=== PATIENT | male | born 1935 | race Caucasian/White ===

== ENCOUNTER 2017-03-06 09:24 | Emergency (ER) | payer MEDICARE, MEDICAID ==
[~2017-03-06] VITALS: Ht 167.6 cm; Wt 65.8 kg
[~2017-03-06 09:24] MED LIST: BISACODYL5 MG ORAL; CARAFATE1 G1 ORAL; CARBIDOPA-LEVO1 EAC1 PO; CEPHALEXIN500 M1 ORAL; CITALOPRAM HBR10 M1 ORAL; CRANBERRY CONC1 EAC1 PO; CULTURELLE1 EACH ORAL; DAILY VITAMIN1 EAC4 ORAL; DILANTIN50 MG ORAL; DOCUSATE SODIU100 MG ORAL; ENSURE LIQUID237 ML PO; FLOMAX0.4 MG ORAL; KEPPRA500 MG ORAL; LEVAQUIN750 MG ORAL; LEVOTHYROXINE25 MCG ORAL; MONTELUKAST SOD10 MG ORAL; PANTOPRAZOLE SO40 MG ORAL; QUETIAPINE FUMA50 MG ORAL; RANITIDINE HCL150 M2 PO; RISPERDAL0.5 MG ORAL; SENNA LAX8.6 MG PO; SINEMET 25-1001 EAC1 ORAL; SINEMET CR 50-1 EACH ORAL; VITAMIN D250000 UNI1 ORAL; [UNRECOGNIZED DRUG - OTHER] PO
[2017-03-06] MEDS ORDERED: LEVOTHYROXINE125 MCG ORAL (10:03)
[2017-03-06] MEDS ORDERED: BETHANECHOL CHL10 MG ORAL (10:03)
[2017-03-06] MEDS ORDERED: CRANBERRY200 M1 PO (10:03)
[2017-03-06] MEDS ORDERED: ZINC SULFATE220 M1 ORAL (10:03)
[2017-03-06] MEDS ORDERED: VITAMIN C500 MG/11 PO (10:03)
[2017-03-06] MEDS ORDERED: CULTURELLE CAP1 EAC1 PO (10:03)
[2017-03-06] MEDS ORDERED: OMEGA 3 1,0001 EACH PO (10:03)
--- NOTE | 2017-03-06 10:35 | Diagnostic Imaging Report ---
Indications: Left hand trauma Technique: 4 views left hand Findings: Comparison: None The fifth middle phalanx demonstrates complete bone width ulnar displacement relative to the proximal phalanx, with overriding and virtually 90? angulation. Surrounding soft tissues are swollen. No obvious fracture identified. No soft tissue gas or foreign body. IMPRESSION: Dislocation of the fifth proximal interphalangeal joint as described
--- NOTE | 2017-03-06 11:28 | Emergency Room Report ---
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 There was no reports of head injury no reports of vomiting or diarrhea Allergies: Coded Allergies: No Known Allergies (Verified , 02/21/07) Patient History Limited by: medical condition Past Medical History: see triage record Pertinent Family History: unable to obtain Reviewed Nursing Documentation: PMH: Agreed, PSxH: Agreed Nursing Documentation-PMH Hx Hypertension: Yes Hx COPD: Yes Hx Diabetes: No - hypothyroid Hx Cancer: No Hx Gastrointestinal Problems: Yes - GERD History Of Psychiatric Problem: Yes Hx Neurological Problems: Yes - Parkinson's Hx Parkinson's Disease: Yes Hx Seizures: Yes Review of Systems All Other Systems: limited - Other than the ones mentioned in the history of present illness all others are reviewed however they do stay limited due to the patient's mental status Physical Exam Vital Signs Date Time Temp Pulse Resp B/P Pulse Ox O2 Delivery O2 Flow Rate FiO2 03/06/17 09:28 98.1 68 20 129/60 100 Room Air Sp02 EP Interpretation: reviewed, normal General Appearance: no apparent distress Head: normocephalic, atraumatic Eyes: bilateral eye PERRL ENT: no angioedema Respiratory: lungs clear Cardiovascular #1: regular rate, rhythm Gastrointestinal: non tender, soft Musculoskeletal: other - Patient has gross deformity to the left small finger at the distal aspect pointing laterally no obvious laceration Neurologic: other - Patient is not verbal, significant dementia Skin: other - No other obvious hematomas or bruising Lymphatic: no adenopathy Procedures Splinting Splinting : Consent: Emergent Location: left small finger Pre-Made Type: metal Splint: finger Pre-Proc Neuro Vasc Exam: normal Post-Proc Neuro Vasc Exam: normal Patient Tolerated: Well Complications: None Joint Reduction Joint Reduction : Consent: Emergent Joint Reduction Site: other - left small finger Procedural Sedation: No Reduction Attempts: One Pre-Procedure NV Exam: Yes Post-Procedure NV Exam: Yes Post Joint Reduction Film: joint reduced Patient Tolerated: Well Complications: None Progress With mild traction and medial maneuvering the distal aspect of the left finger was reduced clinically Medical Decision Making Diagnostic Impression: Primary Impression: finger dislocation Additional Impression: reduction of dislocation ER Course Given the patient's multiple medical conditions, given the presentation and the appearance, further procedural sedation was not performed, patient had reduction as noted above and tolerated the procedure well Imaging reveals appropriate reduction And patient is stable for close outpatient followup Other X-Ray Diagnostic Results Other X-Ray Diagnostic Results #1: # of Views/Limited Vs Complete: 3 View Indication: Pain EP Interpretation: Yes Interpretation: no fractures, other - Distal dislocation laterally, no obvious foreign body Impression: Other - finger dislocation Interpreting ER Provider: Katina Wise DO Other X-Ray Diagnostic Results #2: # of Views/Limited Vs Complete: 2 View Indication: Other - reduction EP Interpretation: Yes Interpretation: no dislocation, no soft tissue swelling, no fractures, other - reduction Impression: No acute disease Interpreting ER Provider: Katina Wise DO Last Vital Signs Date Time Temp Pulse Resp B/P Pulse Ox O2 Delivery O2 Flow Rate FiO2 03/06/17 09:28 98.1 68 20 129/60 100 Room Air Status: improved Disposition: HOME, SELF-CARE Condition: Improved Referrals: Shayla Gandhi MD (PCP) Patient Instructions: Finger or Thumb Dislocation, [id number] Additional Instructions: Patient is provided with the discharge instructions notified to follow up with primary doctor in the next 2-3 days otherwise return to the er with any worsening symptoms. Please note that this report is being documented using DRAGON technology. This can lead to erroneous entry secondary to incorrect interpretation by the dictating instrument. KATINA WISE D.O. Mar 06, 2017 11:28
[2017-03-06 11:52] VITALS: BP 118/76
[2017-03-06 11:57] VITALS: BP 118/76
--- NOTE | 2017-03-06 12:39 | Diagnostic Imaging Report ---
Indications: Status post closed reduction of dislocated left fifth proximal interphalangeal joint Technique: Views left hand at 1055 Findings: Comparison: 1004 Left fifth proximal and middle phalanges are now anatomically aligned. Tiny calcific versus ossific density projects immediately lateral to the head of the fifth proximal phalanx. No additional fracture identified. Surrounding soft tissues are swollen. Splint has been applied. IMPRESSION: Successful anatomic closed reduction of dislocated left fifth proximal phalangeal joint Questionable tiny avulsion fracture adjacent to fifth proximal phalangeal head
== END 2017-03-06 12:01 | disposition home or self-care (01) ==
LOC: EMR 10:17
DX: S63.287A Dislocation of proximal interphalangeal joint of left little finger, initial encounter (principal); W19.XXXA Unspecified fall, initial encounter; Y92.10 Unspecified residential institution as the place of occurrence of the external cause; G20 Parkinson's disease; F02.80 Dementia in other diseases classified elsewhere, unspecified severity, without behavioral disturbance, psychotic disturbance, mood disturbance, and anxiety; J44.9 Chronic obstructive pulmonary disease, unspecified; I10 Essential (primary) hypertension; K21.9 Gastro-esophageal reflux disease without esophagitis
CPT/HCPCS: 99284

== ENCOUNTER 2018-01-23 09:00 | Inpatient (IN) | payer MEDICARE, MEDICAID ==
[~2018-01-23] VITALS: Ht 172.7 cm; Wt 57.6 kg
[~2018-01-23 09:00] MED LIST changes: +BETHANECHOL CHL10 MG ORAL; +CRANBERRY200 M1 PO; +CULTURELLE CAP1 EAC1 PO; +LEVOTHYROXINE125 MCG ORAL; +LR 1000ml ONE; +NS Irrig 1000ml ONE; +OMEGA 3 1,0001 EACH PO; +Sterile Water Irrig 1000ml IRRIG ONE; +VITAMIN C500 MG/11 PO; +ZINC SULFATE220 M1 ORAL
[2018-01-23] MEDS ORDERED: LORazepam Inj 2mg/ml 1ml IV ONE (10:00)
--- NOTE | 2018-01-23 10:14 | Emergency Room Report ---
History of Present Illness General Chief Complaint: Choking Source: Patient, Medical Record Present Illness HPI 82-year-old male presents ED for evaluation. Patient had choking episode today at his assisted living. Witnessed by nurses. Patient has dementia but is able to speak. Speaking without difficulty. Is drooling which is at patient's baseline. O2 sats are okay. No signs of distress upon arrival. Patient unable provide any additional history at this time. No other aggravating relieving factors. Denies any other associated symptoms Allergies: Coded Allergies: No Known Allergies (Verified , 02/21/07) Patient History Past Medical History: HTN, COPD, seizures, other - parkinsons Past Surgical History: none Pertinent Family History: none Social History: Denies: smoking, alcohol use, drug use Immunizations: UTD Reviewed Nursing Documentation: PMH: Agreed; PSxH: Agreed Nursing Documentation-PMH Hx Cardiac Problems: No - HYPOTHYROIDISM BPH COPD PARKINSONS GERD Hx Hypertension: Yes Hx COPD: Yes Hx Diabetes: No - hypothyroid Hx Cancer: No Hx Gastrointestinal Problems: Yes - GERD Hx Neurological Problems: Yes - Parkinson's Hx Parkinson's Disease: Yes Hx Seizures: Yes Review of Systems All Other Systems: limited Physical Exam Vital Signs Date Time Temp Pulse Resp B/P (MAP) Pulse Ox O2 Delivery O2 Flow Rate FiO2 01/23/18 08:59 98.7 68 20 128/48 100 Room Air 98.8 Sp02 EP Interpretation: reviewed, normal General Appearance: no apparent distress, alert, GCS 15, non-toxic, other - dementia Head: normocephalic Eyes: bilateral eye normal inspection, bilateral eye PERRL ENT: normal ENT inspection Neck: full range of motion, supple/symm/no masses, other - no stridor Respiratory: chest non-tender, lungs clear, normal breath sounds, speaking full sentences Cardiovascular #1: regular rate, rhythm, no edema Gastrointestinal: normal inspection Rectal: deferred Genitourinary: no CVA tenderness Musculoskeletal: normal inspection Neurologic: other - tremulous Psychiatric: other - dementia/parkinsons Skin: normal inspection Lymphatic: normal inspection Medical Decision Making Diagnostic Impression: Primary Impression: Choking Qualified Codes: T17.308A - Unspecified foreign body in larynx causing other injury, initial encounter Additional Impression: Foreign body ingestion Qualified Codes: T18.9XXA - Foreign body of alimentary tract, part unspecified , initial encounter ER Course Hospital Course 82-year-old M presenting to ED with respiratory distress, ? choking episode Differential diagnoses include: Pneumonia, CHF exacerbation, pneumothorax, fluid overload Clinical course Patient placed on stretcher. On night monitor. After initial history and physical, I suctioning. I ordered labs, IV fluids, EKG, chest x-ray, blood cultures, UA. Patient placed on nasal cannula with O2 saturation improving Patient has no evidence of airway compromise. No stridor. Lungs sounds bilaterally. Labs -no leukocytosis, hemoglobin/hematocrit stable, electrolytes okay, lactate okay troponins negative EKG - NSR, no acute ischemic changes interpreted by me CXR - R upper lobe infiltrate CT chest shows evidence of metallic foreign body in the stomach. no perforation or obstruction Case discussed with Dr. Gandhi and he agreed to the patient to his service for further care and support I feel this is a highly complex case requiring extensive working including EKG/ Rhythm strip, Xray/CT/US, Blood/urine lab work, repeat exams while in ED, and administration of strong opiates/narcotics for pain control, admission to hospital or close patient follow up. Diagnosis - choking, foreign body ingestion Patient admitted to telemetry in serious condition Labs Test 01/23/18 09:36 01/23/18 09:50 01/23/18 10:06 01/23/18 13:50 Arterial Blood pH 7.390 (7.350-7.450) Arterial Blood Partial Pressure CO2 44.1 mmHg (35.0-45.0) Arterial Blood Partial Pressure O2 73.2 mmHg (75.0-100.0) Arterial Blood HCO3 26.1 mmol/L (22.0-26.0) Arterial Blood Oxygen Saturation 93.8 % (92.0-98.0) Arterial Blood Base Excess 0.8 Wyatt Test Positive White Blood Count 6.4 K/UL (4.8-10.8) Red Blood Count 4.20 M/UL (4.70-6.10) Hemoglobin 13.7 G/DL (14.2-18.0) Hematocrit 41.0 % (42.0-52.0) Mean Corpuscular Volume 98 FL (80-99) Mean Corpuscular Hemoglobin 32.6 PG (27.0-31.0) Mean Corpuscular Hemoglobin Concent 33.4 G/DL (32.0-36.0) Red Cell Distribution Width 12.0 % (11.6-14.8) Platelet Count 145 K/UL (150-450) Mean Platelet Volume 7.3 FL (6.5-10.1) Neutrophils (%) (Auto) 58.8 % (45.0-75.0) Lymphocytes (%) (Auto) 33.4 % (20.0-45.0) Monocytes (%) (Auto) 4.3 % (1.0-10.0) Eosinophils (%) (Auto) 2.2 % (0.0-3.0) Basophils (%) (Auto) 1.3 % (0.0-2.0) Sodium Level 141 MMOL/L (136-145) Potassium Level 3.9 MMOL/L (3.5-5.1) Chloride Level 105 MMOL/L (98-107) Carbon Dioxide Level 30 MMOL/L (21-32) Anion Gap 6 mmol/L (5-15) Blood Urea Nitrogen 22 mg/dL (7-18) Creatinine 1.0 MG/DL (0.55-1.30) Estimat Glomerular Filtration Rate mL/min (>60) Glucose Level 97 MG/DL (74-106) Lactic Acid Level 2.00 mmol/L (0.4-2.0) Calcium Level 8.6 MG/DL (8.5-10.1) Total Bilirubin 0.3 MG/DL (0.2-1.0) Aspartate Amino Transf (AST/SGOT) 15 U/L (15-37) Alanine Aminotransferase (ALT/SGPT) 18 U/L (12-78) Alkaline Phosphatase 107 U/L (46-116) Total Creatine Kinase 59 U/L (26-308) Creatine Kinase MB 0.7 NG/ML (0.0-3.6) Creatine Kinase MB Relative Index 1.1 Troponin I 0.000 ng/mL (0.000-0.056) Pro-B-Type Natriuretic Peptide 320 pg/mL (0-125) Total Protein 7.0 G/DL (6.4-8.2) Albumin 3.3 G/DL (3.4-5.0) Globulin 3.7 g/dL Albumin/Globulin Ratio 0.9 (1.0-2.7) Urine Color Yellow Urine Appearance Slightly cloudy Urine pH 6 (4.5-8.0) Urine Specific [place] 1.015 (1.005-1.035) Urine Protein Negative (NEGATIVE) Urine Glucose (UA) Negative (NEGATIVE) Urine Ketones 1+ (NEGATIVE) Urine Occult Blood 1+ (NEGATIVE) Urine Nitrite Negative (NEGATIVE) Urine Bilirubin Negative (NEGATIVE) Urine Urobilinogen Normal MG/DL (0.0-1.0) Urine Leukocyte Esterase 1+ (NEGATIVE) Urine RBC 2-4 /HPF (0 - 0) Urine WBC 20-30 /HPF (0 - 0) Urine Squamous Epithelial Cells Occasional /LPF Urine Bacteria Many /HPF (NONE) EKG Diagnostic Results Rate: normal Rhythm: NSR ST Segments: no acute changes ASA given to the pt in ED: No Rhythm Strip Diag. Results EP Interpretation: yes Rhythm: NSR, no PVC's, no ectopy Chest X-Ray Diagnostic Results Chest X-Ray Diagnostic Results : Chest X-Ray Ordered: Yes # of Views/Limited/Complete: 1 View Indication: Shortness of Breath EP Interpretation: Yes Interpretation: no consolidation, no effusion, no pneumothorax, no acute cardiopulmonary disease Impression: No acute disease Electronically Signed by: Electronically signed by Phan Tijerina MD CT/MRI/US Diagnostic Results CT/MRI/US Diagnostic Results : Imaging Test Ordered: CT Chest Impression 5 x 1 x 1.3 cm radiopaque foreign body in the distal part of the stomach. The nature of the foreign body is unknown. Please correlate clinically. No evidence of perforation or obstruction. Last Vital Signs Date Time Temp Pulse Resp B/P (MAP) Pulse Ox O2 Delivery O2 Flow Rate FiO2 01/23/18 08:59 98.7 68 20 128/48 100 Room Air 98.8 Status: improved Disposition: ADMITTED INPATIENT Condition: Serious Referrals: Shayla Gandhi MD (PCP) Phan Tijerina MD Jan 23, 2018 10:14
[2018-01-23 10:25] LABS: BASOPHILS % (AUTO) 1.3 % (0.0-2.0); EOSINOPHILS % (AUTO) 2.2 % (0.0-3.0); HEMOGLOBIN 13.7 G/DL (14.2-18.0); LYMPHOCYTES % (AUTO) 33.4 % (20.0-45.0); MEAN CORPUSCULAR VOLUME 98 FL (80-99); MONOCYTES % (AUTO) 4.3 % (1.0-10.0); NEUTROPHILS % (AUTO) 58.8 % (45.0-75.0); PLATELET COUNT 145 K/UL (150-450); WHITE BLOOD COUNT 6.4 K/UL (4.8-10.8)
[2018-01-23 10:47] LABS: APPEARANCE,URINE SLIGHTLY CLOUDY; BILIRUBIN, URINE NEGATIVE (NEGATIVE); GLUCOSE, URINE (UA) NEGATIVE (NEGATIVE); KETONES,URINE 1+ (NEGATIVE); LEUKOCYTE ESTERASE ,URINE 1+ (NEGATIVE); NITRITE,URINE NEGATIVE (NEGATIVE); PH,URINE 6 (4.5-8.0); PROTEIN,URINE NEGATIVE (NEGATIVE); UROBILINOGEN,URINE NORMAL MG/DL (0.0-1.0)
[2018-01-23 10:50] LABS: COLOR,URINE YELLOW
[2018-01-23 11:00] VITALS: BP 107/56
[2018-01-23 11:00] LABS: ANION GAP 6 mmol/L (5-15); BLOOD UREA NITROGEN 22 mg/dL (7-18); CALCIUM 8.6 MG/DL (8.5-10.1); CARBON DIOXIDE 30 MMOL/L (21-32); CHLORIDE 105 MMOL/L (98-107); POTASSIUM 3.9 MMOL/L (3.5-5.1); SODIUM 141 MMOL/L (136-145)
[2018-01-23] MEDS ORDERED: Sodium Chloride 500ML 500 ML IV ONE (11:00)
--- NOTE | 2018-01-23 11:03 | Diagnostic Imaging Report ---
Indication: Dyspnea Comparison: 08/14/2014 A single view chest radiograph was obtained. Findings: Cardiomediastinal appearance is within normal limits for age. Pulmonary vascularity is appropriate. The diaphragmatic contour is smooth and costophrenic angles are sharp. No pleural effusions are identified. The bones are osteopenic. Impression: No acute findings
[2018-01-23 11:17] LABS: ALANINE AMINOTRANSFERASE 18 U/L (12-78); ALBUMIN 3.3 G/DL (3.4-5.0); ALBUMIN/GLOBULIN RATIO 0.9 (1.0-2.7); ALKALINE PHOSPHATASE 107 U/L (46-116); ASPARTATE AMINO TRANSFERASE 15 U/L (15-37); BILIRUBIN,TOTAL 0.3 MG/DL (0.2-1.0); CKMB 0.7 NG/ML (0.0-3.6); CREATINE KINASE 59 U/L (26-308)
[2018-01-23] MEDS ORDERED: ZOFRAN ODT8 MG ORAL (11:28)
[2018-01-23 13:00] VITALS: BP 118/51
--- NOTE | 2018-01-23 13:45 | Diagnostic Imaging Report ---
Indication: Chest pain. Patient swallowed a foreign body Technique: Continuous helical transaxial imaging of the chest was obtained from the thoracic inlet to the upper abdomen. No intravenous contrast was administered. Coronal 2-D reformats were also obtained. Total Dose length Product (DLP): 593.[address] Dose Index Volume (CTDIvol): 17.98 mGy Comparison: none Findings: The esophagus is mildly dilated. The hiatal hernia is present moderate in degree. Within the distal part of the stomach near the pylorus there is a radiopaque structure the nature of which is not known measuring about 1 x 1.3 x 5 cm. The structure appears to be paired with 2 parallel radiopaque rods, both measuring about 5 cm in length. The stomach does not appear dilated proximal to this as this does not appear to be obstructive. There is no associated perforation identified as no free air is seen. Recommend obtaining plain film as a this may help with identification. Correlate clinically as well. There is a ill-defined reticular density at the right lung base probably atelectasis or scarring. Coronary and aortic calcifications are noted. Mild kyphosis noted. IMPRESSION: 5 x 1 x 1.3 cm radiopaque foreign body in the distal part of the stomach. The nature of the foreign body is unknown. Please correlate clinically. No evidence of perforation or obstruction. Incidental findings include the mildly distended esophagus, hiatal hernia, scarring versus atelectasis at the right lung base, atherosclerotic vascular disease, kyphosis and degenerative changes of the thoracic spine. The CT scanner at [facility] is accredited by the [employer] and the scans are performed using dose optimization techniques as appropriate to a performed exam including Automatic Exposure control.
--- NOTE | 2018-01-23 14:45 | Diagnostic Imaging Report ---
Indication: Neck pain. Technique: Continuous helical imaging of the neck was obtained transaxially from the skull base to the upper thoracic spine. 2-D coronal and sagittal reformatted images were obtained. Total Dose length Product (DLP): 628.[address] Dose Index Volume (CTDIvol): 18.96 mGy Comparison: None Findings: No mass or adenopathy identified. There is mucosal thickening within the visualized portion of the paranasal sinuses. No abnormal fluid collections are seen. Moderate calcification of the carotid bifurcations and the aorta demonstrated. The lung apices are essentially clear. Epiglottis appears normal. Aryepiglottic folds, larynx and subglottic airway appear clear. The visualized part of the upper esophagus appears unremarkable. No radiopaque foreign body is seen. IMPRESSION: No radiopaque foreign body identified within the neck. Incidental findings as above. Please refer to the CT chest report The CT scanner at [facility] is accredited by the [employer] and the scans are performed using dose optimization techniques as appropriate to a performed exam including Automatic Exposure control.
--- NOTE | 2018-01-23 16:54 | GI Initial Consult Note ---
History of Present Illness General Date patient seen: Jan 23, 2018 Time patient seen: 16:48 Reason for Hospitalization: Choking Referring physician: JERRY LA Reason for Consultation: PICA Present Illness HPI 82-year-old male presents ED for evaluation. Patient had choking episode today at his assisted living. Witnessed by nurses. Patient has dementia but is able to speak. Speaking without difficulty. Is drooling which is at patient's baseline. O2 sats are okay. No signs of distress upon arrival. Patient unable provide any additional history at this time. No other aggravating relieving factors. Denies any other associated symptoms. GI consulted for ingestion of foreign body. ROS limited, however the patient is able to answer simple questions. Denies any pain. States he did not eat anything. Pt seen, awake A&OX4 NAD with no active s/sx of N/V/D. Appeared to be anxious. CTAP revealed a 5 x 1 x 1.3 cm radiopaque foreign body in the distal part of the stomach. The nature of the foreign body is unknown. In addition, incidental findings include the mildly distended esophagus, hiatal hernia, scarring versus atelectasis at the right lung base, atherosclerotic vascular disease, kyphosis and degenerative changes of the thoracic spine. Unknown history of endoscopy / colonoscopy. Home Meds Reported Medications Ondansetron Odt* (ZOFRAN ODT*) 8 Mg Tab.rapdis, 8 MG ORAL Q6H PRN for Nausea & Vomiting, #30 TAB 01/23/18 Bethanechol* (BETHANECHOL*) 10 Mg Tablet, 25 MG ORAL FOUR TIMES A DAY, TAB 03/06/17 [place]-3 Fatty Acids/Fish Oil (OMEGA 3 1,000 MG SOFTGEL) 1 Each Capsule, 1 EACH PO BID, CAP 03/06/17 Zinc Sulfate (ZINC SULFATE*) 220 Mg Capsule, 220 MG ORAL DAILY, CAP 0 Refills 03/06/17 Vit C/Ascorbate Ca/Ascorb Sod (VITAMIN C 500 MG/15 ML LIQUID) 500 Mg/15 Ml Liquid, 500 MG PO DAILY, ML 03/06/17 L. Rhamnosus GG/Inulin (Culturelle Capsule) 1 Each Cap.sprink, 1 EACH PO DAILY, CAP 03/06/17 Cranberry Extract (CRANBERRY) 200 Mg Capsule, 200 MG PO DAILY, CAP 03/06/17 Levothyroxine Sodium* (LEVOTHYROXINE SODIUM*) 125 Mcg Tablet, 125 MCG ORAL DAILY , TAB Take in the morning on an empty stomach, at least 30 minutes before food. 03/06/17 Cranberry Conc/Ascorbic Acid (CRANBERRY CONCENTRATE SOFTGEL) 1 Each Capsule, 1 EACH PO DAILY, CAP 08/14/14 Bisacodyl* (DULCOLAX*) 5 Mg Tablet.dr, 5 MG ORAL EVERY 12 HOURS PRN for Constipation, #10 TAB 0 Refills 08/14/14 Quetiapine Fumarate* (QUETIAPINE FUMARATE*) 50 Mg Tablet, 100 MG ORAL BID, TAB 08/14/14 Montelukast Sodium* (MONTELUKAST SODIUM*) 10 Mg Tablet, 10 MG ORAL HS, TAB 08/14/14 Ranitidine HCl (Ranitidine HCl) 150 Mg Tablet, 150 MG PO HS, TAB 08/14/14 Sucralfate* (CARAFATE*) 1 Gm Tablet, 1 GM ORAL FOUR TIMES A DAY, TAB 08/14/14 Carbidopa/Levodopa 25-100 Mg* (SINEMET 25-100 MG TABLET*) 1 Each Tablet, ORAL THREE TIMES A DAY, TAB 08/14/14 Lactobacillus Rhamnosus Gg* (CULTURELLE*) 1 Each Capsule, 1 CAP ORAL BID, CAP 08/14/14 Sennosides (SENNA LAX) 8.6 Mg Tablet, 17.2 MG PO BID, TAB 08/14/14 Phenytoin (Dilantin) 50 Mg Tab, 300 MG ORAL HS, #90 TAB 0 Refills 08/14/14 Ergocalciferol (Vitamin D2)* (VITAMIN D*) 50,000 Unit Capsule, 66592 UNIT ORAL ONCE A WEEK, CAP 02/16/14 Levetiracetam (Keppra) 500 Mg Tab, 500 MG ORAL EVERY 12 HOURS, #50 TAB 0 Refills 02/16/14 Lactose-Free Food (ENSURE LIQUID) 237 Ml Liquid, 237 ML PO BID, ML 02/16/14 Cephalexin* (CEPHALEXIN*) 500 Mg Tablet, 500 MG ORAL Q12HR, #14 CAP 0 Refills 03/10/13 Levofloxacin* (LEVAQUIN*) 750 Mg Tablet, 750 MG ORAL DAILY, TAB 0 Refills 03/10/13 Carbidopa/Levodopa Cr 50-200* (SINEMET CR 50-200 TABLET*) 1 Each Tablet.er, 1 TAB ORAL QHS, TAB 03/10/13 Risperidone* (RISPERDAL*) 0.5 Mg Tablet, 1 MG ORAL BID, #30 TAB 0 Refills 03/10/13 Citalopram Hydrobromide* (CITALOPRAM HBR*) 10 Mg Tablet, 10 MG ORAL DAILY, #30 TAB 0 Refills 03/10/13 Docusate Sodium* (DOCUSATE SODIUM*) 100 Mg Capsule, 100 MG ORAL TWICE A DAY, CAP 03/10/13 Multivitamin (DAILY VITAMIN) 1 Each Tablet, 1 TAB ORAL DAILY, #30 TAB 0 Refills 03/10/13 Tamsulosin HCl (Flomax) 0.4 Mg Cap, 0.4 MG ORAL DAILY, #30 TAB 0 Refills 03/10/13 Guaifenesin/Dextromethorphan (Q-Tussin Dm Syrup) 240 Ml Syrup, 240 ML PO PRN 03/10/13 Pantoprazole* (PANTOPRAZOLE*) 40 Mg Tablet.dr, 40 MG ORAL BID, #30 TAB 0 Refills 03/10/13 Levothyroxine Sodium* (LEVOTHYROXINE SODIUM*) 25 Mcg Tablet, 50 MCG ORAL DAILY, #30 TAB 0 Refills Take in the morning on an empty stomach, at least 30 minutes before food. 03/10/13 Med list reviewed/reconciled: Yes Allergies: Coded Allergies: No Known Allergies (Verified , 02/21/07) Patient History Limited by: medical condition History Provided By: Patient, Medical Record PMH Narrative Past Medical History: HTN, COPD, seizures, other - parkinsons Past Surgical History: none Pertinent Family History: none Social History: Denies: smoking, alcohol use, drug use Immunizations: UTD Reviewed Nursing Documentation: PMH: Agreed; PSxH: Agreed Nursing Documentation-PMH Hx Cardiac Problems: No - HYPOTHYROIDISM BPH COPD PARKINSONS GERD Hx Hypertension: Yes Hx COPD: Yes Hx Diabetes: No - hypothyroid Hx Cancer: No Hx Gastrointestinal Problems: Yes - GERD Hx Neurological Problems: Yes - Parkinson's Hx Parkinson's Disease: Yes Hx Seizures: Yes Social History: Denies: smoking, alcohol use, drug use, other Review of Systems All Other Systems: negative except mentioned in HPI Physical Exam Vital Signs Date Time Temp Pulse Resp B/P (MAP) Pulse Ox O2 Delivery O2 Flow Rate FiO2 01/23/18 08:59 98.7 68 20 128/48 100 Room Air 98.8 Sp02 EP Interpretation: reviewed, normal Labs Laboratory Tests Test 01/23/18 09:36 01/23/18 09:50 01/23/18 10:06 01/23/18 13:50 Arterial Blood pH 7.390 (7.350-7.450) Arterial Blood Partial Pressure CO2 44.1 mmHg (35.0-45.0) Arterial Blood Partial Pressure O2 73.2 mmHg (75.0-100.0) L Arterial Blood HCO3 26.1 mmol/L (22.0-26.0) H Arterial Blood Oxygen Saturation 93.8 % (92.0-98.0) Arterial Blood Base Excess 0.8 Wyatt Test Positive White Blood Count 6.4 K/UL (4.8-10.8) Red Blood Count 4.20 M/UL (4.70-6.10) L Hemoglobin 13.7 G/DL (14.2-18.0) L Hematocrit 41.0 % (42.0-52.0) L Mean Corpuscular Volume 98 FL (80-99) Mean Corpuscular Hemoglobin 32.6 PG (27.0-31.0) H Mean Corpuscular Hemoglobin Concent 33.4 G/DL (32.0-36.0) Red Cell Distribution Width 12.0 % (11.6-14.8) Platelet Count 145 K/UL (150-450) L Mean Platelet Volume 7.3 FL (6.5-10.1) Neutrophils (%) (Auto) 58.8 % (45.0-75.0) Lymphocytes (%) (Auto) 33.4 % (20.0-45.0) Monocytes (%) (Auto) 4.3 % (1.0-10.0) Eosinophils (%) (Auto) 2.2 % (0.0-3.0) Basophils (%) (Auto) 1.3 % (0.0-2.0) Sodium Level 141 MMOL/L (136-145) Potassium Level 3.9 MMOL/L (3.5-5.1) Chloride Level 105 MMOL/L (98-107) Carbon Dioxide Level 30 MMOL/L (21-32) Anion Gap 6 mmol/L (5-15) Blood Urea Nitrogen 22 mg/dL (7-18) H Creatinine 1.0 MG/DL (0.55-1.30) Estimat Glomerular Filtration Rate mL/min (>60) Glucose Level 97 MG/DL (74-106) Lactic Acid Level 2.00 mmol/L (0.4-2.0) 0.80 mmol/L (0.66-2.22) Calcium Level 8.6 MG/DL (8.5-10.1) Total Bilirubin 0.3 MG/DL (0.2-1.0) Aspartate Amino Transf (AST/SGOT) 15 U/L (15-37) Alanine Aminotransferase (ALT/SGPT) 18 U/L (12-78) Alkaline Phosphatase 107 U/L (46-116) Total Creatine Kinase 59 U/L (26-308) Creatine Kinase MB 0.7 NG/ML (0.0-3.6) Creatine Kinase MB Relative Index 1.1 Troponin I 0.000 ng/mL (0.000-0.056) Pro-B-Type Natriuretic Peptide 320 pg/mL (0-125) H Total Protein 7.0 G/DL (6.4-8.2) Albumin 3.3 G/DL (3.4-5.0) L Globulin 3.7 g/dL Albumin/Globulin Ratio 0.9 (1.0-2.7) L Urine Color Yellow Urine Appearance Slightly cloudy Urine pH 6 (4.5-8.0) Urine Specific [place] 1.015 (1.005-1.035) Urine Protein Negative (NEGATIVE) Urine Glucose (UA) Negative (NEGATIVE) Urine Ketones 1+ (NEGATIVE) H Urine Occult Blood 1+ (NEGATIVE) H Urine Nitrite Negative (NEGATIVE) Urine Bilirubin Negative (NEGATIVE) Urine Urobilinogen Normal MG/DL (0.0-1.0) Urine Leukocyte Esterase 1+ (NEGATIVE) H Urine RBC 2-4 /HPF (0 - 0) H Urine WBC 20-30 /HPF (0 - 0) H Urine Squamous Epithelial Cells Occasional /LPF Urine Bacteria Many /HPF (NONE) H General Appearance: well appearing, no apparent distress, alert, thin Head: normocephalic EENT: PERRL/EOMI, normal ENT inspection Neck: supple Respiratory: normal breath sounds, no respiratory distress Cardiovascular: normal rate Gastrointestinal: normal inspection, non tender, soft, normal bowel sounds, non -distended Rectal: deferred Genitourinary: deferred Musculoskeletal: normal inspection, back normal Neurologic: alert, responsive Skin: normal inspection, normal color, no rash, warm/dry, palpation normal, well hydrated Lymphatic: normal inspection, no adenopathy Current Medications Current Medications Medications (Trade) Dose Ordered Sig/Ana Route PRN Reason Start Time Stop Time Status Last Admin Dose Admin Dextrose (Dextrose 50%) 25 ml STAT PRN IV Hypoglycemia 01/23/18 15:15 02/22/18 15:14 Dextrose (Dextrose 50%) 50 ml STAT PRN IV Hypoglycemia 01/23/18 15:15 02/22/18 15:14 Levetiracetam 100 ml @ 400 mls/hr Q12HR IVPB 01/23/18 21:00 02/22/18 20:59 Pantoprazole (Protonix) 40 mg DAILY IV 01/24/18 09:00 02/23/18 08:59 Sodium Chloride 1,000 ml @ 75 mls/hr [id number] IVLG 01/23/18 16:00 02/22/18 15:59 01/23/18 16:13 GI: Plan Problems: (1) Foreign body ingestion (2) Choking (3) Altered mental status (4) Small bowel obstruction Plan EGD scheduled tomorrow given ingestion of foreign body. - maintain NPO + IVFs serial imaging prn ST evaluation fu labs will follow with additional recs Discussed with Dr. Yoo. Thank you for this patient referral, we will follow. The patient was seen and examined at bedside and all new and available data was reviewed in the patients chart. I agree with the above findings, impression and plan. (Patient seen earlier today. Signature stamp does not reflect patient encounter time.). - MD Diane Keller,[facility]-[employer] ENDORSEMENT CLERK Jan 23, 2018 16:54
--- NOTE | 2018-01-23 19:35 | History and Physical ---
History of Present Illness General Date patient seen: Jan 23, 2018 Reason for Hospitalization: Choking Present Illness HPI history and physical [id number] Shayla Gandhi MD Allergies: Coded Allergies: No Known Allergies (Verified , 02/21/07) Medication History Scheduled Bethanechol* (Bethanechol*), 25 MG ORAL FOUR TIMES A DAY, (Reported) Carbidopa/Levodopa 25-100 Mg* (Sinemet 25-100 Mg Tablet*), Unknown Dose ORAL THREE TIMES A DAY, (Reported) Carbidopa/Levodopa Cr 50-200* (Sinemet Cr 50-200 Tablet*), 1 TAB ORAL QHS, ( Reported) Cephalexin* (Cephalexin*), 500 MG ORAL Q12HR, (Reported) Citalopram Hydrobromide* (Citalopram Hbr*), 10 MG ORAL DAILY, (Reported) Cranberry Conc/Ascorbic Acid (Cranberry Concentrate Softgel), 1 EACH PO DAILY, ( Reported) Cranberry Extract (Cranberry), 200 MG PO DAILY, (Reported) Docusate Sodium* (Docusate Sodium*), 100 MG ORAL TWICE A DAY, (Reported) Ergocalciferol (Vitamin D2)* (Vitamin D*), 50,000 UNIT ORAL ONCE A WEEK, ( Reported) Guaifenesin/Dextromethorphan (Q-Tussin Dm Syrup), 240 ML PO PRN, (Reported) L. Rhamnosus GG/Inulin (Culturelle Capsule), 1 EACH PO DAILY, (Reported) Lactobacillus Rhamnosus Gg* (Culturelle*), 1 CAP ORAL BID, (Reported) Lactose-Free Food (Ensure Liquid), 237 ML PO BID, (Reported) Levetiracetam (Keppra), 500 MG ORAL EVERY 12 HOURS, (Reported) Levofloxacin* (Levaquin*), 750 MG ORAL DAILY, (Reported) Levothyroxine Sodium* (Levothyroxine Sodium*), 50 MCG ORAL DAILY, (Reported) Levothyroxine Sodium* (Levothyroxine Sodium*), 125 MCG ORAL DAILY, (Reported) Montelukast Sodium* (Montelukast Sodium*), 10 MG ORAL HS, (Reported) Multivitamin (Daily Vitamin), 1 TAB ORAL DAILY, (Reported) [place]-3 Fatty Acids/Fish Oil ([place] 3 1,000 Mg Softgel), 1 EACH PO BID, ( Reported) Pantoprazole* (Pantoprazole*), 40 MG ORAL BID, (Reported) Phenytoin (Dilantin), 300 MG ORAL HS, (Reported) Quetiapine Fumarate* (Quetiapine Fumarate*), 100 MG ORAL BID, (Reported) Ranitidine HCl (Ranitidine HCl), 150 MG PO HS, (Reported) Risperidone* (Risperdal*), 1 MG ORAL BID, (Reported) Sennosides (Senna Lax), 17.2 MG PO BID, (Reported) Sucralfate* (Carafate*), 1 GM ORAL FOUR TIMES A DAY, (Reported) Tamsulosin HCl (Flomax), 0.4 MG ORAL DAILY, (Reported) Vit C/Ascorbate Ca/Ascorb Sod (Vitamin C 500 Mg/15 Ml Liquid), 500 MG PO DAILY, (Reported) Zinc Sulfate (Zinc Sulfate*), 220 MG ORAL DAILY, (Reported) Scheduled PRN Bisacodyl* (Dulcolax*), 5 MG ORAL EVERY 12 HOURS PRN for Constipation, (Reported ) Ondansetron Odt* (Zofran Odt*), 8 MG ORAL Q6H PRN for Nausea & Vomiting, ( Reported) Patient History Healthcare decision maker [facility] [place] Resuscitation status Full Code Advanced Directive on File Physical Exam Last 24 Hour Vital Signs Date Time Temp Pulse Resp B/P (MAP) Pulse Ox O2 Delivery O2 Flow Rate FiO2 01/23/18 16:00 68 01/23/18 14:10 Room Air 01/23/18 14:00 98.7 66 16 118/51 97 Room Air 98.8 01/23/18 13:00 66 16 118/51 97 Room Air 01/23/18 11:00 74 15 107/56 96 Room Air 01/23/18 08:59 98.7 68 20 128/48 100 Room Air 98.8 Laboratory Tests Test 01/23/18 09:36 01/23/18 09:50 01/23/18 10:06 01/23/18 13:50 Arterial Blood pH 7.390 (7.350-7.450) Arterial Blood Partial Pressure CO2 44.1 mmHg (35.0-45.0) Arterial Blood Partial Pressure O2 73.2 mmHg (75.0-100.0) L Arterial Blood HCO3 26.1 mmol/L (22.0-26.0) H Arterial Blood Oxygen Saturation 93.8 % (92.0-98.0) Arterial Blood Base Excess 0.8 Wyatt Test Positive White Blood Count 6.4 K/UL (4.8-10.8) Red Blood Count 4.20 M/UL (4.70-6.10) L Hemoglobin 13.7 G/DL (14.2-18.0) L Hematocrit 41.0 % (42.0-52.0) L Mean Corpuscular Volume 98 FL (80-99) Mean Corpuscular Hemoglobin 32.6 PG (27.0-31.0) H Mean Corpuscular Hemoglobin Concent 33.4 G/DL (32.0-36.0) Red Cell Distribution Width 12.0 % (11.6-14.8) Platelet Count 145 K/UL (150-450) L Mean Platelet Volume 7.3 FL (6.5-10.1) Neutrophils (%) (Auto) 58.8 % (45.0-75.0) Lymphocytes (%) (Auto) 33.4 % (20.0-45.0) Monocytes (%) (Auto) 4.3 % (1.0-10.0) Eosinophils (%) (Auto) 2.2 % (0.0-3.0) Basophils (%) (Auto) 1.3 % (0.0-2.0) Sodium Level 141 MMOL/L (136-145) Potassium Level 3.9 MMOL/L (3.5-5.1) Chloride Level 105 MMOL/L (98-107) Carbon Dioxide Level 30 MMOL/L (21-32) Anion Gap 6 mmol/L (5-15) Blood Urea Nitrogen 22 mg/dL (7-18) H Creatinine 1.0 MG/DL (0.55-1.30) Estimat Glomerular Filtration Rate mL/min (>60) Glucose Level 97 MG/DL (74-106) Lactic Acid Level 2.00 mmol/L (0.4-2.0) 0.80 mmol/L (0.66-2.22) Calcium Level 8.6 MG/DL (8.5-10.1) Total Bilirubin 0.3 MG/DL (0.2-1.0) Aspartate Amino Transf (AST/SGOT) 15 U/L (15-37) Alanine Aminotransferase (ALT/SGPT) 18 U/L (12-78) Alkaline Phosphatase 107 U/L (46-116) Total Creatine Kinase 59 U/L (26-308) Creatine Kinase MB 0.7 NG/ML (0.0-3.6) Creatine Kinase MB Relative Index 1.1 Troponin I 0.000 ng/mL (0.000-0.056) Pro-B-Type Natriuretic Peptide 320 pg/mL (0-125) H Total Protein 7.0 G/DL (6.4-8.2) Albumin 3.3 G/DL (3.4-5.0) L Globulin 3.7 g/dL Albumin/Globulin Ratio 0.9 (1.0-2.7) L Urine Color Yellow Urine Appearance Slightly cloudy Urine pH 6 (4.5-8.0) Urine Specific [place] 1.015 (1.005-1.035) Urine Protein Negative (NEGATIVE) Urine Glucose (UA) Negative (NEGATIVE) Urine Ketones 1+ (NEGATIVE) H Urine Occult Blood 1+ (NEGATIVE) H Urine Nitrite Negative (NEGATIVE) Urine Bilirubin Negative (NEGATIVE) Urine Urobilinogen Normal MG/DL (0.0-1.0) Urine Leukocyte Esterase 1+ (NEGATIVE) H Urine RBC 2-4 /HPF (0 - 0) H Urine WBC 20-30 /HPF (0 - 0) H Urine Squamous Epithelial Cells Occasional /LPF Urine Bacteria Many /HPF (NONE) H Height (Feet): 5 Height (Inches): 8.00 Weight (Pounds): 127 Medications Current Medications Medications (Trade) Dose Ordered Sig/Ana Route PRN Reason Start Time Stop Time Status Last Admin Dose Admin Dextrose (Dextrose 50%) 25 ml STAT PRN IV Hypoglycemia 01/23/18 15:15 02/22/18 15:14 Dextrose (Dextrose 50%) 50 ml STAT PRN IV Hypoglycemia 01/23/18 15:15 02/22/18 15:14 Levetiracetam 100 ml @ 400 mls/hr Q12HR IVPB 01/23/18 21:00 02/22/18 20:59 Ondansetron HCl (Zofran) 4 mg Q6H PRN IVP Nausea & Vomiting 01/23/18 19:30 02/22/18 19:29 Pantoprazole (Protonix) 40 mg DAILY IV 01/24/18 09:00 02/23/18 08:59 Sodium Chloride 1,000 ml @ 75 mls/hr [id number] IVLG 01/23/18 16:00 02/22/18 15:59 01/23/18 16:13 Shayla Gandhi MD Jan 23, 2018 19:35
[2018-01-23] MEDS: levETIRAcetam 500mg/NS100ml 100 ML IVPB SCH (21:13)
[2018-01-23] MEDS: cefTRIAXone 1 GM in D5W 55 ML IVPB SCH (21:13)
[2018-01-24] VITALS (8 sets, daily range): BP systolic 100–140; BP diastolic 52–69
--- NOTE | 2018-01-24 04:00 | History and Physical Report ---
DATE OF ADMISSION: 01/23/2018 CHIEF COMPLAINT: Choking and foreign object ingestion. HISTORY OF PRESENT ILLNESS: This is an 82-year-old mentally retarded male with a history of Parkinson disease, seizure disorder, and history of pica, who lives in an assisted living. The patient was noted to be choking and drooling at the assisted living. This was witnessed by the nurses and as he had a history of pica, he was referred to the ER for evaluation. In the ER, he was evaluated, had a CT of the chest, abdomen, and pelvis, which showed a radiopaque foreign body in the distal part of the stomach measuring 5 x 1 x 1.3 cm. The patient is being admitted for GI workup and possible endoscopy for retrieving this foreign object. PAST MEDICAL HISTORY: History of seizure disorder, history of Parkinson disease, history of mental retardation, history of chronic constipation, history of benign prostatic hypertrophy, history of GERD, and history of hypothyroidism. HOME MEDICATIONS: Reconciled in CS link. ALLERGIES: No known drug allergies. FAMILY HISTORY: Noncontributory. SOCIAL HISTORY: No smoking, drugs, or alcohol use. REVIEW OF SYSTEMS: The patient is mentally retarded, unable to get accurate result. PHYSICAL EXAMINATION: VITAL SIGNS: Temperature is 98.7 degrees, pulse is 68, respiratory rate of 20, and blood pressure is 128/48. GENERAL: This is a well-nourished and well-developed male, looking younger than stated age, in no acute distress. Appears to be hiccuping. HEENT: Normocephalic and atraumatic. Extraocular muscles are intact. Pupils are equal, round, and reactive to light. Anicteric sclerae. Oropharynx is dry. NECK: Supple. CHEST: Clear to auscultation without wheezes, rales, or rhonchi. CARDIOVASCULAR: Normal S1 and S2. No murmurs, rubs, or gallops. ABDOMEN: Bowel sounds positive. Belly is soft, nontender, and nondistended. No hepatosplenomegaly appreciated. EXTREMITIES: No clubbing, cyanosis, or edema. NEUROLOGIC: The patient is awake, alert, poorly oriented, does communicate by answering yes and no. Cranial nerves II through XII grossly intact. No sensory or motor deficit appreciated. Reflexes are 1+ symmetric. Gait was not evaluated. SKIN: Clear without any rashes or petechiae. LABORATORY AND DIAGNOSTIC DATA: The patient's ABG shows a pH of 7.39, pCO2 is 44.1, pO2 is 73.2, bicarbonate is 26.1, elevated, O2 saturation of 93.8. A CBC shows a white count of 3.4, hemoglobin 13.7, hematocrit 41.0, and platelet count 145, which is low. Sodium is 131, potassium 3.9, chloride 105, carbon dioxide 30, anion gap of 6, BUN is high at 23 and creatinine 1.0. Glucose is 97. Calcium 8.6. Total bilirubin 0.3. AST 15, ALT is 18, and alkaline phosphatase is 107. Total creatine kinase is 59. BNP is slightly elevated at 320. Total protein is 7. Albumin is low at 3.3. Urinalysis is yellow, slightly cloudy, specific gravity is 1.025, pH is 6, negative protein, glucose 1+, ketone 1+, 3-4 red blood cells, 20 to 30 white blood cells, 1+ leukocytes, and many bacteria seen. CT of the chest and neck shows 5 x 1 x 1.3 cm foreign body in the distal part of the stomach. There is no evidence of perforation or obstruction. There is mildly distended esophagus, hiatal hernia. CT scan of the soft tissue of the neck does not show any foreign body. Chest x-ray shows no acute findings. IMPRESSION: This is an 82-year-old mentally retarded male with history of pica, who may have ingested a foreign object, visualized on CT of the chest. The patient will be admitted to the Medical/Surgical floor of the telemetry. PROBLEM LIST: 1. Foreign body ingestion. We will get GI consult. Keep the patient NPO. I will get urgent EGD for retrieval of foreign object. 2. History of gastroesophageal reflux disease. Continue Protonix 40 mg IV daily. 3. History of seizure disorder. Continue Keppra 500 mg b.i.d. IV. We will keep the patient NPO otherwise. Seizure precautions, administer oxygen and Zofran p.r.n. for nausea. 4. The patient will have deep vein thrombosis prophylaxis with sequential compression devices. 5. Condition is guarded. 6. We will resume other medications once the patient's foreign object is removed. Shayla Gandhi M.D. DR: ESHA JOB#: [id number] CC: LEIGHANN
--- NOTE | 2018-01-24 07:51 | General Progress Note ---
Assessment/Plan Assessment/Plan patient needs emergent EGD for foreign body removal patient can not sign himself no family available plan EGD for today Subjective ROS Limited/Unobtainable: No Allergies: Coded Allergies: No Known Allergies (Verified , 02/21/07) Objective Last 24 Hour Vital Signs Date Time Temp Pulse Resp B/P (MAP) Pulse Ox O2 Delivery O2 Flow Rate FiO2 01/24/18 04:00 60 01/24/18 00:00 66 01/23/18 21:39 69 16 01/23/18 21:00 Room Air 01/23/18 16:00 68 01/23/18 14:10 Room Air 01/23/18 14:00 98.7 66 16 118/51 97 Room Air 98.8 01/23/18 13:00 66 16 118/51 97 Room Air 01/23/18 11:00 74 15 107/56 96 Room Air 01/23/18 08:59 98.7 68 20 128/48 100 Room Air 98.8 Intake and Output 01/23/18 01/24/18 19:00 07:00 Intake Total 708.75 ml Output Total 310 ml Balance 398.75 ml Intake Oral 0 ml IV Total 708.75 ml Output Urine Total 310 ml # Voids 2 4 # Bowel Movements 1 2 Laboratory Tests 01/23/18 09:36: Arterial Blood pH 7.390, Arterial Blood Partial Pressure CO2 44.1, Arterial Blood Partial Pressure O2 73.2L, Arterial Blood HCO3 26.1H, Arterial Blood Oxygen Saturation 93.8, Arterial Blood Base Excess 0.8, Wyatt Test Positive 01/23/18 09:50: White Blood Count 6.4, Red Blood Count 4.20L, Hemoglobin 13.7L, Hematocrit 41.0L , Mean Corpuscular Volume 98, Mean Corpuscular Hemoglobin 32.6H, Mean Corpuscular Hemoglobin Concent 33.4, Red Cell Distribution Width 12.0, Platelet Count 145L, Mean Platelet Volume 7.3, Neutrophils (%) (Auto) 58.8, Lymphocytes ( %) (Auto) 33.4, Monocytes (%) (Auto) 4.3, Eosinophils (%) (Auto) 2.2, Basophils (%) (Auto) 1.3, Sodium Level 141, Potassium Level 3.9, Chloride Level 105, Carbon Dioxide Level 30, Anion Gap 6, Blood Urea Nitrogen 22H, Creatinine 1.0, Estimat Glomerular Filtration Rate , Glucose Level 97, Lactic Acid Level 2.00, Calcium Level 8.6, Total Bilirubin 0.3, Aspartate Amino Transf (AST/SGOT) 15, Alanine Aminotransferase (ALT/SGPT) 18, Alkaline Phosphatase 107, Total Creatine Kinase 59, Creatine Kinase MB 0.7, Creatine Kinase MB Relative Index 1.1, Troponin I 0.000, Pro-B-Type Natriuretic Peptide 320H, Total Protein 7.0, Albumin 3.3L, Globulin 3.7, Albumin/Globulin Ratio 0.9L 01/23/18 10:06: Urine Color Yellow, Urine Appearance Slightly cloudy, Urine pH 6, Urine Specific [place] 1.015, Urine Protein Negative, Urine Glucose (UA) Negative, Urine Ketones 1+H, Urine Occult Blood 1+H, Urine Nitrite Negative, Urine Bilirubin Negative, Urine Urobilinogen Normal, Urine Leukocyte Esterase 1+H, Urine RBC 2-4H, Urine WBC 20-30H, Urine Squamous Epithelial Cells Occasional, Urine Bacteria ManyH 01/23/18 13:50: Lactic Acid Level 0.80 Height (Feet): 5 Height (Inches): 8.00 Weight (Pounds): 127 General Appearance: no apparent distress EENT: normal ENT inspection Neck: supple Cardiovascular: normal rate Respiratory/Chest: decreased breath sounds Abdomen: normal bowel sounds, non tender, soft Extremities: non-tender Heron Yoo MD Jan 24, 2018 07:51
[2018-01-24] MEDS: levETIRAcetam 500mg/NS100ml 100 ML IVPB SCH (08:26)
[2018-01-24] MEDS: cefTRIAXone 1 GM in D5W 55 ML IVPB SCH (08:27)
[2018-01-24 08:52] LABS: BASOPHILS % (AUTO) 0.6 % (0.0-2.0); EOSINOPHILS % (AUTO) 1.4 % (0.0-3.0); HEMATOCRIT 35.3 % (42.0-52.0); LYMPHOCYTES % (AUTO) 25.9 % (20.0-45.0); MEAN CORPUSCULAR VOLUME 97 FL (80-99); MONOCYTES % (AUTO) 4.7 % (1.0-10.0); NEUTROPHILS % (AUTO) 67.3 % (45.0-75.0); PLATELET COUNT 189 K/UL (150-450); RED BLOOD COUNT 3.62 M/UL (4.70-6.10); RED CELL DISTRIBUTION WIDTH 12.2 % (11.6-14.8); WHITE BLOOD COUNT 7.7 K/UL (4.8-10.8)
[2018-01-24] MEDS ORDERED: Pantoprazole Inj IV SCH (09:00)
--- NOTE | 2018-01-24 09:11 | Diagnostic Imaging Report ---
EXAM: XR Chest, 1 View CLINICAL HISTORY: FB TECHNIQUE: Frontal view of the chest. COMPARISON: Compared to radiographs and CT 01/23/18 FINDINGS: Lungs: Slight basilar atelectasis again noted. No consolidation. Pleural space: Unremarkable. No pneumothorax. Heart: Unremarkable. No cardiomegaly. Mediastinum: Unremarkable. Bones/joints: Unremarkable. Soft tissues: No radiopaque foreign body is identified IMPRESSION: No radiopaque foreign body. Slight basilar atelectasis again noted.
[2018-01-24 09:22] LABS: ALANINE AMINOTRANSFERASE 18 U/L (12-78); ALBUMIN 2.7 G/DL (3.4-5.0); ALBUMIN/GLOBULIN RATIO 0.8 (1.0-2.7); ALKALINE PHOSPHATASE 98 U/L (46-116); ANION GAP 6 mmol/L (5-15); ASPARTATE AMINO TRANSFERASE 13 U/L (15-37); BILIRUBIN,TOTAL 0.3 MG/DL (0.2-1.0); BLOOD UREA NITROGEN 21 mg/dL (7-18); CARBON DIOXIDE 28 MMOL/L (21-32); CHLORIDE 109 MMOL/L (98-107); CREATININE 0.9 MG/DL (0.55-1.30); POTASSIUM 4.1 MMOL/L (3.5-5.1); SODIUM 143 MMOL/L (136-145)
[2018-01-24] MEDS ORDERED: Tubing IV Secondary IV ONE (09:38)
[2018-01-24] MEDS ORDERED: ZyPREXA Zydis 5mg tab ORAL PRN (11:00)
[2018-01-24] MEDS ORDERED: LORazepam Inj 2mg/ml 1ml IV PRN ×2 (11:00→12:00)
[2018-01-24] MEDS ORDERED: LORazepam Inj 2mg/ml 1ml IM SCH ×2 (11:30→15:15)
[2018-01-24] MEDS: DiphenhydrAMINE 50mg/ml Inj IM SCH ×2 (11:30→15:15)
[2018-01-24] MEDS ORDERED: Alfentanil 2ml Inj ONE (11:42)
[2018-01-24] MEDS ORDERED: Propofol 200mg/20ml IV ONE (11:45)
[2018-01-24] MEDS ORDERED: Lidocaine 1% MPF 10mg/ml 5ml ONE (11:45)
[2018-01-24] MEDS ORDERED: LR 1000ml ONE (11:45)
[2018-01-24] MEDS: Haloperidol 5mg/ml Inj IM SCH ×2 (11:45→15:15)
[2018-01-24] MEDS ORDERED: NS 500ML IVPB ONE (11:50)
--- NOTE | 2018-01-24 11:56 | Anethesia Preoperative Eval ---
Anesthesia Pre-op PMH/ROS General Date of Evaluation: Jan 24, 2018 Time of Evaluation: 11:51 Anesthesiologist: John ASA Score: ASA 3 Mallampati Score Class I : Soft palate, uvula, fauces, pillars visible Class II: Soft palate, uvula, fauces visible Class III: Soft palate, base of uvula visible Class IV: Only hard plate visible Mallampati Classification: Class II Surgeon: Fredo Diagnosis: Foriegn Object in Esophagus Surgical Procedure: EGD Anesthesia History: none Family History: no anesthesia problems Allergies: Coded Allergies: No Known Allergies (Verified , 02/21/07) Medications: see eMAR Past Medical History Cardiovascular: Reports: HTN, CAD Pulmonary: Reports: COPD Gastrointestinal/Genitourinary: Reports: GERD, other - Irritable Bowel, BPH Neurologic/Psychiatric: Reports: dementia - Schizophrenia, other - Parkinsons, Seizures Endocrine: Reports: DM, hypothyroidism Hematology/Immune: Reports: anemia Musculoskeletal/Integumentary: Reports: other Anesthesia Pre-op Phys. Exam Physician Exam Last Vital Signs Date Time Temp Pulse Resp B/P (MAP) Pulse Ox O2 Delivery O2 Flow Rate FiO2 01/24/18 08:00 70 01/24/18 08:00 97.1 20 100/52 (68) 93 97.1 01/23/18 21:00 Room Air Constitutional: NAD Neurologic: CN 2-12 intact Cardiovascular: RRR Respiratory: CTA Gastrointestinal: S/NT/ND Airway Exam Mallampati Score: Class II MO: limited ROM: limited Teeth: missing, intact Anesthesia Pre-op A/P Labs Hematology Test 01/24/18 07:10 White Blood Count 7.7 K/UL (4.8-10.8) Red Blood Count 3.62 M/UL (4.70-6.10) L Hemoglobin 12.0 G/DL (14.2-18.0) L Hematocrit 35.3 % (42.0-52.0) L Mean Corpuscular Volume 97 FL (80-99) Mean Corpuscular Hemoglobin 33.1 PG (27.0-31.0) H Mean Corpuscular Hemoglobin Concent 33.9 G/DL (32.0-36.0) Red Cell Distribution Width 12.2 % (11.6-14.8) Platelet Count 189 K/UL (150-450) Mean Platelet Volume 7.6 FL (6.5-10.1) Neutrophils (%) (Auto) 67.3 % (45.0-75.0) Lymphocytes (%) (Auto) 25.9 % (20.0-45.0) Monocytes (%) (Auto) 4.7 % (1.0-10.0) Eosinophils (%) (Auto) 1.4 % (0.0-3.0) Basophils (%) (Auto) 0.6 % (0.0-2.0) Coagulation Test 01/24/18 07:10 Prothrombin Time 10.7 SEC (9.30-11.50) Prothromb Time International Ratio 1.0 (0.9-1.1) Activated Partial Thromboplast Time 28 SEC (23-33) Chemistry Test 01/23/18 13:50 01/24/18 07:10 Lactic Acid Level 0.80 mmol/L (0.66-2.22) Sodium Level 143 MMOL/L (136-145) Potassium Level 4.1 MMOL/L (3.5-5.1) Chloride Level 109 MMOL/L (98-107) H Carbon Dioxide Level 28 MMOL/L (21-32) Anion Gap 6 mmol/L (5-15) Blood Urea Nitrogen 21 mg/dL (7-18) H Creatinine 0.9 MG/DL (0.55-1.30) Estimat Glomerular Filtration Rate mL/min (>60) Glucose Level 73 MG/DL (74-106) L Calcium Level 8.0 MG/DL (8.5-10.1) L Total Bilirubin 0.3 MG/DL (0.2-1.0) Aspartate Amino Transf (AST/SGOT) 13 U/L (15-37) L Alanine Aminotransferase (ALT/SGPT) 18 U/L (12-78) Alkaline Phosphatase 98 U/L (46-116) Total Protein 5.9 G/DL (6.4-8.2) L Albumin 2.7 G/DL (3.4-5.0) L Globulin 3.2 g/dL Albumin/Globulin Ratio 0.8 (1.0-2.7) L Risk Assessment & Plan Assessment: ASA 3 Plan: GA Status Change Before Surgery: Lenin Hathaway MD Jan 24, 2018 11:56
--- NOTE | 2018-01-24 11:57 | Immediate Post-Op Evaluation ---
Immediate Post-Op Evalulation Immediate Post-Op Evalulation Procedure: EGD Date of Evaluation: Jan 24, 2018 Time of Evaluation: 13:05 IV Fluids: 500 LR Blood Products: 0 Estimated Blood Loss: 1 Urinary Output: 0 Blood Pressure Systolic: 133 Blood Pressure Diastolic: 63 Pulse Rate: 71 Respiratory Rate: 16 O2 Sat by Pulse Oximetry: 99 Temperature (Fahrenheit): 97 Pain Score (1-10): 1 Nausea: No Vomiting: No Complications 0 Patient Status: awake, reacts, patent, none Hydration Status: adequate Lenin Lopez MD Jan 24, 2018 11:57
[2018-01-24] MEDS ORDERED: LR 1000ml 1,000 ML IVLG SCH (11:58)
--- NOTE | 2018-01-24 11:58 | 48 Hour Post Anesthesia Eval ---
Post Anesthesia Evaluation Procedure: EGD Date of Evaluation: Jan 24, 2018 Time of Evaluation: 15:12 Blood Pressure Systolic: 134 0: 63 Pulse Rate: 72 Respiratory Rate: 18 Temperature (Fahrenheit): 97.6 O2 Sat by Pulse Oximetry: 99 Airway: patent Nausea: No Vomiting: No Pain Intensity: 1 Hydration Status: adequate Cardiopulmonary Status: Stable Mental Status/LOC: patient returned to baseline Follow-up Care/Observations: 0 Post-Anesthesia Complications: 0 Follow-up care needed: N/A Lenin Lopez MD Jan 24, 2018 11:58
[2018-01-24] MEDS ORDERED: Labetalol 5mg/ml 20ml vial IV PRN (12:00)
[2018-01-24] MEDS ORDERED: Ketorolac 30mg Inj IV PRN ×2 (12:00)
[2018-01-24] MEDS ORDERED: Atropine Inj 1mg/10ml Syr IV PRN (12:00)
[2018-01-24] MEDS ORDERED: HYDROcodone/Acetamin 7.5/325 tab ORAL PRN (12:00)
[2018-01-24] MEDS ORDERED: fentaNYL 100 mcg/2 mL IV PRN (12:00)
[2018-01-24] MEDS ORDERED: Midazolam 2mg/2ml Inj IVP PRN (12:00)
[2018-01-24] MEDS ORDERED: DiphenhydrAMINE 50mg/ml Inj IVP PRN (12:00)
[2018-01-24] MEDS ORDERED: Norco 5mg/325mg tab ORAL PRN (12:00)
[2018-01-24] MEDS ORDERED: Hydromorphone 0.5mg/0.5ml inj IVP PRN (12:00)
[2018-01-24] MEDS ORDERED: oxyCODONE HCL/Acetaminophen 5/325mg ORAL PRN (12:00)
--- NOTE | 2018-01-24 12:07 | Pre-Procedure Note/Attestation ---
Pre-Procedure Note/Attestation Complete Prior to Procedure Planned Procedure: not applicable Procedure Narrative: egd Indications for Procedure Pre-Operative Diagnosis: foreign body Attestation I attest that I discussed the nature of the procedure; its benefits; risks and complications; and alternatives (and the risks and benefits of such alternatives ), prior to the procedure, with the patient (or the patient's legal senior patient account representative). I attest that, if there was a reasonable possibility of needing a blood transfusion, the patient (or the patient's legal senior patient account representative) was given the [facility] standardized written summary, pursuant to the [place] Blood Safety Act ([place] Health and Safety Code # 1645, as amended). I attest that I re-evaluated the patient just prior to the surgery and that there has been no change in the patient's H&P, except as documented below: Heron Yoo MD Jan 24, 2018 12:07
--- NOTE | 2018-01-24 12:40 | Endoscopy Procedure Note ---
Endoscopy Procedure Note General Indication for Procedure: foreign body Procedures Performed: EGD Operative Findings/Diagnosis: same Specimen: yes Pt Tolerated Procedure Well: Yes Estimated Blood Loss: none Anesthesia Anesthesiologist: babatunde Anesthesia: MAC Inserted Devices Implant(s) used?: No GI Core Measures 50 yrs or older w/o bx or poly: Not Applicable 10yrs. F/U not recommended: Not Applicable Heron Yoo MD Jan 24, 2018 12:40
[2018-01-24] MEDS ORDERED: Haloperidol 5mg/ml Inj IM SCH (15:15)
[2018-01-24] MEDS ORDERED: DiphenhydrAMINE 50mg/ml Inj IM SCH (15:15)
--- NOTE | 2018-01-24 17:30 | Procedure Note ---
DATE OF PROCEDURE: 01/24/2018 PROCEDURE: Upper endoscopy with foreign body removal and biopsy. SURGEON: Heron Yoo M.D. ANESTHESIA: Per Dr. Lopez. INSTRUMENT: Olympus adult flexible upper endoscope. INDICATION: Foreign body ingestion. The procedure, risks, benefits, and possible consequences, including hemorrhage, aspiration, perforation and infection, and alternative treatments, were explained to the patient/legal guardian by Dr. Heron Yoo and the patient/legal guardian understood and accepted these risks. DESCRIPTION OF PROCEDURE: After informed consent was obtained and the patient was adequately sedated, Olympus upper endoscope was advanced from mouth into the second portion of the duodenum and retroflexion was performed in the stomach. The patient had a large hiatal hernia. The patient had diffuse gastritis. Random biopsy from antrum was obtained. The patient had multiple foreign bodies in the stomach, the largest one was what seems like a tissue paper that he swallowed. This was very challenging to remove because it was soft and it was keep breaking down. We had to use different modalities. First, we used regular snare and it did not work. Then we used a rat tooth alligator, did not . Then we used a snare and piece by piece we removed this completely. The patient also had 2 other pieces of orange color, seems to be crayon and also white one. He also had T-Port lock of the IV that he swallowed, two of them, we removed those 2. After all the foreign body was removed, we went back again, looked again. There was no any foreign body seen. The patient tolerated the procedure without complications. PLAN: Resume diet. Monitor labs. Okay to be discharged from GI standpoint. I would like to thank Dr. Gandhi for this kind referral. Heron Yoo M.D. DR: AKHIL JOB#: [id number] CC: Shayla Gandhi M.D.
[2018-01-24] MEDS: Docusate 100mg cap ORAL SCH (18:00)
[2018-01-24] MEDS ORDERED: NS IVPB SCH (21:00)
[2018-01-24] MEDS ORDERED: PHENYTOIN IVPB SCH (21:00)
--- NOTE | 2018-01-24 22:24 | General Progress Note ---
Assessment/Plan Status: stable Assessment/Plan a/p 1. Foreign body ingestion. s/p EGD and retreival of foreign bodies (crayon and paper clips and tissue), cardiac diet resumed now 2. History of gastroesophageal reflux disease. Continue Protonix 40 mg po daily. 3. History of seizure disorder. Continue Keppra 500 mg b.i.d. add phenytoin 300 mg hs 4. The patient will have deep vein thrombosis prophylaxis with sequential compression devices. 5.mental retardation: supportive care 6. UTI: fu on urine culture, ceftriaxone 1 g daily 7. hypothyroidism: resume synthroid 125 mcg daily pt/ot Subjective Date patient seen: Jan 24, 2018 ROS Limited/Unobtainable: Yes Allergies: Coded Allergies: No Known Allergies (Verified , 02/21/07) Objective Last 24 Hour Vital Signs Date Time Temp Pulse Resp B/P (MAP) Pulse Ox O2 Delivery O2 Flow Rate FiO2 01/24/18 16:00 97.6 82 19 112/68 (83) 96 97.6 01/24/18 16:00 72 01/24/18 13:10 68 15 140/69 99 Room Air 01/24/18 13:04 67 15 138/68 99 Room Air 01/24/18 12:59 69 14 130/69 99 Room Air 01/24/18 12:54 97.0 72 16 133/63 99 Simple Mask 6 97.0 01/24/18 12:52 207.7 72 18 99 01/24/18 12:00 97.6 72 20 108/59 (75) 96 97.6 01/24/18 09:00 Room Air 01/24/18 08:00 70 01/24/18 08:00 97.1 77 20 100/52 (68) 93 97.1 01/24/18 04:00 60 01/24/18 00:00 66 Intake and Output 01/23/18 01/24/18 19:00 07:00 Intake Total 708.75 ml 37 ml Output Total 310 ml Balance 398.75 ml 37 ml Intake Oral 0 ml IV Total 708.75 ml 37 ml Output Urine Total 310 ml # Voids 2 4 # Bowel Movements 1 2 Laboratory Tests 01/24/18 07:10: White Blood Count 7.7, Red Blood Count 3.62L, Hemoglobin 12.0L, Hematocrit 35.3L , Mean Corpuscular Volume 97, Mean Corpuscular Hemoglobin 33.1H, Mean Corpuscular Hemoglobin Concent 33.9, Red Cell Distribution Width 12.2, Platelet Count 189, Mean Platelet Volume 7.6, Neutrophils (%) (Auto) 67.3, Lymphocytes (% ) (Auto) 25.9, Monocytes (%) (Auto) 4.7, Eosinophils (%) (Auto) 1.4, Basophils ( %) (Auto) 0.6, Prothrombin Time 10.7, Prothromb Time International Ratio 1.0, Activated Partial Thromboplast Time 28, Sodium Level 143, Potassium Level 4.1, Chloride Level 109H, Carbon Dioxide Level 28, Anion Gap 6, Blood Urea Nitrogen 21H, Creatinine 0.9, Estimat Glomerular Filtration Rate , Glucose Level 73L, Calcium Level 8.0L, Total Bilirubin 0.3, Aspartate Amino Transf (AST/SGOT) 13L, Alanine Aminotransferase (ALT/SGPT) 18, Alkaline Phosphatase 98, Total Protein 5.9L, Albumin 2.7L, Globulin 3.2, Albumin/Globulin Ratio 0.8L Height (Feet): 5 Height (Inches): 8.00 Weight (Pounds): 127 General Appearance: no apparent distress, alert EENT: PERRL/EOMI, pharynx normal Neck: non-tender, supple Cardiovascular: normal rate, regular rhythm, no gallop/murmur, no JVD Respiratory/Chest: chest wall non-tender, normal breath sounds, no respiratory distress Abdomen: non tender, soft, no mass Extremities: non-tender, normal inspection, no calf tenderness Edema: no edema noted Arm (L), no edema noted Arm (R), no edema noted Leg (L), no edema noted Leg (R), no edema noted Pedal (L), no edema noted Pedal (R), no edema noted Generalized Neurologic: fence installer helper II-XII grossly normal, oriented x 3, responsive Skin: warm/dry Lymphatic: normal anterior cervical (L), normal anterior cervical (R), normal posterior cervical (L), normal posterior cervical (R), normal submandibular (L) , normal submandibular (R), normal supraclavicular (L), normal supraclavicular ( R), normal axillary (L), normal axillary (R), normal inguinal (L), normal inguinal (R), normal other Shayla Gandhi MD Jan 24, 2018 22:24
--- NOTE | 2018-01-24 23:15 | Consultation ---
History of Present Illness General Chief Complaint: Choking Referring physician: JERRY LA Reason for Consultation: PICA Present Illness Allergies: Coded Allergies: No Known Allergies (Verified , 02/21/07) Medication History Scheduled Bethanechol* (Bethanechol*), 25 MG ORAL FOUR TIMES A DAY, (Reported) Carbidopa/Levodopa 25-100 Mg* (Sinemet 25-100 Mg Tablet*), Unknown Dose ORAL THREE TIMES A DAY, (Reported) Carbidopa/Levodopa Cr 50-200* (Sinemet Cr 50-200 Tablet*), 1 TAB ORAL QHS, ( Reported) Cephalexin* (Cephalexin*), 500 MG ORAL Q12HR, (Reported) Citalopram Hydrobromide* (Citalopram Hbr*), 10 MG ORAL DAILY, (Reported) Cranberry Conc/Ascorbic Acid (Cranberry Concentrate Softgel), 1 EACH PO DAILY, ( Reported) Cranberry Extract (Cranberry), 200 MG PO DAILY, (Reported) Docusate Sodium* (Docusate Sodium*), 100 MG ORAL TWICE A DAY, (Reported) Ergocalciferol (Vitamin D2)* (Vitamin D*), 50,000 UNIT ORAL ONCE A WEEK, ( Reported) Guaifenesin/Dextromethorphan (Q-Tussin Dm Syrup), 240 ML PO PRN, (Reported) L. Rhamnosus GG/Inulin (Culturelle Capsule), 1 EACH PO DAILY, (Reported) Lactobacillus Rhamnosus Gg* (Culturelle*), 1 CAP ORAL BID, (Reported) Lactose-Free Food (Ensure Liquid), 237 ML PO BID, (Reported) Levetiracetam (Keppra), 500 MG ORAL EVERY 12 HOURS, (Reported) Levofloxacin* (Levaquin*), 750 MG ORAL DAILY, (Reported) Levothyroxine Sodium* (Levothyroxine Sodium*), 50 MCG ORAL DAILY, (Reported) Levothyroxine Sodium* (Levothyroxine Sodium*), 125 MCG ORAL DAILY, (Reported) Montelukast Sodium* (Montelukast Sodium*), 10 MG ORAL HS, (Reported) Multivitamin (Daily Vitamin), 1 TAB ORAL DAILY, (Reported) [place]-3 Fatty Acids/Fish Oil ([place] 3 1,000 Mg Softgel), 1 EACH PO BID, ( Reported) Pantoprazole* (Pantoprazole*), 40 MG ORAL BID, (Reported) Phenytoin (Dilantin), 300 MG ORAL HS, (Reported) Quetiapine Fumarate* (Quetiapine Fumarate*), 100 MG ORAL BID, (Reported) Ranitidine HCl (Ranitidine HCl), 150 MG PO HS, (Reported) Risperidone* (Risperdal*), 1 MG ORAL BID, (Reported) Sennosides (Senna Lax), 17.2 MG PO BID, (Reported) Sucralfate* (Carafate*), 1 GM ORAL FOUR TIMES A DAY, (Reported) Tamsulosin HCl (Flomax), 0.4 MG ORAL DAILY, (Reported) Vit C/Ascorbate Ca/Ascorb Sod (Vitamin C 500 Mg/15 Ml Liquid), 500 MG PO DAILY, (Reported) Zinc Sulfate (Zinc Sulfate*), 220 MG ORAL DAILY, (Reported) Scheduled PRN Bisacodyl* (Dulcolax*), 5 MG ORAL EVERY 12 HOURS PRN for Constipation, (Reported ) Ondansetron Odt* (Zofran Odt*), 8 MG ORAL Q6H PRN for Nausea & Vomiting, ( Reported) Patient History Healthcare decision maker [facility] [place] Resuscitation status Full Code Advanced Directive on File Physical Exam Last 24 Hour Vital Signs Date Time Temp Pulse Resp B/P (MAP) Pulse Ox O2 Delivery O2 Flow Rate FiO2 01/24/18 16:00 97.6 82 19 112/68 (83) 96 97.6 01/24/18 16:00 72 01/24/18 13:10 68 15 140/69 99 Room Air 01/24/18 13:04 67 15 138/68 99 Room Air 01/24/18 12:59 69 14 130/69 99 Room Air 01/24/18 12:54 97.0 72 16 133/63 99 Simple Mask 6 97.0 01/24/18 12:52 207.7 72 18 99 01/24/18 12:00 97.6 72 20 108/59 (75) 96 97.6 01/24/18 09:00 Room Air 01/24/18 08:00 70 01/24/18 08:00 97.1 77 20 100/52 (68) 93 97.1 01/24/18 04:00 60 01/24/18 00:00 66 Intake and Output 01/23/18 01/24/18 19:00 07:00 Intake Total 708.75 ml 37 ml Output Total 310 ml Balance 398.75 ml 37 ml Intake Oral 0 ml IV Total 708.75 ml 37 ml Output Urine Total 310 ml # Voids 2 4 # Bowel Movements 1 2 Laboratory Tests Test 01/24/18 07:10 White Blood Count 7.7 K/UL (4.8-10.8) Red Blood Count 3.62 M/UL (4.70-6.10) L Hemoglobin 12.0 G/DL (14.2-18.0) L Hematocrit 35.3 % (42.0-52.0) L Mean Corpuscular Volume 97 FL (80-99) Mean Corpuscular Hemoglobin 33.1 PG (27.0-31.0) H Mean Corpuscular Hemoglobin Concent 33.9 G/DL (32.0-36.0) Red Cell Distribution Width 12.2 % (11.6-14.8) Platelet Count 189 K/UL (150-450) Mean Platelet Volume 7.6 FL (6.5-10.1) Neutrophils (%) (Auto) 67.3 % (45.0-75.0) Lymphocytes (%) (Auto) 25.9 % (20.0-45.0) Monocytes (%) (Auto) 4.7 % (1.0-10.0) Eosinophils (%) (Auto) 1.4 % (0.0-3.0) Basophils (%) (Auto) 0.6 % (0.0-2.0) Prothrombin Time 10.7 SEC (9.30-11.50) Prothromb Time International Ratio 1.0 (0.9-1.1) Activated Partial Thromboplast Time 28 SEC (23-33) Sodium Level 143 MMOL/L (136-145) Potassium Level 4.1 MMOL/L (3.5-5.1) Chloride Level 109 MMOL/L (98-107) H Carbon Dioxide Level 28 MMOL/L (21-32) Anion Gap 6 mmol/L (5-15) Blood Urea Nitrogen 21 mg/dL (7-18) H Creatinine 0.9 MG/DL (0.55-1.30) Estimat Glomerular Filtration Rate mL/min (>60) Glucose Level 73 MG/DL (74-106) L Calcium Level 8.0 MG/DL (8.5-10.1) L Total Bilirubin 0.3 MG/DL (0.2-1.0) Aspartate Amino Transf (AST/SGOT) 13 U/L (15-37) L Alanine Aminotransferase (ALT/SGPT) 18 U/L (12-78) Alkaline Phosphatase 98 U/L (46-116) Total Protein 5.9 G/DL (6.4-8.2) L Albumin 2.7 G/DL (3.4-5.0) L Globulin 3.2 g/dL Albumin/Globulin Ratio 0.8 (1.0-2.7) L Height (Feet): 5 Height (Inches): 8.00 Weight (Pounds): 127 Medications Current Medications Medications (Trade) Dose Ordered Sig/Ana Route PRN Reason Start Time Stop Time Status Last Admin Dose Admin Ascorbic Acid (Vitamin C) 500 mg DAILY ORAL 01/25/18 09:00 02/24/18 08:59 Ceftriaxone Sodium 1 gm/ Dextrose 55 ml @ 110 mls/hr DAILY IVPB 01/23/18 21:00 01/30/18 20:59 01/24/18 08:27 Dextrose (Dextrose 50%) 25 ml STAT PRN IV Hypoglycemia 01/23/18 15:15 02/22/18 15:14 Dextrose (Dextrose 50%) 50 ml STAT PRN IV Hypoglycemia 01/23/18 15:15 02/22/18 15:14 Docusate Sodium (Colace) 200 mg TWICE A DAY ORAL 01/24/18 18:00 02/23/18 17:59 Levetiracetam (Keppra) 500 mg Q12HR ORAL 01/24/18 21:00 02/23/18 20:59 Levothyroxine Sodium (Synthroid) 125 mcg DAILY@0630 ORAL 01/25/18 06:30 02/24/18 06:29 Lorazepam (Ativan 2mg/ml 1ml) 1 mg Q6H PRN IV For Anxiety 01/24/18 11:00 01/31/18 10:59 Multivitamins (Multivitamins) 1 tab DAILY ORAL 01/25/18 09:00 02/24/18 08:59 Ondansetron HCl (Zofran) 4 mg Q6H PRN IVP Nausea & Vomiting 01/23/18 19:30 02/22/18 19:29 Pantoprazole (Protonix) 40 mg DAILY ORAL 01/25/18 09:00 02/24/18 08:59 Quetiapine Fumarate (SEROquel) 50 mg Q12HR ORAL 01/24/18 21:00 02/23/18 20:59 Sodium Chloride 1,000 ml @ 75 mls/hr [id number] IVLG 01/23/18 16:00 02/22/18 15:59 01/24/18 18:28 Zinc Sulfate (Zinc Sulfate) 220 mg DAILY ORAL 01/25/18 09:00 02/24/18 08:59 Kayla Jones MD Jan 24, 2018 23:15
[2018-01-25] VITALS: BP 107/56
[2018-01-25 04:00] VITALS: BP 98/64
[2018-01-25] MEDS ORDERED: Levothyroxine 125mcg tab ORAL SCH (06:30)
--- NOTE | 2018-01-25 06:57 | General Progress Note ---
Assessment/Plan Problem List: (1) Seizure (2) Foreign body ingestion ICD Codes: T18.9XXA - Foreign body of alimentary tract, part unspecified, initial encounter SNOMED: [id number] Qualifiers: Qualified Codes: T18.9XXA - Foreign body of alimentary tract, part unspecified, initial encounter Assessment/Plan s/p EGD and foreign body removal push po's ok to dc GI stand point Subjective ROS Limited/Unobtainable: Yes Allergies: Coded Allergies: No Known Allergies (Verified , 02/21/07) Objective Last 24 Hour Vital Signs Date Time Temp Pulse Resp B/P (MAP) Pulse Ox O2 Delivery O2 Flow Rate FiO2 01/25/18 04:30 72 01/25/18 04:00 98.2 83 20 98/64 (75) 95 98.2 01/25/18 00:00 69 01/25/18 00:00 97.5 71 17 107/56 (73) 95 97.5 01/24/18 21:00 Room Air 01/24/18 20:00 66 01/24/18 20:00 97.0 67 18 103/69 (80) 95 97.0 01/24/18 16:00 97.6 82 19 112/68 (83) 96 97.6 01/24/18 16:00 72 01/24/18 13:10 68 15 140/69 99 Room Air 01/24/18 13:04 67 15 138/68 99 Room Air 01/24/18 12:59 69 14 130/69 99 Room Air 01/24/18 12:54 97.0 72 16 133/63 99 Simple Mask 6 97.0 01/24/18 12:52 207.7 72 18 99 01/24/18 12:00 97.6 72 20 108/59 (75) 96 97.6 01/24/18 09:00 Room Air 01/24/18 08:00 70 01/24/18 08:00 97.1 77 20 100/52 (68) 93 97.1 Intake and Output 01/24/18 01/25/18 19:00 07:00 Intake Total 1290 ml Balance 1290 ml IV Total 1290 ml # Voids 1 2 # Bowel Movements 2 2 Laboratory Tests 01/24/18 07:10: White Blood Count 7.7, Red Blood Count 3.62L, Hemoglobin 12.0L, Hematocrit 35.3L , Mean Corpuscular Volume 97, Mean Corpuscular Hemoglobin 33.1H, Mean Corpuscular Hemoglobin Concent 33.9, Red Cell Distribution Width 12.2, Platelet Count 189, Mean Platelet Volume 7.6, Neutrophils (%) (Auto) 67.3, Lymphocytes (% ) (Auto) 25.9, Monocytes (%) (Auto) 4.7, Eosinophils (%) (Auto) 1.4, Basophils ( %) (Auto) 0.6, Prothrombin Time 10.7, Prothromb Time International Ratio 1.0, Activated Partial Thromboplast Time 28, Sodium Level 143, Potassium Level 4.1, Chloride Level 109H, Carbon Dioxide Level 28, Anion Gap 6, Blood Urea Nitrogen 21H, Creatinine 0.9, Estimat Glomerular Filtration Rate , Glucose Level 73L, Calcium Level 8.0L, Total Bilirubin 0.3, Aspartate Amino Transf (AST/SGOT) 13L, Alanine Aminotransferase (ALT/SGPT) 18, Alkaline Phosphatase 98, Total Protein 5.9L, Albumin 2.7L, Globulin 3.2, Albumin/Globulin Ratio 0.8L Height (Feet): 5 Height (Inches): 8.00 Weight (Pounds): 127 General Appearance: no apparent distress EENT: normal ENT inspection Neck: supple Cardiovascular: normal rate Respiratory/Chest: decreased breath sounds Abdomen: normal bowel sounds, non tender, soft Extremities: non-tender Heron Yoo MD Jan 25, 2018 06:57
[2018-01-25 08:00] VITALS: BP 106/67
[2018-01-25] MEDS ORDERED: Zinc Sulfate 220mg cap ORAL SCH (09:00)
[2018-01-25] MEDS ORDERED: Ascorbic Acid 500mg tab ORAL SCH (09:00)
[2018-01-25] MEDS: cefTRIAXone 1 GM in D5W 55 ML IVPB SCH (09:00)
[2018-01-25] MEDS: Docusate 100mg cap ORAL SCH ×2 (09:00→17:35)
[2018-01-25 12:00] VITALS: BP 110/69
[2018-01-25 16:00] VITALS: BP 115/71
[2018-01-25 20:00] VITALS: BP 115/61
--- NOTE | 2018-01-25 22:59 | General Progress Note ---
Assessment/Plan Status: progressing Assessment/Plan a/p 1. Foreign body ingestion. s/p EGD and retreival of foreign bodies (crayon and paper clips and tissue), cardiac diet resumed now 2. History of gastroesophageal reflux disease. Continue Protonix 40 mg po daily. 3. History of seizure disorder. Continue Keppra 500 mg b.i.d. add phenytoin 300 mg hs 4. The patient will have deep vein thrombosis prophylaxis with sequential compression devices. 5.mental retardation: supportive care 6. UTI E coli: dc ceftriaxone, keflex 500 mg Qid 7. hypothyroidism: resume synthroid 125 mcg daily pt/ot dc planning for home in am Subjective Date patient seen: Jan 25, 2018 ROS Limited/Unobtainable: Yes Allergies: Coded Allergies: No Known Allergies (Verified , 02/21/07) Objective Last 24 Hour Vital Signs Date Time Temp Pulse Resp B/P (MAP) Pulse Ox O2 Delivery O2 Flow Rate FiO2 01/25/18 21:00 Room Air 01/25/18 20:00 96.6 82 20 115/61 (79) 97 96.6 01/25/18 16:00 97.8 67 19 115/71 (86) 96 97.8 01/25/18 12:00 74 01/25/18 12:00 98.6 69 17 110/69 (83) 97 98.6 01/25/18 09:00 Room Air 01/25/18 08:00 97.4 68 19 106/67 (80) 98 97.4 01/25/18 04:30 72 01/25/18 04:00 98.2 83 20 98/64 (75) 95 98.2 01/25/18 00:00 69 01/25/18 00:00 97.5 71 17 107/56 (73) 95 97.5 Intake and Output 01/24/18 01/25/18 19:00 07:00 Intake Total 1290 ml Balance 1290 ml IV Total 1290 ml # Voids 1 2 # Bowel Movements 2 2 Height (Feet): 5 Height (Inches): 8.00 Weight (Pounds): 127 General Appearance: no apparent distress, alert EENT: PERRL/EOMI, pharynx normal Neck: non-tender, supple Cardiovascular: normal rate, regular rhythm, no gallop/murmur, no JVD Respiratory/Chest: chest wall non-tender, normal breath sounds, no respiratory distress Abdomen: non tender, soft, no mass Extremities: non-tender, normal inspection, no calf tenderness Edema: no edema noted Arm (L), no edema noted Arm (R), no edema noted Leg (L), no edema noted Leg (R), no edema noted Pedal (L), no edema noted Pedal (R), no edema noted Generalized 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
[2018-01-26] VITALS: BP 128/67
[2018-01-26 01:10] VITALS: BP 127/62
[2018-01-26 04:00] VITALS: BP 114/60
[2018-01-26] MEDS ORDERED: LORazepam Inj 2mg/ml 1ml IV PRN (05:00)
[2018-01-26] MEDS ORDERED: Levothyroxine 125mcg tab ORAL SCH (06:30)
[2018-01-26 08:00] VITALS: BP 111/53
[2018-01-26] MEDS ORDERED: CEPHALEXIN500 MG ORAL (08:17)
[2018-01-26] MEDS ORDERED: Zinc Sulfate 220mg cap ORAL SCH (09:00)
[2018-01-26] MEDS ORDERED: Ascorbic Acid 500mg tab ORAL SCH (09:00)
[2018-01-26] MEDS ORDERED: Cephalexin 500mg cap ORAL SCH ×2 (09:00)
[2018-01-26] MEDS ORDERED: Docusate 100mg cap ORAL SCH (09:00)
--- NOTE | 2018-01-26 09:30 | GI Progress Note ---
Assessment/Plan Problems: (1) Pica ICD Codes: F50.89 - Other specified eating disorder SNOMED: 63538499 (2) Altered mental status ICD Codes: R41.82 - Altered mental status, unspecified SNOMED: 731523427 (3) Foreign body ingestion ICD Codes: T18.9XXA - Foreign body of alimentary tract, part unspecified, initial encounter SNOMED: 38225373 Qualifiers: Qualified Codes: T18.9XXA - Foreign body of alimentary tract, part unspecified, initial encounter (4) Seizure disorder (5) Choking ICD Codes: T17.308A - Unspecified foreign body in larynx causing other injury, initial encounter SNOMED: 438844629 Qualifiers: Qualified Codes: T17.308A - Unspecified foreign body in larynx causing other injury, initial encounter Status: stable Status Narrative Discussed with Dr. Yoo. Assessment/Plan s/p EGD and foreign body removal push po's ok to dc GI stand point Subjective Gastrointestinal/Abdominal: Reports: no symptoms Objective Last 24 Hour Vital Signs Date Time Temp Pulse Resp B/P (MAP) Pulse Ox O2 Delivery O2 Flow Rate FiO2 01/26/18 04:00 97.6 60 19 114/60 (78) 96 97.6 01/26/18 01:10 98.3 62 19 127/62 (83) 96 98.3 01/26/18 00:00 97.7 55 20 128/67 (87) 97 97.7 01/25/18 21:00 Room Air 01/25/18 20:00 96.6 82 20 115/61 (79) 97 96.6 01/25/18 16:00 97.8 67 19 115/71 (86) 96 97.8 01/25/18 12:00 74 01/25/18 12:00 98.6 69 17 110/69 (83) 97 98.6 Intake and Output 01/25/18 01/26/18 19:00 07:00 # Voids 3 2 # Bowel Movements 4 3 Height (Feet): 5 Height (Inches): 8.00 Weight (Pounds): 127 General Appearance: WD/WN, no apparent distress, alert Cardiovascular: normal rate Respiratory/Chest: normal breath sounds, no respiratory distress Abdominal Exam: normal bowel sounds, non tender, soft Extremities: normal range of motion, non-tender Contreras,Letty-Сергей HEAD LOADER Jan 26, 2018 09:30
--- NOTE | 2018-01-26 10:15 | Cardiology Report ---
APPROVED REPORT EKG Measurement Heart [id number] Normal sinus rhythm Left axis deviation Possible Lateral infarct, age undetermined Increased R/S ratio in V1, consider early transition or posterior infarct Abnormal ECG poor quality tracing consider repeating ekg
--- NOTE | 2018-01-27 12:08 | Discharge Summary ---
Discharge Summary Discharge Summary _ DATE OF ADMISSION: 01/23/2018 DATE OF DISCHARGE: 01/26/2018 REASON FOR ADMISSION: 82 years old male with history of Parkinson disease, mental retardation, seizure disorder, history of pica, noted to be choking and drooling at the assisted living. Patient was sent to emergency room for evaluation. In emergency department ABG was done on room air, and was stable. Chest x-ray was negative for any acute cardiopulmonary pathology CT of the neck was unable to identify any foreign body , but CT of the chest showed foreign body in the distal portion of the stomach measuring 5 x 1 x 1.3 cm. Laboratory workup revealed no leukocytosis, stable hemoglobin and hematocrit. Stable renal parameters and electro Urinalysis was consistent with evidence of UTI. Troponin was negative. EKG revealed no acute ischemic changes. Patient was admitted for removal of foreign body and further management with diagnosis of foreign body ingestion, UTI, history of seizure disorder, history of mental retardation. CONSULTANTS: GI specialist [facility] COURSE: Patient admitted. Patient started on the IV hydration. Patient initially was kept NPO. GI specialist seen and evaluated the patient. Patient subsequently on 01/24/2018 undergone upper endoscopy with foreign body removal ( crayon, paper clip and tissue) and biopsy. Patient tolerated procedure well. Chest x-ray confirmed no foreign body. Biopsy results still pending. Venous duplex bilateral lower extremity was negative Patient started on diet slowly as tolerated. Seizure precautions were maintained , No seizure activity while in the hospital. Patient was continued on Keppra and Dilantin. Protonix was continued DVT prophylaxis provided with SCD. Urine culture revealed evidence of Escherichia coli Patient was on IV antibiotics while in the hospital which changed to oral antibiotics upon discharge. Levothyroxine was continued. Oral fluids were pushed. Patient was able to tolerate diet GI specialist cleared patient for discharge . Patient was discharged to assisted living .. FINAL DIAGNOSES: Foreign body ingestion Status post upper endoscopy with foreign body removal and biopsy on 01/24/2018 GERD Seizure disorder Mental retardation UTI with Escherichia coli Hypothyroidism DISCHARGE MEDICATIONS: See Medication Reconciliation list. DISCHARGE INSTRUCTIONS:Patient was discharged to residential care follow-up with a primary care provider in one week I have been assigned to dictate discharge summary for this account. I was not involved in the patient's management. Chery Camarillo NP Jan 27, 2018 12:08
--- NOTE | 2018-01-27 13:48 | Diagnostic Imaging Report ---
APPROVED REPORT CPT Code: 95558 Present Symptoms Comments: BILATERAL LEGS PAIN. BILATERAL: Imaging reveals a patent deep venous system bilaterally. There is no evidence of thrombus within the femoral, popliteal or tibial segments. The greater saphenous veins are also within normal limits. Doppler indicates normal spontaneous flow within these segments.
== END 2018-01-26 12:02 | disposition home or self-care (01) | DRG 394 ==
LOC: EDBD 09:00 → EMR 09:34 → 2E 09:37 → EDBEDREQ 11:27 → 4E 01-26 01:03
PROC: 0DC68ZZ Extirpation of Matter from Stomach, Via Natural or Artificial Opening Endoscopic (ICD-10-PCS; principal; 2018-01-24 12:12)
PROC: 0DB78ZX Excision of Stomach, Pylorus, Via Natural or Artificial Opening Endoscopic, Diagnostic (ICD-10-PCS; principal; 2018-01-24 12:12)
DX: T18.2XXA Foreign body in stomach, initial encounter (principal); N39.0 Urinary tract infection, site not specified; F50.89 Other specified eating disorder; F79 Unspecified intellectual disabilities; G20 Parkinson's disease; G40.909 Epilepsy, unspecified, not intractable, without status epilepticus; X58.XXXA Exposure to other specified factors, initial encounter; Y92.099 Unspecified place in other non-institutional residence as the place of occurrence of the external cause; N40.0 Benign prostatic hyperplasia without lower urinary tract symptoms; E03.9 Hypothyroidism, unspecified; K21.9 Gastro-esophageal reflux disease without esophagitis
CPT/HCPCS: 36415; 36600; 70490; 71045; 71250; 80053; 80299; 81003; 82550; 82553; 82803; 83605; 83880; 84484; 85025; 85610; 85730; 87040; 87081; 87086; 87181; 93005; 93970; 94003; 94150; 94664; 99285; J3490

== ENCOUNTER 2018-10-01 16:24 | Inpatient (IN) | payer MEDICARE, MEDICAID ==
[~2018-10-01] VITALS: Ht 165.1 cm; Wt 55.4 kg
[~2018-10-01 16:24] MED LIST changes: +CEPHALEXIN500 MG ORAL; -LR 1000ml ONE; -NS Irrig 1000ml ONE; -Sterile Water Irrig 1000ml IRRIG ONE; +ZOFRAN ODT8 MG ORAL
[2018-10-01 16:31] VITALS: BP 128/36
--- NOTE | 2018-10-01 16:40 | NUR ---
ED Nurse Note: Pt. is wheeled in to ER. Pt. was noted to be bending forward and agitated. Per caregiver, pt. seems different. Histology Supervisor of the board contact info: . They were not able to assess VS at the board and care due to pt.'s agitation. Addendum: 10/01/18 at 1652 by [facility] ED Nurse Note: Pt. is confused and agitated. Oriented x 1 to his name Addendum: 10/01/18 at 1908 by [facility] ED Nurse Note: advertising operations manager at the bedside
--- NOTE | 2018-10-01 16:55 | NUR ---
ED Nurse Note: MULTIPLE HEALING SCARS NOTED ON BUE
[2018-10-01] MEDS ORDERED: Haloperidol 5mg/ml Inj IM ONE (17:00)
[2018-10-01] MEDS ORDERED: Piperacillin/Tazobactam 3.375 GM in NS 110 ML IVPB ONE (17:00)
[2018-10-01] MEDS ORDERED: DiphenhydrAMINE 50mg/ml Inj IM ONE (17:00)
--- NOTE | 2018-10-01 17:14 | NUR ---
ED Nurse Note: xray at the bedside
[2018-10-01 17:55] LABS: BASOPHILS % (AUTO) 0.5 % (0.0-2.0); EOSINOPHILS % (AUTO) 0.1 % (0.0-3.0); HEMATOCRIT 34.6 % (42.0-52.0); HEMOGLOBIN 11.6 G/DL (14.2-18.0); LYMPHOCYTES % (AUTO) 10.4 % (20.0-45.0); MEAN CORPUSCULAR VOLUME 100 FL (80-99); MONOCYTES % (AUTO) 8.4 % (1.0-10.0); NEUTROPHILS % (AUTO) 80.6 % (45.0-75.0); PLATELET COUNT 205 K/UL (150-450); RED BLOOD COUNT 3.47 M/UL (4.70-6.10); RED CELL DISTRIBUTION WIDTH 12.9 % (11.6-14.8); WHITE BLOOD COUNT 8.9 K/UL (4.8-10.8)
[2018-10-01] MEDS ORDERED: CRANBERRY200 M1 PO (17:57)
[2018-10-01] MEDS ORDERED: CULTURELLE1 EACH ORAL (17:59)
[2018-10-01] MEDS ORDERED: PANTOPRAZOLE SO40 MG ORAL (18:03)
[2018-10-01 18:04] LABS: APPEARANCE,URINE SLIGHTLY CLOUDY; BILIRUBIN, URINE NEGATIVE (NEGATIVE); GLUCOSE, URINE (UA) NEGATIVE (NEGATIVE); KETONES,URINE 1+ (NEGATIVE); LEUKOCYTE ESTERASE ,URINE 3+ (NEGATIVE); NITRITE,URINE POSITIVE (NEGATIVE); PH,URINE 6 (4.5-8.0); PROTEIN,URINE 2+ (NEGATIVE); UROBILINOGEN,URINE NORMAL MG/DL (0.0-1.0)
[2018-10-01] MEDS ORDERED: PHENYTOIN SODI100 MG ORAL (18:05)
[2018-10-01 18:07] LABS: COLOR,URINE YELLOW
[2018-10-01] MEDS ORDERED: AZILECT1 MG PO (18:07)
[2018-10-01 18:08] LABS: ANION GAP 6 mmol/L (5-15); BLOOD UREA NITROGEN 30 mg/dL (7-18); CALCIUM 8.3 MG/DL (8.5-10.1); CARBON DIOXIDE 27 MMOL/L (21-32); CHLORIDE 106 MMOL/L (98-107); POTASSIUM 4.5 MMOL/L (3.5-5.1); SODIUM 139 MMOL/L (136-145)
[2018-10-01] MEDS ORDERED: VITAMIN C500 M1 ORAL (18:09)
[2018-10-01] MEDS ORDERED: DOCUSATE SODIU100 MG ORAL (18:12)
[2018-10-01] MEDS ORDERED: TAMSULOSIN HCL0.4 MG ORAL (18:15)
[2018-10-01 18:18] LABS: ALANINE AMINOTRANSFERASE 16 U/L (12-78); ALBUMIN 2.3 G/DL (3.4-5.0); ALBUMIN/GLOBULIN RATIO 0.6 (1.0-2.7); ALKALINE PHOSPHATASE 106 U/L (46-116); ASPARTATE AMINO TRANSFERASE 18 U/L (15-37); BILIRUBIN,TOTAL 0.3 MG/DL (0.2-1.0); CREATINE KINASE 158 U/L (26-308); PHOSPHORUS 2.2 MG/DL (2.5-4.9)
[2018-10-01] MEDS ORDERED: SINEMET 25-1001 EAC1 ORAL (18:19)
[2018-10-01] MEDS ORDERED: BETHANECHOL CHL25 MG ORAL (18:20)
--- NOTE | 2018-10-01 18:21 | Emergency Room Report ---
History of Present Illness General Chief Complaint: General Complaint Source: Caregiver Present Illness HPI The patient became less responsive. He also has a smell like he has a urinary tract infection. They noted a fever also. They deny seeing any coughing or vomiting. He's been able to move his bowels. Patient unable to give history due to dementia. H/O Parkinson's - on Sinemet H/O PICA H/O seizure disorder - on Keppra Allergies: Coded Allergies: No Known Allergies (Verified , 02/21/07) Patient History Limited by: medical condition Past Medical History: see triage record, old chart reviewed Social History Narrative with caretakers Reviewed Nursing Documentation: PMH: Agreed; PSxH: Agreed Nursing Documentation-PMH Hx Cardiac Problems: Yes Hx Hypertension: Yes Hx COPD: Yes Hx Diabetes: No - hypothyroid Hx Cancer: No Hx Gastrointestinal Problems: Yes Hx Neurological Problems: Yes Hx Parkinson's Disease: Yes Hx Seizures: Yes Review of Systems All Other Systems: limited Physical Exam Vital Signs Date Time Temp Pulse Resp B/P (MAP) Pulse Ox O2 Delivery O2 Flow Rate FiO2 10/01/18 16:31 102.0 94 21 128/36 96 Room Air Sp02 EP Interpretation: reviewed, normal General Appearance: no apparent distress, alert, Chronically Ill Head: normocephalic, atraumatic Eyes: bilateral eye normal inspection, bilateral eye PERRL ENT: moist mucus membranes Neck: supple Respiratory: lungs clear, normal breath sounds Cardiovascular #1: regular rate, rhythm Cardiovascular #2: 2+ radial (R) Gastrointestinal: normal inspection, non tender, non-distended, decreased bowel sounds, scaphoid Genitourinary: no CVA tenderness Musculoskeletal: back normal, other - atrophy Neurologic: responsive, motor strength/tone normal, other - moaning but no intelligilble communication Psychiatric: other - slightly agitated Skin: warm/dry, other - seborrhea Medical Decision Making Behavioral: Other Reaction to Intervention: Escalated Behavior Restraint Reassesment I, Arturo Rosenberg MD, have personally evaluated this patient. Laboratory tests have been reviewed and addressed accordingly. The patient is deemed to present risk of pulling out IV and interfering with treatment. This is based on the exam, history via machine compositor and observed or reported behavior. Attempts for non-invasive measures have been considered and/or attempted, however, have been futile. It is in the best interest of the nursing staff, the patient, and others involved in this patient's care that non-behavioral restraints be applied. Patient evaluation reveals the following: agitation and pulling off monitor pads and at IV. Diagnostic Impression: Primary Impression: UTI (urinary tract infection) Qualified Codes: N39.0 - Urinary tract infection, site not specified Additional Impressions: NSTEMI (non-ST elevated myocardial infarction) Elevated lactic acid level Dementia Qualified Codes: F03.91 - Unspecified dementia with behavioral disturbance ER Course Patient with fever and foul urine smell and h/o dementia. DDx: Sepsis, electrolyte imbalance, dehydration, UTI, pneumonia amongst others. Complex patient as unable to give history. Evaluation with EKG, CXR, labs including blood cultures and lactate. Treatment with IV hydration. Patient agitated and requiring his machine compositor to hold down. Non-behavioral restraints are ordered and also sedation. Sedation working well EKG without injury. CXR no infiltrates. WBC normal. Initial lactate elevated. Urine with pyuria. Elevated BUN. Antibiotics are ordered Elevated troponin. No STEMI. Aspirin ordered. Discussed with Dr. Gandhi and admitted to SDU. Laboratory Tests Test 10/01/18 17:45 10/01/18 17:49 10/01/18 18:40 Urine Color Yellow Urine Appearance Slightly cloudy Urine pH 6 (4.5-8.0) Urine Specific [place] 1.010 (1.005-1.035) Urine Protein 2+ (NEGATIVE) H Urine Glucose (UA) Negative (NEGATIVE) Urine Ketones 1+ (NEGATIVE) H Urine Blood 4+ (NEGATIVE) H Urine Nitrite Positive (NEGATIVE) H Urine Bilirubin Negative (NEGATIVE) Urine Urobilinogen Normal MG/DL (0.0-1.0) Urine Leukocyte Esterase 3+ (NEGATIVE) H Urine RBC 2-4 /HPF (0 - 0) H Urine WBC 40-60 /HPF (0 - 0) H Urine Squamous Epithelial Cells Few /LPF (NONE/OCC) Urine Bacteria Many /HPF (NONE) H White Blood Count 8.9 K/UL (4.8-10.8) Red Blood Count 3.47 M/UL (4.70-6.10) L Hemoglobin 11.6 G/DL (14.2-18.0) L Hematocrit 34.6 % (42.0-52.0) L Mean Corpuscular Volume 100 FL (80-99) H Mean Corpuscular Hemoglobin 33.3 PG (27.0-31.0) H Mean Corpuscular Hemoglobin Concent 33.4 G/DL (32.0-36.0) Red Cell Distribution Width 12.9 % (11.6-14.8) Platelet Count 205 K/UL (150-450) Mean Platelet Volume 5.5 FL (6.5-10.1) L Neutrophils (%) (Auto) 80.6 % (45.0-75.0) H Lymphocytes (%) (Auto) 10.4 % (20.0-45.0) L Monocytes (%) (Auto) 8.4 % (1.0-10.0) Eosinophils (%) (Auto) 0.1 % (0.0-3.0) Basophils (%) (Auto) 0.5 % (0.0-2.0) Prothrombin Time 11.0 SEC (9.30-11.50) Prothrombin Time INR 1.0 (0.9-1.1) PTT 27 SEC (23-33) Sodium Level 139 MMOL/L (136-145) Potassium Level 4.5 MMOL/L (3.5-5.1) Chloride Level 106 MMOL/L (98-107) Carbon Dioxide Level 27 MMOL/L (21-32) Anion Gap 6 mmol/L (5-15) Blood Urea Nitrogen 30 mg/dL (7-18) H Creatinine 1.0 MG/DL (0.55-1.30) Estimate Glomerular Filtration Rate mL/min (>60) Glucose Level 91 MG/DL (74-106) Lactic Acid Level 2.20 mmol/L (0.4-2.0) H 0.80 mmol/L (0.66-2.22) Calcium Level 8.3 MG/DL (8.5-10.1) L Phosphorus Level 2.2 MG/DL (2.5-4.9) L Magnesium Level 1.7 MG/DL (1.8-2.4) L Total Bilirubin 0.3 MG/DL (0.2-1.0) Aspartate Amino Transferase (AST) 18 U/L (15-37) Alanine Aminotransferase (ALT) 16 U/L (12-78) Alkaline Phosphatase 106 U/L (46-116) Total Creatine Kinase 158 U/L (26-308) Troponin I 0.141 ng/mL (0.000-0.056) Pro-B-Type Natriuretic Peptide 2355 pg/mL (0-125) H Total Protein 6.0 G/DL (6.4-8.2) L Albumin 2.3 G/DL (3.4-5.0) L Globulin 3.7 g/dL Albumin/Globulin Ratio 0.6 (1.0-2.7) L Lipase 87 U/L (73-393) Microbiology Date/Time Source Procedure Growth Status 10/01/18 18:35 Nasal Nares Influenza Types A,B Antigen (BAUDILIO) - Final Complete EKG Diagnostic Results Rate: normal Rhythm: NSR ST Segments: no acute changes - Nonspecific ST-T wave changes Rhythm Strip Diag. Results EP Interpretation: yes Rhythm: NSR, no PVC's, no ectopy Chest X-Ray Diagnostic Results Chest X-Ray Diagnostic Results : Chest X-Ray Ordered: Yes # of Views/Limited/Complete: 1 View Indication: Other EP Interpretation: Yes Interpretation: no effusion, no pneumothorax, other - Atelectasis Impression: Other Electronically Signed by: Electronically signed by Arturo Rosenberg MD Last Vital Signs Date Time Temp Pulse Resp B/P (MAP) Pulse Ox O2 Delivery O2 Flow Rate FiO2 10/01/18 22:10 Room Air 10/01/18 18:57 101.7 84 19 123/57 98 Status: improved Disposition: ADMITTED INPATIENT Condition: Serious Referrals: Shayla Gandhi MD (PCP) Arturo Rosenberg MD Oct 01, 2018 18:21
[2018-10-01] MEDS ORDERED: SINEMET CR 50-1 EACH ORAL (18:22)
[2018-10-01] MEDS ORDERED: METHENAMINE MAND1 GM PO (18:25)
[2018-10-01] MEDS ORDERED: QUETIAPINE FUMA50 MG ORAL ×2 (18:40→19:25)
[2018-10-01 18:57] VITALS: BP 123/57
[2018-10-01] MEDS ORDERED: ALBUTEROL2.5 MG/3 M INH (19:14)
[2018-10-01] MEDS ORDERED: MIRALAX17 G2 ORAL (19:16)
[2018-10-01] MEDS ORDERED: ZOFRAN ODT8 MG ORAL (19:16)
[2018-10-01] MEDS ORDERED: PHENERGAN 6.25 MG/5 ML PO (19:21)
[2018-10-01] MEDS ORDERED: SENNO8.6 MG ORAL (19:23)
--- NOTE | 2018-10-01 19:25 | NUR ---
HAND-OFF: Report given to MELVIN Melendez.
--- NOTE | 2018-10-01 19:26 | NUR ---
ED Nurse Note: Received report from Christine/RN, Meena/RN. Pt is A/O X 2-3. VSS. Will continue to monitor.
[2018-10-01] MEDS ORDERED: DESITIN113 GM TP (19:29)
--- NOTE | 2018-10-01 22:06 | NUR ---
TRANSFER TO FLOOR: Patient transferred to 238/ [facility] as ordered . Report given to Emily/RN. Belongings sent with Pt and rechecked with RN.
--- NOTE | 2018-10-01 22:07 | NUR ---
NURSE NOTES: Patient arrived to SDU room 238-2 from ED via gurney under the care of Dr. OKEEFE. received report from NOVEMBER RN in ED. Patient is awake confused . Breathing unlabored and even with RA.o2 saturation 98-100%. SR on monitor. vs stable. afebrile. skin body assessment was done.skin intact. on bilateral soft wrist restraint with no skin issues.condom cath in placed.IV to G22 with NS running . Denies any pain at this time.call light in reach. bed locked in low position.bed alarm on. will continue to monitor patient closely.
--- NOTE | 2018-10-01 23:58 | History & Physical ---
History of Present Illness General Date patient seen: Oct 01, 2018 Reason for Hospitalization: altered mental status, urinary frequency Present Illness Allergies: Coded Allergies: No Known Allergies (Verified , 02/21/07) Medication History Scheduled Ascorbic Acid* (Vitamin C*), 500 MG ORAL DAILY, (Reported) Bethanechol Chl* (Bethanechol Chloride*), 25 MG ORAL QID, (Reported) Carbidopa/Levodopa 25-100 Mg* (Sinemet 25-100 Mg Tablet*), 1.5 TAB ORAL THREE TIMES A DAY, (Reported) Carbidopa/Levodopa Cr 50-200* (Sinemet Cr 50-200 Tablet*), 1 TAB ORAL QHS, ( Reported) Cranberry Extract (Cranberry), 400 MG PO DAILY, (Reported) Docusate Sodium* (Docusate Sodium*), 200 MG ORAL TWICE A DAY, (Reported) Ergocalciferol (Vitamin D2)* (Vitamin D*), 50,000 UNIT ORAL ONCE A WEEK, ( Reported) Lactobacillus Rhamnosus Gg* (Culturelle*), 1 CAP ORAL DAILY, (Reported) Levetiracetam (Keppra), 500 MG ORAL EVERY 12 HOURS, (Reported) Levothyroxine Sodium* (Levothyroxine Sodium*), 125 MCG ORAL DAILY, (Reported) Methenamine Mandelate (Methenamine Mandelate), 1 GM PO QHS, (Reported) Montelukast Sodium* (Montelukast Sodium*), 10 MG ORAL HS, (Reported) Multivitamin (Daily Vitamin), 1 TAB ORAL DAILY, (Reported) [place]-3 Fatty Acids/Fish Oil ([place] 3 1,000 Mg Softgel), 1 EACH PO BID, ( Reported) Pantoprazole* (Pantoprazole*), 40 MG ORAL DAILY, (Reported) Phenytoin Sodium Extended* (Phenytoin Sodium Extended*), 300 MG ORAL BEDTIME, ( Reported) Quetiapine Fumarate* (Quetiapine Fumarate*), 50 MG ORAL BID, (Reported) Rasagiline Mesylate (Azilect), 1 MG PO DAILY, (Reported) Tamsulosin Hcl (Tamsulosin Hcl*), 0.4 MG ORAL BID, (Reported) Zinc Sulfate (Zinc Sulfate*), 220 MG ORAL DAILY, (Reported) Scheduled PRN Albuterol Sulfate* (Albuterol Sulfate Hhn*), 3 ML INH Q6H PRN for Shortness of Breath, (Reported) Bisacodyl* (Dulcolax*), 5 MG ORAL EVERY 12 HOURS PRN for Constipation, (Reported ) Ondansetron Odt* (Zofran Odt*), 4 MG ORAL Q8HR PRN for Nausea & Vomiting, ( Reported) Polyethylene Glycol 3350* (Miralax*), 17 GM ORAL DAILY PRN for Constipation, ( Reported) Quetiapine Fumarate* (Quetiapine Fumarate*), 100 MG ORAL Q4HR PRN for Agitation, (Reported) Sennosides* (Senno*), 17.2 MG ORAL DAILY PRN for Constipation, (Reported) Zinc Oxide (Desitin), Unknown Dose TP BID PRN for AFFECTED AREAS, (Reported) [Phenergan 6.25MG/5ML], 10 ML PO Q6HR PRN for For Cough, (Reported) Patient History Limited by: medical condition History Provided By: Patient, Medical Record Healthcare decision maker [facility] Resuscitation status Full Code Advanced Directive on File Patient History Narrative 82 y/on male with history of mental retardation, PICA, Seizure disorder, Parkinson's Disease, COPD brought in to ER for altered mental status and urinary frequency, patient was found to have uti and NSTEMI, was started on IV antibiotics and given Haldol for agtiation. patient to be admitted for cardiology keyshawn, and IV antibiotics Past Medical/Surgical History Past Medical/Surgical History: (1) Tonic-clonic seizure (2) Altered mental status (3) Choking (4) Pica (5) Seizure disorder (6) Dementia Review of Systems Review of Symptoms General ROS: no weight loss or fever Psychological ROS: no depression or mood changes, no memory loss Ophthalmic ROS: no visual changes or eye irritation ENT ROS: no nasal congestion, hearing loss, dizziness Allergy and Immunology ROS: no allergic symptoms or urticaria Hematological and Lymphatic ROS: no swollen glands, unusual bleeding or bruising Endocrine ROS: no polyuria, polydipsia, weight changes, temperature intolerance Respiratory ROS: no cough, shortness of breath, or wheezing Cardiovascular ROS: no chest pain or dyspnea on exertion Gastrointestinal ROS: denies abdominal pain, bright red blood in stool. Musculoskeletal ROS: no myalgias or arthralgias Neurological ROS: no TIA or stroke symptoms Dermatological ROS: no new or changing skin lesions, rashes or pruritis Physical Exam Physical Exam General appearance: alert, cooperative, no distress, appears stated age Head: Normocephalic, without obvious abnormality, atraumatic Eyes: conjunctivae/corneas clear. PERRL, EOM's intact. Fundi benign Throat: Lips, mucosa, and tongue normal. Teeth and gums normal Neck: supple, symmetrical, trachea midline, no adenopathy, thyroid: not enlarged, symmetric, no tenderness/mass/nodules, no carotid bruit and no JVD Lungs: clear to auscultation bilaterally Heart: regular rate and rhythm, S1, S2 normal, no murmur, click, rub or gallop Abdomen: soft, non-tender. Bowel sounds normal. No masses, no organomegaly Extremities: extremities normal, atraumatic, no cyanosis or edema Pulses: 2+ and symmetric Skin: Skin color, texture, turgor normal. No rashes or lesions Neurologic: Grossly normal Last 24 Hour Vital Signs Date Time Temp Pulse Resp B/P (MAP) Pulse Ox O2 Delivery O2 Flow Rate FiO2 10/01/18 18:57 101.7 84 19 123/57 98 Room Air 10/01/18 16:31 94 21 Room Air 10/01/18 16:31 102.0 94 21 128/36 96 Room Air 10/01/18 16:31 102.0 94 21 128/36 96 Room Air Laboratory Tests Test 10/01/18 17:45 10/01/18 17:49 10/01/18 18:40 Urine Color Yellow Urine Appearance Slightly cloudy Urine pH 6 (4.5-8.0) Urine Specific [place] 1.010 (1.005-1.035) Urine Protein 2+ (NEGATIVE) H Urine Glucose (UA) Negative (NEGATIVE) Urine Ketones 1+ (NEGATIVE) H Urine Blood 4+ (NEGATIVE) H Urine Nitrite Positive (NEGATIVE) H Urine Bilirubin Negative (NEGATIVE) Urine Urobilinogen Normal MG/DL (0.0-1.0) Urine Leukocyte Esterase 3+ (NEGATIVE) H Urine RBC 2-4 /HPF (0 - 0) H Urine WBC 40-60 /HPF (0 - 0) H Urine Squamous Epithelial Cells Few /LPF (NONE/OCC) Urine Bacteria Many /HPF (NONE) H White Blood Count 8.9 K/UL (4.8-10.8) Red Blood Count 3.47 M/UL (4.70-6.10) L Hemoglobin 11.6 G/DL (14.2-18.0) L Hematocrit 34.6 % (42.0-52.0) L Mean Corpuscular Volume 100 FL (80-99) H Mean Corpuscular Hemoglobin 33.3 PG (27.0-31.0) H Mean Corpuscular Hemoglobin Concent 33.4 G/DL (32.0-36.0) Red Cell Distribution Width 12.9 % (11.6-14.8) Platelet Count 205 K/UL (150-450) Mean Platelet Volume 5.5 FL (6.5-10.1) L Neutrophils (%) (Auto) 80.6 % (45.0-75.0) H Lymphocytes (%) (Auto) 10.4 % (20.0-45.0) L Monocytes (%) (Auto) 8.4 % (1.0-10.0) Eosinophils (%) (Auto) 0.1 % (0.0-3.0) Basophils (%) (Auto) 0.5 % (0.0-2.0) Prothrombin Time 11.0 SEC (9.30-11.50) Prothromb Time International Ratio 1.0 (0.9-1.1) Activated Partial Thromboplast Time 27 SEC (23-33) Sodium Level 139 MMOL/L (136-145) Potassium Level 4.5 MMOL/L (3.5-5.1) Chloride Level 106 MMOL/L (98-107) Carbon Dioxide Level 27 MMOL/L (21-32) Anion Gap 6 mmol/L (5-15) Blood Urea Nitrogen 30 mg/dL (7-18) H Creatinine 1.0 MG/DL (0.55-1.30) Estimat Glomerular Filtration Rate mL/min (>60) Glucose Level 91 MG/DL (74-106) Lactic Acid Level 2.20 mmol/L (0.4-2.0) H 0.80 mmol/L (0.66-2.22) Calcium Level 8.3 MG/DL (8.5-10.1) L Phosphorus Level 2.2 MG/DL (2.5-4.9) L Magnesium Level 1.7 MG/DL (1.8-2.4) L Total Bilirubin 0.3 MG/DL (0.2-1.0) Aspartate Amino Transf (AST/SGOT) 18 U/L (15-37) Alanine Aminotransferase (ALT/SGPT) 16 U/L (12-78) Alkaline Phosphatase 106 U/L (46-116) Total Creatine Kinase 158 U/L (26-308) Troponin I 0.141 ng/mL (0.000-0.056) Pro-B-Type Natriuretic Peptide 2355 pg/mL (0-125) H Total Protein 6.0 G/DL (6.4-8.2) L Albumin 2.3 G/DL (3.4-5.0) L Globulin 3.7 g/dL Albumin/Globulin Ratio 0.6 (1.0-2.7) L Lipase 87 U/L (73-393) Microbiology Date/Time Source Procedure Growth Status 10/01/18 18:35 Nasal Nares Influenza Types A,B Antigen (BAUDILIO) - Final Complete Height (Feet): 5 Height (Inches): 5.00 Weight (Pounds): 155 Medications Current Medications Medications (Trade) Dose Ordered Sig/Ana Route PRN Reason Start Time Stop Time Status Last Admin Dose Admin Sodium Chloride 1,000 ml @ 300 mls/hr Q3H20M IV 10/01/18 17:00 10/31/18 16:59 10/01/18 19:49 Assessment/Plan Status: progressing Assessment/Plan 82 yo male admitted to telemetry with the following medical problems: - Altered mental status - NSTEMI - dehydration - agitation - mental retardation= - history of PICA Plan: - serial troponins - telemetry - cardiology consult - IV Ceftriaxone - panculture - psychiatry consult - continue home medications - seizure precaution - am labs - VTE prophylaxis with Heparin bid MIPS Hospital declaration INPATIENT level of care is warranted for this patient because patient is a 89 year old with who presents with suspicion of . I have a high level of concern because . Patient is at high risk for . Plan of care/treatment include . Patient care is expected to be greater than 2 midnights. OBSERVATION level of care is warranted for this patient. Patient is a 89 year old with who presents with . Patient will be admitted for 1 midnight, but if additional night(s) is/are necessary, patient will be converted to inpatient status for the entire hospitalization Disposition: Once the patient is stable to leave the hospital, I anticipate the patient will likely be discharged to the following environment: Estimated discharge date: I spent 70 minutes on this patient's case, and minutes was dedicated to counseling and/or care coordination. MIPS (Merit-based Incentive Payment System) Applicable CPT: 34828, 76584 CHECK ALL THAT ARE MET: Measure #5 (CHF): All ages. Prescribe REX/ARB upon discharge for patients with left ventricular systolic dysfunction. If not, the reason is clearly documented in the medical chart. Measure #8 (CHF): All ages. Prescribe a beta raul upon discharge for patients with left ventricular systolic dysfunction. If not, the reason is clearly documented in the medical chart. Measure #47 Advance care plan or surrogate decision maker documented in the medical record. Measure #130 The provider has documented, updated, or reviewed the patients current medication list and has documented it in the patients note. Measure #374 (All): Send report to referring provider. Measure #407(Sepsis due to MSSA bacteremia): Age 18+ Patient treated with a beta-lactam antibiotic (Nafcillin, Oxacillin or Cefazolin) as definitive therapy. MEDICAL COMPLEXITY High complexity medical decision making (need 2/3 categories) Problem - need 4 points Acute/new problem with new plan for workup (4 points, 1 max) Acute/new problem without additional workup (3 points, 1 max) Unstable chronic problem actively being managed (2 point each, 2 max) Stable chronic problem actively being managed (1 point each, 2 max) Self-limited/transient process (constipation, muscle ache, etc) (1 point each , 2 max) Data - need 4 points Reviewed labs/imaging studies (1 points, 2 max) Independent review of imaging (EKG, xrays, etc) (2 points, 2 max) Discussed case with consult/other MD/RN (2 points, 2 max) High Risk - qualify if have one of the following: Severe exacerbation of acute problem, acute mental status change, IV narcotics , monitoring drug levels (vancomycin, INR, tacrolimus etc) Shayla Gandhi MD Oct 01, 2018 23:58
[2018-10-02] VITALS: BP 109/44
[2018-10-02] MEDS ORDERED: cefTRIAXone 1 GM in D5W 55 ML IVPB SCH ×2 (00:45→09:00)
[2018-10-02] MEDS ORDERED: DiphenhydrAMINE 50mg/ml Inj IVP PRN (01:15)
[2018-10-02] MEDS ORDERED: Haloperidol 5mg/ml Inj IM PRN (01:30)
[2018-10-02] MEDS ORDERED: Albuterol ud Inhalation HHN PRN (01:45)
[2018-10-02] MEDS ORDERED: Miralax 17gm pkt ORAL PRN (01:45)
[2018-10-02] MEDS ORDERED: Sennosides 8.6mg tab ORAL PRN (01:45)
[2018-10-02] MEDS: D5 1/2NS w/KCl 20mEq 1,000 ML IV SCH ×2 (02:09→21:00)
[2018-10-02 04:00] VITALS: BP 109/44
[2018-10-02 05:42] LABS: BASOPHILS % (AUTO) 0.8 % (0.0-2.0); EOSINOPHILS % (AUTO) 0.7 % (0.0-3.0); HEMATOCRIT 30.6 % (42.0-52.0); HEMOGLOBIN 10.2 G/DL (14.2-18.0); LYMPHOCYTES % (AUTO) 14.6 % (20.0-45.0); MEAN CORPUSCULAR VOLUME 100 FL (80-99); MONOCYTES % (AUTO) 8.6 % (1.0-10.0); NEUTROPHILS % (AUTO) 75.4 % (45.0-75.0); PLATELET COUNT 152 K/UL (150-450); RED BLOOD COUNT 3.06 M/UL (4.70-6.10); WHITE BLOOD COUNT 6.7 K/UL (4.8-10.8)
[2018-10-02 06:09] LABS: ANION GAP 5 mmol/L (5-15); BLOOD UREA NITROGEN 27 mg/dL (7-18); CALCIUM 7.9 MG/DL (8.5-10.1); CARBON DIOXIDE 27 MMOL/L (21-32); CHLORIDE 108 MMOL/L (98-107); POTASSIUM 3.6 MMOL/L (3.5-5.1); SODIUM 140 MMOL/L (136-145)
[2018-10-02] MEDS: Levothyroxine 125mcg tab ORAL SCH (06:53)
--- NOTE | 2018-10-02 07:45 | NUR ---
HAND-OFF: Report given to MELVIN NIXON.NO ACUTE DISTRESS NOTED.
--- NOTE | 2018-10-02 07:48 | NUR ---
NURSE NOTES: Received patient from Artemio Rees RN. Patient is awake and confused. He is on room air. Patient's condom catheter is intact and draining. Left forearm 22 gauge is patent and intact receiving D5 0.45%NS with 20 mEq KCl. Patient has bilateral soft restraints, skin is intact, peripheral pulses present. Bed is locked, placed in lowest position, call light within reach, padded side rails up x3. All needs attended to, will continue to monitor.
[2018-10-02 08:00] VITALS: BP 100/49
[2018-10-02] MEDS: Docusate 100mg cap ORAL SCH ×2 (08:52→17:50)
[2018-10-02] MEDS: Tamsulosin 0.4mg cap ORAL SCH ×2 (08:53→17:50)
[2018-10-02] MEDS: Levodopa/Carbidopa 25/100 tab ORAL SCH ×3 (08:53→17:50)
[2018-10-02] MEDS: Heparin 5000 units/ml inj SUBQ SCH ×2 (08:55→21:00)
[2018-10-02] MEDS ORDERED: Heparin 5000 units/ml inj SUBQ SCH (09:00)
--- NOTE | 2018-10-02 09:47 | General Progress Note ---
Assessment/Plan Status: progressing Assessment/Plan 82 yo male admitted to telemetry with the following medical problems: - Altered mental status - NSTEMI - dehydration - agitation - mental retardation= - history of PICA - parkinson's disease - Tardive Dyskinesia - uti Plan: - serial troponins - telemetry - cardiology consult - IV Ceftriaxone - panculture - psychiatry consult - ID consult - continue home medications - seizure precaution - am labs - VTE prophylaxis with Heparin bid - venous duplex rule out DVT Subjective Date patient seen: Oct 02, 2018 ROS Limited/Unobtainable: Yes Allergies: Coded Allergies: No Known Allergies (Verified , 02/21/07) Objective Last 24 Hour Vital Signs Date Time Temp Pulse Resp B/P (MAP) Pulse Ox O2 Delivery O2 Flow Rate FiO2 10/02/18 04:00 Room Air 10/02/18 04:00 69 10/02/18 04:00 97.6 69 15 109/44 (65) 100 10/02/18 00:00 67 10/02/18 00:00 98.8 68 14 109/44 (65) 100 10/01/18 22:10 Room Air 10/01/18 22:06 99.3 78 19 115/65 98 Room Air 10/01/18 18:57 101.7 84 19 123/57 98 Room Air 10/01/18 16:31 94 21 Room Air 10/01/18 16:31 102.0 94 21 128/36 96 Room Air 10/01/18 16:31 102.0 94 21 128/36 96 Room Air Intake and Output 10/01/18 10/02/18 19:00 07:00 Intake Total 1110 ml 1330 ml Output Total 0 ml 100 ml Balance 1110 ml 1230 ml Intake Oral 30 ml IV Total 1110 ml 1300 ml Output Urine Total 0 ml 100 ml Laboratory Tests 10/01/18 17:45: Urine Color Yellow, Urine Appearance Slightly cloudy, Urine pH 6, Urine Specific [place] 1.010, Urine Protein 2+H, Urine Glucose (UA) Negative, Urine Ketones 1+H, Urine Blood 4+H, Urine Nitrite PositiveH, Urine Bilirubin Negative , Urine Urobilinogen Normal, Urine Leukocyte Esterase 3+H, Urine RBC 2-4H, Urine WBC 40-60H, Urine Squamous Epithelial Cells Few, Urine Bacteria ManyH 10/01/18 17:49: White Blood Count 8.9, Red Blood Count 3.47L, Hemoglobin 11.6L, Hematocrit 34.6L , Mean Corpuscular Volume 100H, Mean Corpuscular Hemoglobin 33.3H, Mean Corpuscular Hemoglobin Concent 33.4, Red Cell Distribution Width 12.9, Platelet Count 205, Mean Platelet Volume 5.5L, Neutrophils (%) (Auto) 80.6H, Lymphocytes (%) (Auto) 10.4L, Monocytes (%) (Auto) 8.4, Eosinophils (%) (Auto) 0.1, Basophils (%) (Auto) 0.5, Prothrombin Time 11.0, Prothromb Time International Ratio 1.0, Activated Partial Thromboplast Time 27, Sodium Level 139, Potassium Level 4.5, Chloride Level 106, Carbon Dioxide Level 27, Anion Gap 6, Blood Urea Nitrogen 30H, Creatinine 1.0, Estimat Glomerular Filtration Rate , Glucose Level 91, Lactic Acid Level 2.20H, Calcium Level 8.3L, Phosphorus Level 2.2L, Magnesium Level 1.7L, Total Bilirubin 0.3, Aspartate Amino Transf (AST/SGOT) 18 , Alanine Aminotransferase (ALT/SGPT) 16, Alkaline Phosphatase 106, Total Creatine Kinase 158, Troponin I 0.141H, Pro-B-Type Natriuretic Peptide 2355H, Total Protein 6.0L, Albumin 2.3L, Globulin 3.7, Albumin/Globulin Ratio 0.6L, Lipase 87 10/01/18 18:40: Lactic Acid Level 0.80 10/02/18 05:01: White Blood Count 6.7, Red Blood Count 3.06L, Hemoglobin 10.2L, Hematocrit 30.6L , Mean Corpuscular Volume 100H, Mean Corpuscular Hemoglobin 33.5H, Mean Corpuscular Hemoglobin Concent 33.5, Red Cell Distribution Width 13.0, Platelet Count 152, Mean Platelet Volume 6.3L, Neutrophils (%) (Auto) 75.4H, Lymphocytes (%) (Auto) 14.6L, Monocytes (%) (Auto) 8.6, Eosinophils (%) (Auto) 0.7, Basophils (%) (Auto) 0.8, Sodium Level 140, Potassium Level 3.6, Chloride Level 108H, Carbon Dioxide Level 27, Anion Gap 5, Blood Urea Nitrogen 27H, Creatinine 1.0, Estimat Glomerular Filtration Rate , Glucose Level 81, Lactic Acid Level 0.80, Calcium Level 7.9L, Troponin I 0.135H Height (Feet): 5 Height (Inches): 5.00 Weight (Pounds): 132 General Appearance: no apparent distress, alert EENT: PERRL/EOMI, pharynx normal Neck: non-tender, supple Cardiovascular: normal rate, regular rhythm, no gallop/murmur, no JVD Respiratory/Chest: chest wall non-tender, normal breath sounds, no respiratory distress Abdomen: non tender, soft, no mass Extremities: non-tender, normal inspection, no calf tenderness Edema: no edema noted Arm (L), no edema noted Arm (R), no edema noted Leg (L), no edema noted Leg (R), no edema noted Pedal (L), no edema noted Pedal (R), no edema noted Generalized Neurologic: alert Skin: warm/dry Lymphatic: normal anterior cervical (L), normal anterior cervical (R), normal posterior cervical (L), normal posterior cervical (R), normal submandibular (L) , normal submandibular (R), normal supraclavicular (L), normal supraclavicular ( R), normal axillary (L), normal axillary (R), normal inguinal (L), normal inguinal (R), normal other Shayla Gandhi MD Oct 02, 2018 09:47
--- NOTE | 2018-10-02 10:06 | Diagnostic Imaging Report ---
Indication: Shortness of breath Technique: One view of the chest Comparison: 01/24/2018 Findings: Patient is rotated to the right. A band of atelectasis is seen in the right perihilar region. The lungs and pleural spaces are otherwise clear. Heart size is normal. Aorta tortuous calcified and ectatic Impression: Right perihilar atelectasis. No acute process otherwise
--- NOTE | 2018-10-02 11:02 | Cardiac Electrophysiology PN ---
Subjective Subjective [id number] Objective Last 24 Hour Vital Signs Date Time Temp Pulse Resp B/P (MAP) Pulse Ox O2 Delivery O2 Flow Rate FiO2 10/02/18 04:00 Room Air 10/02/18 04:00 69 10/02/18 04:00 97.6 69 15 109/44 (65) 100 10/02/18 00:00 67 10/02/18 00:00 98.8 68 14 109/44 (65) 100 10/01/18 22:10 Room Air 10/01/18 22:06 99.3 78 19 115/65 98 Room Air 10/01/18 18:57 101.7 84 19 123/57 98 Room Air 10/01/18 16:31 94 21 Room Air 10/01/18 16:31 102.0 94 21 128/36 96 Room Air 10/01/18 16:31 102.0 94 21 128/36 96 Room Air Intake and Output 10/01/18 10/02/18 19:00 07:00 Intake Total 1110 ml 1330 ml Output Total 0 ml 100 ml Balance 1110 ml 1230 ml Intake Oral 30 ml IV Total 1110 ml 1300 ml Output Urine Total 0 ml 100 ml Laboratory Tests Test 10/01/18 17:45 10/01/18 17:49 10/01/18 18:40 10/02/18 05:01 Urine Color Yellow Urine Appearance Slightly cloudy Urine pH 6 (4.5-8.0) Urine Specific [place] 1.010 (1.005-1.035) Urine Protein 2+ (NEGATIVE) H Urine Glucose (UA) Negative (NEGATIVE) Urine Ketones 1+ (NEGATIVE) H Urine Blood 4+ (NEGATIVE) H Urine Nitrite Positive (NEGATIVE) H Urine Bilirubin Negative (NEGATIVE) Urine Urobilinogen Normal MG/DL (0.0-1.0) Urine Leukocyte Esterase 3+ (NEGATIVE) H Urine RBC 2-4 /HPF (0 - 0) H Urine WBC 40-60 /HPF (0 - 0) H Urine Squamous Epithelial Cells Few /LPF (NONE/OCC) Urine Bacteria Many /HPF (NONE) H White Blood Count 8.9 K/UL (4.8-10.8) 6.7 K/UL (4.8-10.8) Red Blood Count 3.47 M/UL (4.70-6.10) L 3.06 M/UL (4.70-6.10) L Hemoglobin 11.6 G/DL (14.2-18.0) L 10.2 G/DL (14.2-18.0) L Hematocrit 34.6 % (42.0-52.0) L 30.6 % (42.0-52.0) L Mean Corpuscular Volume 100 FL (80-99) H 100 FL (80-99) H Mean Corpuscular Hemoglobin 33.3 PG (27.0-31.0) H 33.5 PG (27.0-31.0) H Mean Corpuscular Hemoglobin Concent 33.4 G/DL (32.0-36.0) 33.5 G/DL (32.0-36.0) Red Cell Distribution Width 12.9 % (11.6-14.8) 13.0 % (11.6-14.8) Platelet Count 205 K/UL (150-450) 152 K/UL (150-450) Mean Platelet Volume 5.5 FL (6.5-10.1) L 6.3 FL (6.5-10.1) L Neutrophils (%) (Auto) 80.6 % (45.0-75.0) H 75.4 % (45.0-75.0) H Lymphocytes (%) (Auto) 10.4 % (20.0-45.0) L 14.6 % (20.0-45.0) L Monocytes (%) (Auto) 8.4 % (1.0-10.0) 8.6 % (1.0-10.0) Eosinophils (%) (Auto) 0.1 % (0.0-3.0) 0.7 % (0.0-3.0) Basophils (%) (Auto) 0.5 % (0.0-2.0) 0.8 % (0.0-2.0) Prothrombin Time 11.0 SEC (9.30-11.50) Prothromb Time International Ratio 1.0 (0.9-1.1) Activated Partial Thromboplast Time 27 SEC (23-33) Sodium Level 139 MMOL/L (136-145) 140 MMOL/L (136-145) Potassium Level 4.5 MMOL/L (3.5-5.1) 3.6 MMOL/L (3.5-5.1) Chloride Level 106 MMOL/L (98-107) 108 MMOL/L (98-107) H Carbon Dioxide Level 27 MMOL/L (21-32) 27 MMOL/L (21-32) Anion Gap 6 mmol/L (5-15) 5 mmol/L (5-15) Blood Urea Nitrogen 30 mg/dL (7-18) H 27 mg/dL (7-18) H Creatinine 1.0 MG/DL (0.55-1.30) 1.0 MG/DL (0.55-1.30) Estimat Glomerular Filtration Rate mL/min (>60) mL/min (>60) Glucose Level 91 MG/DL (74-106) 81 MG/DL (74-106) Lactic Acid Level 2.20 mmol/L (0.4-2.0) H 0.80 mmol/L (0.66-2.22) 0.80 mmol/L (0.4-2.0) Calcium Level 8.3 MG/DL (8.5-10.1) L 7.9 MG/DL (8.5-10.1) L Phosphorus Level 2.2 MG/DL (2.5-4.9) L Magnesium Level 1.7 MG/DL (1.8-2.4) L Total Bilirubin 0.3 MG/DL (0.2-1.0) Aspartate Amino Transf (AST/SGOT) 18 U/L (15-37) Alanine Aminotransferase (ALT/SGPT) 16 U/L (12-78) Alkaline Phosphatase 106 U/L (46-116) Total Creatine Kinase 158 U/L (26-308) Troponin I 0.141 ng/mL (0.000-0.056) 0.135 ng/mL (0.000-0.056) Pro-B-Type Natriuretic Peptide 2355 pg/mL (0-125) H Total Protein 6.0 G/DL (6.4-8.2) L Albumin 2.3 G/DL (3.4-5.0) L Globulin 3.7 g/dL Albumin/Globulin Ratio 0.6 (1.0-2.7) L Lipase 87 U/L (73-393) Microbiology Date/Time Source Procedure Growth Status 10/01/18 18:35 Nasal Nares Influenza Types A,B Antigen (BAUDILIO) - Final Complete 10/01/18 17:45 Urine,Clean Catch Urine Culture - Preliminary Gram Negative Bacillus 1 Resulted Basilio Smart MD Oct 02, 2018 11:02
--- NOTE | 2018-10-02 11:24 | NUR ---
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 UTI VS: BP128/36, P 94, T 102.1, RR 21, SpO2 96 Urine Protein 2+, Urine Ketones 1+, Urine Blood 4+, Urine Nitrate: POSITIVE, RBC 3.47, BUN 27, Ca 7.9 CXR Impression: Right perihilar atelectasis. No acute process otherwise IS:ASPIRIN 600mg PIPERACILLIN SOD/ TAZOBACTAM SOD 110ml HALDOL 2.5mg NS x2L IV LEVOFLOXACIN 150 ml ADMITTED TO SDU DC PLAN: RETURN TO B/C
[2018-10-02 12:00] VITALS: BP 105/42
--- NOTE | 2018-10-02 12:26 | Cardiology Report ---
APPROVED REPORT EXAM: Two-dimensional and M-mode echocardiogram with Doppler and color Doppler. INDICATION Acute UT M-Mode DIMENSIONS IVSd1.1 (0.7-1.1cm)Left Atrium (MM)1.9 (1.6-4.0cm) LVDd3.9 (3.5-5.6cm)Aortic Root2.4 (2.0-3.7cm) PWd0.9 (0.7-1.1cm)Aortic Cusp Exc.1.4 (1.5-2.0cm) IVSs1.4 cm LVDs2.9 (2.5-4.0cm) PWs1.1 cm Technically difficult study due to poor acoustical windows.poor endocardial and valvular definition Normal left ventricular chamber size, systolic function and wall motion to extent visualized. Left ventricular ejection fraction estimated to be 60-65%. Mild left ventricular hypertrophy with prominent basal septum. No evidence of pericardial effusion All other cardiac chamber sizes are within normal limits. Focal aortic valve sclerosis with adequate cusp excursion. Thickened mitral valve leaflets with normal excursion. Mitral annulus and aortic root calcification. Pulmonic valve not well visualized. Normal tricuspid valve structure. Subcostal views not obtained. A color flow and spectral Doppler study was performed and revealed: Trace aortic regurgitation. Trace to mild mitral regurgitation. Mitral diastolic velocities suggest reduced left ventricular relaxation c/w mild LV diastolic dysfunction (Grade I ). Trace tricuspid regurgitation. Tricuspid systolic velocities suggests peak right ventricular systolic pressure of 17 mmHg
[2018-10-02 16:00] VITALS: BP 117/56
--- NOTE | 2018-10-02 17:13 | Infectious Diseases Prog Note ---
Assessment/Plan Assessment/Plan Full consult dictated: A) 1) gram neg uti/pyelonephritis, sepsis, fevers 2) pmh noted 3) allergies - nkda P) 1) meropenem 2) check urine culture 3) will f/u 4) thank you Subjective Allergies: Coded Allergies: No Known Allergies (Verified , 02/21/07) Objective Vital Signs Last 24 Hour Vital Signs Date Time Temp Pulse Resp B/P (MAP) Pulse Ox O2 Delivery O2 Flow Rate FiO2 10/02/18 16:00 Room Air 10/02/18 16:00 98.8 73 16 117/56 (76) 95 10/02/18 15:32 68 10/02/18 12:00 98.4 69 17 105/42 (63) 96 10/02/18 12:00 Room Air 10/02/18 12:00 68 10/02/18 08:00 Room Air 10/02/18 08:00 69 10/02/18 08:00 98.8 68 12 100/49 (66) 95 10/02/18 04:00 Room Air 10/02/18 04:00 69 10/02/18 04:00 97.6 69 15 109/44 (65) 100 10/02/18 00:00 67 10/02/18 00:00 98.8 68 14 109/44 (65) 100 10/01/18 22:10 Room Air 10/01/18 22:06 99.3 78 19 115/65 98 Room Air 10/01/18 18:57 101.7 84 19 123/57 98 Room Air Height (Feet): 5 Height (Inches): 5.00 Weight (Pounds): 132 Microbiology Date/Time Source Procedure Growth Status 10/01/18 18:35 Nasal Nares Influenza Types A,B Antigen (BAUDILIO) - Final Complete 10/01/18 17:45 Urine,Clean Catch Urine Culture - Preliminary Gram Negative Bacillus 1 Resulted Laboratory Tests Test 10/01/18 17:45 10/01/18 17:49 10/01/18 18:40 10/02/18 05:01 Urine Color Yellow Urine Appearance Slightly cloudy Urine pH 6 (4.5-8.0) Urine Specific [place] 1.010 (1.005-1.035) Urine Protein 2+ (NEGATIVE) H Urine Glucose (UA) Negative (NEGATIVE) Urine Ketones 1+ (NEGATIVE) H Urine Blood 4+ (NEGATIVE) H Urine Nitrite Positive (NEGATIVE) H Urine Bilirubin Negative (NEGATIVE) Urine Urobilinogen Normal MG/DL (0.0-1.0) Urine Leukocyte Esterase 3+ (NEGATIVE) H Urine RBC 2-4 /HPF (0 - 0) H Urine WBC 40-60 /HPF (0 - 0) H Urine Squamous Epithelial Cells Few /LPF (NONE/OCC) Urine Bacteria Many /HPF (NONE) H White Blood Count 8.9 K/UL (4.8-10.8) 6.7 K/UL (4.8-10.8) Red Blood Count 3.47 M/UL (4.70-6.10) L 3.06 M/UL (4.70-6.10) L Hemoglobin 11.6 G/DL (14.2-18.0) L 10.2 G/DL (14.2-18.0) L Hematocrit 34.6 % (42.0-52.0) L 30.6 % (42.0-52.0) L Mean Corpuscular Volume 100 FL (80-99) H 100 FL (80-99) H Mean Corpuscular Hemoglobin 33.3 PG (27.0-31.0) H 33.5 PG (27.0-31.0) H Mean Corpuscular Hemoglobin Concent 33.4 G/DL (32.0-36.0) 33.5 G/DL (32.0-36.0) Red Cell Distribution Width 12.9 % (11.6-14.8) 13.0 % (11.6-14.8) Platelet Count 205 K/UL (150-450) 152 K/UL (150-450) Mean Platelet Volume 5.5 FL (6.5-10.1) L 6.3 FL (6.5-10.1) L Neutrophils (%) (Auto) 80.6 % (45.0-75.0) H 75.4 % (45.0-75.0) H Lymphocytes (%) (Auto) 10.4 % (20.0-45.0) L 14.6 % (20.0-45.0) L Monocytes (%) (Auto) 8.4 % (1.0-10.0) 8.6 % (1.0-10.0) Eosinophils (%) (Auto) 0.1 % (0.0-3.0) 0.7 % (0.0-3.0) Basophils (%) (Auto) 0.5 % (0.0-2.0) 0.8 % (0.0-2.0) Prothrombin Time 11.0 SEC (9.30-11.50) Prothromb Time International Ratio 1.0 (0.9-1.1) Activated Partial Thromboplast Time 27 SEC (23-33) Sodium Level 139 MMOL/L (136-145) 140 MMOL/L (136-145) Potassium Level 4.5 MMOL/L (3.5-5.1) 3.6 MMOL/L (3.5-5.1) Chloride Level 106 MMOL/L (98-107) 108 MMOL/L (98-107) H Carbon Dioxide Level 27 MMOL/L (21-32) 27 MMOL/L (21-32) Anion Gap 6 mmol/L (5-15) 5 mmol/L (5-15) Blood Urea Nitrogen 30 mg/dL (7-18) H 27 mg/dL (7-18) H Creatinine 1.0 MG/DL (0.55-1.30) 1.0 MG/DL (0.55-1.30) Estimat Glomerular Filtration Rate mL/min (>60) mL/min (>60) Glucose Level 91 MG/DL (74-106) 81 MG/DL (74-106) Lactic Acid Level 2.20 mmol/L (0.4-2.0) H 0.80 mmol/L (0.66-2.22) 0.80 mmol/L (0.4-2.0) Calcium Level 8.3 MG/DL (8.5-10.1) L 7.9 MG/DL (8.5-10.1) L Phosphorus Level 2.2 MG/DL (2.5-4.9) L Magnesium Level 1.7 MG/DL (1.8-2.4) L Total Bilirubin 0.3 MG/DL (0.2-1.0) Aspartate Amino Transf (AST/SGOT) 18 U/L (15-37) Alanine Aminotransferase (ALT/SGPT) 16 U/L (12-78) Alkaline Phosphatase 106 U/L (46-116) Total Creatine Kinase 158 U/L (26-308) Troponin I 0.141 ng/mL (0.000-0.056) 0.135 ng/mL (0.000-0.056) Pro-B-Type Natriuretic Peptide 2355 pg/mL (0-125) H Total Protein 6.0 G/DL (6.4-8.2) L Albumin 2.3 G/DL (3.4-5.0) L Globulin 3.7 g/dL Albumin/Globulin Ratio 0.6 (1.0-2.7) L Lipase 87 U/L (73-393) Current Medications Medications (Trade) Dose Ordered Sig/Ana Route PRN Reason Start Time Stop Time Status Last Admin Dose Admin Acetaminophen (Tylenol) 650 mg Q4H PRN ORAL Mild Pain/Temp > 100.5 10/02/18 01:15 11/01/18 01:14 Albuterol Sulfate (Proventil) 2.5 mg Q6H PRN HHN Shortness of Breath 10/02/18 01:45 10/07/18 01:44 Carbidopa/Levodopa (Sinemet 25/100) 1.5 tab THREE TIMES A DAY ORAL 10/02/18 09:00 11/01/18 08:59 10/02/18 13:28 Carbidopa/Levodopa (Sinemet CR 50/ 200) 1 tab QHS ORAL 10/02/18 21:00 11/01/18 20:59 Ceftriaxone Sodium 1 gm/ Dextrose 55 ml @ 110 mls/hr Q24H IVPB 10/02/18 09:00 10/09/18 08:59 10/02/18 08:57 Dextrose/ Electrolytes 1,000 ml @ 50 mls/hr Q20H IV 10/02/18 01:15 11/01/18 01:14 10/02/18 02:09 Diphenhydramine HCl (Benadryl) 25 mg Q6H PRN IVP Itching 10/02/18 01:15 11/01/18 01:14 Docusate Sodium (Colace) 200 mg TWICE A DAY ORAL 10/02/18 09:00 11/01/18 08:59 10/02/18 08:52 Haloperidol Lactate (Haldol) 2 mg Q4H PRN IM agitation 10/02/18 01:30 11/01/18 01:29 Heparin Sodium (Porcine) (Heparin 5000 units/ml) 5,000 units EVERY 12 HOURS SUBQ 10/02/18 09:00 11/01/18 08:59 10/02/18 08:55 Levetiracetam (Keppra) 500 mg EVERY 12 HOURS ORAL 10/02/18 09:00 11/01/18 08:59 10/02/18 08:54 Levothyroxine Sodium (Synthroid) 125 mcg ACBREAKFAST ORAL 10/02/18 06:30 11/01/18 06:29 10/02/18 06:53 Ondansetron HCl (Zofran ODT) 4 mg Q8H PRN ORAL Nausea & Vomiting 10/02/18 01:45 11/01/18 01:44 Pantoprazole (Protonix) 40 mg DAILY ORAL 10/02/18 09:00 11/01/18 08:59 10/02/18 08:53 Phenytoin (Dilantin) 300 mg BEDTIME ORAL 10/02/18 21:00 11/01/18 20:59 Polyethylene Glycol (Miralax) 17 gm DAILY PRN ORAL Constipation 10/02/18 01:45 11/01/18 01:44 Quetiapine Fumarate (SEROquel) 100 mg Q4H PRN ORAL Agitation 10/02/18 01:45 11/01/18 01:44 Sennosides (Senokot) 17.2 mg DAILY PRN ORAL Constipation 10/02/18 01:45 11/01/18 01:44 Tamsulosin HCl (Flomax) 0.4 mg BID ORAL 10/02/18 09:00 11/01/18 08:59 10/02/18 08:53 Michaela Christine MD Oct 02, 2018 17:13
--- NOTE | 2018-10-02 19:00 | Consultation ---
DATE OF CONSULTATION: 10/02/2018 CARDIAC ELECTROPHYSIOLOGY CONSULTATION CONSULTING PHYSICIAN: Basilio Smart M.D. REFERRING PHYSICIAN: Shayla Gandhi M.D. REASON FOR CONSULTATION: Elevated troponin. HISTORY OF PRESENT ILLNESS: The patient is an 82-year-old gentleman who was brought in from half-way for being less responsive as well as fever. The patient did not have cough or vomiting and has had regular bowel movements. He apparently smelt like he has urinary tract infection. He is not able to provide any information due to his advanced dementia and currently restrained. Cardiology consultation was obtained for further evaluation and management. REVIEW OF SYSTEMS: Cannot be obtained. PAST MEDICAL HISTORY: 1. Hypertension. 2. COPD. 3. Dementia. FAMILY HISTORY: Noncontributory. SOCIAL HISTORY: He lives in a half-way. Does not smoke or drink alcohol. PHYSICAL EXAMINATION: VITAL SIGNS: Show blood pressure is 109/44, pulse is 69, respirations 15, and temperature 97.6. Temperature on admission was 102. HEAD AND NECK: Showed no JVD. LUNGS: Clear. CARDIOVASCULAR: Shows regular S1 and S2 with no gallop or murmur. ABDOMEN: Soft. EXTREMITIES: No pitting edema. LABORATORY DATA: White count 6.7, hemoglobin 10.2, hematocrit of 30, and platelet count is 152,000. Sodium of 140, potassium 3.8, BUN of 27, and creatinine of 1.0. Initial troponin was 0.14 and second troponin was 0.135. A 12-lead EKG showed normal sinus rhythm and normal electrocardiogram. ASSESSMENT AND PLAN: 1. Troponin leak. Levels are flat. The patient does not have any chest pain and EKG is completely normal. We will get an echocardiogram to evaluate for ejection fraction and wall motion abnormality. 2. Fever, sepsis, and UTI. The patient is already on IV antibiotic. 3. Parkinson's, on Sinemet. 4. Seizure disorder, on Dilantin. 5. Prostatic hypertrophy, on Flomax. 6. Hypothyroidism, on Synthroid. Thank you very much for allowing me to participate in the care of this patient. Please do not hesitate to contact me for any questions regarding my evaluation. Basilio Smart M.D. DR: MADELIN JOB#: [id number] CC:
--- NOTE | 2018-10-02 19:14 | NUR ---
HAND-OFF: Report given to Teto Rodriguez RN.NURSE NOTES:
[2018-10-02 20:00] VITALS: BP 120/50
[2018-10-02] MEDS ORDERED: Levodopa/Carbidopa CR 50/200 tab ORAL SCH (21:00)
[2018-10-02] MEDS ORDERED: Phenytoin 100mg cap ORAL SCH (21:00)
--- NOTE | 2018-10-02 21:43 | NUR ---
NURSE NOTES: BEDSIDE REPORT RECEIVED FROM MELVIN NIXON. PT IS X1-2, KNOWS NAME, . PT IS ON BILATERAL WRIST RESTRAINTS, REMAINS CALM, WILL OBSERVE PT MORE BEFORE REMOVAL. SKIN IS CLEAN, DRY, SKIN INTACT. RFA 22G RUNNING D51/2NS W/ 20 MEQ KCL @ 50; ASYMPTOMATIC. CONDOM CATH ON, DRAINING. PT IS ON ROOM AIR; SATING WELL. NO S/S OF DISTRESS. 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 LABS OK PER RNMD AWARE. BED IS LOCKED IN LOWEST POSITION, SR X3, CALL VEE W/ IN REACH. WILL CONTINUE TO MONITOR AND FOLLOW PLAN OF CARE.
--- NOTE | 2018-10-02 22:16 | Consultation ---
History of Present Illness General Chief Complaint: General Complaint Present Illness HPI 82-year-old gentleman who was brought in from residential for being less responsive the pt has hx of dd and td. the pt was confused and agitated . waxing and waning of consciousness. the pt is unable to provide any hx. the pt has memory impairment. the pt is not endorsing si/hi Allergies: Coded Allergies: No Known Allergies (Verified , 02/21/07) Medication History Scheduled Ascorbic Acid* (Vitamin C*), 500 MG ORAL DAILY, (Reported) Bethanechol Chl* (Bethanechol Chloride*), 25 MG ORAL QID, (Reported) Carbidopa/Levodopa 25-100 Mg* (Sinemet 25-100 Mg Tablet*), 1.5 TAB ORAL THREE TIMES A DAY, (Reported) Carbidopa/Levodopa Cr 50-200* (Sinemet Cr 50-200 Tablet*), 1 TAB ORAL QHS, ( Reported) Cranberry Extract (Cranberry), 400 MG PO DAILY, (Reported) Docusate Sodium* (Docusate Sodium*), 200 MG ORAL TWICE A DAY, (Reported) Ergocalciferol (Vitamin D2)* (Vitamin D*), 50,000 UNIT ORAL ONCE A WEEK, ( Reported) Lactobacillus Rhamnosus Gg* (Culturelle*), 1 CAP ORAL DAILY, (Reported) Levetiracetam (Keppra), 500 MG ORAL EVERY 12 HOURS, (Reported) Levothyroxine Sodium* (Levothyroxine Sodium*), 125 MCG ORAL DAILY, (Reported) Methenamine Mandelate (Methenamine Mandelate), 1 GM PO QHS, (Reported) Montelukast Sodium* (Montelukast Sodium*), 10 MG ORAL HS, (Reported) Multivitamin (Daily Vitamin), 1 TAB ORAL DAILY, (Reported) [place]-3 Fatty Acids/Fish Oil ([place] 3 1,000 Mg Softgel), 1 EACH PO BID, ( Reported) Pantoprazole* (Pantoprazole*), 40 MG ORAL DAILY, (Reported) Phenytoin Sodium Extended* (Phenytoin Sodium Extended*), 300 MG ORAL BEDTIME, ( Reported) Quetiapine Fumarate* (Quetiapine Fumarate*), 50 MG ORAL BID, (Reported) Rasagiline Mesylate (Azilect), 1 MG PO DAILY, (Reported) Tamsulosin Hcl (Tamsulosin Hcl*), 0.4 MG ORAL BID, (Reported) Zinc Sulfate (Zinc Sulfate*), 220 MG ORAL DAILY, (Reported) Scheduled PRN Albuterol Sulfate* (Albuterol Sulfate Hhn*), 3 ML INH Q6H PRN for Shortness of Breath, (Reported) Bisacodyl* (Dulcolax*), 5 MG ORAL EVERY 12 HOURS PRN for Constipation, (Reported ) Ondansetron Odt* (Zofran Odt*), 4 MG ORAL Q8HR PRN for Nausea & Vomiting, ( Reported) Polyethylene Glycol 3350* (Miralax*), 17 GM ORAL DAILY PRN for Constipation, ( Reported) Quetiapine Fumarate* (Quetiapine Fumarate*), 100 MG ORAL Q4HR PRN for Agitation, (Reported) Sennosides* (Senno*), 17.2 MG ORAL DAILY PRN for Constipation, (Reported) Zinc Oxide (Desitin), Unknown Dose TP BID PRN for AFFECTED AREAS, (Reported) [Phenergan 6.25MG/5ML], 10 ML PO Q6HR PRN for For Cough, (Reported) Patient History Limited by: medical condition History Provided By: Medical Record, PMD Healthcare decision maker Resuscitation status Full Code Advanced Directive on File No Past Medical/Surgical History Past Medical/Surgical History: (1) Small bowel obstruction (2) Dementia (3) Elevated lactic acid level (4) NSTEMI (non-ST elevated myocardial infarction) (5) Seizure disorder during (6) UTI (urinary tract infection) (7) Pica (8) Altered mental status (9) Choking (10) Seizure disorder (11) Tonic-clonic seizure (12) No acute ischemic changes on electrocardiogram (13) Agitated (14) Encounter for generalized patient complaints Review of Systems Psychiatric: Reports: prior hx, anxiety, depressed feelings, emotional problems Physical Exam General Appearance: alert - waxing and waning , confused, agitated Last 24 Hour Vital Signs Date Time Temp Pulse Resp B/P (MAP) Pulse Ox O2 Delivery O2 Flow Rate FiO2 10/02/18 19:18 83 20 Room Air 21 10/02/18 16:00 Room Air 10/02/18 16:00 98.8 73 16 117/56 (76) 95 10/02/18 15:32 68 10/02/18 12:00 98.4 69 17 105/42 (63) 96 10/02/18 12:00 Room Air 10/02/18 12:00 68 10/02/18 08:00 Room Air 10/02/18 08:00 69 10/02/18 08:00 98.8 68 12 100/49 (66) 95 10/02/18 04:00 Room Air 10/02/18 04:00 69 10/02/18 04:00 97.6 69 15 109/44 (65) 100 10/02/18 00:00 67 10/02/18 00:00 98.8 68 14 109/44 (65) 100 Intake and Output 10/01/18 10/02/18 18:59 06:59 Intake Total 2390 ml Output Total 0 ml 100 ml Balance 0 ml 2290 ml Intake Oral 30 ml IV Total 2360 ml Output Urine Total 0 ml 100 ml Laboratory Tests Test 10/02/18 05:01 White Blood Count 6.7 K/UL (4.8-10.8) Red Blood Count 3.06 M/UL (4.70-6.10) L Hemoglobin 10.2 G/DL (14.2-18.0) L Hematocrit 30.6 % (42.0-52.0) L Mean Corpuscular Volume 100 FL (80-99) H Mean Corpuscular Hemoglobin 33.5 PG (27.0-31.0) H Mean Corpuscular Hemoglobin Concent 33.5 G/DL (32.0-36.0) Red Cell Distribution Width 13.0 % (11.6-14.8) Platelet Count 152 K/UL (150-450) Mean Platelet Volume 6.3 FL (6.5-10.1) L Neutrophils (%) (Auto) 75.4 % (45.0-75.0) H Lymphocytes (%) (Auto) 14.6 % (20.0-45.0) L Monocytes (%) (Auto) 8.6 % (1.0-10.0) Eosinophils (%) (Auto) 0.7 % (0.0-3.0) Basophils (%) (Auto) 0.8 % (0.0-2.0) Sodium Level 140 MMOL/L (136-145) Potassium Level 3.6 MMOL/L (3.5-5.1) Chloride Level 108 MMOL/L (98-107) H Carbon Dioxide Level 27 MMOL/L (21-32) Anion Gap 5 mmol/L (5-15) Blood Urea Nitrogen 27 mg/dL (7-18) H Creatinine 1.0 MG/DL (0.55-1.30) Estimat Glomerular Filtration Rate mL/min (>60) Glucose Level 81 MG/DL (74-106) Lactic Acid Level 0.80 mmol/L (0.4-2.0) Calcium Level 7.9 MG/DL (8.5-10.1) L Troponin I 0.135 ng/mL (0.000-0.056) Height (Feet): 5 Height (Inches): 5.00 Weight (Pounds): 132 Medications Current Medications Medications (Trade) Dose Ordered Sig/Ana Route PRN Reason Start Time Stop Time Status Last Admin Dose Admin Acetaminophen (Tylenol) 650 mg Q4H PRN ORAL Mild Pain/Temp > 100.5 10/02/18 01:15 11/01/18 01:14 Albuterol Sulfate (Proventil) 2.5 mg Q6H PRN HHN Shortness of Breath 10/02/18 01:45 10/07/18 01:44 Carbidopa/Levodopa (Sinemet 25/100) 1.5 tab THREE TIMES A DAY ORAL 10/02/18 09:00 11/01/18 08:59 10/02/18 17:50 Carbidopa/Levodopa (Sinemet CR 50/ 200) 1 tab QHS ORAL 10/02/18 21:00 11/01/18 20:59 10/02/18 21:05 Dextrose/ Electrolytes 1,000 ml @ 50 mls/hr Q20H IV 10/02/18 01:15 11/01/18 01:14 10/02/18 21:00 Diphenhydramine HCl (Benadryl) 25 mg Q6H PRN IVP Itching 10/02/18 01:15 11/01/18 01:14 Docusate Sodium (Colace) 200 mg TWICE A DAY ORAL 10/02/18 09:00 11/01/18 08:59 10/02/18 17:50 Haloperidol Lactate (Haldol) 2 mg Q4H PRN IM agitation 10/02/18 01:30 11/01/18 01:29 Heparin Sodium (Porcine) (Heparin 5000 units/ml) 5,000 units EVERY 12 HOURS SUBQ 10/02/18 09:00 11/01/18 08:59 10/02/18 08:55 Levetiracetam (Keppra) 500 mg EVERY 12 HOURS ORAL 10/02/18 09:00 11/01/18 08:59 10/02/18 21:01 Levothyroxine Sodium (Synthroid) 125 mcg ACBREAKFAST ORAL 10/02/18 06:30 11/01/18 06:29 10/02/18 06:53 Meropenem 500 mg/ Sodium Chloride 50 ml @ 100 mls/hr EVERY 8 HOURS IVPB 10/02/18 22:00 10/07/18 21:59 10/02/18 21:00 Ondansetron HCl (Zofran ODT) 4 mg Q8H PRN ORAL Nausea & Vomiting 10/02/18 01:45 11/01/18 01:44 Pantoprazole (Protonix) 40 mg DAILY ORAL 10/02/18 09:00 11/01/18 08:59 10/02/18 08:53 Phenytoin (Dilantin) 300 mg BEDTIME ORAL 10/02/18 21:00 11/01/18 20:59 10/02/18 21:05 Polyethylene Glycol (Miralax) 17 gm DAILY PRN ORAL Constipation 10/02/18 01:45 11/01/18 01:44 Quetiapine Fumarate (SEROquel) 100 mg Q4H PRN ORAL Agitation 10/02/18 01:45 11/01/18 01:44 Sennosides (Senokot) 17.2 mg DAILY PRN ORAL Constipation 10/02/18 01:45 11/01/18 01:44 Tamsulosin HCl (Flomax) 0.4 mg BID ORAL 10/02/18 09:00 11/01/18 08:59 10/02/18 17:50 Assessment/Plan Problem List: (1) Acute metabolic encephalopathy ICD Codes: G93.41 - Metabolic encephalopathy SNOMED: 98540550, [id number] (2) Dementia ICD Codes: F03.90 - Unspecified dementia without behavioral disturbance SNOMED: 64616111 Qualifiers: Qualified Codes: F03.91 - Unspecified dementia with behavioral disturbance Assessment/Plan seroquel standing seroquel prn the pt lacks capacity Kayla Jones MD Oct 02, 2018 22:16
[2018-10-03] VITALS: BP 103/49
--- NOTE | 2018-10-03 | Consultation ---
DATE OF CONSULTATION: 10/02/2018 INFECTIOUS DISEASE CONSULTATION CONSULTING PHYSICIAN: Michaela Christine M.D. ATTENDING PHYSICIAN: Shayla Gandhi M.D. REFERRING PHYSICIAN: Shayla Gandhi M.D. REASON FOR CONSULTATION: Gram-negative UTI/pyelonephritis with sepsis and fevers. CHIEF COMPLAINT: The patient's chief complaint coming in to the hospital is sepsis. HISTORY OF PRESENT ILLNESS: This is a very pleasant 82-year-old male who comes into [facility], was noted to have fevers. The patient had a positive urinalysis. His UA had 3+ leukocyte esterase and 46 white blood cells, and many bacteria. The patient's urine culture with gram-negative organisms. The patient had gram-negative UTI and pyelonephritis with sepsis. The patient is febrile and also has SIRS criteria with fevers and heart rate over 90 and also respiratory rate over 20 on admission. The patient has SIRS criteria. Infectious Disease consultation requested for antibiotic management. The patient was placed on meropenem 500 mg IV every eight hours pending urine culture results. MAR was noted. Orders were noted. Notes were reviewed. Case was discussed with RN. The patient is in the step-down unit. The patient also did come in being less responsive in addition to complicated urinary tract infection. REVIEW OF SYSTEMS: CONSTITUTIONAL: The patient has generalized fatigue, but no focal weakness. He is responsive. No mention of weight loss. HEAD AND NECK: No head pain, neck pain, or neck stiffness. CARDIAC: No chest pain or palpitations. GASTROINTESTINAL: No nausea, vomiting, abdominal pain, or diarrhea. GENITOURINARY: Has a condom catheter. PULMONARY: No significant congestion, shortness of breath, hemoptysis, or secretions. SKIN: No rash or itching. EXTREMITIES: No extremity pain. NEUROLOGIC: Denies seizures. He came in with fevers. No chills currently. PAST MEDICAL HISTORY: The patient has a past medical history of CAD and non-STEMI. He has a history of agitation, mental retardation, history of PICA, history of agitation, dehydration, CAD, non-STEMI, had seizure precautions. He has a history of neurological problems, Parkinson's, seizures, GI bleed, history of cardiac issues, cardiac problems, history of hypertension, and COPD. History of seizures, on Keppra. ALLERGIES: No known drug allergies. No antibiotic allergies. SOCIAL HISTORY: Negative for smoking, alcohol, or drug use. FAMILY HISTORY: Noncontributory. Negative for exposure to tuberculosis or cancer. MEDICATIONS: Upon reviewing the MAR, the patient is on the following medications. He is on carbidopa, phenytoin, heparin, Rocephin, docusate, , pantoprazole, , carbidopa, levothyroxine, albuterol, Zofran, polyethylene, quetiapine, haloperidol, diphenhydramine, and acetaminophen. Outside medications noted and reconciliated. Antibiotics, changed Rocephin to meropenem. PHYSICAL EXAMINATION: VITAL SIGNS: On admission, temperature is 102.0. Currently, temperature is 98.8, pulse rate 73, respiratory rate 16, blood pressure 117/56, and saturation 95%. Pulse rate on admission was 94 and respiratory rate 21. He is not on pressors. GENERAL: Alert and responsive. No acute distress. HEAD AND NECK: Oral exam, no thrush. Eye exam, no icterus. Neck is supple. No JVD. Normocephalic. HEART: Regular. No obvious gallop or murmur. No friction rub. ABDOMEN: Soft. Positive bowel sounds. Nontender. LUNGS: Clear bilaterally. No rhonchi or rales. SKIN: No rash. MUSCULOSKELETAL: No effusion. Legs are without cellulitis. PERIPHERAL VASCULAR: No cyanosis. GENITOURINARY: Has condom catheter. Urine is cloudy. LINE SITES: Without phlebitis. NEUROLOGIC: Generalized weakness, responsive. LABORATORY DATA: As follows: UA had 3+ leukocyte esterase, 46 white blood cells, and many bacteria. Creatinine is 1.0. White count 6.7 and hemoglobin 10.2. Cultures, influenza screen is negative. Urine culture grew out 100,000 gram-negative organisms, identification is pending. IMAGING STUDIES: Chest x-ray shows atelectasis on the right perihilar. There is no other process. We will get followup chest x-ray with hydration. ASSESSMENT AND PLAN: 1. The patient has what looks like gram-negative urinary tract infection, pyelonephritis, complicated urinary tract infection with sepsis, fevers, systemic inflammatory response syndrome criteria. At this time because of the high incidence of extended spectrum beta-lactamase infections in the community, I will change antibiotics to meropenem 500 mg IV q.8 h. I am aware of seizure history, however, the dose of 500 mg q.8 h. should be safe in this patient. Also, meropenem has less incidence of seizures versus other carbapenems. We will continue meropenem 500 mg IV q.8 h. for gram-negative urinary tract infection, pyelonephritis, and sepsis. Check urine culture. Plan, we will adjust antibiotics and streamline coverage once the cultures back for the gram-negative urinary tract infection/pyelonephritis with sepsis. Continue meropenem. Check urine culture and labs. Check followup chest x-ray. 2. The patient has history of Parkinson disease. 3. History of PICA. 4. Seizure disorder. 5. Coronary artery disease and non-STEMI. 6. Hypertension. 7. Chronic obstructive pulmonary disease. 8. Blood pressure treatment per primary. 9. Neurologic disease and gastrointestinal disease. 10. Past medical history noted. 11. No known drug allergies. 12. Social history negative. 13. Family history noncontributory. 14. MAR was noted. 15. Case discussed with RN. 16. Skin care protocol. Michaela Christine M.D. DR: KANCHAN JOB#: [id number] CC: LEIGHANN
[2018-10-03 04:00] VITALS: BP 103/49
[2018-10-03 04:43] LABS: ANION GAP 7 mmol/L (5-15); BLOOD UREA NITROGEN 22 mg/dL (7-18); CALCIUM 7.9 MG/DL (8.5-10.1); CARBON DIOXIDE 27 MMOL/L (21-32); CHLORIDE 107 MMOL/L (98-107); CREATININE 0.9 MG/DL (0.55-1.30); POTASSIUM 3.7 MMOL/L (3.5-5.1); SODIUM 141 MMOL/L (136-145)
--- NOTE | 2018-10-03 05:40 | Physician Query ---
--------- THIS DOCUMENT IS A PERMANENT PART OF THE MEDICAL RECORD --------- PLEASE COMPLETE DOCUMENT BEFORE SIGNING Dear Dr. Peterson Gandhi Date: 10/03/18 Curing Press Maintainer/CDS Name: Richelle MOREAU Curing Press Maintainer / CDS Phone # Exercise your independent professional judgment when responding to query. Question asked do not imply a particular answer is desired/expected. Clinical Documentation States: "altered mental status and urinary frequency" documented in H&P "Sepsis, UTI" -- documented in ID Consultation note Clinical Findings Show: Urine culture = Gram Negative bacilli Please indicate the nature and chronicity of the condition below: [] Metabolic Encephalopathy [] Toxic Encephalopathy [] Toxic - Metabolic Encephalopathy [] Progressive Encephalopathy [] Encephalopathy, Other [] Other: [] Not Applicable Severity [] Acute [] Chronic [] Acute on Chronic [] Unable to determine Condition Present on Admission: [] Yes [] No []Clinically Undeterminable Please also document in your Progress Notes and/or Discharge Summary and indicate if the condition was present on admission. JERRY GANDHI M.D. DATE & TIME [facility]
[2018-10-03] MEDS: Levothyroxine 125mcg tab ORAL SCH (06:05)
--- NOTE | 2018-10-03 07:31 | NUR ---
NURSE NOTES: Received patient from Teto Rodrigeuz RN. Patient is awake, restless, and confused. Patient is on room air, respirations are even and unlabored. Patient has a condom catheter that is patent and draining. IV site is Right Wrist 22 gauge patent and intact, receiving D5 0.45% NS with 20mEq KCl at 50cc/hr. Bed is locked, placed in lowest position, bed alarm on, side rails up x3, call light within reach. Will continue to monitor.
[2018-10-03 07:34] LABS: BASOPHILS % (AUTO) 0.8 % (0.0-2.0); EOSINOPHILS % (AUTO) 0.6 % (0.0-3.0); HEMATOCRIT 33.9 % (42.0-52.0); LYMPHOCYTES % (AUTO) 18.4 % (20.0-45.0); MEAN CORPUSCULAR VOLUME 101 FL (80-99); MONOCYTES % (AUTO) 8.7 % (1.0-10.0); NEUTROPHILS % (AUTO) 71.5 % (45.0-75.0); PLATELET COUNT 187 K/UL (150-450); RED BLOOD COUNT 3.34 M/UL (4.70-6.10); RED CELL DISTRIBUTION WIDTH 13.1 % (11.6-14.8); WHITE BLOOD COUNT 4.2 K/UL (4.8-10.8)
[2018-10-03 08:00] VITALS: BP 118/55
[2018-10-03] MEDS: Tamsulosin 0.4mg cap ORAL SCH ×2 (08:46→17:38)
[2018-10-03] MEDS: Levodopa/Carbidopa 25/100 tab ORAL SCH ×3 (08:47→17:38)
[2018-10-03] MEDS: Docusate 100mg cap ORAL SCH ×2 (08:47→17:38)
[2018-10-03] MEDS: Heparin 5000 units/ml inj SUBQ SCH ×2 (08:48→21:48)
[2018-10-03 12:00] VITALS: BP 140/64
--- NOTE | 2018-10-03 15:20 | General Progress Note ---
Assessment/Plan Status: progressing Assessment/Plan 82 yo male admitted to telemetry with the following medical problems: - Altered mental status - NSTEMI - dehydration - agitation - mental retardation= - history of PICA - parkinson's disease - Tardive Dyskinesia - uti with gram negative alondra bacteremia Plan: - troponins trending down - dc telemetry - cardiology consult - IV merapenam - panculture - psychiatry consult - ID consult appreciate - continue home medications - seizure precaution - am labs - VTE prophylaxis with Heparin bid ok to dc telemetry discussed with Dr. Stokes Subjective Date patient seen: Oct 03, 2018 ROS Limited/Unobtainable: Yes Allergies: Coded Allergies: No Known Allergies (Verified , 02/21/07) Objective Last 24 Hour Vital Signs Date Time Temp Pulse Resp B/P (MAP) Pulse Ox O2 Delivery O2 Flow Rate FiO2 10/03/18 12:00 97.7 61 13 140/64 (89) 93 10/03/18 12:00 Room Air 10/03/18 11:41 55 10/03/18 08:00 98.7 61 14 118/55 (76) 94 10/03/18 08:00 Room Air 10/03/18 07:37 63 10/03/18 07:29 84 19 Room Air 21 10/03/18 04:00 Room Air 10/03/18 04:00 98.9 64 15 103/49 (67) 97 10/03/18 04:00 64 10/03/18 00:00 Room Air 10/03/18 00:00 67 10/03/18 00:00 98.8 66 16 103/49 (67) 94 10/02/18 20:00 72 10/02/18 20:00 98.4 70 15 120/50 (73) 94 10/02/18 20:00 Room Air 10/02/18 19:18 83 20 Room Air 21 10/02/18 16:00 Room Air 10/02/18 16:00 98.8 73 16 117/56 (76) 95 10/02/18 15:32 68 Intake and Output 10/02/18 10/03/18 19:00 07:00 Intake Total 895 ml 660 ml Output Total 700 ml Balance 195 ml 660 ml Intake Oral 240 ml 60 ml IV Total 655 ml 600 ml Output Urine Total 700 ml # Voids 2 # Bowel Movements 1 Laboratory Tests 10/03/18 03:36: Sodium Level 141, Potassium Level 3.7, Chloride Level 107, Carbon Dioxide Level 27, Anion Gap 7, Blood Urea Nitrogen 22H, Creatinine 0.9, Estimat Glomerular Filtration Rate , Glucose Level 104, Calcium Level 7.9L, Troponin I 0.086H, Pro- B-Type Natriuretic Peptide 2494H 10/03/18 07:00: White Blood Count 4.2L, Red Blood Count 3.34L, Hemoglobin 11.0L, Hematocrit 33.9L, Mean Corpuscular Volume 101H, Mean Corpuscular Hemoglobin 32.9H, Mean Corpuscular Hemoglobin Concent 32.4, Red Cell Distribution Width 13.1, Platelet Count 187, Mean Platelet Volume 5.6L, Neutrophils (%) (Auto) 71.5, Lymphocytes ( %) (Auto) 18.4L, Monocytes (%) (Auto) 8.7, Eosinophils (%) (Auto) 0.6, Basophils (%) (Auto) 0.8 Height (Feet): 5 Height (Inches): 5.00 Weight (Pounds): 132 General Appearance: no apparent distress, alert EENT: PERRL/EOMI, pharynx normal Neck: non-tender, supple Cardiovascular: normal rate, regular rhythm, no gallop/murmur, no JVD Respiratory/Chest: chest wall non-tender, normal breath sounds, no respiratory distress Abdomen: non tender, soft, no mass Extremities: non-tender, normal inspection, no calf tenderness Edema: no edema noted Arm (L), no edema noted Arm (R), no edema noted Leg (L), no edema noted Leg (R), no edema noted Pedal (L), no edema noted Pedal (R), no edema noted Generalized Neurologic: alert Skin: warm/dry Lymphatic: normal anterior cervical (L), normal anterior cervical (R), normal posterior cervical (L), normal posterior cervical (R), normal submandibular (L) , normal submandibular (R), normal supraclavicular (L), normal supraclavicular ( R), normal axillary (L), normal axillary (R), normal inguinal (L), normal inguinal (R), normal other Shayla Gandhi MD Oct 03, 2018 15:20
--- NOTE | 2018-10-03 15:34 | Cardiac Electrophysiology PN ---
Assessment/Plan Assessment/Plan 1. Troponin leak. Levels are flat 0.1,0.1,0.08. The patient does not have any chest pain and EKG is completely normal. Echocardiogram EF 65% 2. Fever, sepsis, and UTI. The patient is already on IV antibiotic. 3. Parkinson's, on Sinemet. 4. Seizure disorder, on Dilantin. 5. Prostatic hypertrophy, on Flomax. 6. Hypothyroidism, on Synthroid. Subjective Subjective Alert in NAD. No CP or SOB Objective Last 24 Hour Vital Signs Date Time Temp Pulse Resp B/P (MAP) Pulse Ox O2 Delivery O2 Flow Rate FiO2 10/03/18 12:00 97.7 61 13 140/64 (89) 93 10/03/18 12:00 Room Air 10/03/18 11:41 55 10/03/18 08:00 98.7 61 14 118/55 (76) 94 10/03/18 08:00 Room Air 10/03/18 07:37 63 10/03/18 07:29 84 19 Room Air 21 10/03/18 04:00 Room Air 10/03/18 04:00 98.9 64 15 103/49 (67) 97 10/03/18 04:00 64 10/03/18 00:00 Room Air 10/03/18 00:00 67 10/03/18 00:00 98.8 66 16 103/49 (67) 94 10/02/18 20:00 72 10/02/18 20:00 98.4 70 15 120/50 (73) 94 10/02/18 20:00 Room Air 10/02/18 19:18 83 20 Room Air 21 10/02/18 16:00 Room Air 10/02/18 16:00 98.8 73 16 117/56 (76) 95 10/02/18 15:32 68 Intake and Output 10/02/18 10/03/18 19:00 07:00 Intake Total 895 ml 660 ml Output Total 700 ml Balance 195 ml 660 ml Intake Oral 240 ml 60 ml IV Total 655 ml 600 ml Output Urine Total 700 ml # Voids 2 # Bowel Movements 1 Laboratory Tests Test 10/03/18 03:36 10/03/18 07:00 Sodium Level 141 MMOL/L (136-145) Potassium Level 3.7 MMOL/L (3.5-5.1) Chloride Level 107 MMOL/L (98-107) Carbon Dioxide Level 27 MMOL/L (21-32) Anion Gap 7 mmol/L (5-15) Blood Urea Nitrogen 22 mg/dL (7-18) H Creatinine 0.9 MG/DL (0.55-1.30) Estimat Glomerular Filtration Rate mL/min (>60) Glucose Level 104 MG/DL (74-106) Calcium Level 7.9 MG/DL (8.5-10.1) L Troponin I 0.086 ng/mL (0.000-0.056) Pro-B-Type Natriuretic Peptide 2494 pg/mL (0-125) H White Blood Count 4.2 K/UL (4.8-10.8) L Red Blood Count 3.34 M/UL (4.70-6.10) L Hemoglobin 11.0 G/DL (14.2-18.0) L Hematocrit 33.9 % (42.0-52.0) L Mean Corpuscular Volume 101 FL (80-99) H Mean Corpuscular Hemoglobin 32.9 PG (27.0-31.0) H Mean Corpuscular Hemoglobin Concent 32.4 G/DL (32.0-36.0) Red Cell Distribution Width 13.1 % (11.6-14.8) Platelet Count 187 K/UL (150-450) Mean Platelet Volume 5.6 FL (6.5-10.1) L Neutrophils (%) (Auto) 71.5 % (45.0-75.0) Lymphocytes (%) (Auto) 18.4 % (20.0-45.0) L Monocytes (%) (Auto) 8.7 % (1.0-10.0) Eosinophils (%) (Auto) 0.6 % (0.0-3.0) Basophils (%) (Auto) 0.8 % (0.0-2.0) Microbiology Date/Time Source Procedure Growth Status 10/01/18 17:43 Blood Blood Culture - Preliminary NO GROWTH AFTER 24 HOURS Resulted 10/01/18 17:35 Blood Blood Culture - Preliminary Resulted 10/01/18 18:35 Nasal Nares Influenza Types A,B Antigen (BAUDILIO) - Final Complete 10/01/18 18:20 Nasal Nares MRSA Culture - Final NO METHICILLIN RESISTANT STAPH AUREUS... Complete 10/01/18 17:45 Urine,Clean Catch Urine Culture - Final Escherichia Coli Complete 10/01/18 18:20 Rectum VRE Culture - Final NO VANCOMYCIN RESISTANT ENTEROCOCCUS ... Resulted 10/01/18 18:20 Rectum Pending Resulted Objective HEAD AND NECK: Showed no JVD. LUNGS: Clear. CARDIOVASCULAR: Shows regular S1 and S2 with no gallop or murmur. ABDOMEN: Soft. EXTREMITIES: No pitting edema. Basilio Smart MD Oct 03, 2018 15:34
[2018-10-03 16:00] VITALS: BP 119/57
[2018-10-03] MEDS: D5 1/2NS w/KCl 20mEq 1,000 ML IV SCH ×2 (17:29→18:25)
--- NOTE | 2018-10-03 18:10 | NUR ---
TRANSFER TO FLOOR: Patient transferred to Telemetry, per Dr. Smart. Report given to Juan Melo RN. Belongings and medications given to receiving nurse. Family informed of transfer.
[2018-10-03] MEDS ORDERED: DiphenhydrAMINE 50mg/ml Inj IVP PRN (18:26)
[2018-10-03] MEDS ORDERED: Haloperidol 5mg/ml Inj IM PRN ×2 (18:26→18:30)
[2018-10-03] MEDS ORDERED: Albuterol ud Inhalation HHN PRN (18:26)
[2018-10-03] MEDS ORDERED: Miralax 17gm pkt ORAL PRN (18:27)
[2018-10-03] MEDS ORDERED: Sennosides 8.6mg tab ORAL PRN (18:27)
--- NOTE | 2018-10-03 19:43 | NUR ---
HAND-OFF: Report given to Renato Cramer Rn.
--- NOTE | 2018-10-03 19:45 | NUR ---
NURSE NOTES: Got report from Ghassan CHARLES. Pt in stable condition.No s/s of distress noted. Pt resting in bed comfortably. Bed in locked position, call light within reach, bedside table within reach. Continue to monitor.
[2018-10-03 20:00] VITALS: BP 127/55
[2018-10-03] MEDS: Levodopa/Carbidopa CR 50/200 tab ORAL SCH (21:45)
[2018-10-03] MEDS: Phenytoin 100mg cap ORAL SCH (21:46)
[2018-10-04] VITALS (7 sets, daily range): BP systolic 101–132; BP diastolic 55–64
[2018-10-04] MEDS: Levothyroxine 125mcg tab ORAL SCH (06:10)
--- NOTE | 2018-10-04 07:12 | NUR ---
HAND-OFF: Report given to Ghassan CHARLES. endorsed plan of care.
--- NOTE | 2018-10-04 07:13 | NUR ---
NURSE NOTES: Pt in bed in low position, call light at bedside, Pt Ox2 calm and cooperative, pt denies pain, HOB in semi fowlers, no IV site as pt removed it this morning before my shift started, pt agrees to have another IV placed, need to crush meds, condom catheter in place, 3 rails up, no s/s of distress or sob noted.
[2018-10-04] MEDS: Levodopa/Carbidopa 25/100 tab ORAL SCH ×3 (09:30→18:37)
[2018-10-04] MEDS: Docusate 100mg cap ORAL SCH ×2 (09:31→18:37)
[2018-10-04] MEDS: Tamsulosin 0.4mg cap ORAL SCH ×2 (09:31→18:37)
[2018-10-04] MEDS: Heparin 5000 units/ml inj SUBQ SCH ×2 (09:36→20:53)
--- NOTE | 2018-10-04 14:10 | Infectious Diseases Prog Note ---
Assessment/Plan Assessment/Plan ASSESSMENT AND PLAN: 1. e.coli uti/pyelonephritis, gram neg bacteremia, gram neg sepsis, sepsis, fevers, + sirs - change to ceftriaxone, day # 3 abx - discontinue meropenem - check surveillance blood cultures - monitor labs - clinically improved, more alert 2. The patient has history of Parkinson disease. 3. History of PICA. 4. Seizure disorder. 5. Coronary artery disease and non-STEMI. 6. Hypertension. 7. Chronic obstructive pulmonary disease. 8. Blood pressure treatment per primary. 9. Neurologic disease and gastrointestinal disease. 10. Past medical history noted. 11. No known drug allergies. 12. Social history negative. 13. Family history noncontributory. 14. MAR was noted. 15. Case discussed with RN. 16. Skin care protocol. Subjective Constitutional: Reports: fatigue, other - more alert; Denies: fever HEENT: Denies: congestion Respiratory: Denies: shortness of breath Cardiovascular: Denies: chest pain Gastrointestinal/Abdominal: Denies: nausea, vomiting, diarrhea Genitourinary: Reports: other - + parra Neurologic: Denies: headache Psychiatric: Denies: depression Skin: Denies: rash Hematologic: Denies: bleeding Musculoskeletal: Denies: pain Allergies: Coded Allergies: No Known Allergies (Verified , 02/21/07) Objective Vital Signs Last 24 Hour Vital Signs Date Time Temp Pulse Resp B/P (MAP) Pulse Ox O2 Delivery O2 Flow Rate FiO2 10/04/18 12:00 98.3 68 20 121/58 (79) 96 10/04/18 12:00 Room Air 10/04/18 11:40 62 10/04/18 08:19 Room Air 10/04/18 08:00 98.0 64 18 101/63 (76) 95 10/04/18 07:41 61 10/04/18 04:21 Room Air 10/04/18 04:20 97.8 61 20 125/62 (83) 96 10/04/18 04:20 59 10/04/18 00:00 55 10/04/18 00:00 Room Air 10/04/18 00:00 98.0 65 20 102/55 (71) 94 10/03/18 20:00 Room Air 10/03/18 20:00 98.0 66 20 127/55 (79) 94 10/03/18 20:00 65 10/03/18 16:00 68 10/03/18 16:00 Room Air 10/03/18 16:00 98.7 65 18 119/57 (77) 94 Height (Feet): 5 Height (Inches): 5.00 Weight (Pounds): 132 General Appearance: no acute distress HEENT: normocephalic, atraumatic, anicteric, mucous membranes moist Respiratory/Chest: lungs clear, normal breath sounds, no respiratory distress, no accessory muscle use Cardiovascular: normal rate, regular rhythm, no gallop/murmur, no JVD Abdomen: normal bowel sounds, soft, non tender, no organomegaly, non distended Genitourinary: other - + parra - urine slt cloudy Extremities: no cyanosis Skin: no rash Neurologic/Psychiatric: triage rn II-XII grossly normal, alert, responsive Lymphatic: no neck adenopathy Musculoskeletal: no effusion Objective Chest x-ray - 10/01/18 - Procedure: XRAY Chest 1v Indication: Shortness of breath Technique: One view of the chest Comparison: 01/24/2018 Findings: Patient is rotated to the right. A band of atelectasis is seen in the right perihilar region. The lungs and pleural spaces are otherwise clear. Heart size is normal. Aorta tortuous calcified and ectatic Impression: Right perihilar atelectasis. No acute process otherwise Microbiology Date/Time Source Procedure Growth Status 10/01/18 17:43 Blood Blood Culture - Preliminary NO GROWTH AFTER 48 HOURS Resulted 10/01/18 17:35 Blood Blood Culture - Preliminary Gram Negative Paul Resulted 10/01/18 18:35 Nasal Nares Influenza Types A,B Antigen (BAUDILIO) - Final Complete 10/01/18 18:20 Nasal Nares MRSA Culture - Final NO METHICILLIN RESISTANT STAPH AUREUS... Complete 10/01/18 17:45 Urine,Clean Catch Urine Culture - Final Escherichia Coli Complete 10/01/18 18:20 Rectum VRE Culture - Final NO VANCOMYCIN RESISTANT ENTEROCOCCUS ... Complete 10/01/18 18:20 Rectum - Final NO CARBAPENEM-RESISTANT ENTEROBACTERI... Complete Labs Test 10/01/18 17:45 10/01/18 17:49 10/01/18 18:40 10/02/18 05:01 Urine Color Yellow Urine Appearance Slightly cloudy Urine pH 6 (4.5-8.0) Urine Specific [place] 1.010 (1.005-1.035) Urine Protein 2+ (NEGATIVE) Urine Glucose (UA) Negative (NEGATIVE) Urine Ketones 1+ (NEGATIVE) Urine Blood 4+ (NEGATIVE) Urine Nitrite Positive (NEGATIVE) Urine Bilirubin Negative (NEGATIVE) Urine Urobilinogen Normal MG/DL (0.0-1.0) Urine Leukocyte Esterase 3+ (NEGATIVE) Urine RBC 2-4 /HPF (0 - 0) Urine WBC 40-60 /HPF (0 - 0) Urine Squamous Epithelial Cells Few /LPF (NONE/OCC) Urine Bacteria Many /HPF (NONE) White Blood Count 8.9 K/UL (4.8-10.8) 6.7 K/UL (4.8-10.8) Red Blood Count 3.47 M/UL (4.70-6.10) 3.06 M/UL (4.70-6.10) Hemoglobin 11.6 G/DL (14.2-18.0) 10.2 G/DL (14.2-18.0) Hematocrit 34.6 % (42.0-52.0) 30.6 % (42.0-52.0) Mean Corpuscular Volume 100 FL (80-99) 100 FL (80-99) Mean Corpuscular Hemoglobin 33.3 PG (27.0-31.0) 33.5 PG (27.0-31.0) Mean Corpuscular Hemoglobin Concent 33.4 G/DL (32.0-36.0) 33.5 G/DL (32.0-36.0) Red Cell Distribution Width 12.9 % (11.6-14.8) 13.0 % (11.6-14.8) Platelet Count 205 K/UL (150-450) 152 K/UL (150-450) Mean Platelet Volume 5.5 FL (6.5-10.1) 6.3 FL (6.5-10.1) Neutrophils (%) (Auto) 80.6 % (45.0-75.0) 75.4 % (45.0-75.0) Lymphocytes (%) (Auto) 10.4 % (20.0-45.0) 14.6 % (20.0-45.0) Monocytes (%) (Auto) 8.4 % (1.0-10.0) 8.6 % (1.0-10.0) Eosinophils (%) (Auto) 0.1 % (0.0-3.0) 0.7 % (0.0-3.0) Basophils (%) (Auto) 0.5 % (0.0-2.0) 0.8 % (0.0-2.0) Prothrombin Time 11.0 SEC (9.30-11.50) Prothromb Time International Ratio 1.0 (0.9-1.1) Activated Partial Thromboplast Time 27 SEC (23-33) Sodium Level 139 MMOL/L (136-145) 140 MMOL/L (136-145) Potassium Level 4.5 MMOL/L (3.5-5.1) 3.6 MMOL/L (3.5-5.1) Chloride Level 106 MMOL/L (98-107) 108 MMOL/L (98-107) Carbon Dioxide Level 27 MMOL/L (21-32) 27 MMOL/L (21-32) Anion Gap 6 mmol/L (5-15) 5 mmol/L (5-15) Blood Urea Nitrogen 30 mg/dL (7-18) 27 mg/dL (7-18) Creatinine 1.0 MG/DL (0.55-1.30) 1.0 MG/DL (0.55-1.30) Estimat Glomerular Filtration Rate mL/min (>60) mL/min (>60) Glucose Level 91 MG/DL (74-106) 81 MG/DL (74-106) Lactic Acid Level 2.20 mmol/L (0.4-2.0) 0.80 mmol/L (0.66-2.22) 0.80 mmol/L (0.4-2.0) Calcium Level 8.3 MG/DL (8.5-10.1) 7.9 MG/DL (8.5-10.1) Phosphorus Level 2.2 MG/DL (2.5-4.9) Magnesium Level 1.7 MG/DL (1.8-2.4) Total Bilirubin 0.3 MG/DL (0.2-1.0) Aspartate Amino Transf (AST/SGOT) 18 U/L (15-37) Alanine Aminotransferase (ALT/SGPT) 16 U/L (12-78) Alkaline Phosphatase 106 U/L (46-116) Total Creatine Kinase 158 U/L (26-308) Troponin I 0.141 ng/mL (0.000-0.056) 0.135 ng/mL (0.000-0.056) Pro-B-Type Natriuretic Peptide 2355 pg/mL (0-125) Total Protein 6.0 G/DL (6.4-8.2) Albumin 2.3 G/DL (3.4-5.0) Globulin 3.7 g/dL Albumin/Globulin Ratio 0.6 (1.0-2.7) Lipase 87 U/L (73-393) Test 10/03/18 03:36 10/03/18 07:00 Sodium Level 141 MMOL/L (136-145) Potassium Level 3.7 MMOL/L (3.5-5.1) Chloride Level 107 MMOL/L (98-107) Carbon Dioxide Level 27 MMOL/L (21-32) Anion Gap 7 mmol/L (5-15) Blood Urea Nitrogen 22 mg/dL (7-18) Creatinine 0.9 MG/DL (0.55-1.30) Estimat Glomerular Filtration Rate mL/min (>60) Glucose Level 104 MG/DL (74-106) Calcium Level 7.9 MG/DL (8.5-10.1) Troponin I 0.086 ng/mL (0.000-0.056) Pro-B-Type Natriuretic Peptide 2494 pg/mL (0-125) White Blood Count 4.2 K/UL (4.8-10.8) Red Blood Count 3.34 M/UL (4.70-6.10) Hemoglobin 11.0 G/DL (14.2-18.0) Hematocrit 33.9 % (42.0-52.0) Mean Corpuscular Volume 101 FL (80-99) Mean Corpuscular Hemoglobin 32.9 PG (27.0-31.0) Mean Corpuscular Hemoglobin Concent 32.4 G/DL (32.0-36.0) Red Cell Distribution Width 13.1 % (11.6-14.8) Platelet Count 187 K/UL (150-450) Mean Platelet Volume 5.6 FL (6.5-10.1) Neutrophils (%) (Auto) 71.5 % (45.0-75.0) Lymphocytes (%) (Auto) 18.4 % (20.0-45.0) Monocytes (%) (Auto) 8.7 % (1.0-10.0) Eosinophils (%) (Auto) 0.6 % (0.0-3.0) Basophils (%) (Auto) 0.8 % (0.0-2.0) Current Medications Medications (Trade) Dose Ordered Sig/Ana Route PRN Reason Start Time Stop Time Status Last Admin Dose Admin Acetaminophen (Tylenol) 650 mg Q4H PRN ORAL Mild Pain/Temp > 100.5 10/03/18 18:25 11/01/18 18:24 Albuterol Sulfate (Proventil) 2.5 mg Q6H PRN HHN Shortness of Breath 10/03/18 18:26 10/07/18 18:25 Carbidopa/Levodopa (Sinemet 25/100) 1.5 tab THREE TIMES A DAY ORAL 10/04/18 09:00 11/01/18 08:59 10/04/18 12:28 Carbidopa/Levodopa (Sinemet CR 50/ 200) 1 tab QHS ORAL 10/03/18 21:00 11/01/18 20:59 10/03/18 21:45 Dextrose/ Electrolytes 1,000 ml @ 50 mls/hr Q20H IV 10/03/18 18:25 11/01/18 18:24 Diphenhydramine HCl (Benadryl) 25 mg Q6H PRN IVP Itching 10/03/18 18:26 11/01/18 18:25 Docusate Sodium (Colace) 200 mg TWICE A DAY ORAL 10/04/18 09:00 11/01/18 08:59 10/04/18 09:31 Haloperidol Lactate (Haldol) 2 mg Q4H PRN IM agitation 10/03/18 18:30 11/01/18 18:25 Heparin Sodium (Porcine) (Heparin 5000 units/ml) 5,000 units EVERY 12 HOURS SUBQ 10/03/18 21:00 11/01/18 08:59 10/04/18 09:36 Levetiracetam (Keppra) 500 mg EVERY 12 HOURS ORAL 10/03/18 21:00 11/01/18 08:59 10/04/18 09:33 Levothyroxine Sodium (Synthroid) 125 mcg ACBREAKFAST ORAL 10/04/18 06:30 11/01/18 06:29 10/04/18 06:10 Ondansetron HCl (Zofran ODT) 4 mg Q8H PRN ORAL Nausea & Vomiting 10/03/18 18:26 11/02/18 18:25 Pantoprazole (Protonix) 40 mg DAILY ORAL 10/04/18 09:00 11/01/18 08:59 10/04/18 09:30 Phenytoin (Dilantin) 300 mg BEDTIME ORAL 10/03/18 21:00 11/01/18 20:59 10/03/18 21:46 Polyethylene Glycol (Miralax) 17 gm DAILYPRN PRN ORAL Constipation 10/03/18 18:27 11/02/18 18:26 Quetiapine Fumarate (SEROquel) 25 mg BEDTIME ORAL 10/03/18 21:00 11/02/18 20:59 10/03/18 21:46 Quetiapine Fumarate (SEROquel) 25 mg Q4H PRN ORAL Agitation 10/03/18 18:27 11/02/18 18:26 Sennosides (Senokot) 17.2 mg DAILYPRN PRN ORAL Constipation 10/03/18 18:27 11/02/18 18:26 Tamsulosin HCl (Flomax) 0.4 mg BID ORAL 10/04/18 09:00 11/01/18 08:59 10/04/18 09:31 Michaela Christine MD Oct 04, 2018 14:10
[2018-10-04] MEDS: D5 1/2NS w/KCl 20mEq 1,000 ML IV SCH (14:25)
[2018-10-04] MEDS: cefTRIAXone 1 GM in D5W 50 ML IVPB SCH (15:53)
--- NOTE | 2018-10-04 19:38 | NUR ---
HAND-OFF: Report given to Renato Sherman.
--- NOTE | 2018-10-04 19:40 | NUR ---
NURSE NOTES: Got report from Ghassan CHARLES. Pt in stable condition. No s/s of distress noted. Pt resting in bed comfortably. Bed in low and locked position, call light within reach, bedside table within reach. Continue to monitor.
[2018-10-04] MEDS: Levodopa/Carbidopa CR 50/200 tab ORAL SCH (20:51)
[2018-10-04] MEDS: Phenytoin 100mg cap ORAL SCH (20:52)
--- NOTE | 2018-10-04 22:39 | General Progress Note ---
Assessment/Plan Problem List: (1) Dementia ICD Codes: F03.90 - Unspecified dementia without behavioral disturbance SNOMED: 40309663 Qualifiers: Qualified Codes: F03.91 - Unspecified dementia with behavioral disturbance (2) Acute metabolic encephalopathy ICD Codes: G93.41 - Metabolic encephalopathy SNOMED: 71589359, 503584701 Assessment/Plan seroquel standing seroquel prn the pt lacks capacity Subjective Neurologic/Psychiatric: Reports: anxiety, emotional problems Allergies: Coded Allergies: No Known Allergies (Verified , 02/21/07) Objective Last 24 Hour Vital Signs Date Time Temp Pulse Resp B/P (MAP) Pulse Ox O2 Delivery O2 Flow Rate FiO2 10/04/18 20:00 Room Air 10/04/18 20:00 98.0 65 20 132/57 (82) 94 10/04/18 16:00 98.2 68 18 115/64 (81) 93 10/04/18 16:00 Room Air 10/04/18 15:22 64 10/04/18 12:00 98.3 68 20 121/58 (79) 96 10/04/18 12:00 Room Air 10/04/18 11:40 62 10/04/18 08:19 Room Air 10/04/18 08:00 98.0 64 18 101/63 (76) 95 10/04/18 07:41 61 10/04/18 04:21 Room Air 10/04/18 04:20 97.8 61 20 125/62 (83) 96 10/04/18 04:20 59 10/04/18 00:00 55 10/04/18 00:00 Room Air 10/04/18 00:00 98.0 65 20 102/55 (71) 94 Intake and Output 10/03/18 10/04/18 19:00 07:00 Intake Total 1074.967 ml Balance 1074.967 ml Intake Oral 480 ml IV Total 594.967 ml # Voids 2 1 Height (Feet): 5 Height (Inches): 5.00 Weight (Pounds): 132 General Appearance: alert, confused, agitated Kayla Jones MD Oct 04, 2018 22:39
--- NOTE | 2018-10-04 22:40 | General Progress Note ---
Assessment/Plan Problem List: (1) Dementia ICD Codes: F03.90 - Unspecified dementia without behavioral disturbance SNOMED: 84355088 Qualifiers: Qualified Codes: F03.91 - Unspecified dementia with behavioral disturbance (2) Acute metabolic encephalopathy ICD Codes: G93.41 - Metabolic encephalopathy SNOMED: 03899568, [id number] Assessment/Plan seroquel standing seroquel prn the pt lacks capacity Subjective Neurologic/Psychiatric: Reports: anxiety, depressed, emotional problems Allergies: Coded Allergies: No Known Allergies (Verified , 02/21/07) Objective Last 24 Hour Vital Signs Date Time Temp Pulse Resp B/P (MAP) Pulse Ox O2 Delivery O2 Flow Rate FiO2 10/04/18 20:00 Room Air 10/04/18 20:00 98.0 65 20 132/57 (82) 94 10/04/18 16:00 98.2 68 18 115/64 (81) 93 10/04/18 16:00 Room Air 10/04/18 15:22 64 10/04/18 12:00 98.3 68 20 121/58 (79) 96 10/04/18 12:00 Room Air 10/04/18 11:40 62 10/04/18 08:19 Room Air 10/04/18 08:00 98.0 64 18 101/63 (76) 95 10/04/18 07:41 61 10/04/18 04:21 Room Air 10/04/18 04:20 97.8 61 20 125/62 (83) 96 10/04/18 04:20 59 10/04/18 00:00 55 10/04/18 00:00 Room Air 10/04/18 00:00 98.0 65 20 102/55 (71) 94 Intake and Output 10/03/18 10/04/18 19:00 07:00 Intake Total 1074.967 ml Balance 1074.967 ml Intake Oral 480 ml IV Total 594.967 ml # Voids 2 1 Height (Feet): 5 Height (Inches): 5.00 Weight (Pounds): 132 General Appearance: alert, confused, agitated Kayla Jones MD Oct 04, 2018 22:40
--- NOTE | 2018-10-04 22:43 | General Progress Note ---
Assessment/Plan Status: progressing Assessment/Plan 82 yo male admitted to telemetry with the following medical problems: - Altered mental status - NSTEMI - dehydration - agitation - mental retardation - history of PICA - parkinson's disease - Tardive Dyskinesia - E. coli uti/pyelonephritis/sepsis Plan: - troponins trending down - off telemetry - cardiology consult appreciated - no won IV Ceftriaxone - surveillance blood culture - psychiatry consult appreciated - ID consult appreciated - continue home medications - seizure precaution - am labs - VTE prophylaxis with Heparin bid discussed with nurse Subjective Date patient seen: Oct 04, 2018 ROS Limited/Unobtainable: Yes Allergies: Coded Allergies: No Known Allergies (Verified , 02/21/07) Objective Last 24 Hour Vital Signs Date Time Temp Pulse Resp B/P (MAP) Pulse Ox O2 Delivery O2 Flow Rate FiO2 10/04/18 20:00 Room Air 10/04/18 20:00 98.0 65 20 132/57 (82) 94 10/04/18 16:00 98.2 68 18 115/64 (81) 93 10/04/18 16:00 Room Air 10/04/18 15:22 64 10/04/18 12:00 98.3 68 20 121/58 (79) 96 10/04/18 12:00 Room Air 10/04/18 11:40 62 10/04/18 08:19 Room Air 10/04/18 08:00 98.0 64 18 101/63 (76) 95 10/04/18 07:41 61 10/04/18 04:21 Room Air 10/04/18 04:20 97.8 61 20 125/62 (83) 96 10/04/18 04:20 59 10/04/18 00:00 55 10/04/18 00:00 Room Air 10/04/18 00:00 98.0 65 20 102/55 (71) 94 Intake and Output 10/03/18 10/04/18 19:00 07:00 Intake Total 1074.967 ml Balance 1074.967 ml Intake Oral 480 ml IV Total 594.967 ml # Voids 2 1 Height (Feet): 5 Height (Inches): 5.00 Weight (Pounds): 132 General Appearance: no apparent distress, alert EENT: PERRL/EOMI, pharynx normal Neck: non-tender, supple Cardiovascular: normal rate, regular rhythm, no gallop/murmur, no JVD Respiratory/Chest: chest wall non-tender, normal breath sounds, no respiratory distress Abdomen: non tender, soft, no mass Extremities: non-tender, normal inspection, no calf tenderness Edema: no edema noted Arm (L), no edema noted Arm (R), no edema noted Leg (L), no edema noted Leg (R), no edema noted Pedal (L), no edema noted Pedal (R), no edema noted Generalized Neurologic: alert Lymphatic: normal anterior cervical (L), normal anterior cervical (R), normal posterior cervical (L), normal posterior cervical (R), normal submandibular (L) , normal submandibular (R), normal supraclavicular (L), normal supraclavicular ( R), normal axillary (L), normal axillary (R), normal inguinal (L), normal inguinal (R), normal other Shayla Gandhi MD Oct 04, 2018 22:43
[2018-10-05 03:31] VITALS: BP 117/60
[2018-10-05] MEDS: Levothyroxine 125mcg tab ORAL SCH (06:01)
--- NOTE | 2018-10-05 07:30 | NUR ---
HAND-OFF: Report given to Denise CHARLES. endorsed plan of care.
--- NOTE | 2018-10-05 07:32 | NUR ---
NURSE NOTES: Received report from MELVIN Clark. Patient is resting in bed and in semi- nolen position.No signs of acute distress at this time. Respiration even and non labored on room air. HOB elevated, aspiration precaution observed. IV lines patent and intact. Bed in lowest position with two side rails up. Call light and bed side table within reach. Will continue plan of care. Addendum: 10/05/18 at 1030 by ELEANOR DAS RN RN Report given by MELVIN Gross
[2018-10-05 07:37] LABS: EOSINOPHILS % (AUTO) 1.7 % (0.0-3.0); HEMATOCRIT 32.2 % (42.0-52.0); HEMOGLOBIN 10.7 G/DL (14.2-18.0); LYMPHOCYTES % (AUTO) 27.5 % (20.0-45.0); MEAN CORPUSCULAR VOLUME 101 FL (80-99); MONOCYTES % (AUTO) 5.9 % (1.0-10.0); NEUTROPHILS % (AUTO) 63.9 % (45.0-75.0); PLATELET COUNT 262 K/UL (150-450); WHITE BLOOD COUNT 4.6 K/UL (4.8-10.8)
[2018-10-05 08:00] VITALS: BP 124/58
[2018-10-05 08:02] LABS: ALANINE AMINOTRANSFERASE 14 U/L (12-78); ALBUMIN 1.7 G/DL (3.4-5.0); ALBUMIN/GLOBULIN RATIO 0.5 (1.0-2.7); ALKALINE PHOSPHATASE 85 U/L (46-116); ANION GAP 5 mmol/L (5-15); ASPARTATE AMINO TRANSFERASE 31 U/L (15-37); BILIRUBIN,TOTAL 0.1 MG/DL (0.2-1.0); BLOOD UREA NITROGEN 11 mg/dL (7-18); CALCIUM 7.7 MG/DL (8.5-10.1); CARBON DIOXIDE 28 MMOL/L (21-32); CHLORIDE 106 MMOL/L (98-107); CREATININE 0.8 MG/DL (0.55-1.30); POTASSIUM 4.3 MMOL/L (3.5-5.1); SODIUM 138 MMOL/L (136-145)
[2018-10-05] MEDS: Levodopa/Carbidopa 25/100 tab ORAL SCH ×3 (08:24→17:42)
[2018-10-05] MEDS: Docusate 100mg cap ORAL SCH ×2 (08:24→17:42)
[2018-10-05] MEDS: Tamsulosin 0.4mg cap ORAL SCH ×2 (08:24→17:42)
[2018-10-05] MEDS: Heparin 5000 units/ml inj SUBQ SCH ×2 (08:26→20:53)
--- NOTE | 2018-10-05 09:06 | NUR ---
CASE MANAGEMENT:REVIEW 10/05/18 SI: SEPSIS. NSTEMI MENTAL RETARDATION 98.2 62 20 124/58 95% ON RA H/H-10.7/32.2 CA-7.7 IS: IV ROCEPHIN Q24 PROTONIX PO QD FLOMAX PO BID SYNTHROID PO QAM HEPARIN SQ Q12 KEPPRA PO Q12 DILANTIN PO QHS IVF@50/HR : TRANSFER FROM SDU TO TELEMETRY DCP: FROM B&C PLAN: PT
[2018-10-05] MEDS: D5 1/2NS w/KCl 20mEq 1,000 ML IV SCH (11:15)
--- NOTE | 2018-10-05 11:30 | NUR ---
NURSE NOTES: kevin bell called the station and told that this patient needs a sitter, per arabella brown. patient has a condition "PICA" and will put anything in his mouth thus recommending sitter. will inform dr meeks.
[2018-10-05 12:00] VITALS: BP 115/60
--- NOTE | 2018-10-05 12:01 | NUR ---
NURSE NOTES: dr meeks called back and order a sitter for this patient. will take note and carry out.
--- NOTE | 2018-10-05 12:24 | Cardiac Electrophysiology PN ---
Assessment/Plan Assessment/Plan 1. Troponin leak. Levels are flat 0.1,0.1,0.08. Denies any chest pain and EKG is completely normal. Echocardiogram EF 65%. Remained in SR 2. Fever, sepsis, and UTI. The patient is already on IV antibiotic. 3. Parkinson's, on Sinemet. 4. Seizure disorder, on Dilantin. 5. Prostatic hypertrophy, on Flomax. 6. Hypothyroidism, on Synthroid. DW RN DC tele Subjective Subjective Alert in NAD. No CP or SOB. In SR on tele Objective Last 24 Hour Vital Signs Date Time Temp Pulse Resp B/P (MAP) Pulse Ox O2 Delivery O2 Flow Rate FiO2 10/05/18 12:00 Room Air 10/05/18 08:00 Room Air 10/05/18 08:00 98.2 62 20 124/58 (80) 95 10/05/18 07:46 70 18 Room Air 21 10/05/18 04:17 60 10/05/18 03:31 Room Air 10/05/18 03:31 98.0 60 20 117/60 (79) 95 10/05/18 00:05 Room Air 10/05/18 00:00 56 10/04/18 23:57 98.0 60 20 123/62 (82) 99 10/04/18 20:42 61 20 Room Air 21 10/04/18 20:00 Room Air 10/04/18 20:00 98.0 65 20 132/57 (82) 94 10/04/18 20:00 56 10/04/18 16:00 98.2 68 18 115/64 (81) 93 10/04/18 16:00 Room Air 10/04/18 15:22 64 Intake and Output 10/04/18 10/05/18 19:00 07:00 Intake Total 540 ml Output Total 300 ml 500 ml Balance 240 ml -500 ml Intake Oral 540 ml Output Urine Total 300 ml 500 ml # Bowel Movements 1 Laboratory Tests Test 10/05/18 06:40 White Blood Count 4.6 K/UL (4.8-10.8) L Red Blood Count 3.20 M/UL (4.70-6.10) L Hemoglobin 10.7 G/DL (14.2-18.0) L Hematocrit 32.2 % (42.0-52.0) L Mean Corpuscular Volume 101 FL (80-99) H Mean Corpuscular Hemoglobin 33.5 PG (27.0-31.0) H Mean Corpuscular Hemoglobin Concent 33.3 G/DL (32.0-36.0) Red Cell Distribution Width 13.0 % (11.6-14.8) Platelet Count 262 K/UL (150-450) Mean Platelet Volume 5.4 FL (6.5-10.1) L Neutrophils (%) (Auto) 63.9 % (45.0-75.0) Lymphocytes (%) (Auto) 27.5 % (20.0-45.0) Monocytes (%) (Auto) 5.9 % (1.0-10.0) Eosinophils (%) (Auto) 1.7 % (0.0-3.0) Basophils (%) (Auto) 1.0 % (0.0-2.0) Sodium Level 138 MMOL/L (136-145) Potassium Level 4.3 MMOL/L (3.5-5.1) Chloride Level 106 MMOL/L (98-107) Carbon Dioxide Level 28 MMOL/L (21-32) Anion Gap 5 mmol/L (5-15) Blood Urea Nitrogen 11 mg/dL (7-18) Creatinine 0.8 MG/DL (0.55-1.30) Estimat Glomerular Filtration Rate mL/min (>60) Glucose Level 88 MG/DL (74-106) Calcium Level 7.7 MG/DL (8.5-10.1) L Total Bilirubin 0.1 MG/DL (0.2-1.0) L Aspartate Amino Transf (AST/SGOT) 31 U/L (15-37) Alanine Aminotransferase (ALT/SGPT) 14 U/L (12-78) Alkaline Phosphatase 85 U/L (46-116) Total Protein 5.0 G/DL (6.4-8.2) L Albumin 1.7 G/DL (3.4-5.0) L Globulin 3.3 g/dL Albumin/Globulin Ratio 0.5 (1.0-2.7) L Objective HEAD AND NECK: Showed no JVD. LUNGS: Clear. CARDIOVASCULAR: Shows regular S1 and S2 with no gallop or murmur. ABDOMEN: Soft. EXTREMITIES: No pitting edema. Basilio Smart MD Oct 05, 2018 12:24
--- NOTE | 2018-10-05 12:45 | NUR ---
NURSE NOTES: Dr. Karen OLVERA the sitter from bed side.
--- NOTE | 2018-10-05 15:15 | NUR ---
P.T Note: P.T evaluation completed and tx initiated. Please refer to P.T evaluation for current functional status. Pt presented generalized weakness and poor activity tolerance. Pt currently require MOD A X 1 for bed mobility, transfers and gait/locomotion using the FWW. Skilled P.T service is warranted to improve his strength , balance and endurance to increase mobility independence and safety. Recommend return to prior living arrangement ( return to SNF ) with continued P.T at [place]. Thank you for this referral.
[2018-10-05 16:00] VITALS: BP 136/83
[2018-10-05] MEDS: cefTRIAXone 1 GM in D5W 50 ML IVPB SCH (16:33)
--- NOTE | 2018-10-05 19:10 | NUR ---
NURSE NOTES: Received pt. and report from MELVIN Mcintyre. Observe pt. resting in bed with both eyes open. tonnage compilation clerk is in placed, IV site asymptomatic and patent. Bed is in the lowest position and locked, call light within reach. No signs or symptoms of acute distress noted at this time. Will continue plan of care.
--- NOTE | 2018-10-05 19:20 | NUR ---
HAND-OFF: Report given to MELVIN Vela.
[2018-10-05 20:00] VITALS: BP 125/57
[2018-10-05] MEDS: Phenytoin 100mg cap ORAL SCH (20:51)
[2018-10-05] MEDS: Levodopa/Carbidopa CR 50/200 tab ORAL SCH (20:51)
--- NOTE | 2018-10-05 21:36 | General Progress Note ---
Assessment/Plan Status: progressing Assessment/Plan 82 yo male admitted to telemetry with the following medical problems: - Altered mental status - NSTEMI - dehydration - agitation - mental retardation - history of PICA - parkinson's disease - Tardive Dyskinesia - E. 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 IV antibiotics discussed with nurse Subjective Date patient seen: Oct 05, 2018 ROS Limited/Unobtainable: Yes Allergies: Coded Allergies: No Known Allergies (Verified , 02/21/07) Objective Last 24 Hour Vital Signs Date Time Temp Pulse Resp B/P (MAP) Pulse Ox O2 Delivery O2 Flow Rate FiO2 10/05/18 20:51 59 20 Room Air 21 10/05/18 16:00 Room Air 10/05/18 16:00 98.6 95 20 136/83 (100) 95 10/05/18 16:00 64 10/05/18 12:00 63 10/05/18 12:00 Room Air 10/05/18 12:00 97.9 63 20 115/60 (78) 96 10/05/18 08:00 Room Air 10/05/18 08:00 60 10/05/18 08:00 98.2 62 20 124/58 (80) 95 10/05/18 07:46 70 18 Room Air 21 10/05/18 04:17 60 10/05/18 03:31 Room Air 10/05/18 03:31 98.0 60 20 117/60 (79) 95 10/05/18 00:05 Room Air 10/05/18 00:00 56 10/04/18 23:57 98.0 60 20 123/62 (82) 99 Intake and Output 10/04/18 10/05/18 19:00 07:00 Intake Total 540 ml Output Total 300 ml 500 ml Balance 240 ml -500 ml Intake Oral 540 ml Output Urine Total 300 ml 500 ml # Bowel Movements 1 Laboratory Tests 10/05/18 06:40: White Blood Count 4.6L, Red Blood Count 3.20L, Hemoglobin 10.7L, Hematocrit 32.2L, Mean Corpuscular Volume 101H, Mean Corpuscular Hemoglobin 33.5H, Mean Corpuscular Hemoglobin Concent 33.3, Red Cell Distribution Width 13.0, Platelet Count 262, Mean Platelet Volume 5.4L, Neutrophils (%) (Auto) 63.9, Lymphocytes ( %) (Auto) 27.5, Monocytes (%) (Auto) 5.9, Eosinophils (%) (Auto) 1.7, Basophils (%) (Auto) 1.0, Sodium Level 138, Potassium Level 4.3, Chloride Level 106, Carbon Dioxide Level 28, Anion Gap 5, Blood Urea Nitrogen 11, Creatinine 0.8, Estimat Glomerular Filtration Rate , Glucose Level 88, Calcium Level 7.7L, Total Bilirubin 0.1L, Aspartate Amino Transf (AST/SGOT) 31, Alanine Aminotransferase (ALT/SGPT) 14, Alkaline Phosphatase 85, Total Protein 5.0L, Albumin 1.7L, Globulin 3.3, Albumin/Globulin Ratio 0.5L Height (Feet): 5 Height (Inches): 5.00 Weight (Pounds): 132 General Appearance: no apparent distress, alert EENT: PERRL/EOMI, pharynx normal Neck: non-tender, supple Cardiovascular: normal rate, regular rhythm, no gallop/murmur, no JVD Respiratory/Chest: chest wall non-tender, normal breath sounds, no respiratory distress Abdomen: non tender, soft, no mass Extremities: non-tender, normal inspection, no calf tenderness Edema: no edema noted Arm (L), no edema noted Arm (R), no edema noted Leg (L), no edema noted Leg (R), no edema noted Pedal (L), no edema noted Pedal (R), no edema noted Generalized Neurologic: alert Skin: warm/dry Lymphatic: normal anterior cervical (L), normal anterior cervical (R), normal posterior cervical (L), normal posterior cervical (R), normal submandibular (L) , normal submandibular (R), normal supraclavicular (L), normal supraclavicular ( R), normal axillary (L), normal axillary (R), normal inguinal (L), normal inguinal (R), normal other Shayla Gandhi MD Oct 05, 2018 21:36
[2018-10-06] VITALS: BP 116/52
[2018-10-06 04:00] VITALS: BP 116/58
[2018-10-06] MEDS: Levothyroxine 125mcg tab ORAL SCH (06:18)
[2018-10-06] MEDS: D5 1/2NS w/KCl 20mEq 1,000 ML IV SCH (06:18)
--- NOTE | 2018-10-06 07:53 | NUR ---
HAND-OFF: Report given to MELVIN Ferrell.
[2018-10-06 08:00] VITALS: BP 132/57
--- NOTE | 2018-10-06 08:02 | NUR ---
NURSE NOTES: Pt in bed in low position, bed alarm on, call light at bedside, breakfast at bedside pt at 1:1 feeder, HOB in fowlers position, pt has been pulling IV out due to confused state, Pt denies pain, pt able to answer some questions not all, pt calm, pt needs to be turned Q2hrs, no s/s distress or sob noted, will see if Md Gandhi wants to discharge or transfer pt to [facility], Pt Ox1
[2018-10-06] MEDS: Docusate 100mg cap ORAL SCH ×2 (09:59→17:33)
[2018-10-06] MEDS: Levodopa/Carbidopa 25/100 tab ORAL SCH ×3 (10:00→17:34)
[2018-10-06] MEDS: Tamsulosin 0.4mg cap ORAL SCH ×2 (10:00→17:33)
[2018-10-06] MEDS: Heparin 5000 units/ml inj SUBQ SCH ×2 (10:02→20:32)
--- NOTE | 2018-10-06 10:54 | NUR ---
RD ASSESSMENT & RECOMMENDATIONS SEE CARE ACTIVITY FOR COMPLETE ASSESSMENT DAILY ESTIMATED NEEDS: Needs based on cardiac 60kg 25-30 kcals/kg 1125-1995 total kcals 1-1.2 g protein/kg 60-72 g total protein 20-25 mL/kg 2443-8428 total fluid mLs NUTRITION DIAGNOSIS: Chewing/ swallowing difficulties r/t dysphagia as evidenced by pt w/ Parkinson's, Tardive dyskinesia, on ms chopped texture diet w/ 1:1 feeds. CURRENT DIET: Regular ms ground 1:1 feeds PO DIET RECOMMENDATIONS: LOW NA diet (texture per DATA WAREHOUSE ADMINISTRATOR) ADDITIONAL RECOMMENDATIONS: 1) RE-calibrate bed scale for accurate CBW 2) Pt with h/o of ingesting non-food items-> monitor for safe environment 3) Per GWEN, h/o DM, monitor BG- need for diet change or ssi 4) Continue to encourage good po intake of all meals/ 1:1 feeds
[2018-10-06 12:00] VITALS: BP 120/56
--- NOTE | 2018-10-06 13:44 | NUR ---
NURSE NOTES: contacted lab regarding Blood culture results, according to Daylin 10/05/18 blood culture showed no growth in 24hr, will contact Md Moon and Oksana regarding lab result
--- NOTE | 2018-10-06 14:25 | Infectious Diseases Prog Note ---
Assessment/Plan Assessment/Plan ASSESSMENT AND PLAN: 1. e.coli uti/pyelonephritis, gram neg bacteremia, gram neg sepsis, sepsis, fevers, + sirs - ceftriaxone, day # 5 abx - can discharge on po ciprofloxacin x 1 week - surveillance blood cultures negative - monitor labs - clinically improved, more alert - d/w Dr. Gandhi 2. The patient has history of Parkinson disease. 3. History of PICA. 4. Seizure disorder. 5. Coronary artery disease and non-STEMI. 6. Hypertension. 7. Chronic obstructive pulmonary disease. 8. Blood pressure treatment per primary. 9. Neurologic disease and gastrointestinal disease. 10. Past medical history noted. 11. No known drug allergies. 12. Social history negative. 13. Family history noncontributory. 14. MAR was noted. 15. Case discussed with RN. 16. Skin care protocol. Subjective Constitutional: Denies: fever HEENT: Denies: congestion Respiratory: Denies: shortness of breath Cardiovascular: Denies: chest pain Gastrointestinal/Abdominal: Denies: nausea, vomiting, diarrhea Genitourinary: Reports: other - + parra Neurologic: Denies: headache Psychiatric: Denies: depression Skin: Denies: rash Hematologic: Denies: bleeding Musculoskeletal: Denies: pain Allergies: Coded Allergies: No Known Allergies (Verified , 02/21/07) Objective Vital Signs Last 24 Hour Vital Signs Date Time Temp Pulse Resp B/P (MAP) Pulse Ox O2 Delivery O2 Flow Rate FiO2 10/06/18 12:00 97.3 61 18 120/56 (77) 98 10/06/18 11:55 58 10/06/18 09:22 64 10/06/18 08:47 Room Air 10/06/18 08:00 97.3 64 16 132/57 (82) 91 10/06/18 07:03 66 16 Room Air 21 10/06/18 04:00 61 10/06/18 04:00 98.1 61 17 116/58 (77) 95 10/06/18 00:00 98.0 60 18 116/52 (73) 96 10/05/18 20:51 59 20 Room Air 21 10/05/18 20:00 98.1 61 18 125/57 (79) 96 10/05/18 20:00 Room Air 10/05/18 20:00 60 10/05/18 16:00 Room Air 10/05/18 16:00 98.6 95 20 136/83 (100) 95 10/05/18 16:00 64 Height (Feet): 5 Height (Inches): 5.00 Weight (Pounds): 132 General Appearance: no acute distress HEENT: normocephalic, atraumatic, anicteric, mucous membranes moist Respiratory/Chest: lungs clear, normal breath sounds, no respiratory distress, no accessory muscle use Cardiovascular: normal rate, regular rhythm, no gallop/murmur, no JVD Abdomen: normal bowel sounds, soft, non tender, no organomegaly, non distended Genitourinary: other - + parra - urine clearer Extremities: no cyanosis Skin: no rash Neurologic/Psychiatric: early years teacher II-XII grossly normal, alert, responsive Lymphatic: no neck adenopathy Musculoskeletal: no effusion Objective Chest x-ray - 10/01/18 - Procedure: XRAY Chest 1v Indication: Shortness of breath Technique: One view of the chest Comparison: 01/24/2018 Findings: Patient is rotated to the right. A band of atelectasis is seen in the right perihilar region. The lungs and pleural spaces are otherwise clear. Heart size is normal. Aorta tortuous calcified and ectatic Impression: Right perihilar atelectasis. No acute process otherwise Microbiology Date/Time Source Procedure Growth Status 10/01/18 17:43 Blood Blood Culture - Preliminary NO GROWTH AFTER 4 DAYS Resulted 10/01/18 18:35 Nasal Nares Influenza Types A,B Antigen (BAUDILIO) - Final Complete 10/01/18 17:45 Urine,Clean Catch Urine Culture - Final Escherichia Coli Complete 10/01/18 18:20 Rectum VRE Culture - Final NO VANCOMYCIN RESISTANT ENTEROCOCCUS ... Complete 10/01/18 18:20 Rectum - Final NO CARBAPENEM-RESISTANT ENTEROBACTERI... Complete Labs Test 10/05/18 06:40 White Blood Count 4.6 K/UL (4.8-10.8) Red Blood Count 3.20 M/UL (4.70-6.10) Hemoglobin 10.7 G/DL (14.2-18.0) Hematocrit 32.2 % (42.0-52.0) Mean Corpuscular Volume 101 FL (80-99) Mean Corpuscular Hemoglobin 33.5 PG (27.0-31.0) Mean Corpuscular Hemoglobin Concent 33.3 G/DL (32.0-36.0) Red Cell Distribution Width 13.0 % (11.6-14.8) Platelet Count 262 K/UL (150-450) Mean Platelet Volume 5.4 FL (6.5-10.1) Neutrophils (%) (Auto) 63.9 % (45.0-75.0) Lymphocytes (%) (Auto) 27.5 % (20.0-45.0) Monocytes (%) (Auto) 5.9 % (1.0-10.0) Eosinophils (%) (Auto) 1.7 % (0.0-3.0) Basophils (%) (Auto) 1.0 % (0.0-2.0) Sodium Level 138 MMOL/L (136-145) Potassium Level 4.3 MMOL/L (3.5-5.1) Chloride Level 106 MMOL/L (98-107) Carbon Dioxide Level 28 MMOL/L (21-32) Anion Gap 5 mmol/L (5-15) Blood Urea Nitrogen 11 mg/dL (7-18) Creatinine 0.8 MG/DL (0.55-1.30) Estimat Glomerular Filtration Rate mL/min (>60) Glucose Level 88 MG/DL (74-106) Calcium Level 7.7 MG/DL (8.5-10.1) Total Bilirubin 0.1 MG/DL (0.2-1.0) Aspartate Amino Transf (AST/SGOT) 31 U/L (15-37) Alanine Aminotransferase (ALT/SGPT) 14 U/L (12-78) Alkaline Phosphatase 85 U/L (46-116) Total Protein 5.0 G/DL (6.4-8.2) Albumin 1.7 G/DL (3.4-5.0) Globulin 3.3 g/dL Albumin/Globulin Ratio 0.5 (1.0-2.7) Current Medications Medications (Trade) Dose Ordered Sig/Ana Route PRN Reason Start Time Stop Time Status Last Admin Dose Admin Acetaminophen (Tylenol) 650 mg Q4H PRN ORAL Mild Pain/Temp > 100.5 10/03/18 18:25 11/01/18 18:24 Albuterol Sulfate (Proventil) 2.5 mg Q6H PRN HHN Shortness of Breath 10/03/18 18:26 10/07/18 18:25 Carbidopa/Levodopa (Sinemet 25/100) 1.5 tab THREE TIMES A DAY ORAL 10/04/18 09:00 11/01/18 08:59 10/06/18 13:20 Carbidopa/Levodopa (Sinemet CR 50/ 200) 1 tab QHS ORAL 10/03/18 21:00 11/01/18 20:59 10/05/18 20:51 Ceftriaxone Sodium 1 gm/ Dextrose 50 ml @ 100 mls/hr Q24H IVPB 10/04/18 16:00 10/11/18 15:59 10/05/18 16:33 Dextrose/ Electrolytes 1,000 ml @ 50 mls/hr Q20H IV 10/03/18 18:25 11/01/18 18:24 10/06/18 06:18 Diphenhydramine HCl (Benadryl) 25 mg Q6H PRN IVP Itching 10/03/18 18:26 11/01/18 18:25 Docusate Sodium (Colace) 200 mg TWICE A DAY ORAL 10/04/18 09:00 11/01/18 08:59 10/06/18 09:59 Haloperidol Lactate (Haldol) 2 mg Q4H PRN IM agitation 10/03/18 18:30 11/01/18 18:25 Heparin Sodium (Porcine) (Heparin 5000 units/ml) 5,000 units EVERY 12 HOURS SUBQ 10/03/18 21:00 11/01/18 08:59 10/06/18 10:02 Levetiracetam (Keppra) 500 mg EVERY 12 HOURS ORAL 10/03/18 21:00 11/01/18 08:59 10/06/18 10:00 Levothyroxine Sodium (Synthroid) 125 mcg ACBREAKFAST ORAL 10/04/18 06:30 11/01/18 06:29 10/06/18 06:18 Ondansetron HCl (Zofran ODT) 4 mg Q8H PRN ORAL Nausea & Vomiting 10/03/18 18:26 11/02/18 18:25 Pantoprazole (Protonix) 40 mg DAILY ORAL 10/04/18 09:00 11/01/18 08:59 10/06/18 09:59 Phenytoin (Dilantin) 300 mg BEDTIME ORAL 10/03/18 21:00 11/01/18 20:59 10/05/18 20:51 Polyethylene Glycol (Miralax) 17 gm DAILYPRN PRN ORAL Constipation 10/03/18 18:27 11/02/18 18:26 Quetiapine Fumarate (SEROquel) 25 mg BEDTIME ORAL 10/03/18 21:00 11/02/18 20:59 10/05/18 21:04 Quetiapine Fumarate (SEROquel) 25 mg Q4H PRN ORAL Agitation 10/03/18 18:27 11/02/18 18:26 Sennosides (Senokot) 17.2 mg DAILYPRN PRN ORAL Constipation 10/03/18 18:27 11/02/18 18:26 Tamsulosin HCl (Flomax) 0.4 mg BID ORAL 10/04/18 09:00 11/01/18 08:59 10/06/18 10:00 Michaela Christine MD Oct 06, 2018 14:25
--- NOTE | 2018-10-06 15:08 | NUR ---
PT NOTE: Pt adamantly declining PT services. Pt stating "No, No, get out of here! Or I'll hit you!" when PT services offered.
--- NOTE | 2018-10-06 15:16 | Cardiac Electrophysiology PN ---
Assessment/Plan Assessment/Plan 1. Troponin leak. Levels are flat 0.1,0.1,0.08. Denies any chest pain. EKG is completely normal. Echocardiogram EF 65%. Remained in SR 2. Fever, sepsis, and UTI. On IV antibiotic. 3. Parkinson's, on Sinemet. 4. Seizure disorder, on Dilantin. 5. Prostatic hypertrophy, on Flomax. 6. Hypothyroidism, on Synthroid. DW RN Subjective Subjective Alert in NAD. No CP or SOB. In SR 60s Objective Last 24 Hour Vital Signs Date Time Temp Pulse Resp B/P (MAP) Pulse Ox O2 Delivery O2 Flow Rate FiO2 10/06/18 12:00 97.3 61 18 120/56 (77) 98 10/06/18 11:55 58 10/06/18 09:22 64 10/06/18 08:47 Room Air 10/06/18 08:00 97.3 64 16 132/57 (82) 91 10/06/18 07:03 66 16 Room Air 21 10/06/18 04:00 61 10/06/18 04:00 98.1 61 17 116/58 (77) 95 10/06/18 00:00 98.0 60 18 116/52 (73) 96 10/05/18 20:51 59 20 Room Air 21 10/05/18 20:00 98.1 61 18 125/57 (79) 96 10/05/18 20:00 Room Air 10/05/18 20:00 60 10/05/18 16:00 Room Air 10/05/18 16:00 98.6 95 20 136/83 (100) 95 10/05/18 16:00 64 Intake and Output 10/05/18 10/06/18 19:00 07:00 Intake Total 720 ml Output Total 750 ml Balance -30 ml Intake Oral 720 ml Output Urine Total 750 ml # Bowel Movements 1 Objective HEAD AND NECK: Showed no JVD. LUNGS: Clear. CARDIOVASCULAR: Shows regular S1 and S2 with no gallop or murmur. ABDOMEN: Soft. EXTREMITIES: No pitting edema. Basilio Smart MD Oct 06, 2018 15:16
--- NOTE | 2018-10-06 15:40 | General Progress Note ---
Assessment/Plan Problem List: (1) Dementia ICD Codes: F03.90 - Unspecified dementia without behavioral disturbance SNOMED: 73792032 Qualifiers: Qualified Codes: F03.91 - Unspecified dementia with behavioral disturbance (2) Acute metabolic encephalopathy ICD Codes: G93.41 - Metabolic encephalopathy SNOMED: 04579827, 818010695 Status: stable, progressing Assessment/Plan seroquel standing seroquel prn the pt lacks capacity dc the sitter Subjective Date patient seen: Oct 05, 2018 Neurologic/Psychiatric: Reports: anxiety, emotional problems Allergies: Coded Allergies: No Known Allergies (Verified , 02/21/07) Subjective the pt was seen 10/05/18 this is a late entry the pt was calm sitter at bedside episodes of anxiety Objective Last 24 Hour Vital Signs Date Time Temp Pulse Resp B/P (MAP) Pulse Ox O2 Delivery O2 Flow Rate FiO2 10/06/18 12:00 97.3 61 18 120/56 (77) 98 10/06/18 11:55 58 10/06/18 09:22 64 10/06/18 08:47 Room Air 10/06/18 08:00 97.3 64 16 132/57 (82) 91 10/06/18 07:03 66 16 Room Air 21 10/06/18 04:00 61 10/06/18 04:00 98.1 61 17 116/58 (77) 95 10/06/18 00:00 98.0 60 18 116/52 (73) 96 10/05/18 20:51 59 20 Room Air 21 10/05/18 20:00 98.1 61 18 125/57 (79) 96 10/05/18 20:00 Room Air 10/05/18 20:00 60 10/05/18 16:00 Room Air 10/05/18 16:00 98.6 95 20 136/83 (100) 95 10/05/18 16:00 64 Intake and Output 10/05/18 10/06/18 19:00 07:00 Intake Total 720 ml Output Total 750 ml Balance -30 ml Intake Oral 720 ml Output Urine Total 750 ml # Bowel Movements 1 Height (Feet): 5 Height (Inches): 5.00 Weight (Pounds): 132 General Appearance: no apparent distress - oriented to self, alert, confused Kayla Jones MD Oct 06, 2018 15:40
--- NOTE | 2018-10-06 15:41 | General Progress Note ---
Assessment/Plan Problem List: (1) Dementia ICD Codes: F03.90 - Unspecified dementia without behavioral disturbance SNOMED: 98385944 Qualifiers: Qualified Codes: F03.91 - Unspecified dementia with behavioral disturbance (2) Acute metabolic encephalopathy ICD Codes: G93.41 - Metabolic encephalopathy SNOMED: 37361713, 507340144 Status: stable Assessment/Plan seroquel standing seroquel prn the pt lacks capacity dc the sitter Subjective Neurologic/Psychiatric: Reports: anxiety Allergies: Coded Allergies: No Known Allergies (Verified , 02/21/07) Subjective the pt was more interactive today the pt was calm sitter at bedside episodes of anxiety Objective Last 24 Hour Vital Signs Date Time Temp Pulse Resp B/P (MAP) Pulse Ox O2 Delivery O2 Flow Rate FiO2 10/06/18 12:00 97.3 61 18 120/56 (77) 98 10/06/18 11:55 58 10/06/18 09:22 64 10/06/18 08:47 Room Air 10/06/18 08:00 97.3 64 16 132/57 (82) 91 10/06/18 07:03 66 16 Room Air 21 10/06/18 04:00 61 10/06/18 04:00 98.1 61 17 116/58 (77) 95 10/06/18 00:00 98.0 60 18 116/52 (73) 96 10/05/18 20:51 59 20 Room Air 21 10/05/18 20:00 98.1 61 18 125/57 (79) 96 10/05/18 20:00 Room Air 10/05/18 20:00 60 10/05/18 16:00 Room Air 10/05/18 16:00 98.6 95 20 136/83 (100) 95 10/05/18 16:00 64 Intake and Output 10/05/18 10/06/18 19:00 07:00 Intake Total 720 ml Output Total 750 ml Balance -30 ml Intake Oral 720 ml Output Urine Total 750 ml # Bowel Movements 1 Height (Feet): 5 Height (Inches): 5.00 Weight (Pounds): 132 General Appearance: WD/WN, no apparent distress, alert Kayla Jones MD Oct 06, 2018 15:41
[2018-10-06 16:00] VITALS: BP_SYST 120; BP_SYST 136; BP_DIAS 48; BP_DIAS 69
[2018-10-06] MEDS: cefTRIAXone 1 GM in D5W 50 ML IVPB SCH (16:01)
--- NOTE | 2018-10-06 18:22 | NUR ---
NURSE NOTES: Called [facility] spoke to Helena Preston, she told me that she ill send someone to berry picker the pt tomorrow, I asked her if she will be bringing a gurney and a van or ambulance, she stated no. She will speak to Md Gandhi regarding the pt ambulatory status. Recommendation that the pt might be suited for SNF. Addendum: 10/06/18 at 1828 by [place] RN Per Md Gandhi stated to D/C with Ciprofloxacin 500mg PO BID for 6 days Addendum: 10/06/18 at 1831 by [place] RN Reason for possible SNF was bcuz the pt doesnt not ambulate.
--- NOTE | 2018-10-06 18:58 | NUR ---
HAND-OFF: Report given to Mirian Sherman.
[2018-10-06 20:00] VITALS: BP 117/50
[2018-10-06] MEDS: Phenytoin 100mg cap ORAL SCH (20:30)
[2018-10-06] MEDS: Levodopa/Carbidopa CR 50/200 tab ORAL SCH (20:30)
--- NOTE | 2018-10-06 20:59 | General Progress Note ---
Assessment/Plan Status: progressing Assessment/Plan 82 yo male admitted to telemetry with the following medical problems: - Altered mental status - NSTEMI - dehydration - agitation - mental retardation - history of PICA - parkinson's disease - Tardive Dyskinesia - E. coli uti/pyelonephritis/sepsis Plan: - troponins trending down - off telemetry - cardiology consult appreciated - no won IV Ceftriaxone - surveillance blood culture pending - psychiatry consult appreciated - ID consult appreciated - continue home medications - seizure precaution - am labs - VTE prophylaxis with Heparin bid - surveilance blood cultures negative, can dc on cipro 500 mg bid for 6 more days - dc planning to Board and Care in am discussed with nurse Subjective Date patient seen: Oct 06, 2018 ROS Limited/Unobtainable: Yes Allergies: Coded Allergies: No Known Allergies (Verified , 02/21/07) All Systems: reviewed and negative except above Objective Last 24 Hour Vital Signs Date Time Temp Pulse Resp B/P (MAP) Pulse Ox O2 Delivery O2 Flow Rate FiO2 10/06/18 16:00 98.3 62 20 120/48 (72) 99 10/06/18 15:07 60 10/06/18 12:00 97.3 61 18 120/56 (77) 98 10/06/18 11:55 58 10/06/18 09:22 64 10/06/18 08:47 Room Air 10/06/18 08:00 97.3 64 16 132/57 (82) 91 10/06/18 07:03 66 16 Room Air 21 10/06/18 04:00 61 10/06/18 04:00 98.1 61 17 116/58 (77) 95 10/06/18 00:00 98.0 60 18 116/52 (73) 96 Intake and Output 10/05/18 10/06/18 19:00 07:00 Intake Total 720 ml Output Total 750 ml Balance -30 ml Intake Oral 720 ml Output Urine Total 750 ml # Bowel Movements 1 Height (Feet): 5 Height (Inches): 5.00 Weight (Pounds): 132 General Appearance: no apparent distress, alert EENT: PERRL/EOMI, pharynx normal Neck: non-tender, supple Cardiovascular: normal rate, regular rhythm, no gallop/murmur, no JVD Respiratory/Chest: chest wall non-tender, normal breath sounds, no respiratory distress Abdomen: non tender, soft, no mass Extremities: non-tender, normal inspection, no calf tenderness Neurologic: alert Lymphatic: normal anterior cervical (L), normal anterior cervical (R), normal posterior cervical (L), normal posterior cervical (R), normal submandibular (L) , normal submandibular (R), normal supraclavicular (L), normal supraclavicular ( R), normal axillary (L), normal axillary (R), normal inguinal (L), normal inguinal (R), normal other Shayla Gandhi MD Oct 06, 2018 20:59
[2018-10-07] VITALS: BP 110/58
[2018-10-07] MEDS: D5 1/2NS w/KCl 20mEq 1,000 ML IV SCH (02:18)
[2018-10-07 04:00] VITALS: BP 108/54
[2018-10-07] MEDS: Levothyroxine 125mcg tab ORAL SCH (06:05)
[2018-10-07 06:44] LABS: BASOPHILS % (AUTO) 0.6 % (0.0-2.0); EOSINOPHILS % (AUTO) 1.9 % (0.0-3.0); HEMATOCRIT 33.8 % (42.0-52.0); HEMOGLOBIN 11.1 G/DL (14.2-18.0); LYMPHOCYTES % (AUTO) 25.9 % (20.0-45.0); MEAN CORPUSCULAR VOLUME 100 FL (80-99); NEUTROPHILS % (AUTO) 67.6 % (45.0-75.0); PLATELET COUNT 125 K/UL (150-450); RED BLOOD COUNT 3.36 M/UL (4.70-6.10); RED CELL DISTRIBUTION WIDTH 12.5 % (11.6-14.8); WHITE BLOOD COUNT 6.8 K/UL (4.8-10.8)
--- NOTE | 2018-10-07 07:20 | NUR ---
NURSE NOTES: I received the patient awake and resting in bed. Patient verbal and alert to name only. Patient does not display any signs of distress or SOB. Bed in the lowest position and call light within reach.
[2018-10-07 07:21] LABS: ANION GAP 5 mmol/L (5-15); BLOOD UREA NITROGEN 12 mg/dL (7-18); CALCIUM 8.3 MG/DL (8.5-10.1); CARBON DIOXIDE 28 MMOL/L (21-32); CHLORIDE 104 MMOL/L (98-107); CREATININE 0.8 MG/DL (0.55-1.30); POTASSIUM 4.7 MMOL/L (3.5-5.1); SODIUM 137 MMOL/L (136-145)
--- NOTE | 2018-10-07 07:46 | NUR ---
HAND-OFF: Report given to MELVIN Farfan.
[2018-10-07 08:00] VITALS: BP 123/90
[2018-10-07] MEDS: Levodopa/Carbidopa 25/100 tab ORAL SCH ×2 (08:25→12:27)
[2018-10-07] MEDS: Docusate 100mg cap ORAL SCH (08:25)
[2018-10-07] MEDS: Tamsulosin 0.4mg cap ORAL SCH (08:25)
[2018-10-07] MEDS: Heparin 5000 units/ml inj SUBQ SCH (08:26)
[2018-10-07] MEDS ORDERED: CIPRO500 MG/51 PO (10:22)
--- NOTE | 2018-10-07 13:29 | Cardiac Electrophysiology PN ---
Assessment/Plan Assessment/Plan 1. Troponin leak. Levels are flat 0.1,0.1,0.08. Denies any chest pain. EKG is normal. Echocardiogram EF 65%. Remained in SR 2. Fever, sepsis, and UTI. On IV antibiotic. 3. Parkinson's, on Sinemet. 4. Seizure disorder, on Dilantin. 5. Prostatic hypertrophy, on Flomax. 6. Hypothyroidism, on Synthroid. SONIA RN DC today Subjective Subjective Alert in NAD. No CP or SOB. DC planning in progress Objective Last 24 Hour Vital Signs Date Time Temp Pulse Resp B/P (MAP) Pulse Ox O2 Delivery O2 Flow Rate FiO2 10/07/18 08:44 Room Air 10/07/18 08:00 97.3 106 21 123/90 (101) 96 10/07/18 07:59 60 10/07/18 04:00 60 10/07/18 04:00 97.6 63 18 108/54 (72) 93 10/07/18 00:00 61 10/07/18 00:00 97.0 61 18 110/58 (75) 97 10/06/18 21:00 Room Air 10/06/18 20:58 62 18 Room Air 21 10/06/18 20:00 98.0 63 18 117/50 (72) 94 10/06/18 20:00 61 10/06/18 16:00 98.3 62 20 120/48 (72) 99 10/06/18 15:07 60 Intake and Output 10/06/18 10/07/18 18:59 06:59 Intake Total 840 ml Output Total 650 ml 1500 ml Balance 190 ml -1500 ml Intake Oral 840 ml Output Urine Total 650 ml 1500 ml # Voids 1 # Bowel Movements 1 Laboratory Tests Test 10/07/18 04:45 White Blood Count 6.8 K/UL (4.8-10.8) Red Blood Count 3.36 M/UL (4.70-6.10) L Hemoglobin 11.1 G/DL (14.2-18.0) L Hematocrit 33.8 % (42.0-52.0) L Mean Corpuscular Volume 100 FL (80-99) H Mean Corpuscular Hemoglobin 33.0 PG (27.0-31.0) H Mean Corpuscular Hemoglobin Concent 32.9 G/DL (32.0-36.0) Red Cell Distribution Width 12.5 % (11.6-14.8) Platelet Count 125 K/UL (150-450) L Mean Platelet Volume 4.7 FL (6.5-10.1) L Neutrophils (%) (Auto) 67.6 % (45.0-75.0) Lymphocytes (%) (Auto) 25.9 % (20.0-45.0) Monocytes (%) (Auto) 4.0 % (1.0-10.0) Eosinophils (%) (Auto) 1.9 % (0.0-3.0) Basophils (%) (Auto) 0.6 % (0.0-2.0) Sodium Level 137 MMOL/L (136-145) Potassium Level 4.7 MMOL/L (3.5-5.1) Chloride Level 104 MMOL/L (98-107) Carbon Dioxide Level 28 MMOL/L (21-32) Anion Gap 5 mmol/L (5-15) Blood Urea Nitrogen 12 mg/dL (7-18) Creatinine 0.8 MG/DL (0.55-1.30) Estimat Glomerular Filtration Rate mL/min (>60) Glucose Level 84 MG/DL (74-106) Calcium Level 8.3 MG/DL (8.5-10.1) L Microbiology Date/Time Source Procedure Growth Status 10/05/18 06:50 Blood Blood Culture - Preliminary NO GROWTH AFTER 24 HOURS Resulted 10/05/18 06:40 Blood Blood Culture - Preliminary NO GROWTH AFTER 24 HOURS Resulted Objective HEAD AND NECK: Showed no JVD. LUNGS: Clear. CARDIOVASCULAR: Shows regular S1 and S2 with no gallop or murmur. ABDOMEN: Soft. EXTREMITIES: No pitting edema. Basilio Smart MD Oct 07, 2018 13:29
--- NOTE | 2018-10-07 13:57 | NUR ---
NURSE NOTES: Patient discharged in stable condition. Patient's IV removed and the IV site did not display any signs of redness, swelling or bleeding. Patient changed and diaper placed on patient. Patient's caregiver provided discharge instructions and educated about following-up with the primary MD next week, she verbalized understanding. Patient's belongings given to caregivers. Patient transported in his own wheelchair and transported home in a private vehicles. Patient in stable condition.
--- NOTE | 2018-10-07 23:50 | General Progress Note ---
Assessment/Plan Problem List: (1) Dementia ICD Codes: F03.90 - Unspecified dementia without behavioral disturbance SNOMED: 77223192 Qualifiers: Qualified Codes: F03.91 - Unspecified dementia with behavioral disturbance (2) Acute metabolic encephalopathy ICD Codes: G93.41 - Metabolic encephalopathy SNOMED: 60526582, [id number] Assessment/Plan seroquel standing seroquel prn the pt lacks capacity dc the sitter Subjective Neurologic/Psychiatric: Reports: anxiety, emotional problems Allergies: Coded Allergies: No Known Allergies (Verified , 02/21/07) Subjective the pt was more interactive today the pt was calm sitter at bedside episodes of anxiety Objective Last 24 Hour Vital Signs Date Time Temp Pulse Resp B/P (MAP) Pulse Ox O2 Delivery O2 Flow Rate FiO2 10/07/18 08:44 Room Air 10/07/18 08:00 97.3 106 21 123/90 (101) 96 10/07/18 07:59 60 10/07/18 04:00 60 10/07/18 04:00 97.6 63 18 108/54 (72) 93 10/07/18 00:00 61 10/07/18 00:00 97.0 61 18 110/58 (75) 97 Intake and Output 10/06/18 10/07/18 19:00 07:00 Intake Total 840 ml Output Total 650 ml 1500 ml Balance 190 ml -1500 ml Intake Oral 840 ml Output Urine Total 650 ml 1500 ml # Voids 1 # Bowel Movements 1 Laboratory Tests 10/07/18 04:45: White Blood Count 6.8, Red Blood Count 3.36L, Hemoglobin 11.1L, Hematocrit 33.8L , Mean Corpuscular Volume 100H, Mean Corpuscular Hemoglobin 33.0H, Mean Corpuscular Hemoglobin Concent 32.9, Red Cell Distribution Width 12.5, Platelet Count 125L, Mean Platelet Volume 4.7L, Neutrophils (%) (Auto) 67.6, Lymphocytes (%) (Auto) 25.9, Monocytes (%) (Auto) 4.0, Eosinophils (%) (Auto) 1.9, Basophils (%) (Auto) 0.6, Sodium Level 137, Potassium Level 4.7, Chloride Level 104, Carbon Dioxide Level 28, Anion Gap 5, Blood Urea Nitrogen 12, Creatinine 0.8, Estimat Glomerular Filtration Rate , Glucose Level 84, Calcium Level 8.3L Height (Feet): 5 Height (Inches): 5.00 Weight (Pounds): 122 General Appearance: alert, confused Kayla Jones MD Oct 07, 2018 23:50
--- NOTE | 2018-10-08 13:21 | Discharge Summary ---
Discharge Summary Discharge Summary _ DATE OF ADMISSION: 10/01/2018 DATE OF DISCHARGE: 10/07/2018 DISCHARGED BY: Dr. Shayla Gandhi CONSULTANTS: Dr. Michaela Smart BRIEF HOSPITAL COURSE: Patient is an 82-year-old male with history of mental retardation, pica, seizure disorder, Parkinson's disease, COPD, was brought into ER for altered mental status and urinary frequency. He was noted to be less responsive and had a fever. On evaluation at the ED, temperature was 102 F. Patient was febrile and had foul-smelling urine. He was agitated and was pulling off the monitor and IV. He was placed on on behavioral restraints for safety. Blood work did not show any leukocytosis, hemoglobin and hematocrit were stable. Electrolytes were normal. BUN elevated at 30, creatinine 1.0. Lactic acid elevated to 2.2. Troponin was elevated to 0.141. ProBNP 2355. Urinalysis showed 2+ protein, 1 + ketones, 4+ blood, positive nitrite, 3+ leukocyte esterase, 40-60 WBC. EKG showed normal sinus rhythm without any evidence of injury. Chest x-ray did not show any infiltrates. He was given aspirin. He was given IV hydration. He was pancultured. He was then admitted to stepdown unit for evaluation of altered mental status, NSTEMI, dehydration, agitation and UTI. Cardiac enzymes were monitored. He was was placed on strict aspiration precaution and seizure precaution. He was given heparin for DVT prophylaxis. Timber Incisor Operator was consulted. Troponin levels were elevated however, levels were flat. EKG was completely normal. Echocardiogram done showed EF of 60-65%. Patient denied any chest pain. Venous duplex of lower extremities were negative for acute DVT. There was incidental finding of a No's cyst on the left popliteal area. ID was consulted. Patient was febrile with positive urinalysis. Urine culture showed growth of gram-negative organisms. Patient was placed on meropenem. He was placed on seizure precautions. Psychiatrist was consulted. Patient was confused and agitated. He had waxing and waning of consciousness. He was diagnosed with acute metabolic encephalopathy. He was given Seroquel. He was assessed to lack the capacity to make medical decisions. Blood culture showed growth of E. coli. Urine culture with E. coli. Antibiotic was changed to ceftriaxone. Repeat blood cultures were obtained. Surveillance blood cultures were negative. There was no fever and no leukocytosis. Patient was discharged back to boarding care to continue ciprofloxacin 500 mg p.o. twice daily for 6 more days. FINAL DIAGNOSES: E. coli UTI/pyelonephritis with sepsis Acute metabolic encephalopathy Elevated troponin due to troponin leak Dehydration Agitation Mental retardation PICA Parkinson's disease Tardive dyskinesia Seizure disorder BPH Hypothyroidism DISPOSITION: DC back to Board and Care. DISCHARGE MEDICATIONS: Refer to Discharge Medication List. I have been assigned to complete a discharge summary on this account, I was not involved with the patient's management. Jacey Worley NP Oct 08, 2018 13:21
== END 2018-10-07 14:00 | disposition home or self-care (01) | DRG 871 ==
LOC: EMR 17:10 → 2W 17:38 → EDBEDREQSVC 18:27 → EDBEDREQ 18:27 → 2E 10-03 18:20
DX: A41.9 Sepsis, unspecified organism (principal); G93.41 Metabolic encephalopathy; N39.0 Urinary tract infection, site not specified; N12 Tubulo-interstitial nephritis, not specified as acute or chronic; G20 Parkinson's disease; B96.20 Unspecified Escherichia coli [E. coli] as the cause of diseases classified elsewhere; F79 Unspecified intellectual disabilities; E86.0 Dehydration; F50.89 Other specified eating disorder; R45.1 Restlessness and agitation; G24.01 Drug induced subacute dyskinesia; N40.0 Benign prostatic hyperplasia without lower urinary tract symptoms; E03.9 Hypothyroidism, unspecified; I25.10 Atherosclerotic heart disease of native coronary artery without angina pectoris; I25.2 Old myocardial infarction
CPT/HCPCS: 36415; 71045; 80048; 80053; 80299; 81003; 82550; 83605; 83690; 83735; 83880; 84100; 84484; 85025; 85610; 85730; 86710; 87040; 87081; 87086; 87181; 93005; 93306; 93970; 94664; 96365; 96368; 96372; 99285

== ENCOUNTER 2019-06-22 15:54 | Inpatient (IN) | payer MEDICARE, MEDICAID ==
[~2019-06-22] VITALS: Ht 157.5 cm; Wt 45.8 kg
[~2019-06-22 15:54] MED LIST changes: +ALBUTEROL2.5 MG/3 M INH; +AZILECT1 MG PO; +BETHANECHOL CHL25 MG ORAL; +CIPRO500 MG/51 PO; +DESITIN113 GM TP; +METHENAMINE MAND1 GM PO; +MIRALAX17 G2 ORAL; +PHENERGAN 6.25 MG/5 ML PO; +PHENYTOIN SODI100 MG ORAL; +SENNO8.6 MG ORAL; +TAMSULOSIN HCL0.4 MG ORAL; +VITAMIN C500 M1 ORAL
[2019-06-22] MEDS ORDERED: Sodium Chloride 1,900 ML IVLG ONE (16:00)
--- NOTE | 2019-06-22 16:03 | Emergency Room Report ---
History of Present Illness General Chief Complaint: Altered Level of Consciousness Source: EMS Present Illness HPI Disclaimer: Please note that this report is being documented using [employer] technology. This can lead to erroneous entry secondary to incorrect interpretation by the dictating instrument. HPI: 83-year-old male with a history of developmental delay, COPD, Parkinson's disease, seizure disorder and reported recent UTI and pneumonia presents for evaluation of altered mental status. According to EMS, the patient was found more lethargic and difficult to arouse today at his nursing facility. EMS reported the nursing facility was unable to find a pulse briefly but then state that did palpate a pulse and he was more alert. Unclear how long this period of lethargy lasted. EMS found him combative while trying to obtain vitals. Nonverbal but making grunting noises which is reportedly his baseline. EMS states he was recently treated for pneumonia and he has had other admissions for urinary tract infection. Patient cannot provide any history as he is nonverbal. PMH: COPD, develop mental delay, Parkinson's disease, seizure disorder PSH: Unable to obtain from patient Allergies: Unable to obtain from patient Social Hx: Unable to obtain from patient Allergies: Coded Allergies: No Known Allergies (Verified , 02/21/07) Nursing Documentation-PMH Hx Cardiac Problems: Yes - hypothyroid Hx Hypertension: Yes Hx COPD: Yes - pneumonia Hx Diabetes: No Hx Cancer: No Hx Gastrointestinal Problems: Yes Hx Neurological Problems: Yes Hx Parkinson's Disease: Yes Hx Seizures: Yes Review of Systems All Other Systems: limited - Unable to obtain from patient Physical Exam Vital Signs Date Time Temp Pulse Resp B/P (MAP) Pulse Ox O2 Delivery O2 Flow Rate FiO2 06/22/19 15:48 93 20 117/61 (79) 96 Room Air General: Awake, nonverbal, no distress. Agitated when touched HEENT: NC/AT. EOMI. dry mucous membranes Neck: Supple, trachea midline Chest Wall: No tenderness, no deformity Cardiovascular: RRR. S1 and S2 normal. No murmur appreciated Resp: Normal work of breathing. No cough, wheezing or crackles appreciated : Indwelling Madison catheter present on arrival abdomen: Abdomen is soft, nondistended. Nontender Skin: Intact. No abrasions, laceration or rash over the exposed skin MSK: Decreased muscle bulk. Normal tone. Moving all extremities. No obvious deformity. No edema Neuro: Awake. Nonverbal. Responds to pain. Agitated when touched. Moving all extremities. Resting tremor in the right upper extremity. Medical Decision Making Diagnostic Impression: Primary Impression: UTI (urinary tract infection) Additional Impression: Altered mental status ER Course 83-year-old male presents for period of altered mental status at his nursing facility earlier today. We will start broad metabolic and infectious work-up however at this time the patient appears to be back to his reported baseline. Will obtain a chest x-ray given his recent reported pneumonia. Patient will likely require admission. Laboratory Tests Test 06/22/19 16:15 06/22/19 16:40 White Blood Count 11.9 K/UL (4.8-10.8) H Red Blood Count 2.94 M/UL (4.70-6.10) L Hemoglobin 9.3 G/DL (14.2-18.0) L Hematocrit 27.1 % (42.0-52.0) L Mean Corpuscular Volume 92 FL (80-99) Mean Corpuscular Hemoglobin 31.5 PG (27.0-31.0) H Mean Corpuscular Hemoglobin Concent 34.2 G/DL (32.0-36.0) Red Cell Distribution Width 13.3 % (11.6-14.8) Platelet Count 806 K/UL (150-450) H Mean Platelet Volume 4.7 FL (6.5-10.1) L Neutrophils (%) (Auto) % (45.0-75.0) Lymphocytes (%) (Auto) % (20.0-45.0) Monocytes (%) (Auto) % (1.0-10.0) Eosinophils (%) (Auto) % (0.0-3.0) Basophils (%) (Auto) % (0.0-2.0) Differential Total Cells Counted 100 Neutrophils % (Manual) 77 % (45-75) H Lymphocytes % (Manual) 19 % (20-45) L Monocytes % (Manual) 3 % (1-10) Eosinophils % (Manual) 1 % (0-3) Basophils % (Manual) 0 % (0-2) Band Neutrophils 0 % (0-8) Platelet Estimate Increased H Platelet Morphology Normal Red Blood Cell Morphology Normal Sodium Level 136 MMOL/L (136-145) Potassium Level 4.7 MMOL/L (3.5-5.1) Chloride Level 99 MMOL/L (98-107) Carbon Dioxide Level 36 MMOL/L (21-32) H Anion Gap 1 mmol/L (5-15) L Blood Urea Nitrogen 23 mg/dL (7-18) H Creatinine 0.6 MG/DL (0.55-1.30) Estimate Glomerular Filtration Rate mL/min (>60) Glucose Level 89 MG/DL (74-106) Lactic Acid Level 1.60 mmol/L (0.4-2.0) Calcium Level 8.0 MG/DL (8.5-10.1) L Phosphorus Level 3.8 MG/DL (2.5-4.9) Magnesium Level 1.9 MG/DL (1.8-2.4) Total Bilirubin 0.3 MG/DL (0.2-1.0) Aspartate Amino Transferase (AST) 50 U/L (15-37) H Alanine Aminotransferase (ALT) 19 U/L (12-78) Alkaline Phosphatase 127 U/L (46-116) H Total Creatine Kinase 21 U/L (26-308) L Creatine Kinase MB 1.4 NG/ML (0.0-3.6) Creatine Kinase MB Relative Index 6.6 Troponin I 0.000 ng/mL (0.000-0.056) Pro-B-Type Natriuretic Peptide 2227 pg/mL (0-125) H Total Protein 6.8 G/DL (6.4-8.2) Albumin 2.1 G/DL (3.4-5.0) L Globulin 4.7 g/dL Albumin/Globulin Ratio 0.4 (1.0-2.7) L Urine Color Fanny Urine Appearance Cloudy Urine pH 7 (4.5-8.0) Urine Specific [place] 1.030 (1.005-1.035) Urine Protein 2+ (NEGATIVE) H Urine Glucose (UA) Negative (NEGATIVE) Urine Ketones Negative (NEGATIVE) Urine Blood 5+ (NEGATIVE) H Urine Nitrite Negative (NEGATIVE) Urine Bilirubin Negative (NEGATIVE) Urine Ictotest Negative (NEGATIVE) Urine Urobilinogen 8 MG/DL (0.0-1.0) H Urine Leukocyte Esterase 3+ (NEGATIVE) H Urine RBC 15-20 /HPF (0 - 0) H Urine WBC Tntc /HPF (0 - 0) H Urine Squamous Epithelial Cells Occasional /LPF Urine Bacteria Many /HPF (NONE) H EKG Diagnostic Results EKG Time: 16:40 Rate: normal Rhythm: NSR ST Segments: no acute changes Other Impression Sinus rhythm, slight left axis deviation, normal intervals, no ST segment changes Rhythm Strip Diag. Results Rhythm Strip Time: 16:40 EP Interpretation: yes Rate: 80s Rhythm: NSR, no PVC's, no ectopy Chest X-Ray Diagnostic Results Chest X-Ray Diagnostic Results : Chest X-Ray Ordered: Yes # of Views/Limited/Complete: 1 View Indication: Chest Pain Interpretation: no consolidation, no effusion, no pneumothorax, other - Bilateral congestion Impression: Other - Venous congestion bilaterally Electronically Signed by: Electronically signed by Dr. Rashaad Pat Reevaluation Time: 17:17 Last Vital Signs Date Time Temp Pulse Resp B/P (MAP) Pulse Ox O2 Delivery O2 Flow Rate FiO2 06/22/19 15:48 93 20 117/61 (79) 96 Room Air Reevaluation Impression Labs are returned showing a significant urinary tract infection which is likely due to his indwelling catheter. Discussed with his PMD Dr. Gandhi, who states the catheter was therefore urinary retention. We will pull and give IV antibiotics. His last urine culture showed he was pansensitive. No fever. Labs otherwise show an elevated BNP and chest x-ray shows bilateral vascular congestion consistent with CHF. Otherwise mild elevation in white count with mild shift. BUN slightly elevated the creatinine is normal. Troponin negative. Patient will be admitted for further monitoring and treatment of urinary tract infection. Will admit under his PMD, Dr. Gandhi. Disposition: ADMITTED INPATIENT Condition: Serious Rashaad Pat MD Jun 22, 2019 16:03
[2019-06-22 16:10] VITALS: BP 105/55
[2019-06-22] MEDS ORDERED: SYNTHROID100 MCG GT (16:18)
[2019-06-22] MEDS ORDERED: FUROSEMIDE20 M1 GT (16:18)
[2019-06-22] MEDS ORDERED: MUCOMYST 20% GT (16:18)
[2019-06-22] MEDS ORDERED: OSMOLITE 1.21500 ML GT (16:18)
[2019-06-22] MEDS ORDERED: DUONEB 0.5-3(2.53 ML HHN (16:18)
[2019-06-22] MEDS ORDERED: BISACODYL10 M1 RC (16:18)
[2019-06-22] MEDS ORDERED: KEPPRA500 M4 GT (16:18)
[2019-06-22] MEDS ORDERED: SINEMET 25-1001 EAC1 SL (16:18)
[2019-06-22] MEDS ORDERED: SENNA8.6 M2 GT (16:18)
[2019-06-22 16:33] LABS: HEMATOCRIT 27.1 % (42.0-52.0); HEMOGLOBIN 9.3 G/DL (14.2-18.0); MEAN CORPUSCULAR VOLUME 92 FL (80-99); PLATELET COUNT 806 K/UL (150-450); RED BLOOD COUNT 2.94 M/UL (4.70-6.10); RED CELL DISTRIBUTION WIDTH 13.3 % (11.6-14.8); WHITE BLOOD COUNT 11.9 K/UL (4.8-10.8)
[2019-06-22 16:40] VITALS: BP 91/59
[2019-06-22 16:41] LABS: ANION GAP 1 mmol/L (5-15); BLOOD UREA NITROGEN 23 mg/dL (7-18); CARBON DIOXIDE 36 MMOL/L (21-32); CHLORIDE 99 MMOL/L (98-107); CREATININE 0.6 MG/DL (0.55-1.30); POTASSIUM 4.7 MMOL/L (3.5-5.1); SODIUM 136 MMOL/L (136-145)
[2019-06-22 16:56] LABS: ALANINE AMINOTRANSFERASE 19 U/L (12-78); ALBUMIN 2.1 G/DL (3.4-5.0); ALBUMIN/GLOBULIN RATIO 0.4 (1.0-2.7); ALKALINE PHOSPHATASE 127 U/L (46-116); ASPARTATE AMINO TRANSFERASE 50 U/L (15-37); BILIRUBIN,TOTAL 0.3 MG/DL (0.2-1.0); CKMB 1.4 NG/ML (0.0-3.6); CREATINE KINASE 21 U/L (26-308); PHOSPHORUS 3.8 MG/DL (2.5-4.9)
--- NOTE | 2019-06-22 16:56 | Diagnostic Imaging Report ---
Indication: Shortness of breath Technique: One view of the chest Comparison: 10/01/2018 Findings: Abdominal element of bilateral interstitial and hazy airspace disease, worse on the right than on the left. There may be some pleural fluid on the right as well. Size is normal. Impression: Diffuse bilateral right greater than left interstitial and airspace edema versus infiltrates Possible small right pleural effusion
[2019-06-22 16:59] LABS: APPEARANCE,URINE CLOUDY; BILIRUBIN, URINE NEGATIVE (NEGATIVE); COLOR,URINE AMBER; GLUCOSE, URINE (UA) NEGATIVE (NEGATIVE); KETONES,URINE NEGATIVE (NEGATIVE); LEUKOCYTE ESTERASE ,URINE 3+ (NEGATIVE); NITRITE,URINE NEGATIVE (NEGATIVE); PH,URINE 7 (4.5-8.0); PROTEIN,URINE 2+ (NEGATIVE); UROBILINOGEN,URINE 8 MG/DL (0.0-1.0)
[2019-06-22] MEDS ORDERED: cefTRIAXone 1 GM in NS 55 ML IVPB ONE (17:15)
[2019-06-22 17:30] VITALS: BP 96/41
[2019-06-22 18:00] VITALS: BP 107/42
[2019-06-22 18:50] VITALS: BP 105/57
[2019-06-22 20:30] VITALS: BP 119/72
[2019-06-22] MEDS ORDERED: LORazepam Inj 2mg/ml 1ml IV PRN (22:30)
[2019-06-22] MEDS ORDERED: Miralax 17gm pkt GT PRN (22:30)
[2019-06-22] MEDS ORDERED: DiphenhydrAMINE 50mg/ml Inj IVP PRN (22:30)
[2019-06-22] MEDS ORDERED: Albuterol/Ipratropium 3ml neb HHN PRN (22:30)
--- NOTE | 2019-06-22 23:52 | History & Physical ---
History of Present Illness General Date patient seen: Jun 22, 2019 Reason for Hospitalization: Altered Level of Consciousness Present Illness [facility] H & P dictated [id number] Jerry Gandhi MD Allergies: Coded Allergies: No Known Allergies (Verified , 02/21/07) Medication History Scheduled Carbidopa/Levodopa 25-100 Mg* (Sinemet 25-100 Mg Tablet*), 2 TAB SL DAILY, ( Reported) Furosemide* (Lasix*), 20 MG GT DAILY, (Reported) Lactose-Reduced Food (Osmolite 1.2 Maninder), 1,400 ML GT every evening, (Reported) Levetiracetam (Keppra), 500 MG GT EVERY 12 HOURS, (Reported) Levothyroxine Sodium* (Synthroid*), 100 MCG GT DAILY, (Reported) Sennosides (Senna), 17.2 MG GT QHS, (Reported) [mucomyst 20%], 400 MG GT BID, (Reported) Scheduled PRN Bisacodyl (Bisacodyl), 10 MG RC DAILY PRN for Constipation, (Reported) Ipratropium/Albuterol Sulfate (DuoNeb 0.5-3(2.5)mg/3ml), 3 ML HHN Q4HR PRN for Shortness of Breath, (Reported) Discontinued Medications Albuterol Sulfate* (Albuterol Sulfate Hhn*), 3 ML INH Q6H PRN for Shortness of Breath, (Reported) Discontinued Reason: Medication dose changed Ascorbic Acid* (Vitamin C*), 500 MG ORAL DAILY, (Reported) Discontinued Reason: Medication dose changed Bethanechol Chl* (Bethanechol Chloride*), 25 MG ORAL QID, (Reported) Discontinued Reason: Medication dose changed Bisacodyl* (Dulcolax*), 5 MG ORAL EVERY 12 HOURS PRN for Constipation, (Reported ) Discontinued Reason: Medication dose changed Carbidopa/Levodopa 25-100 Mg* (Sinemet 25-100 Mg Tablet*), 1.5 TAB ORAL THREE TIMES A DAY, (Reported) Discontinued Reason: Medication dose changed Carbidopa/Levodopa Cr 50-200* (Sinemet Cr 50-200 Tablet*), 1 TAB ORAL QHS, ( Reported) Discontinued Reason: Medication dose changed Ciprofloxacin (Cipro), 500 MG PO BID, (Reported) Discontinued Reason: Medication dose changed Cranberry Extract (Cranberry), 400 MG PO DAILY, (Reported) Discontinued Reason: Medication dose changed Docusate Sodium* (Docusate Sodium*), 200 MG ORAL TWICE A DAY, (Reported) Discontinued Reason: Medication dose changed Ergocalciferol (Vitamin D2)* (Vitamin D*), 50,000 UNIT ORAL ONCE A WEEK, ( Reported) Discontinued Reason: Medication dose changed Lactobacillus Rhamnosus Gg* (Culturelle*), 1 CAP ORAL DAILY, (Reported) Discontinued Reason: Medication dose changed Levetiracetam (Keppra), 500 MG ORAL EVERY 12 HOURS, (Reported) Discontinued Reason: Medication dose changed Levothyroxine Sodium* (Levothyroxine Sodium*), 125 MCG ORAL DAILY, (Reported) Discontinued Reason: Medication dose changed Methenamine Mandelate (Methenamine Mandelate), 1 GM PO QHS, (Reported) Discontinued Reason: Medication dose changed Montelukast Sodium* (Montelukast Sodium*), 10 MG ORAL HS, (Reported) Discontinued Reason: Medication dose changed Multivitamin (Daily Vitamin), 1 TAB ORAL DAILY, (Reported) Discontinued Reason: Medication dose changed Forman-3 Fatty Acids/Fish Oil (Forman 3 1,000 Mg Softgel), 1 EACH PO BID, ( Reported) Discontinued Reason: Medication dose changed Ondansetron Odt* (Zofran Odt*), 4 MG ORAL Q8HR PRN for Nausea & Vomiting, ( Reported) Discontinued Reason: Medication dose changed Pantoprazole* (Pantoprazole*), 40 MG ORAL DAILY, (Reported) Discontinued Reason: Medication dose changed Phenytoin Sodium Extended* (Phenytoin Sodium Extended*), 300 MG ORAL BEDTIME, ( Reported) Discontinued Reason: Medication dose changed Polyethylene Glycol 3350* (Miralax*), 17 GM ORAL DAILY PRN for Constipation, ( Reported) Discontinued Reason: Medication dose changed Quetiapine Fumarate* (Quetiapine Fumarate*), 50 MG ORAL BID, (Reported) Discontinued Reason: Medication dose changed Quetiapine Fumarate* (Quetiapine Fumarate*), 100 MG ORAL Q4HR PRN for Agitation, (Reported) Discontinued Reason: Medication dose changed Rasagiline Mesylate (Azilect), 1 MG PO DAILY, (Reported) Discontinued Reason: Medication dose changed Sennosides* (Senno*), 17.2 MG ORAL DAILY PRN for Constipation, (Reported) Discontinued Reason: Medication dose changed Tamsulosin Hcl (Tamsulosin Hcl*), 0.4 MG ORAL BID, (Reported) Discontinued Reason: Medication dose changed Zinc Oxide (Desitin), Unknown Dose TP BID PRN for AFFECTED AREAS, (Reported) Discontinued Reason: Medication dose changed Zinc Sulfate (Zinc Sulfate*), 220 MG ORAL DAILY, (Reported) Discontinued Reason: Medication dose changed [Phenergan 6.25MG/5ML], 10 ML PO Q6HR PRN for For Cough, (Reported) Discontinued Reason: Medication dose changed Patient History Healthcare decision maker Resuscitation status Full Code Advanced Directive on File No Review of Systems Review of Symptoms General ROS: no weight loss or fever Psychological ROS: no depression or mood changes, no memory loss Ophthalmic ROS: no visual changes or eye irritation ENT ROS: no nasal congestion, hearing loss, dizziness Allergy and Immunology ROS: no allergic symptoms or urticaria Hematological and Lymphatic ROS: no swollen glands, unusual bleeding or bruising Endocrine ROS: no polyuria, polydipsia, weight changes, temperature intolerance Respiratory ROS: no cough, shortness of breath, or wheezing Cardiovascular ROS: no chest pain or dyspnea on exertion Gastrointestinal ROS: denies abdominal pain, bright red blood in stool. Musculoskeletal ROS: no myalgias or arthralgias Neurological ROS: no TIA or stroke symptoms Dermatological ROS: no new or changing skin lesions, rashes or pruritis Physical Exam Physical Exam General appearance: alert, cooperative, no distress, appears stated age Head: Normocephalic, without obvious abnormality, atraumatic Eyes: conjunctivae/corneas clear. PERRL, EOM's intact. Fundi benign Throat: Lips, mucosa, and tongue normal. Teeth and gums normal Neck: supple, symmetrical, trachea midline, no adenopathy, thyroid: not enlarged, symmetric, no tenderness/mass/nodules, no carotid bruit and no JVD Lungs: clear to auscultation bilaterally Heart: regular rate and rhythm, S1, S2 normal, no murmur, click, rub or gallop Abdomen: soft, non-tender. Bowel sounds normal. No masses, no organomegaly Extremities: extremities normal, atraumatic, no cyanosis or edema Pulses: 2+ and symmetric Skin: Skin color, texture, turgor normal. No rashes or lesions Neurologic: Grossly normal Last 24 Hour Vital Signs Date Time Temp Pulse Resp B/P (MAP) Pulse Ox O2 Delivery O2 Flow Rate FiO2 06/22/19 21:09 Room Air 06/22/19 20:30 98.2 88 18 119/72 (88) 92 06/22/19 19:51 97.6 75 16 95/45 98 Room Air 06/22/19 18:50 97.6 76 18 105/57 99 Room Air 06/22/19 18:00 98.5 76 14 107/42 98 Room Air 06/22/19 17:30 75 14 96/41 97 Room Air 06/22/19 16:40 97.8 84 18 91/59 96 Room Air 06/22/19 16:10 97.6 85 18 105/55 99 Room Air 06/22/19 16:10 85 18 Room Air 06/22/19 15:48 93 20 117/61 (79) 96 Room Air Laboratory Tests Test 06/22/19 16:15 06/22/19 16:40 White Blood Count 11.9 K/UL (4.8-10.8) H Red Blood Count 2.94 M/UL (4.70-6.10) L Hemoglobin 9.3 G/DL (14.2-18.0) L Hematocrit 27.1 % (42.0-52.0) L Mean Corpuscular Volume 92 FL (80-99) Mean Corpuscular Hemoglobin 31.5 PG (27.0-31.0) H Mean Corpuscular Hemoglobin Concent 34.2 G/DL (32.0-36.0) Red Cell Distribution Width 13.3 % (11.6-14.8) Platelet Count 806 K/UL (150-450) H Mean Platelet Volume 4.7 FL (6.5-10.1) L Neutrophils (%) (Auto) % (45.0-75.0) Lymphocytes (%) (Auto) % (20.0-45.0) Monocytes (%) (Auto) % (1.0-10.0) Eosinophils (%) (Auto) % (0.0-3.0) Basophils (%) (Auto) % (0.0-2.0) Differential Total Cells Counted 100 Neutrophils % (Manual) 77 % (45-75) H Lymphocytes % (Manual) 19 % (20-45) L Monocytes % (Manual) 3 % (1-10) Eosinophils % (Manual) 1 % (0-3) Basophils % (Manual) 0 % (0-2) Band Neutrophils 0 % (0-8) Platelet Estimate Increased H Platelet Morphology Normal Red Blood Cell Morphology Normal Sodium Level 136 MMOL/L (136-145) Potassium Level 4.7 MMOL/L (3.5-5.1) Chloride Level 99 MMOL/L (98-107) Carbon Dioxide Level 36 MMOL/L (21-32) H Anion Gap 1 mmol/L (5-15) L Blood Urea Nitrogen 23 mg/dL (7-18) H Creatinine 0.6 MG/DL (0.55-1.30) Estimat Glomerular Filtration Rate mL/min (>60) Glucose Level 89 MG/DL (74-106) Lactic Acid Level 1.60 mmol/L (0.4-2.0) Calcium Level 8.0 MG/DL (8.5-10.1) L Phosphorus Level 3.8 MG/DL (2.5-4.9) Magnesium Level 1.9 MG/DL (1.8-2.4) Total Bilirubin 0.3 MG/DL (0.2-1.0) Aspartate Amino Transf (AST/SGOT) 50 U/L (15-37) H Alanine Aminotransferase (ALT/SGPT) 19 U/L (12-78) Alkaline Phosphatase 127 U/L (46-116) H Total Creatine Kinase 21 U/L (26-308) L Creatine Kinase MB 1.4 NG/ML (0.0-3.6) Creatine Kinase MB Relative Index 6.6 Troponin I 0.000 ng/mL (0.000-0.056) Pro-B-Type Natriuretic Peptide 2227 pg/mL (0-125) H Total Protein 6.8 G/DL (6.4-8.2) Albumin 2.1 G/DL (3.4-5.0) L Globulin 4.7 g/dL Albumin/Globulin Ratio 0.4 (1.0-2.7) L Urine Color Fanny Urine Appearance Cloudy Urine pH 7 (4.5-8.0) Urine Specific [place] 1.030 (1.005-1.035) Urine Protein 2+ (NEGATIVE) H Urine Glucose (UA) Negative (NEGATIVE) Urine Ketones Negative (NEGATIVE) Urine Blood 5+ (NEGATIVE) H Urine Nitrite Negative (NEGATIVE) Urine Bilirubin Negative (NEGATIVE) Urine Ictotest Negative (NEGATIVE) Urine Urobilinogen 8 MG/DL (0.0-1.0) H Urine Leukocyte Esterase 3+ (NEGATIVE) H Urine RBC 15-20 /HPF (0 - 0) H Urine WBC Tntc /HPF (0 - 0) H Urine Squamous Epithelial Cells Occasional /LPF Urine Bacteria Many /HPF (NONE) H Microbiology Date/Time Source Procedure Growth Status 06/22/19 18:30 Rectum Received Height (Feet): 5 Height (Inches): 2.00 Weight (Pounds): 101 Medications Current Medications Medications (Trade) Dose Ordered Sig/Ana Route PRN Reason Start Time Stop Time Status Last Admin Dose Admin Albuterol/ Ipratropium (Albuterol/ Ipratropium) 3 ml Q4HR PRN HHN Shortness of Breath 06/22/19 22:30 06/27/19 22:29 Bisacodyl (Dulcolax) 10 mg DAILY PRN RECTAL Constipation 06/22/19 22:30 07/22/19 22:29 Carbidopa/Levodopa (Sinemet 25/100) 2 tab DAILY GT 06/23/19 09:00 07/23/19 08:59 Ceftriaxone Sodium 1 gm/ Dextrose 55 ml @ 110 mls/hr Q24H IVPB 06/23/19 17:30 06/30/19 17:29 Diphenhydramine HCl (Benadryl) 25 mg Q6H PRN IVP Itching 06/22/19 22:30 07/22/19 22:29 Furosemide (Lasix) 20 mg DAILY GT 06/23/19 09:00 07/23/19 08:59 Lansoprazole (Prevacid) 30 mg DAILY@0630 GT 06/23/19 06:30 07/23/19 06:29 Levetiracetam (Keppra) 500 mg EVERY 12 HOURS GT 06/23/19 09:00 07/23/19 08:59 Levothyroxine Sodium (Synthroid) 100 mcg DAILY@0630 GT 06/23/19 06:30 07/23/19 06:29 Lorazepam (Ativan 2mg/ml 1ml) 0.5 mg EVERY 8 HOURS PRN IV For Anxiety 06/22/19 22:30 06/29/19 22:29 Ondansetron HCl (Zofran) 4 mg Q6H PRN IVP Nausea & Vomiting 06/22/19 22:30 07/22/19 22:29 Phenytoin (Dilantin) 300 mg QHS GT 06/23/19 21:00 07/23/19 20:59 Polyethylene Glycol (Miralax) 17 gm DAILY PRN GT Constipation 06/22/19 22:30 07/22/19 22:29 Quetiapine Fumarate (SEROqueL) 50 mg EVERY 4 HOURS PRN GT Agitation 06/22/19 22:30 07/22/19 22:29 Sennosides (Senokot) 17.2 mg QHS GT 06/23/19 21:00 07/23/19 20:59 [facility] Hospital declaration INPATIENT level of care is warranted for this patient because patient is a 89 year old with who presents with suspicion of . I have a high level of concern because . Patient is at high risk for . Plan of care/treatment include . Patient care is expected to be greater than 2 midnights. OBSERVATION level of care is warranted for this patient. Patient is a 89 year old with who presents with . Patient will be admitted for 1 midnight, but if additional night(s) is/are necessary, patient will be converted to inpatient status for the entire hospitalization Disposition: Once the patient is stable to leave the hospital, I anticipate the patient will likely be discharged to the following environment: Estimated discharge date: I spent 70 minutes on this patient's case, and minutes was dedicated to counseling and/or care coordination. MIPS (Merit-based Incentive Payment System) Applicable CPT: 32188, 04390 CHECK ALL THAT ARE MET: Measure #5 (CHF): All ages. Prescribe REX/ARB upon discharge for patients with left ventricular systolic dysfunction. If not, the reason is clearly documented in the medical chart. Measure #8 (CHF): All ages. Prescribe a beta raul upon discharge for patients with left ventricular systolic dysfunction. If not, the reason is clearly documented in the medical chart. Measure #47 Advance care plan or surrogate decision maker documented in the medical record. Measure #130 The provider has documented, updated, or reviewed the patients current medication list and has documented it in the patients note. Measure #374 (All): Send report to referring provider. Measure #407(Sepsis due to MSSA bacteremia): Age 18+ Patient treated with a beta-lactam antibiotic (Nafcillin, Oxacillin or Cefazolin) as definitive therapy. MEDICAL COMPLEXITY High complexity medical decision making (need 2/3 categories) Problem - need 4 points Acute/new problem with new plan for workup (4 points, 1 max) Acute/new problem without additional workup (3 points, 1 max) Unstable chronic problem actively being managed (2 point each, 2 max) Stable chronic problem actively being managed (1 point each, 2 max) Self-limited/transient process (constipation, muscle ache, etc) (1 point each , 2 max) Data - need 4 points Reviewed labs/imaging studies (1 points, 2 max) Independent review of imaging (EKG, xrays, etc) (2 points, 2 max) Discussed case with consult/other MD/RN (2 points, 2 max) High Risk - qualify if have one of the following: Severe exacerbation of acute problem, acute mental status change, IV narcotics , monitoring drug levels (vancomycin, INR, tacrolimus etc) JERRY GANDHI Jun 22, 2019 23:52
[2019-06-23] VITALS: BP 123/60
[2019-06-23 04:00] VITALS: BP_SYST 108; BP_SYST 129; BP_DIAS 50; BP_DIAS 68
[2019-06-23] MEDS: Heparin 5000 units/ml inj SUBQ SCH ×3 (05:39→21:40)
[2019-06-23 07:58] LABS: BASOPHILS % (AUTO) 1.4 % (0.0-2.0); HEMATOCRIT 27.8 % (42.0-52.0); HEMOGLOBIN 8.8 G/DL (14.2-18.0); LYMPHOCYTES % (AUTO) 19.5 % (20.0-45.0); MEAN CORPUSCULAR VOLUME 96 FL (80-99); MONOCYTES % (AUTO) 4.7 % (1.0-10.0); NEUTROPHILS % (AUTO) 73.5 % (45.0-75.0); PLATELET COUNT 766 K/UL (150-450); RED BLOOD COUNT 2.89 M/UL (4.70-6.10); RED CELL DISTRIBUTION WIDTH 14.6 % (11.6-14.8); WHITE BLOOD COUNT 9.5 K/UL (4.8-10.8)
[2019-06-23 08:14] VITALS: BP 130/68
[2019-06-23 08:36] LABS: ALANINE AMINOTRANSFERASE 37 U/L (12-78); ALBUMIN 1.8 G/DL (3.4-5.0); ALBUMIN/GLOBULIN RATIO 0.4 (1.0-2.7); ALKALINE PHOSPHATASE 114 U/L (46-116); ANION GAP 2 mmol/L (5-15); ASPARTATE AMINO TRANSFERASE 40 U/L (15-37); BILIRUBIN,TOTAL 0.2 MG/DL (0.2-1.0); BLOOD UREA NITROGEN 19 mg/dL (7-18); CARBON DIOXIDE 31 MMOL/L (21-32); CHLORIDE 103 MMOL/L (98-107); CHOLESTEROL 146 MG/DL (< 200); CREATININE 0.5 MG/DL (0.55-1.30); HDL CHOLESTEROL 35 MG/DL (40-60); POTASSIUM 4.4 MMOL/L (3.5-5.1); SODIUM 136 MMOL/L (136-145); TRIGLYCERIDES 86 MG/DL (30-150)
[2019-06-23] MEDS: Levodopa/Carbidopa 25/100 tab GT SCH (09:27)
[2019-06-23 11:27] VITALS: BP 102/56
--- NOTE | 2019-06-23 15:30 | History and Physical Report ---
DATE OF ADMISSION: 06/22/2019 CHIEF COMPLAINT: Altered mental status. HISTORY OF PRESENT ILLNESS: This is a very pleasant but unfortunate 83-year-old male with history of developmental delay, Parkinson disease, seizure disorder, failure to thrive who has got a G-tube placement due to recurrent aspiration pneumonia. The patient has been transferred to [facility] for continued care. He has been doing well until this morning nursing staff found the patient to be altered mentally. He was transferred via EMS to [facility] where he was evaluated. He apparently became more alert and arousable when he arrived in the ER. He was noted to have a UTI. His indwelling Madison catheter was replaced due to urinary retention. The patient was started on IV ceftriaxone, was pancultured, and will be admitted for IV antibiotics and close monitoring. REVIEW OF SYSTEMS: The patient has developmental delay. Unable to get precise review of systems. Pertinent positives and negatives per history of present illness. PAST MEDICAL HISTORY: History of recurrent aspiration pneumonia, history of developmental delay, Parkinson disease, seizure disorder, history of weakness, history of skin graft, history of hypothyroidism, history of gastroesophageal reflux, history hypertension, history of hyperlipidemia, history of recurrent constipation, history of BPH, history of Tran esophagus, history of anemia, history of osteoporosis, history of mental retardation. ALLERGIES: No known drug allergies. FAMILY HISTORY: Noncontributory. PAST SURGICAL HISTORY: Status post cholecystectomy, status post skin cancer removal over the face and nose. PHYSICAL EXAMINATION: VITAL SIGNS: Temperature is 98.2, blood pressure is 119/72, pulse is 88, respiratory rate 18, saturating 92% on room air. GENERAL: Pleasant, cachectic male, looking older than stated age, in no acute distress. HEENT: Normocephalic, atraumatic. Extraocular muscles are intact. Pupils equal, round, reactive to light. Anicteric sclerae. Oropharynx is dry with poor dentition. NECK: Supple. CHEST: Clear to auscultation without wheezes, rales, or rhonchi. CARDIOVASCULAR: Normal S1, S2. No murmurs, rubs, or gallops. ABDOMEN: G-tube is intact. Bowel sounds are positive. Belly is soft, nontender, nondistended. No hepatosplenomegaly appreciated. EXTREMITIES: No clubbing, cyanosis, or edema. GENITOURINARY: The patient has a Madison catheter in place. NEUROLOGIC: The patient is awake, alert, talkative, but not oriented to place, person. Moves extremities, but does not follow further commands. SKIN: Clear without rashes or petechiae. LABORATORY EVALUATION: White count is elevated at 11.9, hemoglobin is low at 9.3, hematocrit is 27.1, platelet count is elevated at 806, elevated polymorphonucleocytes, and increased platelet count as mentioned. Chemistry panel sodium is 136, potassium 4.7, chloride 99, carbon dioxide 36, anion gap of 1 low, BUN 23, creatinine 0.6, calcium 8, magnesium 1.9. Total bilirubin 0.3, AST 550, ALT is 19, alkaline phosphatase is 127. Pro-natriuretic peptide is elevated at 2227. Total protein 6.8. Albumin is low at 2.1. Globulin is 4.7. A chest x-ray done in the ER shows possible small right pleural effusion, diffuse bilateral right greater than left interstitial airspace edema versus infiltrates. IMPRESSION: This is an 83-year-old male admitted with altered mental status with laboratory evidence of UTI and interstitial edema. We will admit the patient to med/surg floor with the following medical problems. 1. Altered mental status, probably secondary to infectious etiology. We will monitor neuro exam closely and treat infection accordingly. 2. UTI. We will place the patient on ceftriaxone 1 g IV daily. ID consult. Urinalysis and urine culture are pending. Blood cultures pending. We will change Madison and continue changing Madison in 2 weeks in the [place] [facility]. 3. Interstitial edema, questionable CHF. The patient does not seem to be symptomatic though we will get echocardiogram and maintain on oxygen. Consider diuresis if the patient has similar symptoms. 4. History of failure to thrive and dysphagia. The patient is on G-tube feeds. I will get Dr. Kelley of GI to evaluate the patient. Continue with Osmolite 1.2 50 mL/hour. Dietitian consult in the a.m. Discussed with the nurse to check residuals and hold tube feeds for 100 mL residual. We will give free water flushes 200 mL q.6 hours. 5. Parkinson disease. Continue with Sinemet. 6. History of seizure disorder. Continue with Keppra 500 b.i.d. via G-tube and Dilantin 300 nightly. 7. History of developmental delay and mental retardation. Continue with supportive care. We will give Ativan p.r.n. for agitation as well as Seroquel. Consider Psychiatry consult if the patient is more agitated. 8. Anemia. We will check occult blood. Also for anemia of chronic disease, we will check iron indices and ferritin. 9. Thrombocytosis. We will repeat CBC in the a.m. Consider Hematology consult. 10. DVT prophylaxis. We will place the patient on heparin subcutaneous 5000 q.8 h. At this time, the patient is Full Code. [facility] We will ask social service liaison to inform them about the patient's hospitalization. Shayla Gandhi M.D. DR: PAWAN JOB#: [id number] CC: LEIGHANN
[2019-06-23 16:00] VITALS: BP 110/56
--- NOTE | 2019-06-23 16:20 | Cardiology Report ---
APPROVED REPORT EKG Measurement Heart [id number] Normal sinus rhythm Nonspecific ST abnormality Abnormal ECG
[2019-06-23] MEDS: cefTRIAXone 1 GM in D5W 55 ML IVPB SCH (17:26)
[2019-06-23 20:00] VITALS: BP 140/107
[2019-06-23] MEDS ORDERED: Phenytoin Susp 100mg/4ml GT SCH (21:00)
[2019-06-23] MEDS: Tamsulosin 0.4mg cap ORAL SCH (21:31)
[2019-06-23] MEDS: Sennosides 8.6mg tab GT SCH (21:31)
--- NOTE | 2019-06-23 22:15 | Consultation ---
DATE OF CONSULTATION: 06/23/2019 CONSULTING PHYSICIAN: Rory Trinidad M.D. REFERRING PHYSICIAN: Shayla Gandhi M.D. REASON FOR CONSULTATION: For evaluation of urinary retention, UTI. HISTORY OF PRESENT ILLNESS: This is an 83-year-old male who has a history of developmental delay. The patient has other medical problems including Parkinson disease, seizure disorder. He is a resident of a [place] [facility]. He apparently has a history of BPH with urinary retention and chronic Madison. He was brought to the emergency room because of altered mental status. He was noted to have urinary tract infection. His Madison catheter was apparently exchanged yesterday in the emergency room. Urology evaluation was requested. Most of the history was obtained from the chart. PAST MEDICAL HISTORY: Significant for above. Again, developmental delay, history of Parkinson's, seizure disorder, failure to thrive, aspiration pneumonia. PAST SURGICAL HISTORY: Unknown. MEDICATIONS: Current medication list in the hospital was reviewed. He is currently on Senokot, Dilantin, Rocephin, Lasix, Keppra, Sinemet, Synthroid, Prevacid, Dulcolax, Seroquel, MiraLAX. ALLERGIES: No known drug allergies. SOCIAL HISTORY: Resident of [place] [facility]. FAMILY HISTORY: Unable to obtain. REVIEW OF SYSTEMS: Unable to obtain. PHYSICAL EXAMINATION: GENERAL: Elderly male, in no acute distress. VITAL SIGNS: Temperature is 97.5, blood pressure is 110/56, pulse 82, and respirations 18. HEENT: Normocephalic. NECK: Supple. ABDOMEN: Soft. Madison is in place, 16-Polish, urine is grossly yellow debris. EXTREMITIES: Slightly contracted. LABORATORY DATA: UA showed 2+ protein, 15 to 20 rbc's, too numerous to count wbc's, many bacteria. White count is 9.5, hemoglobin 8.8, platelets 766,000. BUN is 19, creatinine 0.5, and potassium 4.4. Urine culture from yesterday preliminary is negative. DIAGNOSTIC IMAGING STUDIES: The patient has not had any recent renal imaging studies. He did have a CT scan of the abdomen and pelvis back in 2013 and at that time, there was mention of a small left renal cyst. There was a bladder wall thickening reported. IMPRESSION: 1. Urinary retention with chronic Madison. 2. BPH history. 3. Probable neurogenic bladder. 4. Hematuria. 5. Pyuria, probable UTI and colonization. 6. Proteinuria. 7. Renal cyst. PLAN AND DISCUSSION: Again as noted above, the patient had a chronic Madison, was exchanged to emergency room yesterday. He is to continue with antibiotics as ordered. We will follow up on the results of his urine culture. I will add Flomax and Proscar in case we consider giving him a voiding trial. I think that he should probably continue his finasteride daily even if he continue with a Madison catheter to help shrink his prostate and decrease bleeding chance. We will consider repeat renal imaging study and possibly cystoscopy at some point to evaluate the lower urinary tract. Thank you, Dr. Gandhi, for asking me to see this patient in consultation. Rory Trinidad M.D. DR: YADIRA JOB#: [id number] CC:
--- NOTE | 2019-06-23 22:41 | General Progress Note ---
Assessment/Plan Assessment/Plan: Assessment - developmental delay - GT dependent - current GT a parra cath - will change in am - UTI - GERD / Tran's - Constipation - hypothyroidism - BPH - hyperlipidemia - parkinsons - seizure disorder Recommendations - Continue GT feeds - Elevate HOB - will change GT in am - abx - bowel regimen - PPI - follow labs and exam Thank you Eduardo Kelley MD Subjective Allergies: Coded Allergies: No Known Allergies (Verified , 02/21/07) Objective Last 24 Hour Vital Signs Date Time Temp Pulse Resp B/P (MAP) Pulse Ox O2 Delivery O2 Flow Rate FiO2 06/23/19 20:00 98.2 75 20 140/107 (118) 94 06/23/19 16:00 97.5 82 18 110/56 (74) 98 06/23/19 11:27 97.2 74 14 102/56 (71) 98 06/23/19 09:00 Room Air 06/23/19 08:14 96.6 79 14 130/68 (88) 96 06/23/19 04:00 97.3 77 19 129/50 (76) 93 06/23/19 00:00 97.5 80 21 123/60 (81) 94 Intake and Output 06/22/19 06/23/19 19:00 07:00 Intake Total 1000 ml 360 ml Output Total 40 ml 400 ml Balance 960 ml -40 ml Intake Free Water 200 ml IV Total 1000 ml Tube Feeding 160 ml Output Urine Total 40 ml 400 ml Laboratory Tests 06/23/19 07:20: White Blood Count 9.5, Red Blood Count 2.89L, Hemoglobin 8.8L, Hematocrit 27.8L , Mean Corpuscular Volume 96, Mean Corpuscular Hemoglobin 30.6, Mean Corpuscular Hemoglobin Concent 31.8L, Red Cell Distribution Width 14.6, Platelet Count 766H, Mean Platelet Volume 4.8L, Neutrophils (%) (Auto) 73.5, Lymphocytes (%) (Auto) 19.5L, Monocytes (%) (Auto) 4.7, Eosinophils (%) (Auto) 1.0, Basophils (%) (Auto) 1.4, Sodium Level 136, Potassium Level 4.4, Chloride Level 103, Carbon Dioxide Level 31, Anion Gap 2L, Blood Urea Nitrogen 19H, Creatinine 0.5L, Estimat Glomerular Filtration Rate , Glucose Level 94, Hemoglobin A1c 4.9, Calcium Level 8.0L, Total Bilirubin 0.2, Aspartate Amino Transf (AST/SGOT) 40H, Alanine Aminotransferase (ALT/SGPT) 37, Alkaline Phosphatase 114, Total Protein 6.6, Albumin 1.8L, Globulin 4.8, Albumin/ Globulin Ratio 0.4L, Triglycerides Level 86, Cholesterol Level 146, LDL Cholesterol 93, HDL Cholesterol 35L, Cholesterol/HDL Ratio 4.2, Thyroid Stimulating Hormone (TSH) 10.267H Height (Feet): 5 Height (Inches): 2.00 Weight (Pounds): 101 Eduardo Kelley MD Jun 23, 2019 22:41
--- NOTE | 2019-06-23 23:08 | General Progress Note ---
Assessment/Plan Status: progressing Assessment/Plan: IMPRESSION: This is an 83-year-old male admitted with altered mental status with laboratory evidence of UTI and interstitial edema. We will admit the patient to med/surg floor with the following medical problems. 1. Altered mental status, probably secondary to infectious etiology. We will monitor neuro exam closely and treat infection accordingly. 2. UTI. We will place the patient on ceftriaxone 1 g IV daily. ID consult. Urinalysis and urine culture are pending. Blood cultures pending. We will change Madison and continue changing Madison in 2 weeks in the halfway. 3. Interstitial edema, questionable CHF. The patient does not seem to be symptomatic though we will get echocardiogram and maintain on oxygen. Consider diuresis if the patient has similar symptoms. 4. History of failure to thrive and dysphagia. The patient is on G-tube feeds. I will get Dr. Kelley of to evaluate the patient. Continue with Osmolite 1.2 50 mL/hour. Dietitian consult in the a.m. Discussed with the nurse to check residuals and hold tube feeds for 100 mL residual. We will give free water flushes 200 mL q.6 hours. 5. Parkinson disease. Continue with Sinemet. 6. History of seizure disorder. Continue with Keppra 500 b.i.d. via G-tube and Dilantin 300 nightly. 7. History of developmental delay and mental retardation. Continue with supportive care. We will give Ativan p.r.n. for agitation as well as Seroquel. Consider Psychiatry consult if the patient is more agitated. 8. Anemia. We will check occult blood. Also for anemia of chronic disease, we will check iron indices and ferritin. 9. Thrombocytosis. We will repeat CBC in the a.m. Consider Hematology consult. 10. DVT prophylaxis. We will place the patient on heparin subcutaneous 5000 q.8 h. PLan: - continue IV Ceftriaxone - ID consult pending - fu cultures - urology eval for urinary retention appreciated - continue tube feeding per gi - am labs - vTE prophylaxis - supportive care - Soft wrist restraints prn At this time, the patient is Full Code. [facility] We will ask geriatric social worker to inform them about the patient's hospitalization. Subjective Date patient seen: Jun 23, 2019 ROS Limited/Unobtainable: Yes Allergies: Coded Allergies: No Known Allergies (Verified , 8/4/07) Objective Last 24 Hour Vital Signs Date Time Temp Pulse Resp B/P (MAP) Pulse Ox O2 Delivery O2 Flow Rate FiO2 06/23/19 20:00 98.2 75 20 140/107 (118) 94 06/23/19 16:00 97.5 82 18 110/56 (74) 98 06/23/19 11:27 97.2 74 14 102/56 (71) 98 06/23/19 09:00 Room Air 06/23/19 08:14 96.6 79 14 130/68 (88) 96 06/23/19 04:00 97.3 77 19 129/50 (76) 93 06/23/19 00:00 97.5 80 21 123/60 (81) 94 Intake and Output 06/22/19 06/23/19 19:00 07:00 Intake Total 1000 ml 360 ml Output Total 40 ml 400 ml Balance 960 ml -40 ml Intake Free Water 200 ml IV Total 1000 ml Tube Feeding 160 ml Output Urine Total 40 ml 400 ml Laboratory Tests 06/23/19 07:20: White Blood Count 9.5, Red Blood Count 2.89L, Hemoglobin 8.8L, Hematocrit 27.8L , Mean Corpuscular Volume 96, Mean Corpuscular Hemoglobin 30.6, Mean Corpuscular Hemoglobin Concent 31.8L, Red Cell Distribution Width 14.6, Platelet Count 766H, Mean Platelet Volume 4.8L, Neutrophils (%) (Auto) 73.5, Lymphocytes (%) (Auto) 19.5L, Monocytes (%) (Auto) 4.7, Eosinophils (%) (Auto) 1.0, Basophils (%) (Auto) 1.4, Sodium Level 136, Potassium Level 4.4, Chloride Level 103, Carbon Dioxide Level 31, Anion Gap 2L, Blood Urea Nitrogen 19H, Creatinine 0.5L, Estimat Glomerular Filtration Rate , Glucose Level 94, Hemoglobin A1c 4.9, Calcium Level 8.0L, Total Bilirubin 0.2, Aspartate Amino Transf (AST/SGOT) 40H, Alanine Aminotransferase (ALT/SGPT) 37, Alkaline Phosphatase 114, Total Protein 6.6, Albumin 1.8L, Globulin 4.8, Albumin/ Globulin Ratio 0.4L, Triglycerides Level 86, Cholesterol Level 146, LDL Cholesterol 93, HDL Cholesterol 35L, Cholesterol/HDL Ratio 4.2, Thyroid Stimulating Hormone (TSH) 10.267H Height (Feet): 5 Height (Inches): 2.00 Weight (Pounds): 101 General Appearance: no apparent distress, alert Neck: non-tender, supple Cardiovascular: normal rate, regular rhythm, no gallop/murmur, no JVD Respiratory/Chest: chest wall non-tender, normal breath sounds, no respiratory distress Abdomen: non tender, soft, no mass Edema: no edema noted Arm (L), no edema noted Arm (R), no edema noted Leg (L), no edema noted Leg (R), no edema noted Pedal (L), no edema noted Pedal (R), no edema noted Generalized Neurologic: alert Skin: warm/dry Lymphatic: normal anterior cervical (L), normal anterior cervical (R), normal posterior cervical (L), normal posterior cervical (R), normal submandibular (L) , normal submandibular (R), normal supraclavicular (L), normal supraclavicular ( R), normal axillary (L), normal axillary (R), normal inguinal (L), normal inguinal (R), normal other JERRY OKEEFE Jun 23, 2019 23:08
[2019-06-24] VITALS: BP 120/56
[2019-06-24 04:00] VITALS: BP 100/56
[2019-06-24] MEDS ORDERED: Zolpidem 5mg tab ORAL PRN (05:15)
[2019-06-24] MEDS: Heparin 5000 units/ml inj SUBQ SCH ×3 (05:32→20:52)
[2019-06-24 08:00] VITALS: BP 121/73
[2019-06-24] MEDS: Levodopa/Carbidopa 25/100 tab GT SCH (08:44)
--- NOTE | 2019-06-24 09:15 | Urology Progress Note ---
Assessment/Plan Status: progressing Assessment/Plan: 1. Urinary retention with chronic Parra. 2. BPH history. 3. Probable neurogenic bladder. 4. Hematuria. 5. Pyuria, probable UTI and colonization. 6. Proteinuria. 7. Renal cyst. maintain parra hand irrigate PRN abx as ordered f/u on cx's flomax and proscar cysto later Subjective Allergies: Coded Allergies: No Known Allergies (Verified , 02/21/07) Subjective non-verbal Objective Last 24 Hour Vital Signs Date Time Temp Pulse Resp B/P (MAP) Pulse Ox O2 Delivery O2 Flow Rate FiO2 06/24/19 04:00 97.9 72 16 100/56 (71) 98 06/24/19 00:00 98.5 72 16 120/56 (77) 94 06/23/19 21:00 Room Air 06/23/19 20:00 98.2 75 20 140/107 (118) 94 06/23/19 16:00 97.5 82 18 110/56 (74) 98 06/23/19 11:27 97.2 74 14 102/56 (71) 98 Intake and Output 06/23/19 06/24/19 19:00 07:00 Intake Total 910 ml 800 ml Output Total 850 ml 600 ml Balance 60 ml 200 ml Intake Free Water 400 ml 200 ml Tube Feeding 510 ml 600 ml Output Urine Total 850 ml 600 ml # Bowel Movements 1 1 Microbiology Date/Time Source Procedure Growth Status 06/22/19 16:15 Blood Blood Culture - Preliminary NO GROWTH AFTER 24 HOURS Resulted 06/22/19 18:30 Nasal Nares MRSA Culture - Final NO METHICILLIN RESISTANT STAPH AUREUS... Complete 06/22/19 16:40 Urine,Clean Catch Urine Culture - Preliminary Yeast Species Strep Species, Gamma-Hemolytic Resulted 06/22/19 18:30 Rectum Received Current Medications Medications (Trade) Dose Ordered Sig/Ana Route PRN Reason Start Time Stop Time Status Last Admin Dose Admin Albuterol/ Ipratropium (Albuterol/ Ipratropium) 3 ml Q4HR PRN HHN Shortness of Breath 06/22/19 22:30 06/27/19 22:29 Bisacodyl (Dulcolax) 10 mg DAILY PRN RECTAL Constipation 06/22/19 22:30 07/22/19 22:29 Carbidopa/Levodopa (Sinemet 25/100) 2 tab DAILY GT 06/23/19 09:00 07/23/19 08:59 06/24/19 08:44 Ceftriaxone Sodium 1 gm/ Dextrose 55 ml @ 110 mls/hr Q24H IVPB 06/23/19 17:30 06/30/19 17:29 06/23/19 17:26 Diphenhydramine HCl (Benadryl) 25 mg Q6H PRN IVP Itching 06/22/19 22:30 07/22/19 22:29 Finasteride (Proscar) 5 mg DAILY ORAL 06/24/19 09:00 07/24/19 08:59 06/24/19 08:44 Furosemide (Lasix) 20 mg DAILY GT 06/23/19 09:00 07/23/19 08:59 06/24/19 08:44 Heparin Sodium (Porcine) (Heparin 5000 units/ml) 5,000 units EVERY 8 HOURS SUBQ 06/23/19 06:00 07/23/19 05:59 06/24/19 05:32 Lansoprazole (Prevacid) 30 mg DAILY@0630 GT 06/23/19 06:30 07/23/19 06:29 06/24/19 05:31 Levetiracetam (Keppra) 500 mg EVERY 12 HOURS GT 06/23/19 09:00 07/23/19 08:59 06/24/19 08:44 Levothyroxine Sodium (Synthroid) 100 mcg DAILY@0630 GT 06/23/19 06:30 07/23/19 06:29 06/24/19 05:30 Lorazepam (Ativan 2mg/ml 1ml) 0.5 mg EVERY 8 HOURS PRN IV For Anxiety 06/22/19 22:30 06/29/19 22:29 Ondansetron HCl (Zofran) 4 mg Q6H PRN IVP Nausea & Vomiting 06/22/19 22:30 07/22/19 22:29 Phenytoin (Dilantin) 300 mg QHS GT 06/23/19 21:00 07/23/19 20:59 06/23/19 21:32 Polyethylene Glycol (Miralax) 17 gm DAILY PRN GT Constipation 06/22/19 22:30 07/22/19 22:29 Quetiapine Fumarate (SEROqueL) 50 mg EVERY 4 HOURS PRN GT Agitation 06/22/19 22:30 07/22/19 22:29 06/24/19 01:41 Sennosides (Senokot) 17.2 mg QHS GT 06/23/19 21:00 07/23/19 20:59 06/23/19 21:31 Tamsulosin HCl (Flomax) 0.4 mg BEDTIME ORAL 06/23/19 21:00 07/23/19 20:59 06/23/19 21:31 Height (Feet): 5 Height (Inches): 2.00 Weight (Pounds): 101 Objective parra indwelling, yellow/marquita urine Rory Trinidad MD Jun 24, 2019 09:15
[2019-06-24 12:00] VITALS: BP 118/75
--- NOTE | 2019-06-24 15:52 | Consultation ---
History of Present Illness General Date patient seen: Jun 24, 2019 Chief Complaint: Altered Level of Consciousness Present Illness HPI This is a very unfortunate 83-year-old male with multiple medical comorbidities as noted below who is a alf resident was identified to have altered mental status and level of consciousness and therefore brought to [facility] for evaluation and admitted for care and management. On admission identified to have multiple decubitus ulcers requiring care and management. Surgery called to evaluate and assist with care. Patient seen, patient evaluated, chart reviewed. Poor historian unable to give significant history or examination given medical condition Allergies: Coded Allergies: No Known Allergies (Verified , 02/21/07) Medication History Scheduled Carbidopa/Levodopa 25-100 Mg* (Sinemet 25-100 Mg Tablet*), 2 TAB SL DAILY, ( Reported) Furosemide* (Lasix*), 20 MG GT DAILY, (Reported) Lactose-Reduced Food (Osmolite 1.2 Maninder), 1,400 ML GT every evening, (Reported) Levetiracetam (Keppra), 500 MG GT EVERY 12 HOURS, (Reported) Levothyroxine Sodium* (Synthroid*), 100 MCG GT DAILY, (Reported) Sennosides (Senna), 17.2 MG GT QHS, (Reported) [mucomyst 20%], 400 MG GT BID, (Reported) Scheduled PRN Bisacodyl (Bisacodyl), 10 MG RC DAILY PRN for Constipation, (Reported) Ipratropium/Albuterol Sulfate (DuoNeb 0.5-3(2.5)mg/3ml), 3 ML HHN Q4HR PRN for Shortness of Breath, (Reported) Discontinued Medications Albuterol Sulfate* (Albuterol Sulfate Hhn*), 3 ML INH Q6H PRN for Shortness of Breath, (Reported) Discontinued Reason: Medication dose changed Ascorbic Acid* (Vitamin C*), 500 MG ORAL DAILY, (Reported) Discontinued Reason: Medication dose changed Bethanechol Chl* (Bethanechol Chloride*), 25 MG ORAL QID, (Reported) Discontinued Reason: Medication dose changed Bisacodyl* (Dulcolax*), 5 MG ORAL EVERY 12 HOURS PRN for Constipation, (Reported ) Discontinued Reason: Medication dose changed Carbidopa/Levodopa 25-100 Mg* (Sinemet 25-100 Mg Tablet*), 1.5 TAB ORAL THREE TIMES A DAY, (Reported) Discontinued Reason: Medication dose changed Carbidopa/Levodopa Cr 50-200* (Sinemet Cr 50-200 Tablet*), 1 TAB ORAL QHS, ( Reported) Discontinued Reason: Medication dose changed Ciprofloxacin (Cipro), 500 MG PO BID, (Reported) Discontinued Reason: Medication dose changed Cranberry Extract (Cranberry), 400 MG PO DAILY, (Reported) Discontinued Reason: Medication dose changed Docusate Sodium* (Docusate Sodium*), 200 MG ORAL TWICE A DAY, (Reported) Discontinued Reason: Medication dose changed Ergocalciferol (Vitamin D2)* (Vitamin D*), 50,000 UNIT ORAL ONCE A WEEK, ( Reported) Discontinued Reason: Medication dose changed Lactobacillus Rhamnosus Gg* (Culturelle*), 1 CAP ORAL DAILY, (Reported) Discontinued Reason: Medication dose changed Levetiracetam (Keppra), 500 MG ORAL EVERY 12 HOURS, (Reported) Discontinued Reason: Medication dose changed Levothyroxine Sodium* (Levothyroxine Sodium*), 125 MCG ORAL DAILY, (Reported) Discontinued Reason: Medication dose changed Methenamine Mandelate (Methenamine Mandelate), 1 GM PO QHS, (Reported) Discontinued Reason: Medication dose changed Montelukast Sodium* (Montelukast Sodium*), 10 MG ORAL HS, (Reported) Discontinued Reason: Medication dose changed Multivitamin (Daily Vitamin), 1 TAB ORAL DAILY, (Reported) Discontinued Reason: Medication dose changed Trail-3 Fatty Acids/Fish Oil (Trail 3 1,000 Mg Softgel), 1 EACH PO BID, ( Reported) Discontinued Reason: Medication dose changed Ondansetron Odt* (Zofran Odt*), 4 MG ORAL Q8HR PRN for Nausea & Vomiting, ( Reported) Discontinued Reason: Medication dose changed Pantoprazole* (Pantoprazole*), 40 MG ORAL DAILY, (Reported) Discontinued Reason: Medication dose changed Phenytoin Sodium Extended* (Phenytoin Sodium Extended*), 300 MG ORAL BEDTIME, ( Reported) Discontinued Reason: Medication dose changed Polyethylene Glycol 3350* (Miralax*), 17 GM ORAL DAILY PRN for Constipation, ( Reported) Discontinued Reason: Medication dose changed Quetiapine Fumarate* (Quetiapine Fumarate*), 50 MG ORAL BID, (Reported) Discontinued Reason: Medication dose changed Quetiapine Fumarate* (Quetiapine Fumarate*), 100 MG ORAL Q4HR PRN for Agitation, (Reported) Discontinued Reason: Medication dose changed Rasagiline Mesylate (Azilect), 1 MG PO DAILY, (Reported) Discontinued Reason: Medication dose changed Sennosides* (Senno*), 17.2 MG ORAL DAILY PRN for Constipation, (Reported) Discontinued Reason: Medication dose changed Tamsulosin Hcl (Tamsulosin Hcl*), 0.4 MG ORAL BID, (Reported) Discontinued Reason: Medication dose changed Zinc Oxide (Desitin), Unknown Dose TP BID PRN for AFFECTED AREAS, (Reported) Discontinued Reason: Medication dose changed Zinc Sulfate (Zinc Sulfate*), 220 MG ORAL DAILY, (Reported) Discontinued Reason: Medication dose changed [Phenergan 6.25MG/5ML], 10 ML PO Q6HR PRN for For Cough, (Reported) Discontinued Reason: Medication dose changed Patient History Limited by: medical condition History Provided By: Medical Record, PMD Healthcare decision maker Resuscitation status Full Code Advanced Directive on File No Past Medical/Surgical History Past Medical/Surgical History: (1) Pica (2) Choking (3) Seizure disorder (4) Tonic-clonic seizure (5) No acute ischemic changes on electrocardiogram (6) Encounter for generalized patient complaints (7) Agitated (8) Small bowel obstruction (9) Seizure disorder during (10) Acute metabolic encephalopathy (11) UTI (urinary tract infection) (12) Altered mental status Review of Systems All Other Systems: negative except mentioned in HPI ROS Narrative Cannot obtain given patient's medical condition and level of consciousness Physical Exam General Appearance: no apparent distress Lines, tubes and drains: peripheral HEENT: mucous membranes moist Neck: supple, normal inspection Respiratory/Chest: normal breath sounds, no respiratory distress, no accessory muscle use Cardiovascular/Chest: normal rate Abdomen: soft, no organomegaly, no mass, hypoactive bowel sounds, other Extremities: no calf tenderness, normal capillary refill Skin Exam: warm/dry Last 24 Hour Vital Signs Date Time Temp Pulse Resp B/P (MAP) Pulse Ox O2 Delivery O2 Flow Rate FiO2 06/24/19 12:00 97.8 80 18 118/75 (89) 97 06/24/19 09:00 Room Air 06/24/19 08:00 97.5 71 18 121/73 (89) 95 06/24/19 04:00 97.9 72 16 100/56 (71) 98 06/24/19 00:00 98.5 72 16 120/56 (77) 94 06/23/19 21:00 Room Air 06/23/19 20:00 98.2 75 20 140/107 (118) 94 06/23/19 16:00 97.5 82 18 110/56 (74) 98 Intake and Output 06/23/19 06/24/19 18:59 06:59 Intake Total 890 ml 800 ml Output Total 850 ml Balance 40 ml 800 ml Intake Free Water 400 ml 200 ml Tube Feeding 490 ml 600 ml Output Urine Total 850 ml # Bowel Movements 1 1 Height (Feet): 5 Height (Inches): 2.00 Weight (Pounds): 101 Medications Current Medications Medications (Trade) Dose Ordered Sig/Ana Route PRN Reason Start Time Stop Time Status Last Admin Dose Admin Albuterol/ Ipratropium (Albuterol/ Ipratropium) 3 ml Q4HR PRN HHN Shortness of Breath 06/22/19 22:30 06/27/19 22:29 Bisacodyl (Dulcolax) 10 mg DAILY PRN RECTAL Constipation 06/22/19 22:30 07/22/19 22:29 Carbidopa/Levodopa (Sinemet 25/100) 2 tab DAILY GT 06/23/19 09:00 07/23/19 08:59 06/24/19 08:44 Ceftriaxone Sodium 1 gm/ Dextrose 55 ml @ 110 mls/hr Q24H IVPB 06/23/19 17:30 06/30/19 17:29 06/23/19 17:26 Diphenhydramine HCl (Benadryl) 25 mg Q6H PRN IVP Itching 06/22/19 22:30 07/22/19 22:29 Finasteride (Proscar) 5 mg DAILY ORAL 06/24/19 09:00 07/24/19 08:59 06/24/19 08:44 Furosemide (Lasix) 20 mg DAILY GT 06/23/19 09:00 07/23/19 08:59 06/24/19 08:44 Heparin Sodium (Porcine) (Heparin 5000 units/ml) 5,000 units EVERY 8 HOURS SUBQ 06/23/19 06:00 07/23/19 05:59 06/24/19 14:50 Lansoprazole (Prevacid) 30 mg DAILY@0630 GT 06/23/19 06:30 07/23/19 06:29 06/24/19 05:31 Levetiracetam (Keppra) 500 mg EVERY 12 HOURS GT 06/23/19 09:00 07/23/19 08:59 06/24/19 08:44 Levothyroxine Sodium (Synthroid) 100 mcg DAILY@0630 GT 06/23/19 06:30 07/23/19 06:29 06/24/19 05:30 Lorazepam (Ativan 2mg/ml 1ml) 0.5 mg EVERY 8 HOURS PRN IV For Anxiety 06/22/19 22:30 06/29/19 22:29 Ondansetron HCl (Zofran) 4 mg Q6H PRN IVP Nausea & Vomiting 06/22/19 22:30 07/22/19 22:29 Phenytoin (Dilantin) 150 mg Q12HR GT 06/24/19 15:30 07/24/19 15:29 Polyethylene Glycol (Miralax) 17 gm DAILY PRN GT Constipation 06/22/19 22:30 07/22/19 22:29 Quetiapine Fumarate (SEROqueL) 50 mg EVERY 4 HOURS PRN GT Agitation 06/22/19 22:30 07/22/19 22:29 06/24/19 01:41 Sennosides (Senokot) 17.2 mg QHS GT 06/23/19 21:00 07/23/19 20:59 06/23/19 21:31 Tamsulosin HCl (Flomax) 0.4 mg BEDTIME ORAL 06/23/19 21:00 07/23/19 20:59 06/23/19 21:31 Assessment/Plan Problem List: (1) Decubitus skin ulcer Assessment & Plan: Pt presented on admission with multiple pressure injuries. Unstageable pressure injury L deltoid(L)0.8cm x (W)1xcm. Necrotic cap with marginal slough. Erythema noted periwound. Non-blanching erythema scrotum with scattered partial thickness wounds(L)1.5cm x (W)1.7cm. Wounds are moist and viable. Non-blanchable erythema without fluctuance noted to sacrum, R and L ischium. Reabsorbing serous blister noted to medial R heel. Periwound R heel is boggy with non-blanching erythema extending into plantar aspect of heel.(L)2.5cm x (W) 3cm. Serous blister with dark center noted to L heel. Periwound L heel is boggy with non-blanching erythema.(L)5cm x (W)6.5cm. Pt is at risks for further skin breakdown to restlessness. As prevention Cavilon Skin Barrier applied to both shoulders Tx.Plan: Apply Betadine to wound L deltoid. Cover with Optifoam drsg. Change every 3 days and prn. Apply Moisture Barrier Paste to Sacrum , R and L ischium. Cover each site with Optifoam drsg. Change every 3 days and prn. Apply Moisture Barrier Paste to Scrotum. Cover with Optifoam drsg. Change every 3 days and prn. Apply Betadine to R and L heel. Cover each heel with Optifoam drsgs. Change every 7 days and prn. Reposition at least every 2hours or as tolerated. Off-load heels with Pillow. Apply Cavilon To bony prominences. Cover with Optifoam drsgs prn. Nutritional optimization as below We will follow with recommendations thank you for let me participate patient's care DAILY ESTIMATED NEEDS: Needs based on Underweight, wounds 45.9kg 30-35 kcals/kg 7865-5363 total kcals 1.25-1.5 g protein/kg 57-69 g total protein Fluid per MD, on lasix NUTRITION DIAGNOSIS: 1) Increased kcal and pro needs r/t underweight status and wound healing as evidenced by pt w/ multiple wounds, pending eval, @86% of ideal body weight w/ generalized moderate wasting. 2) Chewing/ swallowing difficulties r/t dysphagia as evidenced by pt w/ Parkinsons, now GT dep. ENTERAL NUTRITION RECOMMENDATIONS: Maintain Osmolite 1.2 @60ml/hr x20 hrs to provide 1200ml, 1440 kcal, 67g pro, 984ml free H2O - Maintain current TF rate as tolerated - HOLD TF: 1 hr before and after both synthroid and dilantin meds - flush per MD/ HOB over 30 degrees ADDITIONAL RECOMMENDATIONS: 1) RE-calibrate bed scale for accurate CBW 2) F/up w/ WC: add MARISELA in 4oz water BID via GT 3) Monitor BG- need for TF change or ssi 4) Check lytes and hydration status daily on TF; pt on lasix ICD Codes: L89.90 - Pressure ulcer of unspecified site, unspecified stage SNOMED: [id number] Stu Teran Jun 24, 2019 15:52
[2019-06-24 16:00] VITALS: BP 132/81
[2019-06-24] MEDS: Phenytoin Susp 100mg/4ml GT SCH ×2 (16:50→20:51)
[2019-06-24] MEDS: cefTRIAXone 1 GM in D5W 55 ML IVPB SCH (17:10)
--- NOTE | 2019-06-24 18:03 | Infectious Diseases Prog Note ---
Assessment/Plan Assessment/Plan Full consult dictated: A) 1) uti - multiple organisms, ? pna 2) pmh noted 3) allergies - nkda P) 1) zosyn and diflucan 2) f/u on cultures, ua, chest x-ray, labs 3) thank you Subjective Allergies: Coded Allergies: No Known Allergies (Verified , 02/21/07) Objective Vital Signs Last 24 Hour Vital Signs Date Time Temp Pulse Resp B/P (MAP) Pulse Ox O2 Delivery O2 Flow Rate FiO2 06/24/19 16:00 98.0 73 19 132/81 (98) 96 06/24/19 12:00 97.8 80 18 118/75 (89) 97 06/24/19 09:00 Room Air 06/24/19 08:00 97.5 71 18 121/73 (89) 95 06/24/19 04:00 97.9 72 16 100/56 (71) 98 06/24/19 00:00 98.5 72 16 120/56 (77) 94 06/23/19 21:00 Room Air 06/23/19 20:00 98.2 75 20 140/107 (118) 94 Height (Feet): 5 Height (Inches): 2.00 Weight (Pounds): 101 Microbiology Date/Time Source Procedure Growth Status 06/22/19 16:15 Blood Blood Culture - Preliminary NO GROWTH AFTER 24 HOURS Resulted 06/22/19 16:00 Blood Blood Culture - Preliminary NO GROWTH AFTER 24 HOURS Resulted 06/22/19 18:30 Nasal Nares MRSA Culture - Final NO METHICILLIN RESISTANT STAPH AUREUS... Complete 06/22/19 16:40 Urine,Clean Catch Urine Culture - Preliminary Yeast Species Strep Species, Gamma-Hemolytic Resulted 06/22/19 18:30 Rectum VRE Culture - Final Enterococcus Faecalis - Vre Complete 06/22/19 18:30 Rectum Received Current Medications Medications (Trade) Dose Ordered Sig/Ana Route PRN Reason Start Time Stop Time Status Last Admin Dose Admin Albuterol/ Ipratropium (Albuterol/ Ipratropium) 3 ml Q4HR PRN HHN Shortness of Breath 06/22/19 22:30 06/27/19 22:29 Bisacodyl (Dulcolax) 10 mg DAILY PRN RECTAL Constipation 06/22/19 22:30 07/22/19 22:29 Carbidopa/Levodopa (Sinemet 25/100) 2 tab DAILY GT 06/23/19 09:00 07/23/19 08:59 06/24/19 08:44 Diphenhydramine HCl (Benadryl) 25 mg Q6H PRN IVP Itching 06/22/19 22:30 07/22/19 22:29 Finasteride (Proscar) 5 mg DAILY ORAL 06/24/19 09:00 07/24/19 08:59 06/24/19 08:44 Furosemide (Lasix) 20 mg DAILY GT 06/23/19 09:00 07/23/19 08:59 06/24/19 08:44 Heparin Sodium (Porcine) (Heparin 5000 units/ml) 5,000 units EVERY 8 HOURS SUBQ 06/23/19 06:00 07/23/19 05:59 06/24/19 14:50 Lansoprazole (Prevacid) 30 mg DAILY@0630 GT 06/23/19 06:30 07/23/19 06:29 06/24/19 05:31 Levetiracetam (Keppra) 500 mg EVERY 12 HOURS GT 06/23/19 09:00 07/23/19 08:59 06/24/19 08:44 Levothyroxine Sodium (Synthroid) 100 mcg DAILY@0630 GT 06/23/19 06:30 07/23/19 06:29 06/24/19 05:30 Lorazepam (Ativan 2mg/ml 1ml) 0.5 mg EVERY 8 HOURS PRN IV For Anxiety 06/22/19 22:30 06/29/19 22:29 Ondansetron HCl (Zofran) 4 mg Q6H PRN IVP Nausea & Vomiting 06/22/19 22:30 07/22/19 22:29 Phenytoin (Dilantin) 150 mg Q12HR GT 06/24/19 15:30 07/24/19 15:29 06/24/19 16:50 Polyethylene Glycol (Miralax) 17 gm DAILY PRN GT Constipation 06/22/19 22:30 07/22/19 22:29 Quetiapine Fumarate (SEROqueL) 50 mg EVERY 4 HOURS PRN GT Agitation 06/22/19 22:30 07/22/19 22:29 06/24/19 16:50 Sennosides (Senokot) 17.2 mg QHS GT 06/23/19 21:00 07/23/19 20:59 06/23/19 21:31 Tamsulosin HCl (Flomax) 0.4 mg BEDTIME ORAL 06/23/19 21:00 07/23/19 20:59 06/23/19 21:31 Michaela Christine MD Jun 24, 2019 18:03
[2019-06-24 19:22] LABS: APPEARANCE,URINE CLEAR; BILIRUBIN, URINE NEGATIVE (NEGATIVE); COLOR,URINE PALE YELLOW; GLUCOSE, URINE (UA) NEGATIVE (NEGATIVE); KETONES,URINE NEGATIVE (NEGATIVE); LEUKOCYTE ESTERASE ,URINE 2+ (NEGATIVE); NITRITE,URINE NEGATIVE (NEGATIVE); PH,URINE 8 (4.5-8.0); PROTEIN,URINE NEGATIVE (NEGATIVE); UROBILINOGEN,URINE NORMAL MG/DL (0.0-1.0)
[2019-06-24 19:25] LABS: BASOPHILS % (AUTO) 1.3 % (0.0-2.0); EOSINOPHILS % (AUTO) 1.6 % (0.0-3.0); HEMATOCRIT 27.2 % (42.0-52.0); HEMOGLOBIN 9.3 G/DL (14.2-18.0); LYMPHOCYTES % (AUTO) 26.7 % (20.0-45.0); MEAN CORPUSCULAR VOLUME 91 FL (80-99); NEUTROPHILS % (AUTO) 65.4 % (45.0-75.0); PLATELET COUNT 737 K/UL (150-450); RED BLOOD COUNT 2.98 M/UL (4.70-6.10); WHITE BLOOD COUNT 11.3 K/UL (4.8-10.8)
[2019-06-24 19:39] LABS: ALANINE AMINOTRANSFERASE 18 U/L (12-78); ALBUMIN/GLOBULIN RATIO 0.4 (1.0-2.7); ALKALINE PHOSPHATASE 113 U/L (46-116); ANION GAP 2 mmol/L (5-15); ASPARTATE AMINO TRANSFERASE 32 U/L (15-37); BILIRUBIN,TOTAL 0.2 MG/DL (0.2-1.0); BLOOD UREA NITROGEN 17 mg/dL (7-18); CALCIUM 7.8 MG/DL (8.5-10.1); CARBON DIOXIDE 34 MMOL/L (21-32); CHLORIDE 98 MMOL/L (98-107); CREATININE 0.6 MG/DL (0.55-1.30); POTASSIUM 4.3 MMOL/L (3.5-5.1); SODIUM 134 MMOL/L (136-145)
[2019-06-24 20:00] VITALS: BP 128/57
--- NOTE | 2019-06-24 20:17 | General Progress Note ---
Assessment/Plan Status: progressing Assessment/Plan: IMPRESSION: This is an 83-year-old male admitted with altered mental status with laboratory evidence of UTI and interstitial edema. We will admit the patient to med/surg floor with the following medical problems. 1. Altered mental status, probably secondary to infectious etiology. We will monitor neuro exam closely and treat infection accordingly. 2. UTI. We will place the patient on ceftriaxone 1 g IV daily. ID consult. Urinalysis and urine culture are pending. Blood cultures pending. We will change Madison and continue changing Madison in 2 weeks in the [facility]. 3. Interstitial edema, questionable CHF. The patient does not seem to be symptomatic though we will get echocardiogram and maintain on oxygen. Consider diuresis if the patient has similar symptoms. 4. History of failure to thrive and dysphagia. The patient is on G-tube feeds. I will get Dr. Kelley of GI to evaluate the patient. Continue with Osmolite 1.2 50 mL/hour. Dietitian consult in the a.m. Discussed with the nurse to check residuals and hold tube feeds for 100 mL residual. We will give free water flushes 200 mL q.6 hours. 5. Parkinson disease. Continue with Sinemet. 6. History of seizure disorder. Continue with Keppra 500 b.i.d. via G-tube and Dilantin 300 nightly. 7. History of developmental delay and mental retardation. Continue with supportive care. We will give Ativan p.r.n. for agitation as well as Seroquel. Consider Psychiatry consult if the patient is more agitated. 8. Anemia. We will check occult blood. Also for anemia of chronic disease, we will check iron indices and ferritin. 9. Thrombocytosis. We will repeat CBC in the a.m. Consider Hematology consult. 10. DVT prophylaxis. We will place the patient on heparin subcutaneous 5000 q.8 h. PLan: - continue IV Ceftriaxone - ID consult appreciated - fu cultures - urology eval for urinary retention appreciated - continue tube feeding per gi - am labs - vTE prophylaxis - supportive care - Soft wrist restraints prn - surgery consult for wound care - zinc and mvi At this time, the patient is Full Code. D/W nurse Subjective Date patient seen: Jun 24, 2019 ROS Limited/Unobtainable: Yes Allergies: Coded Allergies: No Known Allergies (Verified , 02/21/07) Objective Last 24 Hour Vital Signs Date Time Temp Pulse Resp B/P (MAP) Pulse Ox O2 Delivery O2 Flow Rate FiO2 06/24/19 16:00 98.0 73 19 132/81 (98) 96 06/24/19 12:00 97.8 80 18 118/75 (89) 97 06/24/19 09:00 Room Air 06/24/19 08:00 97.5 71 18 121/73 (89) 95 06/24/19 04:00 97.9 72 16 100/56 (71) 98 06/24/19 00:00 98.5 72 16 120/56 (77) 94 06/23/19 21:00 Room Air Intake and Output 06/23/19 06/24/19 18:59 06:59 Intake Total 890 ml 800 ml Output Total 850 ml Balance 40 ml 800 ml Intake Free Water 400 ml 200 ml Tube Feeding 490 ml 600 ml Output Urine Total 850 ml # Bowel Movements 1 1 Laboratory Tests 06/24/19 18:10: White Blood Count 11.3H, Red Blood Count 2.98L, Hemoglobin 9.3L, Hematocrit 27.2L, Mean Corpuscular Volume 91, Mean Corpuscular Hemoglobin 31.1H, Mean Corpuscular Hemoglobin Concent 34.2, Red Cell Distribution Width 13.0, Platelet Count 737H, Mean Platelet Volume 4.9L, Neutrophils (%) (Auto) 65.4, Lymphocytes (%) (Auto) 26.7, Monocytes (%) (Auto) 5.0, Eosinophils (%) (Auto) 1.6, Basophils (%) (Auto) 1.3, Sodium Level 134L, Potassium Level 4.3, Chloride Level 98, Carbon Dioxide Level 34H, Anion Gap 2L, Blood Urea Nitrogen 17, Creatinine 0.6, Estimat Glomerular Filtration Rate , Glucose Level 98, Calcium Level 7.8L, Total Bilirubin 0.2, Aspartate Amino Transf (AST/SGOT) 32, Alanine Aminotransferase (ALT/SGPT) 18, Alkaline Phosphatase 113, Total Protein 7.0, Albumin 2.0L, Globulin 5.0, Albumin/Globulin Ratio 0.4L 06/24/19 18:45: Urine Color Pale yellow, Urine Appearance Clear, Urine pH 8, Urine Specific [place] 1.010, Urine Protein Negative, Urine Glucose (UA) Negative, Urine Ketones Negative, Urine Blood 1+H, Urine Nitrite Negative, Urine Bilirubin Negative, Urine Urobilinogen Normal, Urine Leukocyte Esterase 2+H, Urine RBC 0- 2H, Urine WBC 10-15H, Urine Squamous Epithelial Cells None, Urine Bacteria Few, Urine Yeast OccasionalH Height (Feet): 5 Height (Inches): 2.00 Weight (Pounds): 101 General Appearance: alert EENT: PERRL/EOMI Respiratory/Chest: chest wall non-tender, normal breath sounds, no respiratory distress Abdomen: non tender, soft, no mass Extremities: non-tender, normal inspection, no calf tenderness Edema: no edema noted Arm (L), no edema noted Arm (R), no edema noted Leg (L), no edema noted Leg (R), no edema noted Pedal (L), no edema noted Pedal (R), no edema noted Generalized Neurologic: alert Skin: warm/dry Lymphatic: normal anterior cervical (L), normal anterior cervical (R), normal posterior cervical (L), normal posterior cervical (R), normal submandibular (L) , normal submandibular (R), normal supraclavicular (L), normal supraclavicular ( R), normal axillary (L), normal axillary (R), normal inguinal (L), normal inguinal (R), normal other JERRY OKEEFE Jun 24, 2019 20:16
[2019-06-24] MEDS: Sennosides 8.6mg tab GT SCH (20:51)
[2019-06-24] MEDS: Tamsulosin 0.4mg cap ORAL SCH (20:51)
--- NOTE | 2019-06-24 22:30 | Consultation ---
DATE OF CONSULTATION: 06/24/2019 INFECTIOUS DISEASE CONSULTATION CONSULTING PHYSICIAN: Michaela Christine M.D. ATTENDING PHYSICIAN: Shayla Gandhi M.D. REFERRING PHYSICIAN: Shayla Gandhi M.D. REASON FOR CONSULTATION: Complicated urinary tract infection including Streptococcus urinary tract infection and fungal urinary tract infection, elevated white count, and possible pneumonia. CHIEF COMPLAINT: The patient's chief complaint coming in to the hospital is urinary tract infection. HISTORY OF PRESENT ILLNESS: This is an 83-year-old male, who is not a very good historian. The patient presents to [facility] with weakness and the patient's workup shows that he has a urinary tract infection. UA had 3+ leukocyte esterase, 15 to 20 white blood cells, and many bacteria. Urine culture has grown out multiple organisms of unclear significance. However, he does have a Streptococcus species, identification is pending and also has a fungal species for yeast. Chest x-ray shows also the possibility of pneumonia. He is somewhat mildly congested. He has right effusion also. He could have edema. The patient is colonized with vancomycin-resistant enterococcus. Infectious Disease consultation is requested for antibiotic management. The patient has complicated urinary tract infection and possible pneumonia. The patient is on Rocephin. However, I will change him to Zosyn and Diflucan for now. Repeat UA and C and S and chest x-ray and other cultures. MAR was noted. Orders were noted. Notes and records were reviewed. The patient is not a very good historian. Case was discussed with RN. We will continue with Zosyn and Diflucan for urinary tract infection and possible pneumonia. REVIEW OF SYSTEMS: CONSTITUTIONAL: The patient has generalized fatigue and weakness. He does have a Madison catheter. He does have wounds that were reviewed. He is responsive, but weak. He has no fevers. No chills. No night sweats mentioned. CARDIAC: No chest pain. HEAD AND NECK: No head pain or neck pain. No neck stiffness. No change in vision. GASTROINTESTINAL: No nausea, vomiting, or diarrhea. GENITOURINARY: He has a Madison. PULMONARY: Mild cough and congestion. No secretions or hemoptysis. SKIN: No rash. Multiple wounds were reviewed. EXTREMITIES: No extremity pain. NEUROLOGIC: No seizures. He has generalized fatigue and generalized weakness. No seizures, rash, or itching. No leg pain. PAST MEDICAL HISTORY: The patient's past medical history includes the history of the following. The patient has a past medical history of the following. The patient has ____ multiple wounds. He has history of development delay, history of Parkinson disease, history of seizures, history of failure to thrive, dysphagia, G-tube, history of recurrent aspiration pneumonia. He has history of weakness, decreased gait, hypothyroidism, gastroesophageal reflux disease, hypertension, hyperlipidemia, BPH, Tran's esophagus, anemia, osteoporosis, and mental retardation. MEDICATIONS: Upon reviewing the MAR, he is on the following medications. He is on phenytoin. He is on Proscar. He is on Senokot. He is on Flomax and Rocephin, which I discontinued. He is on Zosyn and Diflucan. He is on furosemide. He is on Keppra, carbidopa, and levothyroxine. He is on lisinopril. He is on heparin, bisacodyl, albuterol, quetiapine, polyethylene, lorazepam, diphenhydramine, and Zofran. Outside medications were noted and reconciliated. ALLERGIES: He has no known drug allergies. SOCIAL HISTORY: Negative for smoking, alcohol, or drug abuse. FAMILY HISTORY: Noncontributory. Negative for exposure to tuberculosis or cancer. PHYSICAL EXAMINATION: VITAL SIGNS: Temperature 98.0, pulse rate 73, respiratory rate 19, blood pressure 132/81, and saturation 96% on room air. GENERAL: Alert, responsive, and weak. HEAD AND NECK: Oral exam, no thrush. Eye exam, no icterus. Normocephalic. Neck is supple. No JVD. HEART: Regular. No obvious gallop or murmur. No friction rub. ABDOMEN: Soft. Bowel sounds positive. Nontender. LUNGS: Few bilateral rhonchi, rales, and crackles. SKIN: No rash. Wounds were reviewed, not acutely infected. MUSCULOSKELETAL: No effusion. Possible contractures. Legs without cellulitis. PERIPHERAL VASCULAR: No gangrene or cyanosis. GENITOURINARY: He has a Madison. Urine is cloudy. LINE SITES: Without phlebitis. NEUROLOGIC: Generalized weakness and responsive. LABORATORY AND DIAGNOSTIC DATA: Laboratory data is as follows. UA had 3+ leukocyte esterase, many bacteria, and too many to count white blood cells. Creatinine 0.5. White count 9.5 and hemoglobin 8.8. White count initially 11.9. CULTURES: VRE screen is positive. MRSA screen is negative. Urine culture with yeast and strep species. Blood cultures negative. Strep species is gamma hemolytic yeast and blood cultures negative. Urine culture with yeast and strep species, gamma hemolytic. Blood cultures negative. Vancomycin-resistant enterococcus screen is positive. MRSA screen is negative. IMAGING: Chest x-ray shows the following. It shows diffuse bilateral right greater than left interstitial and airspace edema versus infiltrates and also right effusion. ASSESSMENT AND PLAN: 1. The patient has likely complicated urinary tract infection, elevated white count, and weakness. Urine culture had mixed organisms including yeast and Streptococcus species. It is unclear if the yeast is colonized or the Streptococcus species is a potential pathogen depending on what the organism is. The patient likely has complicated urinary tract infection with weakness and elevated white count. At this time, we will continue Zosyn and Diflucan for complicated urinary tract infection including coverage for possible Streptococcus species including Enterococcus and yeast. Continue Zosyn and Diflucan for complicated urinary tract infection with white count. Check urine culture. Recheck UA and C and S. Check sensitivities of the urine culture. 2. Possible pneumonia versus edema. He has history of aspiration pneumonia. Continue Zosyn for aspiration healthcare-acquired pneumonia. Rule out community-acquired pneumonia. The patient history of aspiration pneumonia. Check sputum culture. Followup laboratories and chest x-ray. Continue Zosyn for now. 3. The patient has a history of dysphagia and G-tube. 4. The patient has weakness and altered mental status. 5. History of aspiration pneumonia. 6. Developmental delay. 7. Seizure disorder. 8. Parkinson's. 9. History of multiple wounds 10. Skin care per protocol and Surgery. 11. Hypothyroidism. 12. Gastroesophageal reflux disease. 13. Hypertension. 14. Hyperlipidemia. 15. BPH. 16. Tran's esophagus. 17. Anemia. 18. Osteoporosis. 19. Continue treatment per primary consultants. 20. Past medical history is noted. 21. No known allergies. 22. Social history is negative. 23. Family histoyr is noncontributory. 24. Case was discussed with RN. 25. Orders were noted and entered. 26. MAR was noted. Michaela Christine M.D. DR: GURINDER JOB#: [id number] CC: LEIGHANN
--- NOTE | 2019-06-24 23:09 | General Progress Note ---
Assessment/Plan Status: progressing Assessment/Plan: Assessment - developmental delay - GT dependent - current GT a parra cath - changed at bedside - UTI - GERD / Tran's - Constipation - resolved - hypothyroidism - BPH - hyperlipidemia - parkinsons - seizure disorder Recommendations - Continue GT feeds - Elevate HOB - abx - bowel regimen - PPI - follow labs and exam Subjective Allergies: Coded Allergies: No Known Allergies (Verified , 02/21/07) Subjective above noted seen with RN at beside patient has been pulling on lines restrained agitated at exam time (+) BM x 2 Objective Last 24 Hour Vital Signs Date Time Temp Pulse Resp B/P (MAP) Pulse Ox O2 Delivery O2 Flow Rate FiO2 06/24/19 21:00 Room Air 06/24/19 20:00 98.3 74 18 128/57 (80) 98 06/24/19 16:00 98.0 73 19 132/81 (98) 96 06/24/19 12:00 97.8 80 18 118/75 (89) 97 06/24/19 09:00 Room Air 06/24/19 08:00 97.5 71 18 121/73 (89) 95 06/24/19 04:00 97.9 72 16 100/56 (71) 98 06/24/19 00:00 98.5 72 16 120/56 (77) 94 Intake and Output 06/23/19 06/24/19 19:00 07:00 Intake Total 910 ml 800 ml Output Total 850 ml 600 ml Balance 60 ml 200 ml Intake Free Water 400 ml 200 ml Tube Feeding 510 ml 600 ml Output Urine Total 850 ml 600 ml # Bowel Movements 1 1 Laboratory Tests 06/24/19 18:10: White Blood Count 11.3H, Red Blood Count 2.98L, Hemoglobin 9.3L, Hematocrit 27.2L, Mean Corpuscular Volume 91, Mean Corpuscular Hemoglobin 31.1H, Mean Corpuscular Hemoglobin Concent 34.2, Red Cell Distribution Width 13.0, Platelet Count 737H, Mean Platelet Volume 4.9L, Neutrophils (%) (Auto) 65.4, Lymphocytes (%) (Auto) 26.7, Monocytes (%) (Auto) 5.0, Eosinophils (%) (Auto) 1.6, Basophils (%) (Auto) 1.3, Sodium Level 134L, Potassium Level 4.3, Chloride Level 98, Carbon Dioxide Level 34H, Anion Gap 2L, Blood Urea Nitrogen 17, Creatinine 0.6, Estimat Glomerular Filtration Rate , Glucose Level 98, Calcium Level 7.8L, Total Bilirubin 0.2, Aspartate Amino Transf (AST/SGOT) 32, Alanine Aminotransferase (ALT/SGPT) 18, Alkaline Phosphatase 113, Total Protein 7.0, Albumin 2.0L, Globulin 5.0, Albumin/Globulin Ratio 0.4L 06/24/19 18:45: Urine Color Pale yellow, Urine Appearance Clear, Urine pH 8, Urine Specific [place] 1.010, Urine Protein Negative, Urine Glucose (UA) Negative, Urine Ketones Negative, Urine Blood 1+H, Urine Nitrite Negative, Urine Bilirubin Negative, Urine Urobilinogen Normal, Urine Leukocyte Esterase 2+H, Urine RBC 0- 2H, Urine WBC 10-15H, Urine Squamous Epithelial Cells None, Urine Bacteria Few, Urine Yeast OccasionalH Height (Feet): 5 Height (Inches): 2.00 Weight (Pounds): 101 Eduardo Kelley MD Jun 24, 2019 23:09
[2019-06-25] VITALS: BP 112/58
[2019-06-25 04:00] VITALS: BP 126/67
[2019-06-25] MEDS: Heparin 5000 units/ml inj SUBQ SCH ×3 (05:39→21:49)
[2019-06-25 07:16] LABS: BASOPHILS % (AUTO) 1.2 % (0.0-2.0); EOSINOPHILS % (AUTO) 1.3 % (0.0-3.0); HEMATOCRIT 29.5 % (42.0-52.0); HEMOGLOBIN 9.5 G/DL (14.2-18.0); LYMPHOCYTES % (AUTO) 21.5 % (20.0-45.0); MEAN CORPUSCULAR VOLUME 95 FL (80-99); MONOCYTES % (AUTO) 4.1 % (1.0-10.0); PLATELET COUNT 746 K/UL (150-450); RED BLOOD COUNT 3.11 M/UL (4.70-6.10); RED CELL DISTRIBUTION WIDTH 14.2 % (11.6-14.8); WHITE BLOOD COUNT 8.7 K/UL (4.8-10.8)
[2019-06-25 07:17] LABS: BLOOD UREA NITROGEN 19 mg/dL (7-18); CALCIUM 8.2 MG/DL (8.5-10.1); CARBON DIOXIDE 36 MMOL/L (21-32); CHLORIDE 99 MMOL/L (98-107); CREATININE 0.6 MG/DL (0.55-1.30); POTASSIUM 4.3 MMOL/L (3.5-5.1); SODIUM 133 MMOL/L (136-145)
--- NOTE | 2019-06-25 07:55 | Urology Progress Note ---
Assessment/Plan Status: progressing Assessment/Plan: 1. Urinary retention with chronic Parra. 2. BPH history. 3. Probable neurogenic bladder. 4. Hematuria. 5. Pyuria, probable UTI and colonization. 6. Proteinuria. 7. Renal cyst. maintain parra hand irrigated and do PRN abx as ordered, per ID diflucan added f/u on cx's flomax and proscar cysto later Subjective Allergies: Coded Allergies: No Known Allergies (Verified , 02/21/07) Subjective non-verbal Objective Last 24 Hour Vital Signs Date Time Temp Pulse Resp B/P (MAP) Pulse Ox O2 Delivery O2 Flow Rate FiO2 06/25/19 04:00 98.4 71 18 126/67 (86) 92 06/25/19 00:00 97.3 67 18 112/58 (76) 96 06/24/19 21:00 Room Air 06/24/19 20:00 98.3 74 18 128/57 (80) 98 06/24/19 16:00 98.0 73 19 132/81 (98) 96 06/24/19 12:00 97.8 80 18 118/75 (89) 97 06/24/19 09:00 Room Air 06/24/19 08:00 97.5 71 18 121/73 (89) 95 Intake and Output 06/24/19 06/25/19 19:00 07:00 Intake Total 1000 ml 880 ml Output Total 1500 ml 1200 ml Balance -500 ml -320 ml Intake Free Water 400 ml 400 ml Tube Feeding 600 ml 480 ml Output Urine Total 1500 ml 1200 ml Microbiology Date/Time Source Procedure Growth Status 06/22/19 16:15 Blood Blood Culture - Preliminary NO GROWTH AFTER 48 HOURS Resulted 06/25/19 00:00 Sputum Induced Gram Stain - Final Resulted 06/25/19 00:00 Sputum Induced Sputum Culture Pending Resulted 06/22/19 16:40 Urine,Clean Catch Urine Culture - Preliminary Strep Species, Gamma-Hemolytic YEAST Resulted 06/22/19 18:30 Rectum VRE Culture - Final Enterococcus Faecalis - Vre Complete Current Medications Medications (Trade) Dose Ordered Sig/Ana Route PRN Reason Start Time Stop Time Status Last Admin Dose Admin Albuterol/ Ipratropium (Albuterol/ Ipratropium) 3 ml Q4HR PRN HHN Shortness of Breath 06/22/19 22:30 06/27/19 22:29 Bisacodyl (Dulcolax) 10 mg DAILY PRN RECTAL Constipation 06/22/19 22:30 07/22/19 22:29 Carbidopa/Levodopa (Sinemet 25/100) 2 tab DAILY GT 06/23/19 09:00 07/23/19 08:59 06/24/19 08:44 Diphenhydramine HCl (Benadryl) 25 mg Q6H PRN IVP Itching 06/22/19 22:30 07/22/19 22:29 Finasteride (Proscar) 5 mg DAILY ORAL 06/24/19 09:00 07/24/19 08:59 06/24/19 08:44 Fluconazole (Diflucan) 100 mg DAILY ORAL 06/25/19 09:00 07/02/19 08:59 Furosemide (Lasix) 20 mg DAILY GT 06/23/19 09:00 07/23/19 08:59 06/24/19 08:44 Heparin Sodium (Porcine) (Heparin 5000 units/ml) 5,000 units EVERY 8 HOURS SUBQ 06/23/19 06:00 07/23/19 05:59 06/25/19 05:39 Lansoprazole (Prevacid) 30 mg DAILY@0630 GT 06/23/19 06:30 07/23/19 06:29 06/25/19 05:38 Levetiracetam (Keppra) 500 mg EVERY 12 HOURS GT 06/23/19 09:00 07/23/19 08:59 06/24/19 20:51 Levothyroxine Sodium (Synthroid) 100 mcg DAILY@0630 GT 06/23/19 06:30 07/23/19 06:29 06/25/19 05:38 Lorazepam (Ativan 2mg/ml 1ml) 0.5 mg EVERY 8 HOURS PRN IV For Anxiety 06/22/19 22:30 06/29/19 22:29 Ondansetron HCl (Zofran) 4 mg Q6H PRN IVP Nausea & Vomiting 06/22/19 22:30 07/22/19 22:29 Phenytoin (Dilantin) 150 mg Q12HR GT 06/24/19 15:30 07/24/19 15:29 06/24/19 20:51 Piperacillin Sod/ Tazobactam Sod 3.375 gm/Dextrose 100 ml @ 25 mls/hr EVERY 8 HOURS IVPB 06/24/19 22:00 06/29/19 21:59 06/25/19 05:38 Polyethylene Glycol (Miralax) 17 gm DAILY PRN GT Constipation 06/22/19 22:30 07/22/19 22:29 Quetiapine Fumarate (SEROqueL) 50 mg EVERY 4 HOURS PRN GT Agitation 06/22/19 22:30 07/22/19 22:29 06/25/19 04:51 Sennosides (Senokot) 17.2 mg QHS GT 06/23/19 21:00 07/23/19 20:59 06/24/19 20:51 Tamsulosin HCl (Flomax) 0.4 mg BEDTIME ORAL 06/23/19 21:00 07/23/19 20:59 06/24/19 20:51 Laboratory Tests 06/24/19 18:10: White Blood Count 11.3H, Red Blood Count 2.98L, Hemoglobin 9.3L, Hematocrit 27.2L, Mean Corpuscular Volume 91, Mean Corpuscular Hemoglobin 31.1H, Mean Corpuscular Hemoglobin Concent 34.2, Red Cell Distribution Width 13.0, Platelet Count 737H, Mean Platelet Volume 4.9L, Neutrophils (%) (Auto) 65.4, Lymphocytes (%) (Auto) 26.7, Monocytes (%) (Auto) 5.0, Eosinophils (%) (Auto) 1.6, Basophils (%) (Auto) 1.3, Sodium Level 134L, Potassium Level 4.3, Chloride Level 98, Carbon Dioxide Level 34H, Anion Gap 2L, Blood Urea Nitrogen 17, Creatinine 0.6, Estimat Glomerular Filtration Rate , Glucose Level 98, Calcium Level 7.8L, Total Bilirubin 0.2, Aspartate Amino Transf (AST/SGOT) 32, Alanine Aminotransferase (ALT/SGPT) 18, Alkaline Phosphatase 113, Total Protein 7.0, Albumin 2.0L, Globulin 5.0, Albumin/Globulin Ratio 0.4L 06/24/19 18:45: Urine Color Pale yellow, Urine Appearance Clear, Urine pH 8, Urine Specific [place] 1.010, Urine Protein Negative, Urine Glucose (UA) Negative, Urine Ketones Negative, Urine Blood 1+H, Urine Nitrite Negative, Urine Bilirubin Negative, Urine Urobilinogen Normal, Urine Leukocyte Esterase 2+H, Urine RBC 0- 2H, Urine WBC 10-15H, Urine Squamous Epithelial Cells None, Urine Bacteria Few, Urine Yeast OccasionalH 06/25/19 06:24: White Blood Count 8.7, Red Blood Count 3.11L, Hemoglobin 9.5L, Hematocrit 29.5L , Mean Corpuscular Volume 95, Mean Corpuscular Hemoglobin 30.7, Mean Corpuscular Hemoglobin Concent 32.3, Red Cell Distribution Width 14.2, Platelet Count 746H, Mean Platelet Volume 4.7L, Neutrophils (%) (Auto) 72.0, Lymphocytes (%) (Auto) 21.5, Monocytes (%) (Auto) 4.1, Eosinophils (%) (Auto) 1.3, Basophils (%) (Auto) 1.2, Sodium Level 133L, Potassium Level 4.3, Chloride Level 99, Carbon Dioxide Level 36H, Blood Urea Nitrogen 19H, Creatinine 0.6, Estimat Glomerular Filtration Rate , Glucose Level 93, Calcium Level 8.2L Height (Feet): 5 Height (Inches): 2.00 Weight (Pounds): 101 Objective parra indwelling, yellow/marquita urine Rory Trinidad MD Jun 25, 2019 07:55
[2019-06-25 08:00] VITALS: BP 112/52
[2019-06-25] MEDS: Fluconazole 100mg tab ORAL SCH (09:06)
[2019-06-25] MEDS: Phenytoin Susp 100mg/4ml GT SCH ×2 (09:07→21:48)
[2019-06-25] MEDS: Levodopa/Carbidopa 25/100 tab GT SCH (09:07)
--- NOTE | 2019-06-25 11:59 | Diagnostic Imaging Report ---
Indication: Chest Technique: One view of the chest Comparison: 06/22/2019 Findings: Linear opacities in the right upper lobe appear more extensive than on the previous study, likely reflect developing infiltrate. There is suggestion of some improvement of infiltrate in the right mid and lower lung. Generalized prominent interstitial markings and bronchial wall thickening are seen on the left, probably unchanged allowing for differences in rotation Impression: Shifting parenchymal disease, with suggestion of increased infiltrate in the right upper lobe, improved infiltrate in the right lower lobe. Finding of the left lung are probably unchanged.
[2019-06-25 12:00] VITALS: BP 112/59
--- NOTE | 2019-06-25 15:20 | CDS Physician Query ---
Clarification is required for compliance, coding accuracy, and to reflect severity of illness for this patient Dear Dr. Shayla Gandhi Date: 06/25/2019 Injury Prevention Coordinator/CDS Name: Gabriela Salmon Clinical Documentation states: HNP: 83-year-old male admitted with altered mental status with laboratory evidence of UTI and interstitial edema... UTI. We will place the patient on ceftriaxone 1 g IV daily. ID consult. Urinalysis and urine culture are pending. Blood cultures pending. We will change Parra and continue changing Parra in 2 weeks in the intermediate. ID consult: Patient has likely complicated urinary tract infection, elevated white count, and weakness Please respond to the following question: Is there a causal relationship between the UTI and the parra catheter ? PHYSICIAN RESPONSE: [x] YES [] NO Present on Admission: [x] Yes [] No [] Clinically Undetermined Shayla Gandhi ____07/01/2019 Physician signature Date Please also document in your Progress Notes and/or Discharge Summary and indicate if the condition was present on admission. LEIGHANN
--- NOTE | 2019-06-25 15:23 | CDS Physician Query ---
Clarification is required for compliance, coding accuracy, and to reflect severity of illness for this patient Dear Dr. Hipolito Gandhi Date: 06/25/2019 Flash Welder/CDS Name: Gabriela Salmon Clinical Documentation states:HNP - 83-year-old male admitted with altered mental status with laboratory evidence of UTI and interstitial edema. We will admit the patient to med/surg floor with the following medical problems. 1. Altered mental status, probably secondary to infectious etiology. We will monitor neuro exam closely and treat infection accordingly. 2. UTI. We will place the patient on ceftriaxone 1 g IV daily. Please indicate the nature and chronicity of the condition below: [] Metabolic Encephalopathy [] Toxic Encephalopathy x] Toxic - Metabolic Encephalopathy [] Encephalopathy, Other [] Dementia with Delirium [] Hypoxic encephalopathy [] Posterior reversible encephalopathy syndrome [] Other: [] Not Applicable Present on Admission: [x] Yes [] No [] Clinically Undetermined hipolito gandhi ___07/01/2019 Physician signature Date Please also document in your Progress Notes and/or Discharge Summary and indicate if the condition was present on admission. PACOD
[2019-06-25 16:00] VITALS: BP 119/61
--- NOTE | 2019-06-25 19:00 | General Progress Note ---
Assessment/Plan Status: progressing Assessment/Plan: Assessment - developmental delay - GT dependent - s/p GT change - UTI - GERD / Tran's - Constipation - resolved - hypothyroidism - BPH - hyperlipidemia - parkinsons - seizure disorder Recommendations - Continue GT feeds - Elevate HOB - abx - bowel regimen - PPI - follow labs and exam Subjective Allergies: Coded Allergies: No Known Allergies (Verified , 02/21/07) Subjective above noted more calm this am tolerating TF Objective Last 24 Hour Vital Signs Date Time Temp Pulse Resp B/P (MAP) Pulse Ox O2 Delivery O2 Flow Rate FiO2 06/25/19 16:00 97.9 60 18 119/61 (80) 97 06/25/19 12:00 97.8 81 17 112/59 (76) 97 06/25/19 09:00 Room Air 06/25/19 08:00 97.5 53 18 112/52 (72) 97 06/25/19 04:00 98.4 71 18 126/67 (86) 92 06/25/19 00:00 97.3 67 18 112/58 (76) 96 06/24/19 21:00 Room Air 06/24/19 20:00 98.3 74 18 128/57 (80) 98 Intake and Output 06/24/19 06/25/19 18:59 06:59 Intake Total 1000 ml 940 ml Output Total 2100 ml 1200 ml Balance -1100 ml -260 ml Intake Free Water 400 ml 400 ml Tube Feeding 600 ml 540 ml Output Urine Total 2100 ml 1200 ml Laboratory Tests 06/25/19 06:24: White Blood Count 8.7, Red Blood Count 3.11L, Hemoglobin 9.5L, Hematocrit 29.5L , Mean Corpuscular Volume 95, Mean Corpuscular Hemoglobin 30.7, Mean Corpuscular Hemoglobin Concent 32.3, Red Cell Distribution Width 14.2, Platelet Count 746H, Mean Platelet Volume 4.7L, Neutrophils (%) (Auto) 72.0, Lymphocytes (%) (Auto) 21.5, Monocytes (%) (Auto) 4.1, Eosinophils (%) (Auto) 1.3, Basophils (%) (Auto) 1.2, Sodium Level 133L, Potassium Level 4.3, Chloride Level 99, Carbon Dioxide Level 36H, Blood Urea Nitrogen 19H, Creatinine 0.6, Estimat Glomerular Filtration Rate , Glucose Level 93, Calcium Level 8.2L Height (Feet): 5 Height (Inches): 2.00 Weight (Pounds): 101 Objective Elderly WM NCAT supple CTA RR abd soft (+) GT no edema OBS Eduardo Kelley MD Jun 25, 2019 19:00
--- NOTE | 2019-06-25 19:04 | General Progress Note ---
Assessment/Plan Status: progressing Assessment/Plan: IMPRESSION: This is an 83-year-old male admitted with altered mental status with laboratory evidence of UTI and interstitial edema. We will admit the patient to med/surg floor with the following medical problems. 1. Altered mental status, probably secondary to infectious etiology. We will monitor neuro exam closely and treat infection accordingly. 2. UTI. We will place the patient on ceftriaxone 1 g IV daily. ID consult. Urinalysis and urine culture are pending. Blood cultures pending. We will change Parra and continue changing Parra in 2 weeks in the [facility]. 3. Interstitial edema, questionable CHF. The patient does not seem to be symptomatic though we will get echocardiogram and maintain on oxygen. Consider diuresis if the patient has similar symptoms. 4. History of failure to thrive and dysphagia. The patient is on G-tube feeds. I will get Dr. Kelley of GI to evaluate the patient. Continue with Osmolite 1.2 50 mL/hour. Dietitian consult in the a.m. Discussed with the nurse to check residuals and hold tube feeds for 100 mL residual. We will give free water flushes 200 mL q.6 hours. 5. Parkinson disease. Continue with Sinemet. 6. History of seizure disorder. Continue with Keppra 500 b.i.d. via G-tube and Dilantin 300 nightly. 7. History of developmental delay and mental retardation. Continue with supportive care. We will give Ativan p.r.n. for agitation as well as Seroquel. Consider Psychiatry consult if the patient is more agitated. 8. Anemia. We will check occult blood. Also for anemia of chronic disease, we will check iron indices and ferritin. 9. Thrombocytosis. We will repeat CBC in the a.m. Consider Hematology consult. 10. DVT prophylaxis. We will place the patient on heparin subcutaneous 5000 q.8 h. 11. gross hematuria PLan: - continue IV Ceftriaxone - ID consult appreciated - fu cultures - urology eval for urinary retention appreciated ,parra catheter replaced - continue tube feeding per gi - am labs - vTE prophylaxis - supportive care - Soft wrist restraints prn - surgery consult for wound care - zinc and mvi - wrist restraints for agitation, areli out parra At this time, the patient is Full Code. D/W nurse Subjective Date patient seen: Jun 25, 2019 ROS Limited/Unobtainable: Yes Allergies: Coded Allergies: No Known Allergies (Verified , 02/21/07) Subjective pulled parra catheter out, new catheter was placed as patient had high post void residual, now with gross hematuria Objective Last 24 Hour Vital Signs Date Time Temp Pulse Resp B/P (MAP) Pulse Ox O2 Delivery O2 Flow Rate FiO2 06/25/19 16:00 97.9 60 18 119/61 (80) 97 06/25/19 12:00 97.8 81 17 112/59 (76) 97 06/25/19 09:00 Room Air 06/25/19 08:00 97.5 53 18 112/52 (72) 97 06/25/19 04:00 98.4 71 18 126/67 (86) 92 06/25/19 00:00 97.3 67 18 112/58 (76) 96 06/24/19 21:00 Room Air 06/24/19 20:00 98.3 74 18 128/57 (80) 98 Intake and Output 06/24/19 06/25/19 18:59 06:59 Intake Total 1000 ml 940 ml Output Total 2100 ml 1200 ml Balance -1100 ml -260 ml Intake Free Water 400 ml 400 ml Tube Feeding 600 ml 540 ml Output Urine Total 2100 ml 1200 ml Laboratory Tests 06/25/19 06:24: White Blood Count 8.7, Red Blood Count 3.11L, Hemoglobin 9.5L, Hematocrit 29.5L , Mean Corpuscular Volume 95, Mean Corpuscular Hemoglobin 30.7, Mean Corpuscular Hemoglobin Concent 32.3, Red Cell Distribution Width 14.2, Platelet Count 746H, Mean Platelet Volume 4.7L, Neutrophils (%) (Auto) 72.0, Lymphocytes (%) (Auto) 21.5, Monocytes (%) (Auto) 4.1, Eosinophils (%) (Auto) 1.3, Basophils (%) (Auto) 1.2, Sodium Level 133L, Potassium Level 4.3, Chloride Level 99, Carbon Dioxide Level 36H, Blood Urea Nitrogen 19H, Creatinine 0.6, Estimat Glomerular Filtration Rate , Glucose Level 93, Calcium Level 8.2L Height (Feet): 5 Height (Inches): 2.00 Weight (Pounds): 101 General Appearance: WD/WN, alert, confused Neck: non-tender, supple Cardiovascular: normal rate, regular rhythm, no gallop/murmur, no JVD Respiratory/Chest: chest wall non-tender, normal breath sounds, no respiratory distress Abdomen: non tender, soft, no mass Extremities: non-tender, normal inspection, no calf tenderness Edema: no edema noted Arm (L), no edema noted Arm (R), no edema noted Leg (L), no edema noted Leg (R), no edema noted Pedal (L), no edema noted Pedal (R), no edema noted Generalized Neurologic: alert Skin: warm/dry Lymphatic: normal anterior cervical (L), normal anterior cervical (R), normal posterior cervical (L), normal posterior cervical (R), normal submandibular (L) , normal submandibular (R), normal supraclavicular (L), normal supraclavicular ( R), normal axillary (L), normal axillary (R), normal inguinal (L), normal inguinal (R), normal other JERRY OKEEFE Jun 25, 2019 19:04
[2019-06-25 20:00] VITALS: BP 112/58
[2019-06-25] MEDS: Sennosides 8.6mg tab GT SCH (21:47)
[2019-06-25] MEDS: Tamsulosin 0.4mg cap ORAL SCH (21:47)
--- NOTE | 2019-06-25 22:31 | Surgery Progress Note ---
Surgery Progress Note Subjective Additional Comments hubert cute events labs noted exam stable Objective Last 24 Hour Vital Signs Date Time Temp Pulse Resp B/P (MAP) Pulse Ox O2 Delivery O2 Flow Rate FiO2 06/25/19 20:00 97.0 69 17 112/58 (76) 94 06/25/19 16:00 97.9 60 18 119/61 (80) 97 06/25/19 12:00 97.8 81 17 112/59 (76) 97 06/25/19 09:00 Room Air 06/25/19 08:00 97.5 53 18 112/52 (72) 97 06/25/19 04:00 98.4 71 18 126/67 (86) 92 06/25/19 00:00 97.3 67 18 112/58 (76) 96 I&O Intake and Output 06/24/19 06/25/19 18:59 06:59 Intake Total 1000 ml 940 ml Output Total 2100 ml 1200 ml Balance -1100 ml -260 ml Intake Free Water 400 ml 400 ml Tube Feeding 600 ml 540 ml Output Urine Total 2100 ml 1200 ml Dressing: other Wound: other Drains: other Cardiovascular: RSR Respiratory: decreased breath sounds Abdomen: soft, present bowel sounds Extremities: no cyanosis Laboratory Tests Test 06/25/19 06:24 White Blood Count 8.7 K/UL (4.8-10.8) Red Blood Count 3.11 M/UL (4.70-6.10) L Hemoglobin 9.5 G/DL (14.2-18.0) L Hematocrit 29.5 % (42.0-52.0) L Mean Corpuscular Volume 95 FL (80-99) Mean Corpuscular Hemoglobin 30.7 PG (27.0-31.0) Mean Corpuscular Hemoglobin Concent 32.3 G/DL (32.0-36.0) Red Cell Distribution Width 14.2 % (11.6-14.8) Platelet Count 746 K/UL (150-450) H Mean Platelet Volume 4.7 FL (6.5-10.1) L Neutrophils (%) (Auto) 72.0 % (45.0-75.0) Lymphocytes (%) (Auto) 21.5 % (20.0-45.0) Monocytes (%) (Auto) 4.1 % (1.0-10.0) Eosinophils (%) (Auto) 1.3 % (0.0-3.0) Basophils (%) (Auto) 1.2 % (0.0-2.0) Sodium Level 133 MMOL/L (136-145) L Potassium Level 4.3 MMOL/L (3.5-5.1) Chloride Level 99 MMOL/L (98-107) Carbon Dioxide Level 36 MMOL/L (21-32) H Blood Urea Nitrogen 19 mg/dL (7-18) H Creatinine 0.6 MG/DL (0.55-1.30) Estimat Glomerular Filtration Rate mL/min (>60) Glucose Level 93 MG/DL (74-106) Calcium Level 8.2 MG/DL (8.5-10.1) L Plan Problems: (1) Decubitus skin ulcer Assessment & Plan: Pt presented on admission with multiple pressure injuries. Unstageable pressure injury L deltoid(L)0.8cm x (W)1xcm. Necrotic cap with marginal slough. Erythema noted periwound. Non-blanching erythema scrotum with scattered partial thickness wounds(L)1.5cm x (W)1.7cm. Wounds are moist and viable. Non-blanchable erythema without fluctuance noted to sacrum, R and L ischium. Reabsorbing serous blister noted to medial R heel. Periwound R heel is boggy with non-blanching erythema extending into plantar aspect of heel.(L)2.5cm x (W) 3cm. Serous blister with dark center noted to L heel. Periwound L heel is boggy with non-blanching erythema.(L)5cm x (W)6.5cm. Pt is at risks for further skin breakdown to restlessness. As prevention Cavilon Skin Barrier applied to both shoulders Tx.Plan: Apply Betadine to wound L deltoid. Cover with Optifoam drsg. Change every 3 days and prn. Apply Moisture Barrier Paste to Sacrum , R and L ischium. Cover each site with Optifoam drsg. Change every 3 days and prn. Apply Moisture Barrier Paste to Scrotum. Cover with Optifoam drsg. Change every 3 days and prn. Apply Betadine to R and L heel. Cover each heel with Optifoam drsgs. Change every 7 days and prn. Reposition at least every 2hours or as tolerated. Off-load heels with Pillow. Apply Cavilon To bony prominences. Cover with Optifoam drsgs prn. Nutritional optimization as below We will follow with recommendations thank you for let me participate patient's care DAILY ESTIMATED NEEDS: Needs based on Underweight, wounds 45.9kg 30-35 kcals/kg 0340-5337 total kcals 1.25-1.5 g protein/kg 57-69 g total protein Fluid per MD, on lasix NUTRITION DIAGNOSIS: 1) Increased kcal and pro needs r/t underweight status and wound healing as evidenced by pt w/ multiple wounds, pending eval, @86% of ideal body weight w/ generalized moderate wasting. 2) Chewing/ swallowing difficulties r/t dysphagia as evidenced by pt w/ Parkinsons, now GT dep. ENTERAL NUTRITION RECOMMENDATIONS: Maintain Osmolite 1.2 @60ml/hr x20 hrs to provide 1200ml, 1440 kcal, 67g pro, 984ml free H2O - Maintain current TF rate as tolerated - HOLD TF: 1 hr before and after both synthroid and dilantin meds - flush per MD/ HOB over 30 degrees ADDITIONAL RECOMMENDATIONS: 1) RE-calibrate bed scale for accurate CBW 2) F/up w/ WC: add MARISELA in 4oz water BID via GT 3) Monitor BG- need for TF change or ssi 4) Check lytes and hydration status daily on TF; pt on lasix Stu Teran Jun 25, 2019 22:31
[2019-06-26] VITALS: BP 95/61
[2019-06-26 04:28] VITALS: BP 113/57
[2019-06-26] MEDS: Heparin 5000 units/ml inj SUBQ SCH ×3 (05:49→21:45)
[2019-06-26 08:00] VITALS: BP 110/53
--- NOTE | 2019-06-26 09:04 | Urology Progress Note ---
Assessment/Plan Status: progressing Assessment/Plan: 1. Urinary retention with chronic Parra. 2. BPH history. 3. Probable neurogenic bladder. 4. Hematuria. 5. Pyuria, probable UTI and colonization. 6. Proteinuria. 7. Renal cyst. maintain parra I personally repositioned parra into bladder cath secured to pt's leg hand irrigated and do PRN abx as ordered, per ID diflucan added f/u on cx's flomax and proscar cysto later restraints Subjective Allergies: Coded Allergies: No Known Allergies (Verified , 02/21/07) Subjective non-verbal, pt pulled parra out last night nursing staff reinserted, mild bleeding reported Objective Last 24 Hour Vital Signs Date Time Temp Pulse Resp B/P (MAP) Pulse Ox O2 Delivery O2 Flow Rate FiO2 06/26/19 08:16 65 18 100 Room Air 21 06/26/19 04:28 97.1 64 19 113/57 (75) 100 06/26/19 00:00 97.0 73 18 95/61 (72) 92 06/25/19 21:00 Room Air 06/25/19 20:00 97.0 69 17 112/58 (76) 94 06/25/19 16:00 97.9 60 18 119/61 (80) 97 06/25/19 12:00 97.8 81 17 112/59 (76) 97 Intake and Output 06/25/19 06/26/19 19:00 07:00 Intake Total 160 ml 1270 ml Balance 160 ml 1270 ml Intake Free Water 400 ml IV Total 100 ml 150 ml Tube Feeding 60 ml 720 ml Microbiology Date/Time Source Procedure Growth Status 06/22/19 16:15 Blood Blood Culture - Preliminary NO GROWTH AFTER 72 HOURS Resulted 06/25/19 00:00 Sputum Induced Gram Stain - Final Resulted 06/25/19 00:00 Sputum Culture - Preliminary Gram Negative Paul Resulted 06/24/19 18:45 Indwelling Cath Urine Culture - Preliminary Strep Species, Gamma-Hemolytic Resulted 06/22/19 18:30 Rectum VRE Culture - Final Enterococcus Faecalis - Vre Complete Current Medications Medications (Trade) Dose Ordered Sig/Ana Route PRN Reason Start Time Stop Time Status Last Admin Dose Admin Albuterol/ Ipratropium (Albuterol/ Ipratropium) 3 ml Q4HR PRN HHN Shortness of Breath 06/22/19 22:30 06/27/19 22:29 Bisacodyl (Dulcolax) 10 mg DAILY PRN RECTAL Constipation 06/22/19 22:30 07/22/19 22:29 Carbidopa/Levodopa (Sinemet 25/100) 2 tab DAILY GT 06/23/19 09:00 07/23/19 08:59 06/25/19 09:07 Diphenhydramine HCl (Benadryl) 25 mg Q6H PRN IVP Itching 06/22/19 22:30 07/22/19 22:29 Finasteride (Proscar) 5 mg DAILY ORAL 06/24/19 09:00 07/24/19 08:59 06/25/19 09:06 Fluconazole (Diflucan) 100 mg DAILY ORAL 06/25/19 09:00 07/02/19 08:59 06/25/19 09:06 Furosemide (Lasix) 20 mg DAILY GT 06/23/19 09:00 07/23/19 08:59 06/25/19 09:08 Heparin Sodium (Porcine) (Heparin 5000 units/ml) 5,000 units EVERY 8 HOURS SUBQ 06/23/19 06:00 07/23/19 05:59 06/26/19 05:49 Lansoprazole (Prevacid) 30 mg DAILY@0630 GT 06/23/19 06:30 07/23/19 06:29 06/26/19 05:48 Levetiracetam (Keppra) 500 mg EVERY 12 HOURS GT 06/23/19 09:00 07/23/19 08:59 06/25/19 21:48 Levothyroxine Sodium (Synthroid) 100 mcg DAILY@0630 GT 06/23/19 06:30 07/23/19 06:29 06/26/19 05:48 Lorazepam (Ativan 2mg/ml 1ml) 0.5 mg EVERY 8 HOURS PRN IV For Anxiety 06/22/19 22:30 06/29/19 22:29 Ondansetron HCl (Zofran) 4 mg Q6H PRN IVP Nausea & Vomiting 06/22/19 22:30 07/22/19 22:29 Phenytoin (Dilantin) 150 mg Q12HR GT 06/24/19 15:30 07/24/19 15:29 06/25/19 21:48 Piperacillin Sod/ Tazobactam Sod 3.375 gm/Dextrose 100 ml @ 25 mls/hr EVERY 8 HOURS IVPB 06/24/19 22:00 06/29/19 21:59 06/26/19 04:55 Polyethylene Glycol (Miralax) 17 gm DAILY PRN GT Constipation 06/22/19 22:30 07/22/19 22:29 Quetiapine Fumarate (SEROqueL) 50 mg EVERY 4 HOURS PRN GT Agitation 06/22/19 22:30 07/22/19 22:29 06/26/19 05:49 Sennosides (Senokot) 17.2 mg QHS GT 06/23/19 21:00 07/23/19 20:59 06/25/19 21:47 Tamsulosin HCl (Flomax) 0.4 mg BEDTIME ORAL 06/23/19 21:00 07/23/19 20:59 06/25/19 21:47 Height (Feet): 5 Height (Inches): 2.00 Weight (Pounds): 101 Objective parra indwelling, yellow/marquita urine existing parra does not appear in correct position no active bleeding noted Rory Trinidad MD Jun 26, 2019 09:04
[2019-06-26] MEDS: Levodopa/Carbidopa 25/100 tab GT SCH (09:41)
[2019-06-26] MEDS: Fluconazole 100mg tab ORAL SCH (09:41)
[2019-06-26] MEDS: Phenytoin Susp 100mg/4ml GT SCH ×2 (09:42→20:36)
[2019-06-26 12:00] VITALS: BP 90/47
--- NOTE | 2019-06-26 12:03 | Surgery Progress Note ---
Surgery Progress Note Subjective Additional Comments Patient seen and examined bedside. No acute events. Resting comfortably. Somewhat responsive but more alert no nausea vomiting fever chills. Microbiology noted. Tolerating feeds. Objective Last 24 Hour Vital Signs Date Time Temp Pulse Resp B/P (MAP) Pulse Ox O2 Delivery O2 Flow Rate FiO2 06/26/19 09:00 Room Air 06/26/19 08:16 65 18 100 Room Air 21 06/26/19 08:00 96.5 70 17 110/53 (72) 98 06/26/19 04:28 97.1 64 19 113/57 (75) 100 06/26/19 00:00 97.0 73 18 95/61 (72) 92 06/25/19 21:00 Room Air 06/25/19 20:00 97.0 69 17 112/58 (76) 94 06/25/19 16:00 97.9 60 18 119/61 (80) 97 I&O Intake and Output 06/25/19 06/26/19 19:00 07:00 Intake Total 160 ml 1270 ml Balance 160 ml 1270 ml Intake Free Water 400 ml IV Total 100 ml 150 ml Tube Feeding 60 ml 720 ml Dressing: dry Wound: clean Cardiovascular: RSR Respiratory: clear Abdomen: soft, non-tender, present bowel sounds Extremities: no cyanosis, other Plan Problems: (1) Decubitus skin ulcer Assessment & Plan: Pt presented on admission with multiple pressure injuries. Unstageable pressure injury L deltoid(L)0.8cm x (W)1xcm. Necrotic cap with marginal slough. Erythema noted periwound. Non-blanching erythema scrotum with scattered partial thickness wounds(L)1.5cm x (W)1.7cm. Wounds are moist and viable. Non-blanchable erythema without fluctuance noted to sacrum, R and L ischium. Reabsorbing serous blister noted to medial R heel. Periwound R heel is boggy with non-blanching erythema extending into plantar aspect of heel.(L)2.5cm x (W) 3cm. Serous blister with dark center noted to L heel. Periwound L heel is boggy with non-blanching erythema.(L)5cm x (W)6.5cm. Pt is at risks for further skin breakdown to restlessness. As prevention Cavilon Skin Barrier applied to both shoulders Tx.Plan: Apply Betadine to wound L deltoid. Cover with Optifoam drsg. Change every 3 days and prn. Apply Moisture Barrier Paste to Sacrum , R and L ischium. Cover each site with Optifoam drsg. Change every 3 days and prn. Apply Moisture Barrier Paste to Scrotum. Cover with Optifoam drsg. Change every 3 days and prn. Apply Betadine to R and L heel. Cover each heel with Optifoam drsgs. Change every 7 days and prn. Reposition at least every 2hours or as tolerated. Off-load heels with Pillow. Apply Cavilon To bony prominences. Cover with Optifoam drsgs prn. Nutritional optimization as below We will follow with recommendations thank you for let me participate patient's care DAILY ESTIMATED NEEDS: Needs based on Underweight, wounds 45.9kg 30-35 kcals/kg 0464-8300 total kcals 1.25-1.5 g protein/kg 57-69 g total protein Fluid per MD, on lasix NUTRITION DIAGNOSIS: 1) Increased kcal and pro needs r/t underweight status and wound healing as evidenced by pt w/ multiple wounds, pending eval, @86% of ideal body weight w/ generalized moderate wasting. 2) Chewing/ swallowing difficulties r/t dysphagia as evidenced by pt w/ Parkinsons, now GT dep. ENTERAL NUTRITION RECOMMENDATIONS: Maintain Osmolite 1.2 @60ml/hr x20 hrs to provide 1200ml, 1440 kcal, 67g pro, 984ml free H2O - Maintain current TF rate as tolerated - HOLD TF: 1 hr before and after both synthroid and dilantin meds - flush per MD/ HOB over 30 degrees ADDITIONAL RECOMMENDATIONS: 1) RE-calibrate bed scale for accurate CBW 2) F/up w/ WC: add MARISELA in 4oz water BID via GT 3) Monitor BG- need for TF change or ssi 4) Check lytes and hydration status daily on TF; pt on lasix Stu Teran Jun 26, 2019 12:03
[2019-06-26 16:00] VITALS: BP 94/51
--- NOTE | 2019-06-26 16:27 | Infectious Diseases Prog Note ---
Assessment/Plan Assessment/Plan ASSESSMENT AND PLAN: 1. enterococcus uti (s-ampicillin), gram neg pna, leukocytosis, weakness - zosyn - day # 3 abx - f/u on sputum culture, labs and chest x-ray 2. urine culture with yeast likely colonizer -discontinue diflcuan 3. The patient has a history of dysphagia and G-tube. 4. The patient has weakness and altered mental status. 5. History of aspiration pneumonia. 6. Developmental delay. 7. Seizure disorder. 8. Parkinson's. 9. History of multiple wounds - care per surgery and protocol 10. Skin care per protocol and Surgery. 11. Hypothyroidism. 12. Gastroesophageal reflux disease. 13. Hypertension. 14. Hyperlipidemia. 15. BPH. 16. Tran's esophagus. 17. Anemia. 18. Osteoporosis. 19. Continue treatment per primary consultants. 20. Past medical history is noted. 21. No known allergies. 22. Social history is negative. 23. Family histoyr is noncontributory. 24. Case was discussed with RN. 25. Orders were noted and entered. 26. MAR was noted. 27. vre colonization and isolation Subjective Constitutional: Reports: fatigue, other - more alert ; Denies: fever HEENT: Denies: congestion Respiratory: Denies: shortness of breath Cardiovascular: Denies: chest pain Gastrointestinal/Abdominal: Denies: nausea, vomiting, diarrhea Genitourinary: Reports: other - + parra Neurologic: Denies: headache Psychiatric: Denies: depression Skin: Denies: rash Hematologic: Denies: bleeding Musculoskeletal: Denies: pain Allergies: Coded Allergies: No Known Allergies (Verified , 02/21/07) Objective Vital Signs Last 24 Hour Vital Signs Date Time Temp Pulse Resp B/P (MAP) Pulse Ox O2 Delivery O2 Flow Rate FiO2 06/26/19 09:00 Room Air 06/26/19 08:16 65 18 100 Room Air 21 06/26/19 08:00 96.5 70 17 110/53 (72) 98 06/26/19 04:28 97.1 64 19 113/57 (75) 100 06/26/19 00:00 97.0 73 18 95/61 (72) 92 06/25/19 21:00 Room Air 06/25/19 20:00 97.0 69 17 112/58 (76) 94 Height (Feet): 5 Height (Inches): 2.00 Weight (Pounds): 101 General Appearance: no acute distress HEENT: normocephalic, atraumatic, anicteric, mucous membranes moist Respiratory/Chest: no respiratory distress, no accessory muscle use, crackles/ rales, rhonchi - bilaterally Cardiovascular: normal rate, regular rhythm, no gallop/murmur, no JVD Abdomen: normal bowel sounds, soft, non tender, no organomegaly, non distended Genitourinary: other - + parra - urine cloudy Extremities: no cyanosis Skin: no rash 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 There is suggestion of some improvement of infiltrate in the right mid and lower lung. Generalized prominent interstitial markings and bronchial wall thickening are seen on the left, probably unchanged allowing for differences in rotation Impression: Shifting parenchymal disease, with suggestion of increased infiltrate in the right upper lobe, improved infiltrate in the right lower lobe. Finding of the left lung are probably unchanged. Microbiology Date/Time Source Procedure Growth Status 06/25/19 00:00 Sputum Induced Gram Stain - Final Resulted 06/25/19 00:00 Sputum Culture - Preliminary Gram Negative Paul Resulted 06/24/19 18:45 Indwelling Cath Urine Culture - Preliminary Strep Species, Gamma-Hemolytic Resulted Labs Test 06/24/19 18:10 06/24/19 18:45 06/25/19 06:24 White Blood Count 11.3 K/UL (4.8-10.8) 8.7 K/UL (4.8-10.8) Red Blood Count 2.98 M/UL (4.70-6.10) 3.11 M/UL (4.70-6.10) Hemoglobin 9.3 G/DL (14.2-18.0) 9.5 G/DL (14.2-18.0) Hematocrit 27.2 % (42.0-52.0) 29.5 % (42.0-52.0) Mean Corpuscular Volume 91 FL (80-99) 95 FL (80-99) Mean Corpuscular Hemoglobin 31.1 PG (27.0-31.0) 30.7 PG (27.0-31.0) Mean Corpuscular Hemoglobin Concent 34.2 G/DL (32.0-36.0) 32.3 G/DL (32.0-36.0) Red Cell Distribution Width 13.0 % (11.6-14.8) 14.2 % (11.6-14.8) Platelet Count 737 K/UL (150-450) 746 K/UL (150-450) Mean Platelet Volume 4.9 FL (6.5-10.1) 4.7 FL (6.5-10.1) Neutrophils (%) (Auto) 65.4 % (45.0-75.0) 72.0 % (45.0-75.0) Lymphocytes (%) (Auto) 26.7 % (20.0-45.0) 21.5 % (20.0-45.0) Monocytes (%) (Auto) 5.0 % (1.0-10.0) 4.1 % (1.0-10.0) Eosinophils (%) (Auto) 1.6 % (0.0-3.0) 1.3 % (0.0-3.0) Basophils (%) (Auto) 1.3 % (0.0-2.0) 1.2 % (0.0-2.0) Sodium Level 134 MMOL/L (136-145) 133 MMOL/L (136-145) Potassium Level 4.3 MMOL/L (3.5-5.1) 4.3 MMOL/L (3.5-5.1) Chloride Level 98 MMOL/L (98-107) 99 MMOL/L (98-107) Carbon Dioxide Level 34 MMOL/L (21-32) 36 MMOL/L (21-32) Anion Gap 2 mmol/L (5-15) Blood Urea Nitrogen 17 mg/dL (7-18) 19 mg/dL (7-18) Creatinine 0.6 MG/DL (0.55-1.30) 0.6 MG/DL (0.55-1.30) Estimat Glomerular Filtration Rate mL/min (>60) mL/min (>60) Glucose Level 98 MG/DL (74-106) 93 MG/DL (74-106) Calcium Level 7.8 MG/DL (8.5-10.1) 8.2 MG/DL (8.5-10.1) Total Bilirubin 0.2 MG/DL (0.2-1.0) Aspartate Amino Transf (AST/SGOT) 32 U/L (15-37) Alanine Aminotransferase (ALT/SGPT) 18 U/L (12-78) Alkaline Phosphatase 113 U/L (46-116) Total Protein 7.0 G/DL (6.4-8.2) Albumin 2.0 G/DL (3.4-5.0) Globulin 5.0 g/dL Albumin/Globulin Ratio 0.4 (1.0-2.7) Urine Color Pale yellow Urine Appearance Clear Urine pH 8 (4.5-8.0) Urine Specific [place] 1.010 (1.005-1.035) Urine Protein Negative (NEGATIVE) Urine Glucose (UA) Negative (NEGATIVE) Urine Ketones Negative (NEGATIVE) Urine Blood 1+ (NEGATIVE) Urine Nitrite Negative (NEGATIVE) Urine Bilirubin Negative (NEGATIVE) Urine Urobilinogen Normal MG/DL (0.0-1.0) Urine Leukocyte Esterase 2+ (NEGATIVE) Urine RBC 0-2 /HPF (0 - 0) Urine WBC 10-15 /HPF (0 - 0) Urine Squamous Epithelial Cells None /LPF (NONE/OCC) Urine Bacteria Few /HPF (NONE) Urine Yeast Occasional /HPF (NONE) Current Medications Medications (Trade) Dose Ordered Sig/Ana Route PRN Reason Start Time Stop Time Status Last Admin Dose Admin Albuterol/ Ipratropium (Albuterol/ Ipratropium) 3 ml Q4HR PRN HHN Shortness of Breath 06/22/19 22:30 06/27/19 22:29 Bisacodyl (Dulcolax) 10 mg DAILY PRN RECTAL Constipation 06/22/19 22:30 07/22/19 22:29 Carbidopa/Levodopa (Sinemet 25/100) 2 tab DAILY GT 06/23/19 09:00 07/23/19 08:59 06/26/19 09:41 Diphenhydramine HCl (Benadryl) 25 mg Q6H PRN IVP Itching 06/22/19 22:30 07/22/19 22:29 Finasteride (Proscar) 5 mg DAILY ORAL 06/24/19 09:00 07/24/19 08:59 06/26/19 09:41 Fluconazole (Diflucan) 100 mg DAILY ORAL 06/25/19 09:00 07/02/19 08:59 06/26/19 09:41 Furosemide (Lasix) 20 mg DAILY GT 06/23/19 09:00 07/23/19 08:59 06/26/19 09:41 Heparin Sodium (Porcine) (Heparin 5000 units/ml) 5,000 units EVERY 8 HOURS SUBQ 06/23/19 06:00 07/23/19 05:59 06/26/19 14:38 Lansoprazole (Prevacid) 30 mg DAILY@0630 GT 06/23/19 06:30 07/23/19 06:29 06/26/19 05:48 Levetiracetam (Keppra) 500 mg EVERY 12 HOURS GT 06/23/19 09:00 07/23/19 08:59 06/26/19 09:40 Levothyroxine Sodium (Synthroid) 100 mcg DAILY@0630 GT 06/23/19 06:30 07/23/19 06:29 06/26/19 05:48 Lorazepam (Ativan 2mg/ml 1ml) 0.5 mg EVERY 8 HOURS PRN IV For Anxiety 06/22/19 22:30 06/29/19 22:29 Ondansetron HCl (Zofran) 4 mg Q6H PRN IVP Nausea & Vomiting 06/22/19 22:30 07/22/19 22:29 Phenytoin (Dilantin) 150 mg Q12HR GT 06/24/19 15:30 07/24/19 15:29 06/26/19 09:42 Piperacillin Sod/ Tazobactam Sod 3.375 gm/Dextrose 100 ml @ 25 mls/hr EVERY 8 HOURS IVPB 06/24/19 22:00 06/29/19 21:59 06/26/19 14:39 Polyethylene Glycol (Miralax) 17 gm DAILY PRN GT Constipation 06/22/19 22:30 07/22/19 22:29 Quetiapine Fumarate (SEROqueL) 50 mg EVERY 4 HOURS PRN GT Agitation 06/22/19 22:30 07/22/19 22:29 06/26/19 05:49 Sennosides (Senokot) 17.2 mg QHS GT 06/23/19 21:00 07/23/19 20:59 06/25/19 21:47 Tamsulosin HCl (Flomax) 0.4 mg BEDTIME ORAL 06/23/19 21:00 07/23/19 20:59 06/25/19 21:47 Michaela Christine MD Jun 26, 2019 16:27
--- NOTE | 2019-06-26 16:45 | General Progress Note ---
Assessment/Plan Status: stable, progressing Assessment/Plan: IMPRESSION: This is an 83-year-old male admitted with altered mental status with laboratory evidence of UTI and interstitial edema. We will admit the patient to med/surg floor with the following medical problems. 1. Altered mental status, probably secondary to infectious etiology. We will monitor neuro exam closely and treat infection accordingly. 2. UTI. enterococas We will place the patient on ceftriaxone 1 g IV daily. ID consult. Urinalysis and urine culture are pending. Blood cultures pending. We will change Parra and continue changing Parra in 2 weeks in the long-term. 3. Interstitial edema, questionable CHF. The patient does not seem to be symptomatic though we will get echocardiogram and maintain on oxygen. Consider diuresis if the patient has similar symptoms. 4. History of failure to thrive and dysphagia. The patient is on G-tube feeds. I will get Dr. Kelley of GI to evaluate the patient. Continue with Osmolite 1.2 50 mL/hour. Dietitian consult in the a.m. Discussed with the nurse to check residuals and hold tube feeds for 100 mL residual. We will give free water flushes 200 mL q.6 hours. 5. Parkinson disease. Continue with Sinemet. 6. History of seizure disorder. Continue with Keppra 500 b.i.d. via G-tube and Dilantin 300 nightly. 7. History of developmental delay and mental retardation. Continue with supportive care. We will give Ativan p.r.n. for agitation as well as Seroquel. Consider Psychiatry consult if the patient is more agitated. 8. Anemia. We will check occult blood. Also for anemia of chronic disease, we will check iron indices and ferritin. 9. Thrombocytosis. We will repeat CBC in the a.m. Consider Hematology consult. 10. DVT prophylaxis. We will place the patient on heparin subcutaneous 5000 q.8 h. 11. gross hematuria PLan: - continue IV Zosyn - ID consult appreciated - fu cultures - urology eval for urinary retention appreciated ,parra catheter replaced - continue tube feeding per gi - am labs - vTE prophylaxis - supportive care - Soft wrist restraints prn - surgery consult for wound care - zinc and mvi - wrist restraints for agitation, pulling out parra - change to po antibiotics when ok with ID At this time, the patient is Full Code. dc planning ot CV [place] in next 1 to 2 days D/W nurse Subjective Date patient seen: Jun 26, 2019 ROS Limited/Unobtainable: Yes Allergies: Coded Allergies: No Known Allergies (Verified , 02/21/07) Subjective pulled parra catheter out, new catheter was placed as patient had high post void residual, now with gross hematuria Objective Last 24 Hour Vital Signs Date Time Temp Pulse Resp B/P (MAP) Pulse Ox O2 Delivery O2 Flow Rate FiO2 06/26/19 16:00 97.9 65 18 94/51 (65) 96 06/26/19 12:00 97.6 66 18 90/47 (61) 96 06/26/19 09:00 Room Air 06/26/19 08:16 65 18 100 Room Air 21 06/26/19 08:00 96.5 70 17 110/53 (72) 98 06/26/19 04:28 97.1 64 19 113/57 (75) 100 06/26/19 00:00 97.0 73 18 95/61 (72) 92 06/25/19 21:00 Room Air 06/25/19 20:00 97.0 69 17 112/58 (76) 94 Intake and Output 06/25/19 06/26/19 19:00 07:00 Intake Total 160 ml 1270 ml Balance 160 ml 1270 ml Intake Free Water 400 ml IV Total 100 ml 150 ml Tube Feeding 60 ml 720 ml Height (Feet): 5 Height (Inches): 2.00 Weight (Pounds): 101 EENT: PERRL/EOMI, pharynx normal Neck: non-tender, supple Cardiovascular: normal rate, regular rhythm, no gallop/murmur, no JVD Respiratory/Chest: chest wall non-tender, normal breath sounds, no respiratory distress Abdomen: non tender, soft, no mass Extremities: non-tender, normal inspection, no calf tenderness Edema: no edema noted Arm (L), no edema noted Arm (R), no edema noted Leg (L), no edema noted Leg (R), no edema noted Pedal (L), no edema noted Pedal (R), no edema noted Generalized Neurologic: alert Skin: warm/dry Lymphatic: normal anterior cervical (L), normal anterior cervical (R), normal posterior cervical (L), normal posterior cervical (R), normal submandibular (L) , normal submandibular (R), normal supraclavicular (L), normal supraclavicular ( R), normal axillary (L), normal axillary (R), normal inguinal (L), normal inguinal (R), normal other JERRY OKEEFE Jun 26, 2019 16:45
--- NOTE | 2019-06-26 18:36 | General Progress Note ---
Assessment/Plan Status: stable, progressing Assessment/Plan: Assessment - developmental delay - GT dependent - s/p GT change - UTI - GERD / Tran's - Constipation - resolved - hypothyroidism - BPH - hyperlipidemia - parkinsons - seizure disorder Recommendations - Continue GT feeds - Elevate HOB - abx - bowel regimen - PPI - follow labs and exam Subjective Allergies: Coded Allergies: No Known Allergies (Verified , 02/21/07) Subjective above noted more calm this am tolerating TF Objective Last 24 Hour Vital Signs Date Time Temp Pulse Resp B/P (MAP) Pulse Ox O2 Delivery O2 Flow Rate FiO2 06/26/19 16:00 97.9 65 18 94/51 (65) 96 06/26/19 12:00 97.6 66 18 90/47 (61) 96 06/26/19 09:00 Room Air 06/26/19 08:16 65 18 100 Room Air 21 06/26/19 08:00 96.5 70 17 110/53 (72) 98 06/26/19 04:28 97.1 64 19 113/57 (75) 100 06/26/19 00:00 97.0 73 18 95/61 (72) 92 06/25/19 21:00 Room Air 06/25/19 20:00 97.0 69 17 112/58 (76) 94 Intake and Output 06/25/19 06/26/19 19:00 07:00 Intake Total 160 ml 1270 ml Balance 160 ml 1270 ml Intake Free Water 400 ml IV Total 100 ml 150 ml Tube Feeding 60 ml 720 ml Height (Feet): 5 Height (Inches): 2.00 Weight (Pounds): 101 Objective Elderly WM NCAT supple CTA RR abd soft (+) GT no edema OBS Eduardo Kelley MD Jun 26, 2019 18:36
[2019-06-26 20:00] VITALS: BP 99/55
[2019-06-26] MEDS: Sennosides 8.6mg tab GT SCH (20:37)
[2019-06-26] MEDS: Tamsulosin 0.4mg cap ORAL SCH (20:37)
[2019-06-27] VITALS (7 sets, daily range): BP systolic 98–139; BP diastolic 52–89
[2019-06-27] MEDS: Heparin 5000 units/ml inj SUBQ SCH ×3 (05:36→20:40)
[2019-06-27 07:14] LABS: BASOPHILS % (AUTO) 1.2 % (0.0-2.0); EOSINOPHILS % (AUTO) 2.8 % (0.0-3.0); HEMATOCRIT 34.1 % (42.0-52.0); LYMPHOCYTES % (AUTO) 29.3 % (20.0-45.0); MEAN CORPUSCULAR VOLUME 94 FL (80-99); MONOCYTES % (AUTO) 2.8 % (1.0-10.0); PLATELET COUNT 628 K/UL (150-450); RED BLOOD COUNT 3.62 M/UL (4.70-6.10); RED CELL DISTRIBUTION WIDTH 14.3 % (11.6-14.8)
[2019-06-27 07:40] LABS: ALANINE AMINOTRANSFERASE 27 U/L (12-78); ALBUMIN 2.5 G/DL (3.4-5.0); ALBUMIN/GLOBULIN RATIO 0.4 (1.0-2.7); ALKALINE PHOSPHATASE 157 U/L (46-116); ANION GAP 7 mmol/L (5-15); ASPARTATE AMINO TRANSFERASE 32 U/L (15-37); BILIRUBIN,TOTAL 0.2 MG/DL (0.2-1.0); BLOOD UREA NITROGEN 17 mg/dL (7-18); CALCIUM 9.7 MG/DL (8.5-10.1); CARBON DIOXIDE 30 MMOL/L (21-32); CHLORIDE 98 MMOL/L (98-107); CREATININE 0.7 MG/DL (0.55-1.30); POTASSIUM 4.3 MMOL/L (3.5-5.1); SODIUM 135 MMOL/L (136-145)
--- NOTE | 2019-06-27 09:37 | Urology Progress Note ---
Assessment/Plan Status: stable, progressing Assessment/Plan: 1. Urinary retention with chronic Parra. 2. BPH history. 3. Probable neurogenic bladder. 4. Hematuria. 5. Pyuria, probable UTI and colonization. 6. Proteinuria. 7. Renal cyst. maintain parra, last exchanged 06/26 cath secured to pt's leg hand irrigated and do PRN abx as ordered, per ID diflucan added f/u on cx's flomax and proscar cysto later restraints d/w Dr. Gandhi Subjective Allergies: Coded Allergies: No Known Allergies (Verified , 02/21/07) Subjective non-verbal Objective Last 24 Hour Vital Signs Date Time Temp Pulse Resp B/P (MAP) Pulse Ox O2 Delivery O2 Flow Rate FiO2 06/27/19 09:20 98.0 81 17 121/76 (91) 98 06/27/19 08:00 98.0 81 17 121/76 (91) 98 06/27/19 07:57 68 16 98 Room Air 21 06/27/19 04:00 97.6 62 18 114/52 (72) 94 06/27/19 00:00 97.4 65 18 99/56 (70) 95 06/26/19 20:14 Room Air 06/26/19 20:00 97.9 64 18 99/55 (70) 90 06/26/19 16:00 97.9 65 18 94/51 (65) 96 06/26/19 12:00 97.6 66 18 90/47 (61) 96 Intake and Output 06/26/19 06/27/19 19:00 07:00 Intake Total 850 ml 1155 ml Balance 850 ml 1155 ml Intake Free Water 200 ml 260 ml IV Total 50 ml 175 ml Tube Feeding 600 ml 720 ml Microbiology Date/Time Source Procedure Growth Status 06/22/19 16:15 Blood Blood Culture - Preliminary NO GROWTH AFTER 4 DAYS Resulted 06/25/19 00:00 Sputum Induced Gram Stain - Final Resulted 06/25/19 00:00 Sputum Culture - Preliminary Staphylococcus Aureus Gram Negative Paul Resulted 06/24/19 18:45 Indwelling Cath Urine Culture - Preliminary Enterococcus Faecalis YEAST Resulted 06/22/19 18:30 Rectum VRE Culture - Final Enterococcus Faecalis - Vre Complete Current Medications Medications (Trade) Dose Ordered Sig/Ana Route PRN Reason Start Time Stop Time Status Last Admin Dose Admin Albuterol/ Ipratropium (Albuterol/ Ipratropium) 3 ml Q4HR PRN HHN Shortness of Breath 06/22/19 22:30 06/27/19 22:29 Bisacodyl (Dulcolax) 10 mg DAILY PRN RECTAL Constipation 06/22/19 22:30 07/22/19 22:29 Carbidopa/Levodopa (Sinemet 25/100) 2 tab DAILY GT 06/23/19 09:00 07/23/19 08:59 06/26/19 09:41 Diphenhydramine HCl (Benadryl) 25 mg Q6H PRN IVP Itching 06/22/19 22:30 07/22/19 22:29 Finasteride (Proscar) 5 mg DAILY ORAL 06/24/19 09:00 07/24/19 08:59 06/26/19 09:41 Fluconazole (Diflucan) 100 mg DAILY ORAL 06/25/19 09:00 07/02/19 08:59 06/26/19 09:41 Furosemide (Lasix) 20 mg DAILY GT 06/23/19 09:00 07/23/19 08:59 06/26/19 09:41 Heparin Sodium (Porcine) (Heparin 5000 units/ml) 5,000 units EVERY 8 HOURS SUBQ 06/23/19 06:00 07/23/19 05:59 06/27/19 05:36 Lansoprazole (Prevacid) 30 mg DAILY@0630 GT 06/23/19 06:30 07/23/19 06:29 06/27/19 05:36 Levetiracetam (Keppra) 500 mg EVERY 12 HOURS GT 06/23/19 09:00 07/23/19 08:59 06/26/19 20:36 Levothyroxine Sodium (Synthroid) 100 mcg DAILY@0630 GT 06/23/19 06:30 07/23/19 06:29 06/27/19 05:36 Lorazepam (Ativan 2mg/ml 1ml) 0.5 mg EVERY 8 HOURS PRN IV For Anxiety 06/22/19 22:30 06/29/19 22:29 Ondansetron HCl (Zofran) 4 mg Q6H PRN IVP Nausea & Vomiting 06/22/19 22:30 07/22/19 22:29 Phenytoin (Dilantin) 150 mg Q12HR GT 06/24/19 15:30 07/24/19 15:29 06/26/19 20:36 Piperacillin Sod/ Tazobactam Sod 3.375 gm/Dextrose 100 ml @ 25 mls/hr EVERY 8 HOURS IVPB 06/24/19 22:00 06/29/19 21:59 06/27/19 04:18 Polyethylene Glycol (Miralax) 17 gm DAILY PRN GT Constipation 06/22/19 22:30 07/22/19 22:29 Quetiapine Fumarate (SEROqueL) 50 mg EVERY 4 HOURS PRN GT Agitation 06/22/19 22:30 07/22/19 22:29 06/27/19 05:36 Sennosides (Senokot) 17.2 mg QHS GT 06/23/19 21:00 07/23/19 20:59 06/26/19 20:37 Tamsulosin HCl (Flomax) 0.4 mg BEDTIME ORAL 06/23/19 21:00 07/23/19 20:59 06/26/19 20:37 Laboratory Tests 06/27/19 05:45: White Blood Count 7.0, Red Blood Count 3.62L, Hemoglobin 11.0L, Hematocrit 34.1L , Mean Corpuscular Volume 94, Mean Corpuscular Hemoglobin 30.4, Mean Corpuscular Hemoglobin Concent 32.2, Red Cell Distribution Width 14.3, Platelet Count 628H, Mean Platelet Volume 4.8L, Neutrophils (%) (Auto) 64.0, Lymphocytes (%) (Auto) 29.3, Monocytes (%) (Auto) 2.8, Eosinophils (%) (Auto) 2.8, Basophils (%) (Auto) 1.2, Sodium Level 135L, Potassium Level 4.3, Chloride Level 98, Carbon Dioxide Level 30, Anion Gap 7, Blood Urea Nitrogen 17, Creatinine 0.7, Estimat Glomerular Filtration Rate , Glucose Level 96, Calcium Level 9.7, Total Bilirubin 0.2, Aspartate Amino Transf (AST/SGOT) 32, Alanine Aminotransferase (ALT/SGPT) 27, Alkaline Phosphatase 157H, Total Protein 8.3H, Albumin 2.5L, Globulin 5.8, Albumin/Globulin Ratio 0.4L Height (Feet): 5 Height (Inches): 2.00 Weight (Pounds): 101 Objective parra indwelling, yellow/marquita urine Rory Trinidad MD Jun 27, 2019 09:37
[2019-06-27] MEDS: Fluconazole 100mg tab ORAL SCH (09:38)
[2019-06-27] MEDS: Phenytoin Susp 100mg/4ml GT SCH ×2 (09:38→20:37)
[2019-06-27] MEDS: Levodopa/Carbidopa 25/100 tab GT SCH (09:43)
--- NOTE | 2019-06-27 12:08 | Diagnostic Imaging Report ---
EXAM: XR Chest, 1 View CLINICAL HISTORY: INFECT TECHNIQUE: Frontal view of the chest. COMPARISON: Chest x-ray 06/25/19 FINDINGS: Lungs: Hyperinflated lungs of COPD. Mild interstitial prominence may be chronic, cannot exclude a mild interstitial edema or pneumonitis. No consolidation. Pleural space: Unremarkable. No pneumothorax. Heart: Unremarkable. No cardiomegaly. Mediastinum: Unremarkable. Bones/joints: Unremarkable. IMPRESSION: Hyperinflated lungs of COPD. Mild interstitial prominence may be chronic, cannot exclude a mild interstitial edema or pneumonitis. No consolidation.
[2019-06-27] MEDS ORDERED: Vancomycin 1gm/D5W 275ml IVPB ONE ×4 (16:00→20:30)
--- NOTE | 2019-06-27 16:22 | Surgery Progress Note ---
Surgery Progress Note Subjective Additional Comments Patient seen examined bedside. No acute events. Labs improved. Exam stable. Dressings being changed. Otherwise improved. Objective Last 24 Hour Vital Signs Date Time Temp Pulse Resp B/P (MAP) Pulse Ox O2 Delivery O2 Flow Rate FiO2 06/27/19 12:00 97.6 73 18 117/76 (90) 97 06/27/19 09:20 98.0 81 17 121/76 (91) 98 06/27/19 08:00 98.0 81 17 121/76 (91) 98 06/27/19 07:57 68 16 98 Room Air 21 06/27/19 04:00 97.6 62 18 114/52 (72) 94 06/27/19 00:00 97.4 65 18 99/56 (70) 95 06/26/19 20:14 Room Air 06/26/19 20:00 97.9 64 18 99/55 (70) 90 I&O Intake and Output 06/26/19 06/27/19 19:00 07:00 Intake Total 850 ml 1155 ml Balance 850 ml 1155 ml Intake Free Water 200 ml 260 ml IV Total 50 ml 175 ml Tube Feeding 600 ml 720 ml Dressing: other Wound: other Drains: other Cardiovascular: RSR Respiratory: clear Abdomen: soft, non-tender, present bowel sounds Extremities: no cyanosis, other Laboratory Tests Test 06/27/19 05:45 White Blood Count 7.0 K/UL (4.8-10.8) Red Blood Count 3.62 M/UL (4.70-6.10) L Hemoglobin 11.0 G/DL (14.2-18.0) L Hematocrit 34.1 % (42.0-52.0) L Mean Corpuscular Volume 94 FL (80-99) Mean Corpuscular Hemoglobin 30.4 PG (27.0-31.0) Mean Corpuscular Hemoglobin Concent 32.2 G/DL (32.0-36.0) Red Cell Distribution Width 14.3 % (11.6-14.8) Platelet Count 628 K/UL (150-450) H Mean Platelet Volume 4.8 FL (6.5-10.1) L Neutrophils (%) (Auto) 64.0 % (45.0-75.0) Lymphocytes (%) (Auto) 29.3 % (20.0-45.0) Monocytes (%) (Auto) 2.8 % (1.0-10.0) Eosinophils (%) (Auto) 2.8 % (0.0-3.0) Basophils (%) (Auto) 1.2 % (0.0-2.0) Sodium Level 135 MMOL/L (136-145) L Potassium Level 4.3 MMOL/L (3.5-5.1) Chloride Level 98 MMOL/L (98-107) Carbon Dioxide Level 30 MMOL/L (21-32) Anion Gap 7 mmol/L (5-15) Blood Urea Nitrogen 17 mg/dL (7-18) Creatinine 0.7 MG/DL (0.55-1.30) Estimat Glomerular Filtration Rate mL/min (>60) Glucose Level 96 MG/DL (74-106) Calcium Level 9.7 MG/DL (8.5-10.1) Total Bilirubin 0.2 MG/DL (0.2-1.0) Aspartate Amino Transf (AST/SGOT) 32 U/L (15-37) Alanine Aminotransferase (ALT/SGPT) 27 U/L (12-78) Alkaline Phosphatase 157 U/L (46-116) H Total Protein 8.3 G/DL (6.4-8.2) H Albumin 2.5 G/DL (3.4-5.0) L Globulin 5.8 g/dL Albumin/Globulin Ratio 0.4 (1.0-2.7) L Plan Problems: (1) Decubitus skin ulcer Assessment & Plan: Pt presented on admission with multiple pressure injuries. Unstageable pressure injury L deltoid(L)0.8cm x (W)1xcm. Necrotic cap with marginal slough. Erythema noted periwound. Non-blanching erythema scrotum with scattered partial thickness wounds(L)1.5cm x (W)1.7cm. Wounds are moist and viable. Non-blanchable erythema without fluctuance noted to sacrum, R and L ischium. Reabsorbing serous blister noted to medial R heel. Periwound R heel is boggy with non-blanching erythema extending into plantar aspect of heel.(L)2.5cm x (W) 3cm. Serous blister with dark center noted to L heel. Periwound L heel is boggy with non-blanching erythema.(L)5cm x (W)6.5cm. Pt is at risks for further skin breakdown to restlessness. As prevention Cavilon Skin Barrier applied to both shoulders Tx.Plan: Apply Betadine to wound L deltoid. Cover with Optifoam drsg. Change every 3 days and prn. Apply Moisture Barrier Paste to Sacrum , R and L ischium. Cover each site with Optifoam drsg. Change every 3 days and prn. Apply Moisture Barrier Paste to Scrotum. Cover with Optifoam drsg. Change every 3 days and prn. Apply Betadine to R and L heel. Cover each heel with Optifoam drsgs. Change every 7 days and prn. Reposition at least every 2hours or as tolerated. Off-load heels with Pillow. Apply Cavilon To bony prominences. Cover with Optifoam drsgs prn. Nutritional optimization as below We will follow with recommendations thank you for let me participate patient's care DAILY ESTIMATED NEEDS: Needs based on Underweight, wounds 45.9kg 30-35 kcals/kg [id number] total kcals 1.25-1.5 g protein/kg 57-69 g total protein Fluid per MD, on lasix NUTRITION DIAGNOSIS: 1) Increased kcal and pro needs r/t underweight status and wound healing as evidenced by pt w/ multiple wounds, pending eval, @86% of ideal body weight w/ generalized moderate wasting. 2) Chewing/ swallowing difficulties r/t dysphagia as evidenced by pt w/ Parkinsons, now GT dep. ENTERAL NUTRITION RECOMMENDATIONS: Maintain Osmolite 1.2 @60ml/hr x20 hrs to provide 1200ml, 1440 kcal, 67g pro, 984ml free H2O - Maintain current TF rate as tolerated - HOLD TF: 1 hr before and after both synthroid and dilantin meds - flush per MD/ HOB over 30 degrees ADDITIONAL RECOMMENDATIONS: 1) RE-calibrate bed scale for accurate CBW 2) F/up w/ WC: add MARISELA in 4oz water BID via GT 3) Monitor BG- need for TF change or ssi 4) Check lytes and hydration status daily on TF; pt on lasix Stu Teran Jun 27, 2019 16:22
[2019-06-27] MEDS: Sennosides 8.6mg tab GT SCH (20:37)
[2019-06-27] MEDS: Ciprofloxacin 500mg tab ORAL SCH (20:37)
[2019-06-27] MEDS: Tamsulosin 0.4mg cap ORAL SCH (20:38)
--- NOTE | 2019-06-27 21:24 | General Progress Note ---
Assessment/Plan Status: stable, progressing Assessment/Plan: Assessment - developmental delay - GT dependent - s/p GT change - UTI - GERD / Tran's - Constipation - resolved - hypothyroidism - BPH - hyperlipidemia - parkinsons - seizure disorder Recommendations - Continue GT feeds - Elevate HOB - abx - bowel regimen - PPI - follow labs and exam Subjective Allergies: Coded Allergies: No Known Allergies (Verified , 02/21/07) Subjective above noted more calm this am tolerating TF Objective Last 24 Hour Vital Signs Date Time Temp Pulse Resp B/P (MAP) Pulse Ox O2 Delivery O2 Flow Rate FiO2 06/27/19 20:12 Room Air 06/27/19 20:05 96.9 66 21 98/56 (70) 95 06/27/19 16:00 98.3 76 18 139/89 (106) 96 06/27/19 12:00 97.6 73 18 117/76 (90) 97 06/27/19 09:20 98.0 81 17 121/76 (91) 98 06/27/19 09:00 Room Air 06/27/19 08:00 98.0 81 17 121/76 (91) 98 06/27/19 07:57 68 16 98 Room Air 21 06/27/19 04:00 97.6 62 18 114/52 (72) 94 06/27/19 00:00 97.4 65 18 99/56 (70) 95 Intake and Output 06/26/19 06/27/19 19:00 07:00 Intake Total 850 ml 1155 ml Balance 850 ml 1155 ml Intake Free Water 200 ml 260 ml IV Total 50 ml 175 ml Tube Feeding 600 ml 720 ml Laboratory Tests 06/27/19 05:45: White Blood Count 7.0, Red Blood Count 3.62L, Hemoglobin 11.0L, Hematocrit 34.1L , Mean Corpuscular Volume 94, Mean Corpuscular Hemoglobin 30.4, Mean Corpuscular Hemoglobin Concent 32.2, Red Cell Distribution Width 14.3, Platelet Count 628H, Mean Platelet Volume 4.8L, Neutrophils (%) (Auto) 64.0, Lymphocytes (%) (Auto) 29.3, Monocytes (%) (Auto) 2.8, Eosinophils (%) (Auto) 2.8, Basophils (%) (Auto) 1.2, Sodium Level 135L, Potassium Level 4.3, Chloride Level 98, Carbon Dioxide Level 30, Anion Gap 7, Blood Urea Nitrogen 17, Creatinine 0.7, Estimat Glomerular Filtration Rate , Glucose Level 96, Calcium Level 9.7, Total Bilirubin 0.2, Aspartate Amino Transf (AST/SGOT) 32, Alanine Aminotransferase (ALT/SGPT) 27, Alkaline Phosphatase 157H, Total Protein 8.3H, Albumin 2.5L, Globulin 5.8, Albumin/Globulin Ratio 0.4L Height (Feet): 5 Height (Inches): 2.00 Weight (Pounds): 101 Objective Elderly WM NCAT supple CTA RR abd soft (+) GT no edema OBS Eduardo Kelley MD Jun 27, 2019 21:24
--- NOTE | 2019-06-27 23:51 | General Progress Note ---
Assessment/Plan Status: stable, progressing Assessment/Plan: IMPRESSION: This is an 83-year-old male admitted with altered mental status with laboratory evidence of UTI and interstitial edema. We will admit the patient to med/surg floor with the following medical problems. 1. Altered mental status, probably secondary to infectious etiology. We will monitor neuro exam closely and treat infection accordingly. 2. UTI. enterococas We will place the patient on ceftriaxone 1 g IV daily. ID consult. Urinalysis and urine culture are pending. Blood cultures pending. We will change Parra and continue changing Parra in 2 weeks in the [facility]. 3. Interstitial edema, questionable CHF. The patient does not seem to be symptomatic though we will get echocardiogram and maintain on oxygen. Consider diuresis if the patient has similar symptoms. 4. History of failure to thrive and dysphagia. The patient is on G-tube feeds. I will get Dr. Kelley of GI to evaluate the patient. Continue with Osmolite 1.2 50 mL/hour. Dietitian consult in the a.m. Discussed with the nurse to check residuals and hold tube feeds for 100 mL residual. We will give free water flushes 200 mL q.6 hours. 5. Parkinson disease. Continue with Sinemet. 6. History of seizure disorder. Continue with Keppra 500 b.i.d. via G-tube and Dilantin 300 nightly. 7. History of developmental delay and mental retardation. Continue with supportive care. We will give Ativan p.r.n. for agitation as well as Seroquel. Consider Psychiatry consult if the patient is more agitated. 8. Anemia. We will check occult blood. Also for anemia of chronic disease, we will check iron indices and ferritin. 9. Thrombocytosis. We will repeat CBC in the a.m. Consider Hematology consult. 10. DVT prophylaxis. We will place the patient on heparin subcutaneous 5000 q.8 h. 11. gross hematuria PLan: - continue IV Zosyn - ID consult appreciated - fu cultures - urology eval for urinary retention appreciated ,parra catheter replaced - continue tube feeding per gi - am labs - vTE prophylaxis - supportive care - Soft wrist restraints prn - surgery consult for wound care - zinc and mvi - wrist restraints for agitation, pulling out parra - change to po antibiotics when ok with ID - interstitial lung changes appear to be chronic as patient is asymptomatic form pulmonary stand point At this time, the patient is Full Code. dc planning ot CV [place] in next 1 to 2 days D/W nurse Subjective Date patient seen: Jun 27, 2019 Time patient seen: 12:00 ROS Limited/Unobtainable: Yes Allergies: Coded Allergies: No Known Allergies (Verified , 02/21/07) Subjective pulled parra catheter out, new catheter was placed as patient had high post void residual, now with gross hematuria Objective Last 24 Hour Vital Signs Date Time Temp Pulse Resp B/P (MAP) Pulse Ox O2 Delivery O2 Flow Rate FiO2 06/27/19 20:12 Room Air 06/27/19 20:05 96.9 66 21 98/56 (70) 95 06/27/19 16:00 98.3 76 18 139/89 (106) 96 06/27/19 12:00 97.6 73 18 117/76 (90) 97 06/27/19 09:20 98.0 81 17 121/76 (91) 98 06/27/19 09:00 Room Air 06/27/19 08:00 98.0 81 17 121/76 (91) 98 06/27/19 07:57 68 16 98 Room Air 21 06/27/19 04:00 97.6 62 18 114/52 (72) 94 06/27/19 00:00 97.4 65 18 99/56 (70) 95 Intake and Output 06/26/19 06/27/19 18:59 06:59 Intake Total 875 ml 1130 ml Balance 875 ml 1130 ml Intake Free Water 200 ml 260 ml IV Total 75 ml 150 ml Tube Feeding 600 ml 720 ml Laboratory Tests 06/27/19 05:45: White Blood Count 7.0, Red Blood Count 3.62L, Hemoglobin 11.0L, Hematocrit 34.1L , Mean Corpuscular Volume 94, Mean Corpuscular Hemoglobin 30.4, Mean Corpuscular Hemoglobin Concent 32.2, Red Cell Distribution Width 14.3, Platelet Count 628H, Mean Platelet Volume 4.8L, Neutrophils (%) (Auto) 64.0, Lymphocytes (%) (Auto) 29.3, Monocytes (%) (Auto) 2.8, Eosinophils (%) (Auto) 2.8, Basophils (%) (Auto) 1.2, Sodium Level 135L, Potassium Level 4.3, Chloride Level 98, Carbon Dioxide Level 30, Anion Gap 7, Blood Urea Nitrogen 17, Creatinine 0.7, Estimat Glomerular Filtration Rate , Glucose Level 96, Calcium Level 9.7, Total Bilirubin 0.2, Aspartate Amino Transf (AST/SGOT) 32, Alanine Aminotransferase (ALT/SGPT) 27, Alkaline Phosphatase 157H, Total Protein 8.3H, Albumin 2.5L, Globulin 5.8, Albumin/Globulin Ratio 0.4L Height (Feet): 5 Height (Inches): 2.00 Weight (Pounds): 101 General Appearance: no apparent distress, alert EENT: PERRL/EOMI, pharynx normal Neck: non-tender, supple Cardiovascular: normal rate, regular rhythm, no gallop/murmur, no JVD Respiratory/Chest: chest wall non-tender, normal breath sounds, no respiratory distress Abdomen: non tender, soft, no mass Extremities: non-tender, normal inspection, no calf tenderness Neurologic: alert Skin: normal pigmentation Lymphatic: normal anterior cervical (L), normal anterior cervical (R), normal posterior cervical (L), normal posterior cervical (R), normal submandibular (L) , normal submandibular (R), normal supraclavicular (L), normal supraclavicular ( R), normal axillary (L), normal axillary (R), normal inguinal (L), normal inguinal (R), normal other JERRY OKEEFE Jun 27, 2019 23:51
[2019-06-28 00:17] VITALS: BP 95/60
[2019-06-28 04:00] VITALS: BP 111/55
[2019-06-28] MEDS: Heparin 5000 units/ml inj SUBQ SCH ×3 (05:35→21:17)
[2019-06-28 07:04] LABS: BASOPHILS % (AUTO) 0.9 % (0.0-2.0); EOSINOPHILS % (AUTO) 2.9 % (0.0-3.0); HEMATOCRIT 30.5 % (42.0-52.0); HEMOGLOBIN 9.7 G/DL (14.2-18.0); LYMPHOCYTES % (AUTO) 31.9 % (20.0-45.0); MEAN CORPUSCULAR VOLUME 95 FL (80-99); NEUTROPHILS % (AUTO) 58.3 % (45.0-75.0); PLATELET COUNT 620 K/UL (150-450); RED CELL DISTRIBUTION WIDTH 14.2 % (11.6-14.8); WHITE BLOOD COUNT 8.4 K/UL (4.8-10.8)
[2019-06-28 07:13] LABS: ALANINE AMINOTRANSFERASE 25 U/L (12-78); ALBUMIN 2.2 G/DL (3.4-5.0); ALBUMIN/GLOBULIN RATIO 0.4 (1.0-2.7); ALKALINE PHOSPHATASE 144 U/L (46-116); ANION GAP 2 mmol/L (5-15); ASPARTATE AMINO TRANSFERASE 45 U/L (15-37); BILIRUBIN,TOTAL 0.3 MG/DL (0.2-1.0); BLOOD UREA NITROGEN 19 mg/dL (7-18); CALCIUM 8.7 MG/DL (8.5-10.1); CARBON DIOXIDE 33 MMOL/L (21-32); CHLORIDE 99 MMOL/L (98-107); CREATININE 0.7 MG/DL (0.55-1.30); SODIUM 134 MMOL/L (136-145)
[2019-06-28 08:00] VITALS: BP 130/58
[2019-06-28] MEDS: Levodopa/Carbidopa 25/100 tab GT SCH (09:00)
[2019-06-28] MEDS: Fluconazole 100mg tab ORAL SCH (09:00)
[2019-06-28] MEDS: Phenytoin Susp 100mg/4ml GT SCH ×2 (09:00→21:15)
[2019-06-28] MEDS: Ciprofloxacin 500mg tab ORAL SCH ×2 (09:00→21:16)
--- NOTE | 2019-06-28 10:58 | CDS Physician Query ---
Clarification is required for compliance, coding accuracy, and to reflect severity of illness for this patient Dear Dr. Shayla Gandhi Date: 06/28/2019 Customer Liaison/CDS Name: Gabriela Salmon Clinical Documentation states: HNP: 3-year-old male admitted with altered mental status with laboratory evidence of UTI and interstitial edema. RD note: 1) Increased kcal and pro needs r/t underweight status and wound healing as evidenced by pt w/ multiple wounds, pending eval, @86% of ideal body weight w/ generalized moderate wasting. 2) Chewing/ swallowing difficulties r/t dysphagia as evidenced by pt w/ Parkinsons, now GT dep. BMI 18.5, Albumin 1.8 Please select the most appropriate option: [] Protein/Calorie Malnutrition [] Mild [] Moderate [] Severe [] Hypoalbuminemia [] Cachexia [] Underweight [] Intestinal malabsorption [] Other [] Unable to determine [] Not Applicable Present on Admission: [] Yes [] No [] Clinically Undetermined Physician signature Date Please also document in your Progress Notes and/or Discharge Summary and indicate if the condition was present on admission. MTDD
[2019-06-28 12:00] VITALS: BP 128/62
--- NOTE | 2019-06-28 12:31 | Diagnostic Imaging Report ---
Indication: Chest pain Technique: One view of the chest Comparison: 06/27/2019 Findings: There is mild interstitial congestion which appears to be new or increased since prior study. No focal airspace consolidation. No definite effusions. Normal heart size Impression: New or increased bilateral interstitial congestion, since prior study 06/27/2019
--- NOTE | 2019-06-28 13:18 | Urology Progress Note ---
Assessment/Plan Status: stable, progressing Assessment/Plan: 1. Urinary retention with chronic Parra. 2. BPH history. 3. Probable neurogenic bladder. 4. Hematuria. 5. Pyuria, probable UTI and colonization. 6. Proteinuria. 7. Renal cyst. maintain parra, last exchanged 06/26 cath secured to pt's leg hand irrigate PRN abx as ordered, per ID diflucan added flomax and proscar cysto later restraints Subjective Allergies: Coded Allergies: No Known Allergies (Verified , 02/21/07) Subjective non-verbal Objective Last 24 Hour Vital Signs Date Time Temp Pulse Resp B/P (MAP) Pulse Ox O2 Delivery O2 Flow Rate FiO2 06/28/19 12:00 98.2 65 19 128/62 (84) 99 06/28/19 09:00 Room Air 06/28/19 08:20 65 18 100 Room Air 21 06/28/19 08:00 98.0 67 18 130/58 (82) 99 06/28/19 04:00 98.4 68 23 111/55 (73) 95 06/28/19 00:17 97.2 64 21 95/60 (72) 95 06/27/19 20:12 Room Air 06/27/19 20:05 96.9 66 21 98/56 (70) 95 06/27/19 18:52 71 16 99 Room Air 21 06/27/19 16:00 98.3 76 18 139/89 (106) 96 Intake and Output 06/27/19 06/28/19 19:00 07:00 Intake Total 420 ml 1000 ml Output Total 800 ml Balance -380 ml 1000 ml Intake Free Water 120 ml 400 ml Tube Feeding 300 ml 600 ml Output Urine Total 800 ml Microbiology Date/Time Source Procedure Growth Status 06/22/19 16:15 Blood Blood Culture - Final NO GROWTH AFTER 5 DAYS Complete 06/25/19 00:00 Sputum Induced Gram Stain - Final Complete 06/25/19 00:00 Sputum Culture - Final Staphylococcus Aureus Enterobacter Aerogenes Complete 06/24/19 18:45 Indwelling Cath Urine Culture - Final Enterococcus Faecalis Mckayla Lusitaniae Complete 06/22/19 18:30 Rectum VRE Culture - Final Enterococcus Faecalis - Vre Complete Current Medications Medications (Trade) Dose Ordered Sig/Ana Route PRN Reason Start Time Stop Time Status Last Admin Dose Admin Bisacodyl (Dulcolax) 10 mg DAILY PRN RECTAL Constipation 12/3/19 22:30 07/22/19 22:29 Carbidopa/Levodopa (Sinemet 25/100) 2 tab DAILY GT 06/23/19 09:00 07/23/19 08:59 06/28/19 09:00 Ciprofloxacin (Cipro 500mg tab) 500 mg EVERY 12 HOURS ORAL 06/27/19 21:00 07/04/19 20:59 06/28/19 09:00 Diphenhydramine HCl (Benadryl) 25 mg Q6H PRN IVP Itching 06/22/19 22:30 07/22/19 22:29 Finasteride (Proscar) 5 mg DAILY ORAL 06/24/19 09:00 07/24/19 08:59 06/28/19 09:00 Fluconazole (Diflucan) 100 mg DAILY ORAL 06/25/19 09:00 07/02/19 08:59 06/28/19 09:00 Furosemide (Lasix) 20 mg DAILY GT 06/23/19 09:00 07/23/19 08:59 06/28/19 09:00 Heparin Sodium (Porcine) (Heparin 5000 units/ml) 5,000 units EVERY 8 HOURS SUBQ 06/23/19 06:00 07/23/19 05:59 06/28/19 05:35 Lansoprazole (Prevacid) 30 mg DAILY@0630 GT 06/23/19 06:30 07/23/19 06:29 06/28/19 05:34 Levetiracetam (Keppra) 500 mg EVERY 12 HOURS GT 06/23/19 09:00 07/23/19 08:59 06/28/19 09:00 Levothyroxine Sodium (Synthroid) 100 mcg DAILY@0630 GT 06/23/19 06:30 07/23/19 06:29 06/28/19 05:34 Linezolid (Zyvox) 600 mg EVERY 12 HOURS ORAL 06/27/19 21:00 07/02/19 20:59 06/28/19 09:00 Lorazepam (Ativan 2mg/ml 1ml) 0.5 mg EVERY 8 HOURS PRN IV For Anxiety 06/22/19 22:30 06/29/19 22:29 06/27/19 10:47 Ondansetron HCl (Zofran) 4 mg Q6H PRN IVP Nausea & Vomiting 06/22/19 22:30 07/22/19 22:29 Phenytoin (Dilantin) 150 mg Q12HR GT 06/24/19 15:30 07/24/19 15:29 06/28/19 09:00 Polyethylene Glycol (Miralax) 17 gm DAILY PRN GT Constipation 06/22/19 22:30 07/22/19 22:29 Quetiapine Fumarate (SEROqueL) 50 mg EVERY 4 HOURS PRN GT Agitation 06/22/19 22:30 07/22/19 22:29 06/28/19 09:57 Sennosides (Senokot) 17.2 mg QHS GT 06/23/19 21:00 07/23/19 20:59 06/27/19 20:37 Tamsulosin HCl (Flomax) 0.4 mg BEDTIME ORAL 06/23/19 21:00 07/23/19 20:59 06/27/19 20:38 Laboratory Tests 06/28/19 05:55: Sodium Level 134L, Potassium Level 5.0, Chloride Level 99, Carbon Dioxide Level 33H, Anion Gap 2L, Blood Urea Nitrogen 19H, Creatinine 0.7, Estimat Glomerular Filtration Rate , Glucose Level 101, Calcium Level 8.7, Total Bilirubin 0.3, Aspartate Amino Transf (AST/SGOT) 45H, Alanine Aminotransferase (ALT/SGPT) 25, Alkaline Phosphatase 144H, Total Protein 7.5, Albumin 2.2L, Globulin 5.3, Albumin/Globulin Ratio 0.4L 06/28/19 06:50: White Blood Count 8.4, Red Blood Count 3.20L, Hemoglobin 9.7L, Hematocrit 30.5L , Mean Corpuscular Volume 95, Mean Corpuscular Hemoglobin 30.3, Mean Corpuscular Hemoglobin Concent 31.8L, Red Cell Distribution Width 14.2, Platelet Count 620H, Mean Platelet Volume 5.0L, Neutrophils (%) (Auto) 58.3, Lymphocytes (%) (Auto) 31.9, Monocytes (%) (Auto) 6.0, Eosinophils (%) (Auto) 2.9, Basophils (%) (Auto) 0.9 Height (Feet): 5 Height (Inches): 2.00 Weight (Pounds): 101 Objective parra indwelling, yellow/marquita urine Rory Trinidad MD Jun 28, 2019 13:18
--- NOTE | 2019-06-28 13:27 | Surgery Progress Note ---
Surgery Progress Note Subjective Additional Comments stable comfortable dressings changed Objective Last 24 Hour Vital Signs Date Time Temp Pulse Resp B/P (MAP) Pulse Ox O2 Delivery O2 Flow Rate FiO2 06/28/19 12:00 98.2 65 19 128/62 (84) 99 06/28/19 09:00 Room Air 06/28/19 08:20 65 18 100 Room Air 21 06/28/19 08:00 98.0 67 18 130/58 (82) 99 06/28/19 04:00 98.4 68 23 111/55 (73) 95 06/28/19 00:17 97.2 64 21 95/60 (72) 95 06/27/19 20:12 Room Air 06/27/19 20:05 96.9 66 21 98/56 (70) 95 06/27/19 18:52 71 16 99 Room Air 21 06/27/19 16:00 98.3 76 18 139/89 (106) 96 I&O Intake and Output 06/27/19 06/28/19 19:00 07:00 Intake Total 420 ml 1000 ml Output Total 800 ml Balance -380 ml 1000 ml Intake Free Water 120 ml 400 ml Tube Feeding 300 ml 600 ml Output Urine Total 800 ml Dressing: saturated Wound: clean Cardiovascular: RSR Respiratory: clear Abdomen: soft, non-tender, present bowel sounds Extremities: no cyanosis, other Laboratory Tests Test 06/28/19 05:55 06/28/19 06:50 Sodium Level 134 MMOL/L (136-145) L Potassium Level 5.0 MMOL/L (3.5-5.1) Chloride Level 99 MMOL/L (98-107) Carbon Dioxide Level 33 MMOL/L (21-32) H Anion Gap 2 mmol/L (5-15) L Blood Urea Nitrogen 19 mg/dL (7-18) H Creatinine 0.7 MG/DL (0.55-1.30) Estimat Glomerular Filtration Rate mL/min (>60) Glucose Level 101 MG/DL (74-106) Calcium Level 8.7 MG/DL (8.5-10.1) Total Bilirubin 0.3 MG/DL (0.2-1.0) Aspartate Amino Transf (AST/SGOT) 45 U/L (15-37) H Alanine Aminotransferase (ALT/SGPT) 25 U/L (12-78) Alkaline Phosphatase 144 U/L (46-116) H Total Protein 7.5 G/DL (6.4-8.2) Albumin 2.2 G/DL (3.4-5.0) L Globulin 5.3 g/dL Albumin/Globulin Ratio 0.4 (1.0-2.7) L White Blood Count 8.4 K/UL (4.8-10.8) Red Blood Count 3.20 M/UL (4.70-6.10) L Hemoglobin 9.7 G/DL (14.2-18.0) L Hematocrit 30.5 % (42.0-52.0) L Mean Corpuscular Volume 95 FL (80-99) Mean Corpuscular Hemoglobin 30.3 PG (27.0-31.0) Mean Corpuscular Hemoglobin Concent 31.8 G/DL (32.0-36.0) L Red Cell Distribution Width 14.2 % (11.6-14.8) Platelet Count 620 K/UL (150-450) H Mean Platelet Volume 5.0 FL (6.5-10.1) L Neutrophils (%) (Auto) 58.3 % (45.0-75.0) Lymphocytes (%) (Auto) 31.9 % (20.0-45.0) Monocytes (%) (Auto) 6.0 % (1.0-10.0) Eosinophils (%) (Auto) 2.9 % (0.0-3.0) Basophils (%) (Auto) 0.9 % (0.0-2.0) Plan Problems: (1) Decubitus skin ulcer Assessment & Plan: Pt presented on admission with multiple pressure injuries. Unstageable pressure injury L deltoid(L)0.8cm x (W)1xcm. Necrotic cap with marginal slough. Erythema noted periwound. Non-blanching erythema scrotum with scattered partial thickness wounds(L)1.5cm x (W)1.7cm. Wounds are moist and viable. Non-blanchable erythema without fluctuance noted to sacrum, R and L ischium. Reabsorbing serous blister noted to medial R heel. Periwound R heel is boggy with non-blanching erythema extending into plantar aspect of heel.(L)2.5cm x (W) 3cm. Serous blister with dark center noted to L heel. Periwound L heel is boggy with non-blanching erythema.(L)5cm x (W)6.5cm. Pt is at risks for further skin breakdown to restlessness. As prevention Cavilon Skin Barrier applied to both shoulders Tx.Plan: Apply Betadine to wound L deltoid. Cover with Optifoam drsg. Change every 3 days and prn. Apply Moisture Barrier Paste to Sacrum , R and L ischium. Cover each site with Optifoam drsg. Change every 3 days and prn. Apply Moisture Barrier Paste to Scrotum. Cover with Optifoam drsg. Change every 3 days and prn. Apply Betadine to R and L heel. Cover each heel with Optifoam drsgs. Change every 7 days and prn. Reposition at least every 2hours or as tolerated. Off-load heels with Pillow. Apply Cavilon To bony prominences. Cover with Optifoam drsgs prn. Nutritional optimization as below We will follow with recommendations thank you for let me participate patient's care DAILY ESTIMATED NEEDS: Needs based on Underweight, wounds 45.9kg 30-35 kcals/kg 6071-3870 total kcals 1.25-1.5 g protein/kg 57-69 g total protein Fluid per MD, on lasix NUTRITION DIAGNOSIS: 1) Increased kcal and pro needs r/t underweight status and wound healing as evidenced by pt w/ multiple wounds, pending eval, @86% of ideal body weight w/ generalized moderate wasting. 2) Chewing/ swallowing difficulties r/t dysphagia as evidenced by pt w/ Parkinsons, now GT dep. ENTERAL NUTRITION RECOMMENDATIONS: Maintain Osmolite 1.2 @60ml/hr x20 hrs to provide 1200ml, 1440 kcal, 67g pro, 984ml free H2O - Maintain current TF rate as tolerated - HOLD TF: 1 hr before and after both synthroid and dilantin meds - flush per MD/ HOB over 30 degrees ADDITIONAL RECOMMENDATIONS: 1) RE-calibrate bed scale for accurate CBW 2) F/up w/ WC: add MARISELA in 4oz water BID via GT 3) Monitor BG- need for TF change or ssi 4) Check lytes and hydration status daily on TF; pt on lasix (2) Protein-calorie malnutrition, severe Assessment & Plan: DAILY ESTIMATED NEEDS: Needs based on Underweight, wounds 45.9kg 30-35 kcals/kg 5548-1638 total kcals 1.25-1.5 g protein/kg 57-69 g total protein Fluid per MD, on lasix NUTRITION DIAGNOSIS: 1) Increased kcal and pro needs r/t underweight status and wound healing as evidenced by pt w/ multiple wounds, refer to WC eval, @86% of ideal body weight w/ generalized moderate wasting. 2) Chewing/ swallowing difficulties r/t dysphagia as evidenced by pt w/ Parkinsons, now GT dep. CURRENT TF:Osmolite 1.2 @60 x18 hrs ENTERAL NUTRITION RECOMMENDATIONS: INCREASE Osmolite 1.2 @65ml/hr x18 hrs to provide 1170ml, 1404 kcal, 65g pro, 959ml free H2O - WITH DILANTIN NOW INCREASED TO BID + SYNTHROID MEDS, TF NOW HELD FOR 6 HRS PER DAY. ---> REC TO INCREASE RATE TO 65 ML/HR X18 HRS TO MEET EST PRO AND KCAL NEEDS. - HOLD TF: 1 hr before and after both synthroid and dilantin meds - flush per MD/ HOB over 30 degrees ADDITIONAL RECOMMENDATIONS: 1) RE-calibrate bed scale for accurate CBW 2) WOUND CARE add MARISELA in 4oz water BID via GT + Vit C 250mg BID via GT 3) Monitor BG- need for TF change or ssi-> good glycemic control 4) Check lytes and hydration status daily on TF; pt on lasix Stu Teran Jun 28, 2019 13:27
[2019-06-28 16:00] VITALS: BP 135/65
[2019-06-28] MEDS ORDERED: Vancomycin 750mg/NS 275ml IVPB SCH ×4 (16:00→20:00)
[2019-06-28] MEDS: Ascorbic Acid 500mg tab GT SCH (17:15)
--- NOTE | 2019-06-28 18:43 | Infectious Diseases Prog Note ---
Assessment/Plan Assessment/Plan ASSESSMENT AND PLAN: 1. enterococcus uti/mckayla uti, mssa pna/enterobacter pna leukocytosis, ams, weakness - change abx to augmentin, cipro and diflucan x 5 days more - f/u on labs and chest x-ray as indicated - stable ID standpoint - d/w Dr. Gandhi about abx - d/w RN - d/w pharmacy about abx dosing - clinically improved, leukocytosis resolved 2. urine culture with yeast likely colonizer -discontinue diflcuan 3. The patient has a history of dysphagia and G-tube. 4. The patient has weakness and altered mental status. 5. History of aspiration pneumonia. 6. Developmental delay. 7. Seizure disorder. 8. Parkinson's. 9. History of multiple wounds - care per surgery and protocol 10. Skin care per protocol and Surgery. 11. Hypothyroidism. 12. Gastroesophageal reflux disease. 13. Hypertension. 14. Hyperlipidemia. 15. BPH. 16. Tran's esophagus. 17. Anemia. 18. Osteoporosis. 19. Continue treatment per primary consultants. 20. Past medical history is noted. 21. No known allergies. 22. Social history is negative. 23. Family histoyr is noncontributory. 24. Case was discussed with RN. 25. Orders were noted and entered. 26. MAR was noted. 27. vre colonization and isolation 28 please see multiple orders 29. total time spent - 35 minutes Subjective Constitutional: Denies: fever HEENT: Denies: congestion Respiratory: Denies: shortness of breath Cardiovascular: Denies: chest pain Gastrointestinal/Abdominal: Denies: nausea, vomiting, diarrhea Genitourinary: Reports: other - + parra Neurologic: Reports: confusion Psychiatric: Reports: other - NA Skin: Denies: rash Hematologic: Denies: bleeding Musculoskeletal: Denies: pain Allergies: Coded Allergies: No Known Allergies (Verified , 02/21/07) Objective Vital Signs Last 24 Hour Vital Signs Date Time Temp Pulse Resp B/P (MAP) Pulse Ox O2 Delivery O2 Flow Rate FiO2 06/28/19 16:00 98.4 68 18 135/65 (88) 98 06/28/19 12:00 98.2 65 19 128/62 (84) 99 06/28/19 09:00 Room Air 06/28/19 08:20 65 18 100 Room Air 21 06/28/19 08:00 98.0 67 18 130/58 (82) 99 06/28/19 04:00 98.4 68 23 111/55 (73) 95 06/28/19 00:17 97.2 64 21 95/60 (72) 95 06/27/19 20:12 Room Air 06/27/19 20:05 96.9 66 21 98/56 (70) 95 06/27/19 18:52 71 16 99 Room Air 21 Height (Feet): 5 Height (Inches): 2.00 Weight (Pounds): 101 General Appearance: no acute distress, other - confused, agitated HEENT: normocephalic, atraumatic, anicteric Respiratory/Chest: lungs clear, normal breath sounds, no respiratory distress Cardiovascular: normal rate, regular rhythm, no gallop/murmur, no JVD Abdomen: normal bowel sounds, soft, non tender, no organomegaly, non distended Genitourinary: other - + parra - urine slt cloudy Extremities: no cyanosis Skin: no rash Neurologic/Psychiatric: alert, responsive Lymphatic: no neck adenopathy Musculoskeletal: no effusion Objective Chest x-ray - 06/26/19 - Procedure: XRAY Chest 1v Indication: Chest Technique: One view of the chest Comparison: 06/22/2019 Findings: Linear opacities in the right upper lobe appear more extensive than on the previous study, likely reflect developing infiltrate. There is suggestion of some improvement of infiltrate in the right mid and lower lung. Generalized prominent interstitial markings and bronchial wall thickening are seen on the left, probably unchanged allowing for differences in rotation Impression: Shifting parenchymal disease, with suggestion of increased infiltrate in the right upper lobe, improved infiltrate in the right lower lobe. Finding of the left lung are probably unchanged. Chest x-ray - 06/28/19 - Procedure: XRAY Chest 1v Indication: Chest pain Technique: One view of the chest Comparison: 06/27/2019 Findings: There is mild interstitial congestion which appears to be new or increased since prior study. No focal airspace consolidation. No definite effusions. Normal heart size Impression: New or increased bilateral interstitial congestion, since prior study 06/27/2019 Microbiology Date/Time Source Procedure Growth Status 06/22/19 16:15 Blood Blood Culture - Final NO GROWTH AFTER 5 DAYS Complete 06/25/19 00:00 Sputum Induced Gram Stain - Final Complete 06/25/19 00:00 Sputum Culture - Final Staphylococcus Aureus Enterobacter Aerogenes Complete 06/24/19 18:45 Indwelling Cath Urine Culture - Final Enterococcus Faecalis Mckayla Lusitaniae Complete 06/22/19 18:30 Rectum VRE Culture - Final Enterococcus Faecalis - Vre Complete Microbiology Date/Time Source Procedure Growth Status 06/22/19 16:15 Blood Blood Culture - Final NO GROWTH AFTER 5 DAYS Complete 06/25/19 00:00 Sputum Induced Gram Stain - Final Complete 06/25/19 00:00 Sputum Culture - Final Staphylococcus Aureus Enterobacter Aerogenes Complete 06/24/19 18:45 Indwelling Cath Urine Culture - Final Enterococcus Faecalis Mckayla Lusitaniae Complete 06/22/19 18:30 Rectum VRE Culture - Final Enterococcus Faecalis - Vre Complete Laboratory Tests Test 06/28/19 05:55 06/28/19 06:50 Sodium Level 134 MMOL/L (136-145) L Potassium Level 5.0 MMOL/L (3.5-5.1) Chloride Level 99 MMOL/L (98-107) Carbon Dioxide Level 33 MMOL/L (21-32) H Anion Gap 2 mmol/L (5-15) L Blood Urea Nitrogen 19 mg/dL (7-18) H Creatinine 0.7 MG/DL (0.55-1.30) Estimat Glomerular Filtration Rate mL/min (>60) Glucose Level 101 MG/DL (74-106) Calcium Level 8.7 MG/DL (8.5-10.1) Total Bilirubin 0.3 MG/DL (0.2-1.0) Aspartate Amino Transf (AST/SGOT) 45 U/L (15-37) H Alanine Aminotransferase (ALT/SGPT) 25 U/L (12-78) Alkaline Phosphatase 144 U/L (46-116) H Total Protein 7.5 G/DL (6.4-8.2) Albumin 2.2 G/DL (3.4-5.0) L Globulin 5.3 g/dL Albumin/Globulin Ratio 0.4 (1.0-2.7) L White Blood Count 8.4 K/UL (4.8-10.8) Red Blood Count 3.20 M/UL (4.70-6.10) L Hemoglobin 9.7 G/DL (14.2-18.0) L Hematocrit 30.5 % (42.0-52.0) L Mean Corpuscular Volume 95 FL (80-99) Mean Corpuscular Hemoglobin 30.3 PG (27.0-31.0) Mean Corpuscular Hemoglobin Concent 31.8 G/DL (32.0-36.0) L Red Cell Distribution Width 14.2 % (11.6-14.8) Platelet Count 620 K/UL (150-450) H Mean Platelet Volume 5.0 FL (6.5-10.1) L Neutrophils (%) (Auto) 58.3 % (45.0-75.0) Lymphocytes (%) (Auto) 31.9 % (20.0-45.0) Monocytes (%) (Auto) 6.0 % (1.0-10.0) Eosinophils (%) (Auto) 2.9 % (0.0-3.0) Basophils (%) (Auto) 0.9 % (0.0-2.0) Current Medications Medications (Trade) Dose Ordered Sig/Ana Route PRN Reason Start Time Stop Time Status Last Admin Dose Admin Ascorbic Acid (Vitamin C) 250 mg TWICE A DAY GT 06/28/19 18:00 07/28/19 17:59 06/28/19 17:15 Bisacodyl (Dulcolax) 10 mg DAILY PRN RECTAL Constipation 06/22/19 22:30 07/22/19 22:29 Carbidopa/Levodopa (Sinemet 25/100) 2 tab DAILY GT 06/23/19 09:00 07/23/19 08:59 06/28/19 09:00 Ciprofloxacin (Cipro 500mg tab) 500 mg EVERY 12 HOURS ORAL 06/27/19 21:00 07/04/19 20:59 06/28/19 09:00 Diphenhydramine HCl (Benadryl) 25 mg Q6H PRN IVP Itching 06/22/19 22:30 07/22/19 22:29 Finasteride (Proscar) 5 mg DAILY ORAL 06/24/19 09:00 07/24/19 08:59 06/28/19 09:00 Fluconazole (Diflucan) 100 mg DAILY ORAL 06/25/19 09:00 07/02/19 08:59 06/28/19 09:00 Furosemide (Lasix) 20 mg DAILY GT 06/23/19 09:00 07/23/19 08:59 06/28/19 09:00 Heparin Sodium (Porcine) (Heparin 5000 units/ml) 5,000 units EVERY 8 HOURS SUBQ 06/23/19 06:00 07/23/19 05:59 06/28/19 14:00 Lansoprazole (Prevacid) 30 mg DAILY@0630 GT 06/23/19 06:30 07/23/19 06:29 06/28/19 05:34 Levetiracetam (Keppra) 500 mg EVERY 12 HOURS GT 06/23/19 09:00 07/23/19 08:59 06/28/19 09:00 Levothyroxine Sodium (Synthroid) 100 mcg DAILY@0630 GT 06/23/19 06:30 07/23/19 06:29 06/28/19 05:34 Linezolid (Zyvox) 600 mg EVERY 12 HOURS ORAL 06/27/19 21:00 07/02/19 20:59 06/28/19 09:00 Lorazepam (Ativan 2mg/ml 1ml) 0.5 mg EVERY 8 HOURS PRN IV For Anxiety 06/22/19 22:30 06/29/19 22:29 06/27/19 10:47 Ondansetron HCl (Zofran) 4 mg Q6H PRN IVP Nausea & Vomiting 06/22/19 22:30 07/22/19 22:29 Phenytoin (Dilantin) 150 mg Q12HR GT 06/24/19 15:30 07/24/19 15:29 06/28/19 09:00 Polyethylene Glycol (Miralax) 17 gm DAILY PRN GT Constipation 06/22/19 22:30 07/22/19 22:29 Quetiapine Fumarate (SEROqueL) 50 mg EVERY 4 HOURS PRN GT Agitation 06/22/19 22:30 07/22/19 22:29 06/28/19 15:23 Sennosides (Senokot) 17.2 mg QHS GT 06/23/19 21:00 07/23/19 20:59 06/27/19 20:37 Tamsulosin HCl (Flomax) 0.4 mg BEDTIME ORAL 06/23/19 21:00 07/23/19 20:59 06/27/19 20:38 Michaela Christine MD Jun 28, 2019 18:43
[2019-06-28 20:00] VITALS: BP 112/51
--- NOTE | 2019-06-28 20:38 | General Progress Note ---
Assessment/Plan Status: doing well, stable, progressing Assessment/Plan: IMPRESSION: This is an 83-year-old male admitted with altered mental status with laboratory evidence of UTI and interstitial edema. We will admit the patient to med/surg floor with the following medical problems. 1. Altered mental status, probably secondary to infectious etiology. We will monitor neuro exam closely and treat infection accordingly. 2. UTI. enterococas We will place the patient on ceftriaxone 1 g IV daily. ID consult. Urinalysis and urine culture are pending. Blood cultures pending. We will change Parra and continue changing Parra in 2 weeks in the senior care. 3. Interstitial edema, questionable CHF. The patient does not seem to be symptomatic though we will get echocardiogram and maintain on oxygen. Consider diuresis if the patient has similar symptoms. 4. History of failure to thrive and dysphagia. The patient is on G-tube feeds. I will get Dr. Kelley of GI to evaluate the patient. Continue with Osmolite 1.2 50 mL/hour. Dietitian consult in the a.m. Discussed with the nurse to check residuals and hold tube feeds for 100 mL residual. We will give free water flushes 200 mL q.6 hours. 5. Parkinson disease. Continue with Sinemet. 6. History of seizure disorder. Continue with Keppra 500 b.i.d. via G-tube and Dilantin 300 nightly. 7. History of developmental delay and mental retardation. Continue with supportive care. We will give Ativan p.r.n. for agitation as well as Seroquel. Consider Psychiatry consult if the patient is more agitated. 8. Anemia. We will check occult blood. Also for anemia of chronic disease, we will check iron indices and ferritin. 9. Thrombocytosis. We will repeat CBC in the a.m. Consider Hematology consult. 10. DVT prophylaxis. We will place the patient on heparin subcutaneous 5000 q.8 h. 11. gross hematuria PLan: - DC IV Zosyn - ID consult appreciated - fu cultures - urology eval for urinary retention appreciated ,parra catheter replaced - continue tube feeding per gi - am labs - vTE prophylaxis - supportive care - Soft wrist restraints prn - surgery consult for wound care - zinc and mvi - wrist restraints for agitation, pulling out parra - change to po antibiotics today for 5 additional days - interstitial lung changes appear to be chronic as patient is asymptomatic form pulmonary stand point At this time, the patient is Full Code. dc planning ot CV [place] in am D/W nurse Subjective Date patient seen: Jun 28, 2019 ROS Limited/Unobtainable: Yes Allergies: Coded Allergies: No Known Allergies (Verified , 02/21/07) Subjective pulled parra catheter out, new catheter was placed as patient had high post void residual, now with gross hematuria Objective Last 24 Hour Vital Signs Date Time Temp Pulse Resp B/P (MAP) Pulse Ox O2 Delivery O2 Flow Rate FiO2 06/28/19 16:00 98.4 68 18 135/65 (88) 98 06/28/19 12:00 98.2 65 19 128/62 (84) 99 06/28/19 09:00 Room Air 06/28/19 08:20 65 18 100 Room Air 21 06/28/19 08:00 98.0 67 18 130/58 (82) 99 06/28/19 04:00 98.4 68 23 111/55 (73) 95 06/28/19 00:17 97.2 64 21 95/60 (72) 95 Intake and Output 06/27/19 06/28/19 19:00 07:00 Intake Total 420 ml 1060 ml Output Total 800 ml Balance -380 ml 1060 ml Intake Free Water 120 ml 400 ml Tube Feeding 300 ml 660 ml Output Urine Total 800 ml Laboratory Tests 06/28/19 05:55: Sodium Level 134L, Potassium Level 5.0, Chloride Level 99, Carbon Dioxide Level 33H, Anion Gap 2L, Blood Urea Nitrogen 19H, Creatinine 0.7, Estimat Glomerular Filtration Rate , Glucose Level 101, Calcium Level 8.7, Total Bilirubin 0.3, Aspartate Amino Transf (AST/SGOT) 45H, Alanine Aminotransferase (ALT/SGPT) 25, Alkaline Phosphatase 144H, Total Protein 7.5, Albumin 2.2L, Globulin 5.3, Albumin/Globulin Ratio 0.4L 06/28/19 06:50: White Blood Count 8.4, Red Blood Count 3.20L, Hemoglobin 9.7L, Hematocrit 30.5L , Mean Corpuscular Volume 95, Mean Corpuscular Hemoglobin 30.3, Mean Corpuscular Hemoglobin Concent 31.8L, Red Cell Distribution Width 14.2, Platelet Count 620H, Mean Platelet Volume 5.0L, Neutrophils (%) (Auto) 58.3, Lymphocytes (%) (Auto) 31.9, Monocytes (%) (Auto) 6.0, Eosinophils (%) (Auto) 2.9, Basophils (%) (Auto) 0.9 Height (Feet): 5 Height (Inches): 2.00 Weight (Pounds): 101 General Appearance: WD/WN EENT: PERRL/EOMI Neck: non-tender Cardiovascular: normal peripheral pulses Respiratory/Chest: chest wall non-tender, normal breath sounds, no respiratory distress Abdomen: non tender, soft, no mass Extremities: non-tender, normal inspection, no calf tenderness Edema: no edema noted Arm (L), no edema noted Arm (R), no edema noted Leg (L), no edema noted Leg (R), no edema noted Pedal (L), no edema noted Pedal (R), no edema noted Generalized Neurologic: alert Skin: warm/dry Lymphatic: normal anterior cervical (L), normal anterior cervical (R), normal posterior cervical (L), normal posterior cervical (R), normal submandibular (L) , normal submandibular (R), normal supraclavicular (L), normal supraclavicular ( R), normal axillary (L), normal axillary (R), normal inguinal (L), normal inguinal (R), normal other JERRY OKEEFE Jun 28, 2019 20:38
[2019-06-28] MEDS: Sennosides 8.6mg tab GT SCH (21:00)
[2019-06-28] MEDS: Augmentin 875mg Tab ORAL SCH (21:16)
[2019-06-28] MEDS: Tamsulosin 0.4mg cap ORAL SCH (21:16)
[2019-06-29] VITALS: BP 112/51
--- NOTE | 2019-06-29 01:55 | General Progress Note ---
Assessment/Plan Status: doing well, stable, progressing Assessment/Plan: Assessment - developmental delay - GT dependent - s/p GT change - UTI - GERD / Tran's - Constipation - resolved - hypothyroidism - BPH - hyperlipidemia - parkinsons - seizure disorder Recommendations - Continue GT feeds - Elevate HOB - abx - bowel regimen - PPI - follow labs and exam Subjective Allergies: Coded Allergies: No Known Allergies (Verified , 02/21/07) Subjective above noted more calm this am tolerating TF (delayed entry note - patient seen 06/28/19) Objective Last 24 Hour Vital Signs Date Time Temp Pulse Resp B/P (MAP) Pulse Ox O2 Delivery O2 Flow Rate FiO2 06/29/19 00:00 97.4 66 19 112/51 (71) 98 06/28/19 22:10 Room Air 06/28/19 20:00 97.4 66 19 112/51 (71) 98 06/28/19 16:00 98.4 68 18 135/65 (88) 98 06/28/19 12:00 98.2 65 19 128/62 (84) 99 06/28/19 09:00 Room Air 06/28/19 08:20 65 18 100 Room Air 21 06/28/19 08:00 98.0 67 18 130/58 (82) 99 06/28/19 04:00 98.4 68 23 111/55 (73) 95 Intake and Output 06/28/19 06/29/19 19:00 07:00 Intake Total 780 ml 400 ml Output Total 500 ml Balance 280 ml 400 ml Intake Free Water 100 ml Tube Feeding 780 ml 300 ml Output Urine Total 500 ml Laboratory Tests 06/28/19 05:55: Sodium Level 134L, Potassium Level 5.0, Chloride Level 99, Carbon Dioxide Level 33H, Anion Gap 2L, Blood Urea Nitrogen 19H, Creatinine 0.7, Estimat Glomerular Filtration Rate , Glucose Level 101, Calcium Level 8.7, Total Bilirubin 0.3, Aspartate Amino Transf (AST/SGOT) 45H, Alanine Aminotransferase (ALT/SGPT) 25, Alkaline Phosphatase 144H, Total Protein 7.5, Albumin 2.2L, Globulin 5.3, Albumin/Globulin Ratio 0.4L 06/28/19 06:50: White Blood Count 8.4, Red Blood Count 3.20L, Hemoglobin 9.7L, Hematocrit 30.5L , Mean Corpuscular Volume 95, Mean Corpuscular Hemoglobin 30.3, Mean Corpuscular Hemoglobin Concent 31.8L, Red Cell Distribution Width 14.2, Platelet Count 620H, Mean Platelet Volume 5.0L, Neutrophils (%) (Auto) 58.3, Lymphocytes (%) (Auto) 31.9, Monocytes (%) (Auto) 6.0, Eosinophils (%) (Auto) 2.9, Basophils (%) (Auto) 0.9 Height (Feet): 5 Height (Inches): 2.00 Weight (Pounds): 101 Objective Elderly WM NCAT supple CTA RR abd soft (+) GT no edema OBS Eduardo Kelley MD Jun 29, 2019 01:55
[2019-06-29 04:00] VITALS: BP 107/58
[2019-06-29] MEDS: Heparin 5000 units/ml inj SUBQ SCH ×2 (06:02→14:38)
[2019-06-29 06:33] LABS: BASOPHILS % (AUTO) 0.8 % (0.0-2.0); EOSINOPHILS % (AUTO) 2.4 % (0.0-3.0); HEMOGLOBIN 8.8 G/DL (14.2-18.0); LYMPHOCYTES % (AUTO) 24.1 % (20.0-45.0); MEAN CORPUSCULAR VOLUME 95 FL (80-99); MONOCYTES % (AUTO) 4.3 % (1.0-10.0); NEUTROPHILS % (AUTO) 68.3 % (45.0-75.0); PLATELET COUNT 565 K/UL (150-450); RED BLOOD COUNT 2.95 M/UL (4.70-6.10); RED CELL DISTRIBUTION WIDTH 14.4 % (11.6-14.8); WHITE BLOOD COUNT 7.3 K/UL (4.8-10.8)
[2019-06-29 07:01] LABS: ALANINE AMINOTRANSFERASE 18 U/L (12-78); ALBUMIN 2.1 G/DL (3.4-5.0); ALBUMIN/GLOBULIN RATIO 0.5 (1.0-2.7); ALKALINE PHOSPHATASE 128 U/L (46-116); ANION GAP 0 mmol/L (5-15); ASPARTATE AMINO TRANSFERASE 23 U/L (15-37); BILIRUBIN,TOTAL 0.1 MG/DL (0.2-1.0); BLOOD UREA NITROGEN 19 mg/dL (7-18); CALCIUM 8.5 MG/DL (8.5-10.1); CARBON DIOXIDE 34 MMOL/L (21-32); CHLORIDE 99 MMOL/L (98-107); CREATININE 0.7 MG/DL (0.55-1.30); POTASSIUM 4.3 MMOL/L (3.5-5.1); SODIUM 133 MMOL/L (136-145)
[2019-06-29 08:00] VITALS: BP 108/54
[2019-06-29] MEDS: Phenytoin Susp 100mg/4ml GT SCH (09:15)
[2019-06-29] MEDS: Ascorbic Acid 500mg tab GT SCH ×2 (09:15→18:11)
[2019-06-29] MEDS: Augmentin 875mg Tab ORAL SCH (09:15)
[2019-06-29] MEDS: Ciprofloxacin 500mg tab ORAL SCH (09:16)
[2019-06-29] MEDS: Fluconazole 100mg tab ORAL SCH (09:16)
[2019-06-29] MEDS: Levodopa/Carbidopa 25/100 tab GT SCH (09:16)
--- NOTE | 2019-06-29 09:45 | Urology Progress Note ---
Assessment/Plan Status: doing well, stable, progressing Assessment/Plan: 1. Urinary retention with chronic Parra. 2. BPH history. 3. Probable neurogenic bladder. 4. Hematuria. 5. Pyuria, probable UTI and colonization. 6. Proteinuria. 7. Renal cyst. maintain parra, last exchanged 06/26 cath secured to pt's leg hand irrigate PRN abx as ordered, per ID diflucan added flomax and proscar cysto later restraints PRN consider voiding trial Subjective Allergies: Coded Allergies: No Known Allergies (Verified , 02/21/07) Subjective non-verbal Objective Last 24 Hour Vital Signs Date Time Temp Pulse Resp B/P (MAP) Pulse Ox O2 Delivery O2 Flow Rate FiO2 06/29/19 04:00 97.3 68 19 107/58 (74) 93 06/29/19 00:00 97.4 66 19 112/51 (71) 98 06/28/19 22:10 Room Air 06/28/19 20:00 97.4 66 19 112/51 (71) 98 06/28/19 16:00 98.4 68 18 135/65 (88) 98 06/28/19 12:00 98.2 65 19 128/62 (84) 99 Intake and Output 06/28/19 06/29/19 18:59 06:59 Intake Total 840 ml 960 ml Output Total 500 ml Balance 340 ml 960 ml Intake Free Water 300 ml Tube Feeding 840 ml 660 ml Output Urine Total 500 ml Microbiology Date/Time Source Procedure Growth Status 06/22/19 16:15 Blood Blood Culture - Final NO GROWTH AFTER 5 DAYS Complete 06/25/19 00:00 Sputum Induced Gram Stain - Final Complete 06/25/19 00:00 Sputum Culture - Final Staphylococcus Aureus Enterobacter Aerogenes Complete 06/24/19 18:45 Indwelling Cath Urine Culture - Final Enterococcus Faecalis Mckayla Lusitaniae Complete 06/22/19 18:30 Rectum VRE Culture - Final Enterococcus Faecalis - Vre Complete Current Medications Medications (Trade) Dose Ordered Sig/Ana Route PRN Reason Start Time Stop Time Status Last Admin Dose Admin Amoxicillin/ Clavulanate Potassium (Augmentin) 875 mg EVERY 12 HOURS ORAL 06/28/19 21:00 07/05/19 20:59 06/29/19 09:15 Ascorbic Acid (Vitamin C) 250 mg TWICE A DAY GT 06/28/19 18:00 07/28/19 17:59 06/29/19 09:15 Bisacodyl (Dulcolax) 10 mg DAILY PRN RECTAL Constipation 06/22/19 22:30 07/22/19 22:29 Carbidopa/Levodopa (Sinemet 25/100) 2 tab DAILY GT 06/23/19 09:00 07/23/19 08:59 06/29/19 09:16 Ciprofloxacin (Cipro 500mg tab) 500 mg EVERY 12 HOURS ORAL 06/27/19 21:00 07/04/19 20:59 06/29/19 09:16 Diphenhydramine HCl (Benadryl) 25 mg Q6H PRN IVP Itching 06/22/19 22:30 07/22/19 22:29 Finasteride (Proscar) 5 mg DAILY ORAL 06/24/19 09:00 07/24/19 08:59 06/29/19 09:16 Fluconazole (Diflucan) 100 mg DAILY ORAL 06/25/19 09:00 07/02/19 08:59 06/29/19 09:16 Furosemide (Lasix) 20 mg DAILY GT 06/23/19 09:00 07/23/19 08:59 06/28/19 09:00 Heparin Sodium (Porcine) (Heparin 5000 units/ml) 5,000 units EVERY 8 HOURS SUBQ 06/23/19 06:00 07/23/19 05:59 06/29/19 06:02 Lansoprazole (Prevacid) 30 mg DAILY@0630 GT 06/23/19 06:30 07/23/19 06:29 06/29/19 06:00 Levetiracetam (Keppra) 500 mg EVERY 12 HOURS GT 06/23/19 09:00 07/23/19 08:59 06/29/19 09:15 Levothyroxine Sodium (Synthroid) 100 mcg DAILY@0630 GT 06/23/19 06:30 07/23/19 06:29 06/29/19 06:00 Lorazepam (Ativan 2mg/ml 1ml) 0.5 mg EVERY 8 HOURS PRN IV For Anxiety 06/22/19 22:30 06/29/19 22:29 06/27/19 10:47 Ondansetron HCl (Zofran) 4 mg Q6H PRN IVP Nausea & Vomiting 06/22/19 22:30 07/22/19 22:29 Phenytoin (Dilantin) 150 mg Q12HR GT 06/24/19 15:30 07/24/19 15:29 06/29/19 09:15 Polyethylene Glycol (Miralax) 17 gm DAILY PRN GT Constipation 06/22/19 22:30 07/22/19 22:29 Quetiapine Fumarate (SEROqueL) 50 mg EVERY 4 HOURS PRN GT Agitation 06/22/19 22:30 07/22/19 22:29 06/29/19 04:12 Sennosides (Senokot) 17.2 mg QHS GT 06/23/19 21:00 07/23/19 20:59 06/27/19 20:37 Tamsulosin HCl (Flomax) 0.4 mg BEDTIME ORAL 06/23/19 21:00 07/23/19 20:59 06/28/19 21:16 Laboratory Tests 06/29/19 05:25: White Blood Count 7.3, Red Blood Count 2.95L, Hemoglobin 8.8L, Hematocrit 28.0L , Mean Corpuscular Volume 95, Mean Corpuscular Hemoglobin 29.8, Mean Corpuscular Hemoglobin Concent 31.4L, Red Cell Distribution Width 14.4, Platelet Count 565H, Mean Platelet Volume 5.6L, Neutrophils (%) (Auto) 68.3, Lymphocytes (%) (Auto) 24.1, Monocytes (%) (Auto) 4.3, Eosinophils (%) (Auto) 2.4, Basophils (%) (Auto) 0.8, Sodium Level 133L, Potassium Level 4.3, Chloride Level 99, Carbon Dioxide Level 34H, Anion Gap 0L, Blood Urea Nitrogen 19H, Creatinine 0.7, Estimat Glomerular Filtration Rate , Glucose Level 142H, Calcium Level 8.5, Total Bilirubin 0.1L, Aspartate Amino Transf (AST/SGOT) 23, Alanine Aminotransferase (ALT/SGPT) 18, Alkaline Phosphatase 128H, Total Protein 6.6, Albumin 2.1L, Globulin 4.5, Albumin/Globulin Ratio 0.5L Height (Feet): 5 Height (Inches): 2.00 Weight (Pounds): 101 Objective parra indwelling, yellow/marquita urine Bamshad,Rory Gonzalez MD Jun 29, 2019 09:45
[2019-06-29 12:05] VITALS: BP 139/79
[2019-06-29] MEDS ORDERED: AUGMENTIN 875-1 EAC1 ORAL (13:11)
[2019-06-29] MEDS ORDERED: CIPRO500 MG/51 PO (13:12)
[2019-06-29] MEDS ORDERED: FLUCONAZOLE100 MG ORAL (13:13)
[2019-06-29 16:00] VITALS: BP 106/51
--- NOTE | 2019-06-29 16:08 | General Progress Note ---
Assessment/Plan Status: doing well, stable, progressing Assessment/Plan: Assessment - developmental delay - GT dependent - s/p GT change - UTI - GERD / Tran's - Constipation - resolved - hypothyroidism - BPH - hyperlipidemia - parkinsons - seizure disorder Recommendations - Continue GT feeds - Elevate HOB - abx - bowel regimen - PPI - follow labs and exam Subjective Allergies: Coded Allergies: No Known Allergies (Verified , 02/21/07) Subjective above noted more calm this am tolerating TF Objective Last 24 Hour Vital Signs Date Time Temp Pulse Resp B/P (MAP) Pulse Ox O2 Delivery O2 Flow Rate FiO2 06/29/19 12:05 97.7 89 20 139/79 (99) 97 06/29/19 09:00 Room Air 06/29/19 08:00 96.1 68 19 108/54 (72) 98 06/29/19 04:00 97.3 68 19 107/58 (74) 93 06/29/19 00:00 97.4 66 19 112/51 (71) 98 06/28/19 22:10 Room Air 06/28/19 20:00 97.4 66 19 112/51 (71) 98 Intake and Output 06/28/19 06/29/19 19:00 07:00 Intake Total 780 ml 1020 ml Output Total 500 ml Balance 280 ml 1020 ml Intake Free Water 300 ml Tube Feeding 780 ml 720 ml Output Urine Total 500 ml Laboratory Tests 06/29/19 05:25: White Blood Count 7.3, Red Blood Count 2.95L, Hemoglobin 8.8L, Hematocrit 28.0L , Mean Corpuscular Volume 95, Mean Corpuscular Hemoglobin 29.8, Mean Corpuscular Hemoglobin Concent 31.4L, Red Cell Distribution Width 14.4, Platelet Count 565H, Mean Platelet Volume 5.6L, Neutrophils (%) (Auto) 68.3, Lymphocytes (%) (Auto) 24.1, Monocytes (%) (Auto) 4.3, Eosinophils (%) (Auto) 2.4, Basophils (%) (Auto) 0.8, Sodium Level 133L, Potassium Level 4.3, Chloride Level 99, Carbon Dioxide Level 34H, Anion Gap 0L, Blood Urea Nitrogen 19H, Creatinine 0.7, Estimat Glomerular Filtration Rate , Glucose Level 142H, Calcium Level 8.5, Total Bilirubin 0.1L, Aspartate Amino Transf (AST/SGOT) 23, Alanine Aminotransferase (ALT/SGPT) 18, Alkaline Phosphatase 128H, Total Protein 6.6, Albumin 2.1L, Globulin 4.5, Albumin/Globulin Ratio 0.5L Height (Feet): 5 Height (Inches): 2.00 Weight (Pounds): 101 Objective Elderly WM NCAT supple CTA RR abd soft (+) GT no edema OBS Eduardo Kelley MD Jun 29, 2019 16:08
--- NOTE | 2019-06-29 20:48 | Surgery Progress Note ---
Surgery Progress Note Subjective Additional Comments late entry as patient seen and examined earlier improved plan for d/c today Objective Last 24 Hour Vital Signs Date Time Temp Pulse Resp B/P (MAP) Pulse Ox O2 Delivery O2 Flow Rate FiO2 06/29/19 16:00 98.7 66 18 106/51 (69) 95 06/29/19 12:05 97.7 89 20 139/79 (99) 97 06/29/19 09:00 Room Air 06/29/19 08:00 96.1 68 19 108/54 (72) 98 06/29/19 04:00 97.3 68 19 107/58 (74) 93 06/29/19 00:00 97.4 66 19 112/51 (71) 98 06/28/19 22:10 Room Air I&O Intake and Output 06/28/19 06/29/19 19:00 07:00 Intake Total 780 ml 1020 ml Output Total 500 ml Balance 280 ml 1020 ml Intake Free Water 300 ml Tube Feeding 780 ml 720 ml Output Urine Total 500 ml Dressing: other Wound: other Drains: other Cardiovascular: RSR Respiratory: clear, decreased breath sounds Abdomen: soft, present bowel sounds, non-distended Extremities: no cyanosis, other Laboratory Tests Test 06/29/19 05:25 White Blood Count 7.3 K/UL (4.8-10.8) Red Blood Count 2.95 M/UL (4.70-6.10) L Hemoglobin 8.8 G/DL (14.2-18.0) L Hematocrit 28.0 % (42.0-52.0) L Mean Corpuscular Volume 95 FL (80-99) Mean Corpuscular Hemoglobin 29.8 PG (27.0-31.0) Mean Corpuscular Hemoglobin Concent 31.4 G/DL (32.0-36.0) L Red Cell Distribution Width 14.4 % (11.6-14.8) Platelet Count 565 K/UL (150-450) H Mean Platelet Volume 5.6 FL (6.5-10.1) L Neutrophils (%) (Auto) 68.3 % (45.0-75.0) Lymphocytes (%) (Auto) 24.1 % (20.0-45.0) Monocytes (%) (Auto) 4.3 % (1.0-10.0) Eosinophils (%) (Auto) 2.4 % (0.0-3.0) Basophils (%) (Auto) 0.8 % (0.0-2.0) Sodium Level 133 MMOL/L (136-145) L Potassium Level 4.3 MMOL/L (3.5-5.1) Chloride Level 99 MMOL/L (98-107) Carbon Dioxide Level 34 MMOL/L (21-32) H Anion Gap 0 mmol/L (5-15) L Blood Urea Nitrogen 19 mg/dL (7-18) H Creatinine 0.7 MG/DL (0.55-1.30) Estimat Glomerular Filtration Rate mL/min (>60) Glucose Level 142 MG/DL (74-106) H Calcium Level 8.5 MG/DL (8.5-10.1) Total Bilirubin 0.1 MG/DL (0.2-1.0) L Aspartate Amino Transf (AST/SGOT) 23 U/L (15-37) Alanine Aminotransferase (ALT/SGPT) 18 U/L (12-78) Alkaline Phosphatase 128 U/L (46-116) H Total Protein 6.6 G/DL (6.4-8.2) Albumin 2.1 G/DL (3.4-5.0) L Globulin 4.5 g/dL Albumin/Globulin Ratio 0.5 (1.0-2.7) L Plan Problems: (1) Decubitus skin ulcer Assessment & Plan: Pt presented on admission with multiple pressure injuries. Unstageable pressure injury L deltoid(L)0.8cm x (W)1xcm. Necrotic cap with marginal slough. Erythema noted periwound. Non-blanching erythema scrotum with scattered partial thickness wounds(L)1.5cm x (W)1.7cm. Wounds are moist and viable. Non-blanchable erythema without fluctuance noted to sacrum, R and L ischium. Reabsorbing serous blister noted to medial R heel. Periwound R heel is boggy with non-blanching erythema extending into plantar aspect of heel.(L)2.5cm x (W) 3cm. Serous blister with dark center noted to L heel. Periwound L heel is boggy with non-blanching erythema.(L)5cm x (W)6.5cm. Pt is at risks for further skin breakdown to restlessness. As prevention Cavilon Skin Barrier applied to both shoulders Tx.Plan: Apply Betadine to wound L deltoid. Cover with Optifoam drsg. Change every 3 days and prn. Apply Moisture Barrier Paste to Sacrum , R and L ischium. Cover each site with Optifoam drsg. Change every 3 days and prn. Apply Moisture Barrier Paste to Scrotum. Cover with Optifoam drsg. Change every 3 days and prn. Apply Betadine to R and L heel. Cover each heel with Optifoam drsgs. Change every 7 days and prn. Reposition at least every 2hours or as tolerated. Off-load heels with Pillow. Apply Cavilon To bony prominences. Cover with Optifoam drsgs prn. Nutritional optimization as below We will follow with recommendations thank you for let me participate patient's care DAILY ESTIMATED NEEDS: Needs based on Underweight, wounds 45.9kg 30-35 kcals/kg 3388-6696 total kcals 1.25-1.5 g protein/kg 57-69 g total protein Fluid per MD, on lasix NUTRITION DIAGNOSIS: 1) Increased kcal and pro needs r/t underweight status and wound healing as evidenced by pt w/ multiple wounds, pending eval, @86% of ideal body weight w/ generalized moderate wasting. 2) Chewing/ swallowing difficulties r/t dysphagia as evidenced by pt w/ Parkinsons, now GT dep. ENTERAL NUTRITION RECOMMENDATIONS: Maintain Osmolite 1.2 @60ml/hr x20 hrs to provide 1200ml, 1440 kcal, 67g pro, 984ml free H2O - Maintain current TF rate as tolerated - HOLD TF: 1 hr before and after both synthroid and dilantin meds - flush per MD/ HOB over 30 degrees ADDITIONAL RECOMMENDATIONS: 1) RE-calibrate bed scale for accurate CBW 2) F/up w/ WC: add MARISELA in 4oz water BID via GT 3) Monitor BG- need for TF change or ssi 4) Check lytes and hydration status daily on TF; pt on lasix cont with above wound care upon d/c cont with nutritional plan (2) Protein-calorie malnutrition, severe Assessment & Plan: DAILY ESTIMATED NEEDS: Needs based on Underweight, wounds 45.9kg 30-35 kcals/kg 6752-6715 total kcals 1.25-1.5 g protein/kg 57-69 g total protein Fluid per MD, on lasix NUTRITION DIAGNOSIS: 1) Increased kcal and pro needs r/t underweight status and wound healing as evidenced by pt w/ multiple wounds, refer to WC eval, @86% of ideal body weight w/ generalized moderate wasting. 2) Chewing/ swallowing difficulties r/t dysphagia as evidenced by pt w/ Parkinsons, now GT dep. CURRENT TF:Osmolite 1.2 @60 x18 hrs ENTERAL NUTRITION RECOMMENDATIONS: INCREASE Osmolite 1.2 @65ml/hr x18 hrs to provide 1170ml, 1404 kcal, 65g pro, 959ml free H2O - WITH DILANTIN NOW INCREASED TO BID + SYNTHROID MEDS, TF NOW HELD FOR 6 HRS PER DAY. ---> REC TO INCREASE RATE TO 65 ML/HR X18 HRS TO MEET EST PRO AND KCAL NEEDS. - HOLD TF: 1 hr before and after both synthroid and dilantin meds - flush per MD/ HOB over 30 degrees ADDITIONAL RECOMMENDATIONS: 1) RE-calibrate bed scale for accurate CBW 2) WOUND CARE add MARISELA in 4oz water BID via GT + Vit C 250mg BID via GT 3) Monitor BG- need for TF change or ssi-> good glycemic control 4) Check lytes and hydration status daily on TF; pt on lasix Stu Teran Jun 29, 2019 20:48
--- NOTE | 2019-06-30 08:23 | Discharge Summary ---
Discharge Summary Discharge Summary _ DATE OF ADMISSION: 06/22/2019 DATE OF DISCHARGE: 06/29/2019 DISCHARGED BY: Dr. Gandhi REASON FOR ADMISSION: 83 years old male with past medical history of recurrent aspiration pneumonia, history of developmental delay, Parkinson disease, seizure disorder, hypothyroidism, GERD, hypertension, hyperlipidemia, BPH, history of Tran's esophagitis esophagus, anemia, osteoporosis, history of skin graft, dysphagia, feeding by G-tube, presented to emergency department via paramedics due to altered mental status. Upon evaluation in ED patient was found to have urinary tract infection. Laboratory work-up revealed mild leukocytosis and anemia, thrombocytosis, mild dehydration BUN 23, creatinine 0.6 . Lactic acid 1.6 . Troponin negative , pro BNP 2227 . AST 50, ALT 19 . Albumin 2.1. Urinalysis revealed gross evidence of UTI. Chest x-ray revealed diffuse bilateral, right greater than left ,interstitial and airspace edema versus infiltrate ,possible small right pleural effusion. Patient had indwelling Madison catheter due to urinary retention. Patient started on empiric antibiotic , pancultured and admitted for further management. CONSULTANTS: ID specialist Dr. Christine GI specialist Dr. Kelley surgery Dr. Teran urologist Dr. Trinidad [facility] COURSE: Patient admitted to medical surgical floor . patient started on empiric antibiotic as per ID specialist recommendation. Blood cultures were negative. Urine culture revealed Enterococcus faecalis and Mckayla. Sputum culture revealed Staph aureus and Enterobacter. Urologist followed. Patient with history of urinary retention and chronic Madison catheter. Madison catheter was exchanged on 06/26. Catheter closely secured to patient leg. Urologist recommend hand irrigation as needed and completed antibiotics as per ID specialist recommendations. Patient was continued on Flomax and Proscar. Urologist recommended cystoscopy to be arranged later date after cleared from infection. Patient was followed-up with chest x-ray. Supplemental oxygen provided and titrated to keep pulse oximetry above 92%. Bronchodilator treatment with via HHN provided as needed. Mckayla in urine was likely colonizer. Initially started Diflucan was discontinued. Prior to discharge antibiotic changed to G-tube route to complete the course at the facility. DVT prophylaxis provided. Sinemet continued. Seizure precaution maintained. Keppra and Dilantin continued. No evidence of seizure activity while in the hospital. Hemoglobin and hematocrit were closely monitored with goal to keep hemoglobin above 7. Prior to discharge hemoglobin 8.8, hematocrit 28. Platelet count down to 565 from initial 806 . GI specialist followed. Bowel regimen instituted. Constipation resolved. G-tube site care provided. Patient undergone exchange of the G-tube at the bedside since prior G tube was with a Madison catheter. Patient was able to tolerate tube feeding . G-tube site care provided. Strict aspiration precaution maintained. GI prophylaxis with PPI provided. Tube feeding formula with goal rate and protein supplements provided as per registered associate recommendation. Patient presented with multiply pressure injury. Wound care provided as per surgeon recommendation. Continue wound care at the facility. FINAL DIAGNOSES: Altered mental status likely due to UTI Enterococci/Mckayla UTI Urinary retention with chronic Madison MSSA and Enterobacter pneumonia with history of recurrent aspiration pneumonia Leukocytosis-resolved Failure to thrive Dysphagia , feeding by G-tube Status post G-tube change at the bedside GERD Tran's esophagus Constipation Parkinson disease Seizure disorder History of developmental delay Anemia Thrombocytosis Decubitus skin ulcer , present on admission/multiply pressure injuries Severe protein calorie malnutrition BPH Probable neurogenic bladder DISCHARGE MEDICATIONS: See Medication Reconciliation list. DISCHARGE INSTRUCTIONS: Patient was discharged to the [facility] facility. Follow up with medical doctor at the facility. I have been assigned to dictate discharge summary for this account. I was not involved in the patient's management. Chery Camarillo NP Jun 30, 2019 08:23
[2019-07-03] MEDS ORDERED: AUGMENTIN 875-1 EAC1 GT (11:22)
[2019-07-03] MEDS ORDERED: SINEMET 25-1001 EAC1 ORAL (11:24)
[2019-07-15] MEDS ORDERED: PAIN RELIEVER650 MG GT (16:21)
[2019-07-15] MEDS ORDERED: ACETYLCYST200 MG/1 M HHN (16:23)
[2019-07-15] MEDS ORDERED: ASCORBIC ACID500 MG GT (16:24)
[2019-07-15] MEDS ORDERED: FAMOTIDINE20 MG GT (16:25)
[2019-07-15] MEDS ORDERED: HEPARIN SO5000 UNIT2 SUBQ (16:26)
[2019-07-15] MEDS ORDERED: DUONEB 0.5-3(2.53 ML HHN (16:28)
[2019-07-15] MEDS ORDERED: KEPPRA500 M3 GT (16:29)
[2019-07-15] MEDS ORDERED: SINEMET CR 25/101 EA GT (16:32)
[2019-07-15] MEDS ORDERED: SYNTHROID150 MCG GT (16:33)
[2019-07-15] MEDS ORDERED: ATIVAN1 MG GT (16:34)
[2019-07-15] MEDS ORDERED: PHENYTOIN100 MG/4 M GT (16:37)
[2019-07-15] MEDS ORDERED: SEROQUEL25 MG GT (16:39)
== END 2019-06-29 19:35 | DRG 698 ==
LOC: EDBD 15:54 → EMR 16:45 → EDBEDREQ 17:16 → 4E 17:40 → EDBEDREQ 18:34 → 4E 22:21
DX: T83.511A Infection and inflammatory reaction due to indwelling urethral catheter, initial encounter (principal); E43 Unspecified severe protein-calorie malnutrition; J15.6 Pneumonia due to other Gram-negative bacteria; J15.211 Pneumonia due to Methicillin susceptible Staphylococcus aureus; G92 Toxic encephalopathy; Z68.1 Body mass index [BMI] 19.9 or less, adult; B37.49 Other urogenital candidiasis; R41.82 Altered mental status, unspecified; G20 Parkinson's disease; L89.152 Pressure ulcer of sacral region, stage 2; L89.890 Pressure ulcer of other site, unstageable; L89.629 Pressure ulcer of left heel, unspecified stage; L89.619 Pressure ulcer of right heel, unspecified stage; Z78.1 Physical restraint status; N31.9 Neuromuscular dysfunction of bladder, unspecified; Z93.1 Gastrostomy status; R13.10 Dysphagia, unspecified; K21.0 Gastro-esophageal reflux disease with esophagitis; K22.70 Barrett's esophagus without dysplasia; F79 Unspecified intellectual disabilities; B95.2 Enterococcus as the cause of diseases classified elsewhere; D72.829 Elevated white blood cell count, unspecified; D47.3 Essential (hemorrhagic) thrombocythemia; E78.5 Hyperlipidemia, unspecified; G40.909 Epilepsy, unspecified, not intractable, without status epilepticus; N40.0 Benign prostatic hyperplasia without lower urinary tract symptoms; M81.0 Age-related osteoporosis without current pathological fracture
CPT/HCPCS: 36415; 71045; 80048; 80053; 80061; 80299; 81003; 82550; 82553; 83036; 83605; 83735; 83880; 84100; 84443; 84484; 85007; 85025; 87040; 87070; 87081; 87086; 87181; 87205; 93005; 94664; 96361; 96365; 99285; J7030